=== PATIENT | male | born 1960 | race Caucasian/White ===

== ENCOUNTER 2019-04-02 17:05 | Emergency (ER) | payer OTHER ==
--- NOTE | 2019-04-02 17:50 | ED ---
Psych HPI - General Chief Complaint: Psychiatric Symptoms Stated Complaint: EPS eval Time Seen by Provider: 04/02/19 17:09 Source: patient, RN notes reviewed, old records reviewed Mode of arrival: ambulatory - Related Data Home Medications Medication Instructions Recorded Confirmed tiZANidine [Zanaflex] 4 mg PO TID PRN 03/07/15 04/02/19 HYDROcodone/APAP 5-325MG [Rule 1 tab PO BID PRN 04/02/19 04/02/19 5-325] Ibuprofen [Motrin] 800 mg PO TID PRN 04/02/19 04/02/19 Lipitor(Unknown Dose) 1 tab PO DAILY 04/02/19 04/02/19 Metoprolol Tartrate [Lopressor] 50 mg PO BID 04/02/19 04/02/19 Warfarin Sodium [Coumadin] 7.5 mg PO DAILY 04/02/19 04/02/19 Allergies Allergy/AdvReac Type Severity Reaction Status Date / Time Penicillins AdvReac Rash/Hives Verified 03/07/15 10:00 Review of Systems ROS Statement: Those systems with pertinent positive or pertinent negative responses have been documented in the HPI. ROS Other: All systems not noted in ROS Statement are negative. Past Medical History Past Medical History: Hypertension History of Any Multi-Drug Resistant Organisms: None Reported Past Surgical History: Orthopedic Surgery Past Psychological History: Depression Smoking Status: Never smoker Past Alcohol Use History: Occasional Past Drug Use History: None Reported General Exam Limitations: no limitations General appearance: alert, in no apparent distress, anxious Head exam: Present: atraumatic, normocephalic, normal inspection Eye exam: Present: normal appearance, PERRL, EOMI. Absent: scleral icterus, conjunctival injection, periorbital swelling ENT exam: Present: normal exam, mucous membranes moist Neck exam: Present: normal inspection. Absent: tenderness, meningismus, lymphadenopathy Respiratory exam: Present: normal lung sounds bilaterally. Absent: respiratory distress, wheezes, rales, rhonchi, stridor Cardiovascular Exam: Present: regular rate, normal rhythm, normal heart sounds. Absent: systolic murmur, diastolic murmur, rubs, gallop, clicks GI/Abdominal exam: Present: soft, normal bowel sounds. Absent: distended, tenderness, guarding, rebound, rigid Extremities exam: Present: normal inspection, full ROM, normal capillary refill. Absent: tenderness, pedal edema, joint swelling, calf tenderness Back exam: Present: normal inspection Neurological exam: Present: alert, oriented X3, CN II-XII intact Psychiatric exam: Present: normal affect, normal mood Skin exam: Present: warm, dry, intact, normal color. Absent: rash Course Vital Signs 04/02/19 17:06 Temperature 98.0 F Pulse Rate 84 Respiratory 18 Rate Blood Pressure 120/78 O2 Sat by Pulse 96 Oximetry - Reevaluation(s) Reevaluation #1: 04/02/19 21:17 Medical record and clear for psychiatric evaluation Reevaluation #2: 04/02/19 21:21 patient in pain and very sad and cryin Medical Decision Making - Medical Decision Making 59 male will be admitted for inpatient psychiatric evaluation and treatment Disposition Clinical Impression: Suicidal ideation, Depression, Acute anxiety Disposition: TRANSFER TO PSYCH HOSP/UNIT Condition: Fair Is patient prescribed a controlled substance at d/c from ED?: No Referrals: Mendel Rosenthal MD [Primary Care Provider] - 1-2 days
[2019-04-02] MEDS ORDERED: tiZANidine 4 MG TAB PO PRN (20:40)
[2019-04-02 21:29] LABS: HGB 13.2 gm/dL (13.0-17.5); MCH 29.6 pg (25.0-35.0); MCHC 33.9 g/dL (31.0-37.0); MCV 87.3 fL (80.0-100.0); Mean Platelet Volume 6.6; Platelet Count 205 k/uL (150-450); RBC 4.46 m/uL (4.30-5.90); RDW 13.6 % (11.5-15.5); WBC 7.3 k/uL (3.8-10.6)
[2019-04-02 21:38] LABS: African American GFR (CKD) >90 (>60 ml/min/1.73 sqM); Anion Gap 5 mmol/L; Blood Urea Nitrogen 14 mg/dL (9-20); Calcium 8.7 mg/dL (8.4-10.2); Carbon Dioxide 24 mmol/L (22-30); Chloride 112 mmol/L (98-107); Glucose 128 mg/dL (74-99); Potassium 4.1 mmol/L (3.5-5.1); Sodium 141 mmol/L (137-145)
[2019-04-03 06:48] LABS: Appearance,Urine Clear (Clear); Bilirubin,Urine Negative (Negative); Blood,Urine Negative (Negative); Color,Urine Yellow; Glucose,Urine (UA) Negative (Negative); Ketones,Urine Negative (Negative); Leukocyte Esterase,Urine Negative (Negative); Nitrite,Urine Negative (Negative); PH, Urine 5.5 (5.0-8.0); Protein,Urine Negative (Negative); Specific Gravity,Urine 1.018 (1.001-1.035)
[2019-04-03 06:55] LABS: INR 1.9 (<1.2); Prothrombin Time 18.4 sec (9.0-12.0)
[2019-04-03 06:59] LABS: Amphetamine Screen,Urine Not Detected (NotDetected); Barbiturate Screen,Urine Not Detected (NotDetected); Benzodiazepines Screen,Urine Not Detected (NotDetected); Cocaine Screen,Urine Detected (NotDetected); Methadone Screen, Urine Not Detected (NotDetected); Opiate Screen,Urine Not Detected (NotDetected); Oxycodone Screen, Urine Not Detected (NotDetected); Phencyclidine Screen,Urine Not Detected (NotDetected); Tricyclic Antidepressant,Urine Not Detected (NotDetected); Urn Cannabinoid Scrn Not Detected (NotDetected)
[2019-04-03 08:37] VITALS: BP 110/78; PULSE 81; RESP 19; TEMP 98
== END 2019-04-03 08:40 ==
LOC: EC 17:05
DX: F32.9 Major depressive disorder, single episode, unspecified (principal); F41.9 Anxiety disorder, unspecified; R45.851 Suicidal ideations; I10 Essential (primary) hypertension; Z88.0 Allergy status to penicillin; Z79.01 Long term (current) use of anticoagulants; Z79.899 Other long term (current) drug therapy
CPT/HCPCS: 36415; 80048; 80306; 81003; 82075; 85027; 85610; 99285

== ENCOUNTER → 2021-03-23 | Outpatient (CLI) | payer OTHER ==
[2021-03-23 11:31] LABS: Prothrombin Time 10.5 sec (9.0-12.0)
[2021-03-23 11:37] LABS: Basophils # (A) 0.1 k/uL (0-0.2); Basophils % (A) 1 %; Chloride 111 mmol/L (98-107); Eosinophils % (A) 1 %; HCT 42.8 % (39.0-53.0); HGB 14.8 gm/dL (13.0-17.5); Lymphocytes # (A) 1.3 k/uL (1.0-4.8); Lymphocytes % (A) 22 %; MCH 31.9 pg (25.0-35.0); MCHC 34.7 g/dL (31.0-37.0); MCV 92.1 fL (80.0-100.0); Mean Platelet Volume 7.6; Monocytes # (A) 0.3 k/uL (0-1.0); Monocytes % (A) 5 %; Neutrophils % (A) 70 %; Platelet Count 186 k/uL (150-450); RBC 4.65 m/uL (4.30-5.90); RDW 13.4 % (11.5-15.5); WBC 5.7 k/uL (3.8-10.6)
[2021-03-23 11:40] LABS: African American GFR (CKD) >90 (>60 ml/min/1.73 sqM); Anion Gap 6 mmol/L; Blood Urea Nitrogen 20 mg/dL (9-20); Calcium 9.1 mg/dL (8.4-10.2); Carbon Dioxide 25 mmol/L (22-30); Glucose 85 mg/dL (74-99); Non-African American GFR(CKD) >90 (>60 ml/min/1.73 sqM); Potassium 4.2 mmol/L (3.5-5.1); Sodium 142 mmol/L (137-145)
== END | disposition home or self-care (01) ==
LOC: PAT 10:02
PROVIDERS: ATTEND Orthopaedic Surgery
DX: Z22.321 Carrier or suspected carrier of Methicillin susceptible Staphylococcus aureus (principal); M16.11 Unilateral primary osteoarthritis, right hip
CPT/HCPCS: 36415; 80048; 85025; 85610; 87070

== ENCOUNTER 2021-03-31 05:44 | Day surgery (SDC) | payer OTHER ==
[2021-03-27 09:16] VITALS: BMI 32.5
--- NOTE | 2021-03-30 08:37 | HP ---
HISTORY AND PHYSICAL CHIEF COMPLAINT: Right hip pain. HISTORY OF PRESENT ILLNESS: Patient is a 61-year-old male who presents with progressive right hip pain for the past several years. It has worsened recently. He has had a difficult time with weightbearing activities. He ambulates with a cane. He notes he does limp. He has tried medications in addition to activity modifications without much relief. PAST MEDICAL HISTORY: Significant for atrial fibrillation, hypertension, and arthritis. PAST SURGICAL HISTORY: Significant for right shoulder fracture fixation, pacemaker implantation. CURRENT MEDICATIONS: Amiodarone, aspirin, Lipitor, Restoril, Wellbutrin, Plavix and Zanaflex. ALLERGIES: He has allergies to PENICILLIN and ADHESIVE TAPE. FAMILY HISTORY: Noncontributory. SOCIAL HISTORY: Negative for current tobacco or alcohol use. REVIEW OF SYSTEMS: Sixteen-point review of systems otherwise reviewed and noncontributory. PHYSICAL EXAMINATION: On examination, patient is approximately 5 foot 10, 210 pounds of endomorphic habitus. HEENT exam is nonfocal. Neck is supple. Passive motion of the right hip, flexion 80 degrees, external rotation, hip flexed 50 degrees, internal rotation -10 degrees with pain. Clinically, he has shortening of the right lower extremity compared to the left. He has an antalgic gait pattern. He has limited lumbar spine motion. His distal neurovascular exam appears intact in the right lower extremity. X-rays of the pelvis show severe bilateral hip osteoarthrosis with [id number] changes, subchondral sclerosis. IMPRESSION: 1. Right hip severe osteoarthrosis. 2. Atrial fibrillation on anticoagulation. RECOMMENDATIONS: I talked to the patient at length regarding his condition and treatment options. At this point, he is quite limited and symptomatic because of pain related to his osteoarthrosis despite previous conservative measures. After thorough discussion, he opts to proceed with surgery. We will plan proceed with right total hip arthroplasty utilizing an anterior approach. We will reinstitute his anticoagulation postoperatively. He underwent preoperative medical and cardiac clearance. MMODL / IJN: [id number] /
[~2021-03-31 05:44] MED LIST: ACETAMINOPHEN TAB 500 MG TAB PO PRN; MELOXICAM 7.5 MG TAB PO PRN; TRANEXAMIC ACID 1,000 MG in SODIUM CHLORIDE 0.9% 100 ML IVPB PRN
[2021-03-31] MEDS ORDERED: ONDANSETRON 4 MG/2 ML VIAL IVP ONE (05:57)
[2021-03-31] MEDS ORDERED: SCOPOLAMINE 1.5MG/72HR PATCH TRANSDERM ONE (05:57)
[2021-03-31] MEDS ORDERED: LACTATED RINGERS 1,000 ML IV SCH (05:57)
[2021-03-31] MEDS ORDERED: MIDAZOLAM 2 MG/2 ML VIAL IV PRN (05:57)
[2021-03-31] MEDS ORDERED: DEXAMETHASONE SOD PHOSPHATE 4 MG/ML 1 ML VIAL IV ONE (05:57)
[2021-03-31] MEDS ORDERED: MIDAZOLAM 2 MG/2 ML VIAL ONE (07:47)
[2021-03-31] MEDS ORDERED: fentaNYL (PF) 50 MCG/ML 2 ML AMP ONE (07:47)
[2021-03-31] MEDS ORDERED: TRANEXAMIC ACID 1,000 MG/10 ML VIAL ONE (07:47)
[2021-03-31] MEDS ORDERED: SUCCINYLCHOLINE CHLORIDE 100 MG/5 ML SYR IV ONE (07:47)
[2021-03-31] MEDS ORDERED: SODIUM CHLORIDE 0.9% 100 ML BAG ONE (07:47)
[2021-03-31] MEDS ORDERED: LIDOCAINE 1% INJ 10MG/ML (20 ML MDV) ONE (07:47)
[2021-03-31] MEDS ORDERED: PROPOFOL 10 MG/ML 20 ML VIAL IV ONE (07:47)
[2021-03-31] MEDS ORDERED: ceFAZolin 1,000 MG in SODIUM CHLORIDE 0.9% 1,000 ML IRRIGATION ONE (08:26)
[2021-03-31] MEDS ORDERED: LACTATED RINGERS 1,000 ML IV ONE (09:19)
[2021-03-31] MEDS ORDERED: NALOXONE 0.4 MG/ML 1 ML VIAL IV PRN (09:54)
[2021-03-31] MEDS ORDERED: HYDROmorphone 1 MG/ML 1 ML SYRINGE IVP PRN (09:54)
[2021-03-31] MEDS ORDERED: MAGNESIUM HYDROXIDE 2,400 MG/10 ML CUP PO PRN (09:54)
[2021-03-31] MEDS ORDERED: HYDROmorphone 0.5 MG/0.5 ML SYRINGE IVP PRN (09:54)
[2021-03-31] MEDS ORDERED: ACETAMINOPHEN TAB 325 MG TAB PO PRN (09:54)
[2021-03-31] MEDS ORDERED: HYDROcodone/APAP 5-325MG 1 EACH TAB PO PRN (09:54)
[2021-03-31] MEDS ORDERED: ONDANSETRON 4 MG/2 ML VIAL IVP PRN (09:54)
--- NOTE | 2021-03-31 10:16 | FL ---
EXAMINATION TYPE: FL guidance operating room, XR Hip Limited RT DATE OF EXAM: 03/31/2021 CLINICAL HISTORY: Right hip pain and osteoarthritis. TECHNIQUE: Fluoroscopy. Intraoperative limited views right hip. COMPARISON: Pelvic x-ray February 09, 2021. FINDINGS: Fluoroscopic guidance was provided during right hip replacement procedure performed by Dr. Max. A total of 34 seconds of fluoroscopic time was utilized during the procedure and 6 spot imag es was acquired. 6 intraoperative images obtained show metallic artifact from total right hip arthroplasty satisfactor y in position on frontal projection. IMPRESSION: As Above.
--- NOTE | 2021-03-31 10:17 | P.OP ---
Date of Procedure: 03/31/21 Preoperative Diagnosis: Right hip severe osteoarthrosis Postoperative Diagnosis: Same Procedure(s) Performed: Right total hip arthroplastyanterior approachpress-fit Implants: Depuy Corail size 11 high offset collared cementless femoral stem, 54 mm Sweeden acetabular shell, neutral polyethylene liner, 36+1.5 cobalt chrome femoral head Anesthesia: CLARA Surgeon: Adiel Max Relay Tester Helper #1: Fredo Tripathi Estimated Blood Loss (ml): 600 Pathology: other (Femoral head) Condition: stable Disposition: PACU Indications for Procedure: The patient's a 61-year-old male who presents with progressive right hip pain secondary to osteoarthrosis despite conservative measures. A discussion of the risks and benefits of operative intervention versus continued conservative measures made with patient. He opted proceed with surgery. Operative risks to include infection, neurovascular injury, development of blood clots, fracture, leg length discrepancy, instability, possible component loosening/failure and need for subsequent procedures was discussed. Informed consent was obtained. Operative Findings: As below Description of Procedure: The patient was brought to the operating room, and after induction of spinal anesthesia was placed supine on the Flcaa table. Positioning was checked with fluoroscopy. The right hip was then prepped and draped in a normal fashion. A 12 cm incision was then made starting 2 fingerbreadths distal and 3 finger breaths posterior to the ASIS in line with the proximal femur. The skin was incised sharply. Subcutaneous tissues were divided sharply. Electrocautery was used for hemostasis. The fascia was split in line with skin incision. The interval between the sartorius and tensor fascia rachel was then bluntly developed. The posterior fascia was opened with electrocautery. The lateral circumflex vessels were identified and cauterized prior to sectioning. A retractor was placed along the superior femoral neck as well as the anterior acetabular rim. A wide capsulotomy was performed. The neck cut was then made at a 45 angle to the shaft approximately 1 1/2 cm above the level of the lesser trochanter. The head was extracted. Attention was then paid towards preparing the acetabular. Anterior and posterior retractors were placed. The remaining capsular labral tissue sharply debrided clearly defining the aceta bular margins. I began reaming with a 49 mm reamer taking care to initially medialize then reaming at 45 of abduction and 20 of anteversion. Sequential reaming is performed up to 53 mm. A trial 54 mm acetabular shell was inserted in the same orientation and was fully seated. There was good rim fit and stability. Positioning was checked with fluoroscopy. The final 54 mm acetabular shell was inserted again at 45 of abduction and 20 of anteversion. This was fully seated. There was good rim fit and stability. A posterior superior 6.5 x 25 mm cancellus screw was inserted with good purchase. Again fluoroscopy was used to check the adequacy of placement. A neutral polyethylene liner was gently impacted. Care was taken to avoid any soft tissue interposition. Pulsatile lavage was utilized. Attention was then paid towards preparing the proximal femur. The central region was cleared of soft tissue. A canal finder was used to find the femoral canal. Sequential broaching was performed up to size 11 taking care to lateralize proximally. A calcar mill was used to fashion the medial calcar. There was good rotational stability. A high offset neck along with a 36 mm +1.5 head was placed. The hip was gently reduced. Fluoroscopy was used to check the adequacy of positioning along with leg lengths. I felt both were good. The hip was gently dislocated. The trial components were removed. The final size 11 collared standard press-fit femoral stem was inserted parallel to the posterior cortex. This was fully seated and there was good rotational stability. A 36 mm +1.5 cobalt chrome femoral head was placed. This was gently impacted. The hip was then gently reduced. Final fluoroscopic view showed adequate placement implant along with faith of leg length. Stability was checked with 80 of external rotation and 60 of extension of the right hip. The wound was irrigated with sterile lavage. The fascia was closed with running 0 Vicryl suture. There was minimal drainage therefore a deep drain was not placed. The second dose of IV TXA was given. The subcutaneous tissues were reapproximated interrupted 2-0 Vicryl sutures. The skin was reapproximated with 3-0 subcuticular strata fix suture. Skin tape and adhesive was applied. A sterile dressing was applied. The patient was then awoken from sedation and transferred to recovery room in good condition. Blood loss was estimated at 600 mL. No complications were incurred. Sponge and needle counts were correct at the end of the case. Daniel REYNOLDS assisted during the major components in the case to include exposure, bone resection, implantation, and closure.
[2021-03-31] MEDS: HYDROmorphone 0.5 MG/0.5 ML SYRINGE IVP PRN ×2 (10:22→10:41)
--- NOTE | 2021-03-31 10:43 | XR ---
EXAMINATION TYPE: XR Hip Limited RT DATE OF EXAM: 03/31/2021 CLINICAL HISTORY: Right hip pain and osteoarthritis. TECHNIQUE: Single AP portable view of right hip is obtained immediately postoperatively. COMPARISON: None. FINDINGS: Metallic hardware from right hip arthroplasty is seen and appears satisfactory in alignment and position. There is evidence of recent surgery with subcutaneous gas noted laterally. IMPRESSION: Metallic hardware from right hip arthroplasty is satisfactory in position.
[2021-03-31] MEDS: HYDROcodone/APAP 7.5-325MG 1 EACH TAB PO PRN ×2 (14:52→21:52)
--- NOTE | 2021-03-31 16:15 | P.CONS ---
History of Present Illness - Reason for Consult Consult date: 03/31/21 med management - Chief Complaint hip pain - History of Present Illness 61-year-old male with history of atrial fibrillation status post Watchman procedure currently not on anticoagulation, hypertension presented for elective Right total hip arthroplasty. He just had the procedure today, was tolerated well. Currently denies any chest pain or shortness of breath. No dizziness. No fevers or chills. Pain is managed with pain medication. Review of Systems Complete review of system performed, pertinent positives pressure, otherwise negative Past Medical History Past Medical History: Hypertension History of Any Multi-Drug Resistant Organisms: None Reported Past Surgical History: Orthopedic Surgery Additional Past Surgical History / Comment(s): watchman device placed 10/10. rt shoulder reconstructed with plate and screws,lt knee scope x2 Past Anesthesia/Blood Transfusion Reactions: No Reported Reaction Type of Cardiac Device: Permanent Pacemaker Device Placement Date:: 2017 Smoking Status: Never smoker - Past Family History Mother Family Medical History: Cancer Additional Family Medical History / Comment(s): lung cancer Father Family Medical History: Deep Vein Thrombosis (DVT), Myocardial Infarction (MS), Pulmonary Embolus Medications and Allergies Home Medications Medication Instructions Recorded Confirmed Type tiZANidine [Zanaflex] 4 mg PO TID PRN 03/07/15 03/31/21 History Ibuprofen [Motrin] 800 mg PO TID PRN 04/02/19 03/31/21 History Lipitor(Unknown Dose) 1 tab PO DAILY 04/02/19 03/31/21 History Clopidogrel [Plavix] 75 mg PO DAILY 03/27/21 03/31/21 History DULoxetine HCL [Cymbalta] 30 mg PO BID 03/27/21 03/31/21 History Amiodarone [Cordarone] mg PO DAILY 03/31/21 03/31/21 History Diltiazem Oral [Cardizem] mg PO DAILY 03/31/21 History Allergies Allergy/AdvReac Type Severity Reaction Status Date / Time adhesive Allergy Rash/Hives Verified 03/31/21 06:50 Penicillins AdvReac Rash/Hives Verified 03/31/21 06:50 Physical Exam Vitals: Vital Signs Temp Pulse Pulse Resp BP BP Pulse Ox 03/31/21 11:00 61 16 141/74 96 03/31/21 10:45 63 16 138/69 96 03/31/21 10:30 71 14 143/81 96 03/31/21 10:13 97.1 F L 78 20 147/73 97 03/31/21 07:06 98.2 F 73 18 144/72 97 Intake and Output 03/30/21 03/31/21 03/31/21 22:59 06:59 14:59 Intake Total 100 1601 Balance 100 1601 Intake: IV 100 1601 Other: Weight 101.5 kg Constitutional: No acute distress, conversant, pleasant Eyes:Anicteric sclerae, moist conjunctiva, no lid-lag, PERRLA, ENMT: Oropharynx clear, no erythema, exudates Neck: Supple, FROM, no masses, or JVD, No carotid bruits, No thyromegaly Lungs: Clear to auscultation, Clear to percussion, Normal respiratory effort, no accessory muscle use Cardiovascular: Heart regular in rate and rhythm, No murmurs, gallops, or rubs, No peripheral edema Abdominal: Soft, Nontender, no guarding, rebound or rigidity, Normoactive bowel sounds, No hepatomegaly, No splenomegaly, No palpable mass Skin: Normal temperature, tone, texture, turgor, no induration, No subcutaneous nodules, No rash, lesions, No ulcers Extremities: No digital cyanosis, No clubbing, Pedal pulses intact and symmetrical, Radial pulses intact and symmetrical, No calf tenderness Psychiatric: Alert and oriented to person, place and time, appropriate affect, intact judgement Neuro: Muscles Strength 5/5 in all 4 extremities, Sensation to light touch grossly present throughout, Cranial nerves II-XII grossly intact, no focal sensory deficits Assessment and Plan Plan: Left hip pain status post Right total hip arthroplasty Management per surgery, pain control according to surgical service. Atrial fibrillation status post watchman device Hypertension, essential Depression Resume home medications. Obesity Structured outpatient weight loss DVT prophylaxis Please start once ok with surgery.
[2021-03-31] MEDS: DILTIAZEM CD 240 MG CAP.ER.24H PO SCH (17:23)
[2021-03-31] MEDS: SENNOSIDES-DOCUSATE SODIUM 1 EACH TAB PO SCH (21:52)
[2021-03-31] MEDS: DULoxetine HCL 30 MG CAPSULE.DR PO SCH (21:52)
[2021-04-01 07:07] LABS: Basophils % (A) 0 %; Eosinophils % (A) 0 %; HCT 38.5 % (39.0-53.0); HGB 12.9 gm/dL (13.0-17.5); Lymphocytes # (A) 0.8 k/uL (1.0-4.8); Lymphocytes % (A) 8 %; MCH 31.2 pg (25.0-35.0); MCHC 33.6 g/dL (31.0-37.0); Monocytes # (A) 0.9 k/uL (0-1.0); Monocytes % (A) 8 %; Neutrophils # (A) 9.3 k/uL (1.3-7.7); Neutrophils % (A) 83 %; Platelet Count 174 k/uL (150-450); RBC 4.14 m/uL (4.30-5.90); RDW 12.9 % (11.5-15.5); WBC 11.2 k/uL (3.8-10.6)
[2021-04-01] MEDS ORDERED: CLOPIDOGREL 75 MG TAB PO SCH (09:00)
[2021-04-01] MEDS: DILTIAZEM CD 240 MG CAP.ER.24H PO SCH (09:19)
[2021-04-01] MEDS: DULoxetine HCL 30 MG CAPSULE.DR PO SCH ×2 (09:19→20:16)
[2021-04-01] MEDS: AMIODARONE 100 MG TAB PO SCH (09:19)
[2021-04-01] MEDS: APIXABAN 2.5 MG TABLET PO SCH ×2 (09:19→20:16)
[2021-04-01] MEDS: HYDROcodone/APAP 7.5-325MG 1 EACH TAB PO PRN ×2 (09:20→16:43)
--- NOTE | 2021-04-01 09:44 | P.PN ---
Subjective Progress Note Date: 04/01/21 Principal diagnosis: Status post direct anterior right total hip arthroplasty Patient was evaluated today at bedside, he is resting comfortably in his hospital bed. He has not been up with physical therapy at this time. He does note some weakness in the right lower extremity. He notes most of the discomfort in the anterior thigh. He currently is having no chest pain, short ness of breath, nausea or vomiting. Objective - Vital Signs Vital signs: Vital Signs Temp 98.5 F 04/01/21 08:00 Pulse 60 04/01/21 08:00 Resp 16 04/01/21 08:00 BP 151/80 04/01/21 08:00 Pulse Ox 93 L 04/01/21 08:00 Intake & Output 03/31/21 04/01/21 04/01/21 18:59 06:59 18:59 Intake Total 1601 Output Total 1100 450 Balance 501 -450 Weight 101.5 kg Intake: IV 1601 Output: Urine 500 450 Estimated Blood Loss 600 Other: Voiding Method Urinal - Exam Right lower extremity: Incision is clean, dry, and intact. The exofin fusion tape is in good condition. There is minimal soft tissue swelling and ecchymosis surrounding the medial and lateral aspects of the incision. Calf is soft, no tenderness with palpation. Plantar flexion, dorsiflexion, EHL, FHL are intact. Sensory exam to light touch throughout the extremity is intact, dorsal pedis pulses 2+. - Labs CBC & Chem 7: 04/01/21 06:27 Labs: Abnormal Lab Results - Last 24 Hours (Table) 04/01/21 Range/Units 06:27 WBC 11.2 H (3.8-10.6) k/uL RBC 4.14 L (4.30-5.90) m/uL Hgb 12.9 L (13.0-17.5) gm/dL Hct 38.5 L (39.0-53.0) % Neutrophils # 9.3 H (1.3-7.7) k/uL Lymphocytes # 0.8 L (1.0-4.8) k/uL Assessment and Plan Assessment: Postoperative day #1 status post direct anterior right total hip arthroplasty Plan: Pain control, continue with current medications GI and DVT prophylaxis, patient has been transitioned to it a few different blood thinners by his toxicology teacher. He was currently taking Plavix prior to surgery. We'll discuss with medicine best choice for outpatient DVT prophylaxis Wound care instructions were discussed with the patient, this including icing and elevating along with showering Continue work with PT, recommend use of walker when ambulating Encourage incentive spirometer Internal medicine recommendations Discharge planning: Patient does live about 5 hours away, patient states that he will have a family member available tomorrow for taking home. This will provide us time to work case management to set up home health care for him. Plan for discharge on 04/02/2021 Time with Patient: Less than 30
--- NOTE | 2021-04-01 14:43 | P.PN ---
Subjective Progress Note Date: 04/01/21 Principal diagnosis: Hip pain Doing well. Ambulating with a walker. Objective - Vital Signs Vital signs: Vital Signs Temp 98.1 F 04/01/21 14:00 Pulse 64 04/01/21 14:00 Resp 16 04/01/21 14:00 BP 136/73 04/01/21 14:00 Pulse Ox 95 04/01/21 14:00 Intake & Output 03/31/21 04/01/21 04/01/21 18:59 06:59 18:59 Intake Total 1601 236 Output Total 1100 450 Balance 501 -450 236 Weight 101.5 kg Intake: IV 1601 Oral 236 Output: Urine 500 450 Estimated Blood Loss 600 Other: Voiding Method Urinal Urinal - Exam Constitutional: No acute distress, conversant, pleasant Eyes:Anicteric sclerae, moist conjunctiva, no lid-lag, PERRLA, ENMT: Oropharynx clear, no erythema, exudates Neck: Supple, FROM, no masses, or JVD, No carotid bruits, No thyromegaly Lungs: Clear to auscultation, Clear to percussion, Normal respiratory effort, no accessory muscle use Cardiovascular: Heart regular in rate and rhythm, No murmurs, gallops, or rubs, No peripheral edema Abdominal: Soft, Nontender, no guarding, rebound or rigidity, Normoactive bowel sounds, No hepatomegaly, No splenomegaly, No palpable mass Skin: Normal temperature, tone, texture, turgor, no induration, No subcutaneous nodules, No rash, lesions, No ulcers Extremities: No digital cyanosis, No clubbing, Pedal pulses intact and symmetrical, Radial pulses intact and symmetrical, No calf tenderness Psychiatric: Alert and oriented to person, place and time, appropriate affect, intact judgement Neuro: Muscles Strength 5/5 in all 4 extremities, Sensation to light touch grossly present throughout, Cranial nerves II-XII grossly intact, no focal se nsory deficits - Labs CBC & Chem 7: 04/01/21 06:27 Labs: Abnormal Lab Results - Last 24 Hours (Table) 04/01/21 Range/Units 06:27 WBC 11.2 H (3.8-10.6) k/uL RBC 4.14 L (4.30-5.90) m/uL Hgb 12.9 L (13.0-17.5) gm/dL Hct 38.5 L (39.0-53.0) % Neutrophils # 9.3 H (1.3-7.7) k/uL Lymphocytes # 0.8 L (1.0-4.8) k/uL Assessment and Plan Plan: Left hip pain status post Right total hip arthroplasty Management per surgery, pain control according to surgical service. Atrial fibrillation status post watchman device Hypertension, essential Depression Resume home medications. Obesity Structured outpatient weight loss DVT prophylaxis Can be started on either lovenox s.q or eliquis 2.5 mg bid for 35 days, he prefers eliquis.
[2021-04-01] MEDS: SENNOSIDES-DOCUSATE SODIUM 1 EACH TAB PO SCH (20:16)
[2021-04-02] MEDS: HYDROcodone/APAP 7.5-325MG 1 EACH TAB PO PRN ×3 (00:18→13:00)
[2021-04-02 08:07] VITALS: BP 112/71; PULSE 70; RESP 16; TEMP 98.5
[2021-04-02] MEDS: DILTIAZEM CD 240 MG CAP.ER.24H PO SCH (08:51)
[2021-04-02] MEDS: APIXABAN 2.5 MG TABLET PO SCH (08:52)
[2021-04-02] MEDS: AMIODARONE 100 MG TAB PO SCH (08:52)
[2021-04-02] MEDS: DULoxetine HCL 30 MG CAPSULE.DR PO SCH (08:52)
--- NOTE | 2021-04-02 09:26 | P.PN ---
Subjective Progress Note Date: 04/02/21 Principal diagnosis: Status post direct anterior right total hip arthroplasty Patient was evaluated today at bedside, he is resting comfortably in his hospital bed. He is progressing well at this time. He's been up ambulating a few different occasions. He is urinating with no difficulties. His pain is currently controlled. He currently is having no chest pain, shortness of breath, nausea or vomiting. Objective - Vital Signs Vital signs: Vital Signs Temp 98.5 F 04/02/21 08:00 Pulse 70 04/02/21 08:00 Resp 16 04/02/21 08:00 BP 112/71 04/02/21 08:00 Pulse Ox 97 04/02/21 08:00 Intake & Output 04/01/21 04/02/21 04/02/21 18:59 06:59 18:59 Intake Total 236 236 Output Total 325 Balance 236 -325 236 Intake: Oral 236 236 Output: Urine 325 Other: Voiding Method Urinal # Voids 1 - Exam Right lower extremity: Incision is clean, dry, and intact. The exofin fusion tape is in good condition. There is minimal soft tissue swelling and ecchymosis surrounding the medial and lateral aspects of the incision. Calf is soft, no tenderness with palpation. Plantar flexion, dorsiflexion, EHL, FHL are intact. Sensory exam to light touch throughout the extremity is intact, dorsal pedis pulses 2+. - Labs CBC & Chem 7: 04/01/21 06:27 Assessment and Plan Assessment: Postoperative day #2 status post direct anterior right total hip arthroplasty Plan: Pain control, plan for discharge home on [place] 7.5 mg/325 mg GI and DVT prophylaxis, was able to discuss with internal medicine yesterday medications for discharge, we will utilize Eliquis 2.5 mg twice a day for 30 days. I advised patient follow-up with his natural remedy consultant to discuss further use of an anticoagulant Wound care instructions were discussed with the patient, this including icing and elevating along with showering Home physical therapy and nursing after discharge Encourage incentive spirometer Internal medicine recommendations Discharge planning: planning for discharge today Time with Patient: Less than 30
--- NOTE | 2021-04-02 09:43 | P.DS ---
Providers Date of admission: 03/31/2021 Expected date of discharge: 04/02/21 Attending physician: Adiel Max Consults: 03/31/21 09:54 Consult Physician Routine Consulting Provider: Heather Augustin Consult Reason/Comments: medical management Do you want consulting provider notified?: Yes Primary care physician: Stated None Hospital Course: Date of admission: 03/31/2021 Date of discharge: 04/02/2021 Admission diagnosis: Status post direct anterior right total hip arthroplasty Discharge diagnosis: Same Attending physician: Dr. Max Surgical procedures: Direct anterior right total hip arthroplasty Brief history: Patient is a 61-year-old male with a history of with progressive primary right hip osteoarthritis. At this point patient has failed conservative treatment measures and has opted to proceed with a elective direct anterior right total hip arthroplasty. Hospital course: Details of patient's surgery can be found in operative report. Patient tolerated the procedure well and was subsequently transported to orthopedic floor. Patient's orthopeidc and medical care was provided daily. Patient had daily laboratory tests performed for evaluation of overall blood counts. Patient had daily physical therapy to include strengthening range of motion as well as education with walker ambulation. Patient was treated with Eliquis for their postoperative DVT prophylaxis during their inpatient stay. Patient was noted to have a relatively uneventful postoperative course. Patient reported satisfactory pain control with oral pain medications by postoperative day 0. Patient showed satisfactory progress with physical therapy. Patient moved steadily through the program and had no difficulty meeting the goals by postoperative day 2. Given patient's otherwise satisfactory course and having met physical therapy goals, plan is to discharge patient home on postoperative day 2. Discharge condition/disposition: Patient will be discharged home in stable con dition. Discharge medications: Instructions are given on resumption of patient's normal daily medications per primary care recommendation, in addition patient will be prescribed Gilliam 7.5 mg/325 mg, Colace 100 mg, Eliquis 2.5 mg. Discharge instructions: 1. Wound care and infection precautions, keep incision dry and covered while showering, no lotions, creams, moisturizers. No soaking, tubs, pools, hottubs. Do not scrub over the incision. 2. Weight-bear as tolerated with walker / cane until follow-up. 3. Ice and elevate when necessary. Do not exceed 20 minutes per hour with ice pack. 4. Utilize compression sleeve until seen at first follow up appointment. 5. Visiting nursing care. 6. Home physical therapy. 7. Pain meds and anticoagulants per prescription. 8. Pain medication has potential to cause constipation. Increase oral fluid and fiber intake. Contact primary care provider if you have not had a bowel movement within 48 hours after discharge 9. No anti-inflammatory medication until discussed at first post operative visit, this including Motrin, Aleve, Mobic, Diclofenac. 10. Follow up in office at 2 weeks postop with Daniel Tripathi PA-C/Melo Moya 11. Follow up with your primary care doctor 7-10 days after discharge. 12. Contact [facility] with any questions, . Procedures: Direct anterior right total hip arthroplasty Patient Condition at Discharge: Good Plan - Discharge Summary Discharge Rx Participant: No New Discharge Prescriptions: New HYDROcodone/APAP 7.5-325MG [Gilliam 7.5] 1 each PO Q6HR PRN #28 tab PRN Reason: Pain Docusate [Colace] 100 mg PO DAILY #30 capsule Apixaban [Eliquis] 2.5 mg PO BID #60 tab Discontinued Clopidogrel [Plavix] 75 mg PO DAILY No Action tiZANidine [Zanaflex] 4 mg PO TID PRN PRN Reason: Muscle Spasm Ibuprofen [Motrin] 800 mg PO TID PRN PRN Reason: Pain Lipitor(Unknown Dose) 1 tab PO DAILY DULoxetine HCL [Cymbalta] 30 mg PO BID Diltiazem Oral [Cardizem] mg PO DAILY Amiodarone [Cordarone] mg PO DAILY Discharge Medication List tiZANidine [Zanaflex] 4 mg PO TID PRN 03/07/15 [History] Ibuprofen [Motrin] 800 mg PO TID PRN 04/02/19 [History] Lipitor(Unknown Dose) 1 tab PO DAILY 04/02/19 [History] DULoxetine HCL [Cymbalta] 30 mg PO BID 03/27/21 [History] Amiodarone [Cordarone] mg PO DAILY 03/31/21 [History] Diltiazem Oral [Cardizem] mg PO DAILY 03/31/21 [History] Apixaban [Eliquis] 2.5 mg PO BID #60 tab 04/02/21 [Rx] Docusate [Colace] 100 mg PO DAILY #30 capsule 04/02/21 [Rx] HYDROcodone/APAP 7.5-325MG [Gilliam 7.5] 1 each PO Q6HR PRN #28 tab 04/02/21 [Rx] Follow up Appointment(s)/Referral(s): Melo Morales PAC [PHYSICIAN CMM PROGRAMMER] - 2 Weeks [facility], [NON-STAFF] - ([facility] will call you to schedule your home care physical therapy and nursing visits. ) Activity/Diet/Wound Care/Special Instructions: Orthopedic Discharge Instructions: 1. Wound care and infection precautions, keep incision dry and covered while showering, no lotions, creams, moisturizers. No soaking, pools, hot tubs. Do not scrub over incision. 2. Weight-bear as tolerated with walker / cane until follow-up. 3. Ice and elevate when necessary. Do not exceed 20 minutes per hour with ice pack. 4. Utilize compression sleeve until seen at first follow up appointment. 5. Pain meds and anticoagulants per prescription. 6. Pain medication has potential to cause constipation. Increase oral fluid and fiber intake. Contact primary care provider if you have not had a bowel movement within 48 hours after discharge. 7. No anti-inflammatory medication until discussed at first post operative visit, this including Motrin, Aleve, Mobic, Diclofenac. 8. Follow up in office at 2 weeks postop with Daniel Tripathi PA-C/Melo Morales PA-C 9. Follow up with your primary care doctor 7-10 days after discharge. 10. Contact [facility] with any questions, . Discharge Disposition: HOME WITH HOME HEALTH SERVICES
== END 2021-04-02 14:33 | disposition home health service (06) ==
LOC: OR 05:44 → 4SSUR 10:09 → OR 04-02 14:33
PROVIDERS: ATTEND Orthopaedic Surgery
DX: M16.11 Unilateral primary osteoarthritis, right hip (principal); I48.91 Unspecified atrial fibrillation; I10 Essential (primary) hypertension; Z98.890 Other specified postprocedural states; Z95.0 Presence of cardiac pacemaker; Z87.81 Personal history of (healed) traumatic fracture; E04.1 Nontoxic single thyroid nodule; E66.9 Obesity, unspecified; Z68.32 Body mass index [BMI] 32.0-32.9, adult; R53.1 Weakness; R20.2 Paresthesia of skin; Z97.2 Presence of dental prosthetic device (complete) (partial); Z79.02 Long term (current) use of antithrombotics/antiplatelets; Z79.82 Long term (current) use of aspirin; Z79.899 Other long term (current) drug therapy; Z88.0 Allergy status to penicillin; Z91.09 Other allergy status, other than to drugs and biological substances
CPT/HCPCS: 97116; 97161; 86900; 86901; 85025; 86850; 88300; 87635; 73501; 27130; C1776; J1100; J0690 ×2; J2405; J1170

== ENCOUNTER 2021-07-07 06:30 | Observation (INO) | payer OTHER ==
[2021-07-02 15:01] VITALS: BMI 33.7
--- NOTE | 2021-07-06 10:40 | HP ---
HISTORY AND PHYSICAL CHIEF COMPLAINT: Left hip pain. HISTORY OF PRESENT ILLNESS: Patient is a 61-year-old male who presents with progressive left hip pain for the past several years, worsening recently. He is having pain with weightbearing activities and at night. He has tried medications in addition to use of a cane, without much relief. PAST MEDICAL HISTORY: Significant for atrial fibrillation, hypertension, arthritis. PAST SURGICAL HISTORY: Significant for right shoulder arthroscopy, right total hip arthroplasty, pacemaker insertion. CURRENT MEDICATIONS: Amiodarone, aspirin, Lipitor, Wellbutrin, Zanaflex, Plavix, hydrocodone. ALLERGIES: He notes ALLERGY TO PENICILLIN AND TAPE. FAMILY HISTORY: Significant for diabetes, cancer and blood clots. SOCIAL HISTORY: Negative for current tobacco or alcohol use. REVIEW OF SYSTEMS: Sixteen-point review of systems otherwise reviewed and is noncontributory. PHYSICAL EXAMINATION: On examination, the patient is approximately 5 feet 10 inches, 206 pounds of endomorphic habitus. HEENT exam is nonfocal. Neck is supple. Passive motion of left hip: Flexion 70 degrees, external rotation of the hip flexed 60 degrees, internal rotation minus 10 degrees with pain. His distal neurovascular exam appears intact in the left lower extremity. AP of the pelvis obtained in the office shows left hip severe osteoarthrosis with bone- on-bone changes. IMPRESSION: 1. Left hip severe osteoarthrosis. 2. History of atrial fibrillation, on anticoagulation. RECOMMENDATIONS: I talked to the patient at length regarding his condition along with treatment options. At this point he opts to proceed with surgery. We will plan to proceed with left total hip arthroplasty utilizing an anterior approach. Risks and benefits were discussed at length in layman's terms. We will reinstitute his Plavix postoperatively. MMODL / IJN: [id number] /
[2021-07-07] MEDS: LACTATED RINGERS 1,000 ML IV SCH ×2 (07:31→07:54)
[2021-07-07] MEDS: ONDANSETRON 4 MG/2 ML VIAL IVP ONE ×3 (07:48→14:32)
[2021-07-07] MEDS ORDERED: TRANEXAMIC ACID 1,000 MG/10 ML VIAL ONE (07:50)
[2021-07-07] MEDS ORDERED: HYDROmorphone (PF) 1 MG/ML ONE (07:50)
[2021-07-07] MEDS ORDERED: fentaNYL (PF) 50 MCG/ML 2 ML AMP ONE (07:50)
[2021-07-07] MEDS ORDERED: MIDAZOLAM 2 MG/2 ML VIAL ONE (07:50)
[2021-07-07] MEDS ORDERED: ePHEDrine 50 MG/ML 1 ML VIAL ONE (07:50)
[2021-07-07] MEDS ORDERED: WATER FOR INJECTION, STERILE 10 ML VIAL IV ONE (07:50)
[2021-07-07] MEDS ORDERED: LIDOCAINE 1% INJ 10MG/ML (20 ML MDV) ONE (07:50)
[2021-07-07] MEDS ORDERED: NEOSTIGMINE 1 MG/ML 10 ML VIAL ONE (07:50)
[2021-07-07] MEDS ORDERED: KETAMINE 10 MG/ML 20 ML VIAL ONE (07:50)
[2021-07-07] MEDS ORDERED: SODIUM CHLORIDE 0.9% 100 ML BAG ONE (07:50)
[2021-07-07] MEDS ORDERED: SUCCINYLCHOLINE CHLORIDE 100 MG/5 ML SYR IV ONE (07:50)
[2021-07-07] MEDS ORDERED: PROPOFOL 10 MG/ML 20 ML VIAL IV ONE (07:50)
[2021-07-07] MEDS ORDERED: ROCURONIUM 10 MG/ML (5 ML VIAL) IV ONE (07:50)
[2021-07-07] MEDS ORDERED: GLYCOPYRROLATE 0.2 MG/ML 2 ML VIAL ONE (07:50)
[2021-07-07] MEDS: DEXAMETHASONE SOD PHOSPHATE 4 MG/ML 1 ML VIAL IV ONE ×2 (07:53→14:31)
[2021-07-07] MEDS ORDERED: ceFAZolin 1,000 MG in SODIUM CHLORIDE 0.9% 1,000 ML IRRIGATION ONE (08:33)
[2021-07-07] MEDS ORDERED: LACTATED RINGERS 1,000 ML IV ONE (09:30)
--- NOTE | 2021-07-07 10:21 | FL ---
EXAMINATION TYPE: FL guidance operating room DATE OF EXAM: 07/07/2021 HISTORY: Fluoroscopy time 25 seconds of fluoroscopy provided. IMPRESSION: 1. Fluoroscopy time.
[2021-07-07] MEDS ORDERED: NALOXONE 0.4 MG/ML 1 ML VIAL IV PRN (10:32)
[2021-07-07] MEDS ORDERED: HYDROcodone/APAP 5-325MG 1 EACH TAB PO PRN (10:32)
[2021-07-07] MEDS ORDERED: HYDROmorphone 1 MG/ML 1 ML SYRINGE IVP PRN (10:32)
--- NOTE | 2021-07-07 10:44 | P.OP ---
Date of Procedure: 07/07/21 Preoperative Diagnosis: Left hip severe osteoarthrosis Postoperative Diagnosis: Same Procedure(s) Performed: Left total hip arthroplastyanterior approachpress-fit Implants: Depuy Corail size 12 KLA collared press-fit femoral stem, 36+1.5 cobalt chrome femoral head, 52 mm Enfield acetabular shell with neutral polyethylene liner. I also utilized a 6.5 x 25 mm cancellus screw. Anesthesia: GETA Surgeon: Adiel Max [employer] Teacher #1: Melo Morales Estimated Blood Loss (ml): 800 Pathology: other (Femoral head) Condition: stable Disposition: PACU Indications for Procedure: Patient is a 61-year-old male who presents with progressive left hip pain secondary to osteoarthrosis despite conservative measures. He discussion of the risks and benefits of operative intervention versus continued conservative measures was made with patient. He opted to proceed with surgery. Operative risks to include infection, neurovascular injury, development of blood clots, possible leg length discussed, possible instability, possible fracture, possible component loosening/failure need for subsequent procedures was discussed. Informed consent was obtained. Operative Findings: As below Description of Procedure: The patient was brought to the operating room, and after induction of spinal anesthesia was placed supine on the Flaca table. Positioning was checked with fluoroscopy. The left hip was then prepped and draped in a normal fashion. A 12 cm incision was then made starting 2 fingerbreadths distal and 3 finger breaths posterior to the ASIS in line with the proximal femur. The skin was incised sharply. Subcutaneous tissues were divided sharply. Electrocautery was used for hemostasis. The fascia was split in line with skin incision. The interval between the sartorius and tensor fascia rachel was then bluntly developed. The posterior fascia was opened with electrocautery. The lateral circumflex vessels were identified and cauterized prior to sectioning. A ret ractor was placed along the superior femoral neck as well as the anterior acetabular rim. A wide capsulotomy was performed. The neck cut was then made at a 45 angle to the shaft approximately 1 1/2 cm above the level of the lesser trochanter. The head was extracted. Attention was then paid towards preparing the acetabular. Anterior and posterior retractors were placed. The remaining capsular labral tissue sharply debrided clearly defining the acetabular margins. I began reaming with a 45 mm reamer taking care to initially medialize then reaming at 45 of abduction and 20 of anteversion. Sequential reaming is performed up to 51 mm. A trial 52 mm acetabular shell was inserted in the same orientation and was fully seated. There was good rim fit and stability. Positioning was checked with fluoroscopy. The final 52 mm acetabular shell was inserted again at 45 of abduction and 20 of anteversion. This was fully seated. There was good rim fit and stability. I did place a posterior superior cancellus screw measuring 6.5 x 25 mm with good purchase. Again fluoroscopy was used to check the adequacy of placement. A neutral polyethylene liner was gently impacted. Care was taken to avoid any soft tissue interposition. Pulsatile lavage was utilized. Attention was then paid towards preparing the proximal femur. The central region was cleared of soft tissue. A canal finder was used to find the femoral canal. Sequential broaching was performed up to size 12 taking care to lateralize proximally. A calcar mill was used to fashion the medial calcar. There was good rotational stability. A KLA neck along with a 36+1.5 mm head was placed. The hip was gently reduced. Fluoroscopy was used to check the adequacy of positioning along with leg lengths. I felt both were good. The hip was gently dislocated. The trial components were removed. The final size 12 collared KLA press-fit femoral stem was inserted parallel to the posterior cortex. This was fully seated and there was good rotational stability. A 36 mm 1.5 head was placed. This was gently impacted. The hip was then gently reduced. Final fluoroscopic view showed adequate placement implant along with samaritan of leg length. Stability was checked with 80 of external rotation and 60 of extension of the right hip. The wound was irrigated with sterile lavage. The fascia was closed with running 0 Vicryl suture. There was minimal drainage therefore a deep drain was not placed. The second dose of IV TXA was given. The subcutaneous tissues were reapproximated interrupted 2-0 Vicryl sutures. The skin was reapproximated with 3-0 subcuticular strata fix suture. Skin tape and adhesive was applied. A sterile dressing was applied. The patient was then awoken from sedation and transferred to recovery room in good condition. Blood loss was estimated at 800 mL. No complications were incurred. Sponge and needle counts were correct at the end of the case. Melo REYNOLDS assisted during the major components is case to include exposure, bone resection, implantation, and closure.
[2021-07-07] MEDS: HYDROmorphone 0.5 MG/0.5 ML SYRINGE IVP PRN ×3 (10:55→11:12)
--- NOTE | 2021-07-07 11:01 | XR ---
EXAMINATION TYPE: XR Hip Limited LT DATE OF EXAM: 07/07/2021 COMPARISON: NONE HISTORY: Postop TECHNIQUE: One view submitted. FINDINGS: There is postsurgical change in near anatomic alignment. There is soft tissue edema and emphysema. IMPRESSION: 1. Postoperative change. Appears in near-anatomic alignment.
[2021-07-07] MEDS ORDERED: diphenhydrAMINE 50 MG/ML 1 ML VIAL IVP ONE (12:11)
--- NOTE | 2021-07-07 12:33 | XR ---
EXAMINATION TYPE: XR Hip Limited LT DATE OF EXAM: 07/07/2021 CLINICAL HISTORY: Left hip pain and osteoarthritis. TECHNIQUE: 7 intraoperative views of the left hip. COMPARISON: Outside pelvic x-ray June 08, 2021. FINDINGS: There is placement of metallic hardware which appears satisfactory in position on intraoper ative frontal images obtained. IMPRESSION: As above.
[2021-07-07] MEDS: HYDROcodone/APAP 7.5-325MG 1 EACH TAB PO PRN ×2 (14:31→20:40)
--- NOTE | 2021-07-07 16:01 | P.CONS ---
<Cipriano Barros - Last Filed: 07/07/21 16:16> History of Present Illness - Reason for Consult Consult date: 07/07/21 Medical Management Requesting physician: Adiel Max - History of Present Illness History of Presenting Illness: Patient is a very pleasant 61-year-old male with a past medical history of atrial fibrillation and DVT status post placement of watchman device on Plavix, symptomatic bradycardia status post permanent pacemaker placement, hypertension, hyperlipidemia, and osteoarthritis. He is currently admitted under orthopedic surgery pain that is status post left total hip arthroplasty completed by Dr. Flores on 07/07/21. We have been consulted to follow along for continued medical management throughout hospitalization. Patient was seen and fully evaluated at bedside upon transfer to the unit from . Patient reports currently pain is controlled with previous pain medication administered. He is tolerating ice chips and clear fluids, but has yet to urinate in postoperative period. Patient denies having any postoperative nausea or vomiting. He also denies having any headache, lightheadedness, dizziness, chest pain, palpitations, shortness of breath, or experiencing any numbness/tingling in his extremities. Patient does have history of previous DVTs and does have watchman device in place as reported above, his plavix has been held pending this elective surgery. Upon arrival to room from patient's vital signs stable. Blood pressure 128/72, respiratory rate 16, heart rate 61, and SpO2 93% on room air. Review of systems: Pertinent positives and negatives as discussed in HPI, a complete review of systems was performed and all other systems are negative. Physical exam: Vital signs reviewed and stable. General: Nontoxic, no distress and appears stated age. Obese build Derm: Skin warm and dry, normal coloration for ethnicity. Head: Atraumatic, normocephalic and symmetric. Eyes: EOMs intact, no lid lag, and anicteric sclera Mouth: no lip lesions, mucus membranes moist Cardiovascular: regular rate and rhythm with normal S1S2, systolic murmur, positive posterior tibial pulses bilaterally, and cap refill < 2 seconds. Lungs: Respirations even, regular, and unlabored on room air. Lungs CTA bilaterally, no rhonchi, no rales, no wheezing, and no accessory muscle usage. Abdominal: soft, nontender to palpation, no guarding, no appreciable organomegaly Ext: ROM intact. No gross muscle atrophy, no edema, no contractures Neuro: Speech clear, face symmetrical and CN II-XII grossly intact with no noted focal neuro deficits Psych: Alert and oriented to person, place, time, and situation. Appropriate and pleasant affect. Assessment and Plan of Care: Severe left hip osteoarthrosis Status post left total hip arthroplasty completed 07/07/21 -Management per primary admitting orthopedic surgery team including DVT prophylaxis, pain management, weightbearing, and PT/OT, and postsurgical dressing changes/wound care. -DVT prophylaxis currently with Lovenox Hypertension -Monitor vital signs and continue daily medication regimen with amiodarone. Hyperlipidemia Continue daily medication regimen with atorvastatin. History of atrial fibrillation and DVT status post placement of watchman device History of symptomatic bradycardia status post permanent pacemaker placement Patient to continue daily medication regimen with Cardizem and amiodarone. Recommend resuming Plavix once cleared by orthopedic surgery team to resume. Thank you for allowing us to participate in the care of this pleasant patient. Do not hesitate to contact us with questions. Someone can be reached from the [facility] hospitalist group all hours of the day at [phone] or via [employer]. Past Medical History Past Medical History: Atrial Fibrillation, Deep Vein Thrombosis (DVT), Hyperlipidemia, Hypertension, Osteoarthritis (OA) Additional Past Medical History / Comment(s): DVT 2019 TOP RT ATRIUM. AFIB RESOLVED WITH PACEMAKER History of Any Multi-Drug Resistant Organisms: None Reported Past Surgical History: Joint Replacement, Orthopedic Surgery, Pacemaker Additional Past Surgical History / Comment(s): RT KALEY-03/31/2021. RT SHOULDER SX LT KNEE SX X 2. PACEMAKER-2017. WATCHMAN DEVICE IN HEART-09/2020. COLONOSCOPY Past Anesthesia/Blood Transfusion Reactions: No Reported Reaction Type of Cardiac Device: Permanent Pacemaker Device Placement Date:: 2017 Past Psychological History: Depression Smoking Status: Never smoker Past Alcohol Use History: Occasional Past Drug Use History: None Reported - Past Family History Mother Family Medical History: Cancer Father Family Medical History: Deep Vein Thrombosis (DVT), Myocardial Infarction (CA), Pulmonary Embolus Medications and Allergies Home Medications Medication Instructions Recorded Confirmed Type HYDROcodone/APAP 7.5-325MG [Gaylord 1 each PO Q6HR PRN #28 tab 04/02/21 07/07/21 Rx 7.5] Amiodarone [Cordarone] 200 mg PO DAILY 07/02/21 07/07/21 History Atorvastatin [Lipitor] 10 mg PO DAILY 07/02/21 07/07/21 History DULoxetine HCL [Cymbalta] 60 mg PO DAILY 07/02/21 07/07/21 History dilTIAZem HCL [dilTIAZem HCL 24Hr 240 mg PO DAILY 07/02/21 07/07/21 History ER (Xr)] Clopidogrel [Plavix] 75 mg PO DAILY 07/07/21 07/07/21 History Allergies Allergy/AdvReac Type Severity Reaction Status Date / Time adhesive Allergy Rash/Hives Verified 07/07/21 07:14 Penicillins AdvReac Rash/Hives Verified 07/07/21 07:14 Physical Exam Vitals: Vital Signs Temp Pulse Resp BP Pulse Ox 07/07/21 14:16 97.4 F L 61 128/72 92 L 07/07/21 13:30 62 16 150/69 95 07/07/21 13:00 59 L 16 141/68 95 07/07/21 12:30 61 16 148/72 95 07/07/21 11:46 62 16 138/82 95 07/07/21 11:31 62 16 136/72 94 L 07/07/21 11:15 62 16 121/63 94 L 07/07/21 11:01 69 16 149/70 96 07/07/21 10:46 73 16 140/82 96 07/07/21 10:38 98.2 F 72 16 145/76 93 L 07/07/21 07:45 98.2 F 75 18 160/95 96 Intake and Output 07/07/21 07/07/21 07/07/21 06:59 14:59 22:59 Intake Total 1851 Output Total 800 Balance 1051 Intake: IV 1851 Output: Estimated Blood Loss 800 Other: Weight 115.1 kg <Heather Augustin - Last Filed: 07/07/21 18:50> History of Present Illness - History of Present Illness Cipriano Barros NP rendered care for this patient independently, reviewed the findings and plan as documented in the note above. I did stop the room. All patient's questions answered. Agree with subjective, physical exam, assessment and plan as dictated above. Physical Exam Osteopathic Statement: *. No significant issues noted on an osteopathic structural exam other than those noted in the History and Physical/Consult. Vitals: Vital Signs Temp Pulse Resp BP Pulse Ox 07/07/21 14:16 97.4 F L 61 128/72 92 L 07/07/21 13:30 62 16 150/69 95 07/07/21 13:00 59 L 16 141/68 95 07/07/21 12:30 61 16 148/72 95 07/07/21 11:46 62 16 138/82 95 07/07/21 11:31 62 16 136/72 94 L 07/07/21 11:15 62 16 121/63 94 L 07/07/21 11:01 69 16 149/70 96 07/07/21 10:46 73 16 140/82 96 07/07/21 10:38 98.2 F 72 16 145/76 93 L 07/07/21 07:45 98.2 F 75 18 160/95 96 Intake and Output 07/07/21 07/07/21 07/07/21 06:59 14:59 22:59 Intake Total 1851 Output Total 800 Balance 1051 Intake: IV 1851 Output: Estimated Blood Loss 800 Other: Weight 115.1 kg
[2021-07-07] MEDS: SENNOSIDES-DOCUSATE SODIUM 1 EACH TAB PO SCH (21:15)
[2021-07-08] MEDS: HYDROcodone/APAP 7.5-325MG 1 EACH TAB PO PRN ×4 (04:46→23:12)
[2021-07-08] MEDS: LACTATED RINGERS 1,000 ML IV SCH (07:30)
[2021-07-08 09:33] LABS: Basophils # (A) 0.02 X 10*3/uL (0.00-0.10); Basophils % (A) 0.2 %; Eosinophils # (A) 0 X 10*3/uL (0.04-0.35); Eosinophils % (A) 0 %; HCT 33.2 % (39.6-50.0); Immature Grans, Automated 0.4 %; Lymphocytes # (A) 0.81 X 10*3/uL (0.90-5.00); Lymphocytes % (A) 7.2 %; MCH 29.3 pg (27.0-32.0); MCHC 33.1 g/dL (32.0-37.0); MCV 88.5 fL (80.0-97.0); Mean Platelet Volume 10.7 fL (9.5-12.2); Monocytes # (A) 1.29 X 10*3/uL (0.20-1.00); Monocytes % (A) 11.5 %; NRBC Per 100 WBC 0 /100 WBCS (0.0-0.0); Neutrophils # (A) 9.02 X 10*3/uL (1.80-7.70); Neutrophils % (A) 80.7 %; Platelet Count 194 X 10*3/uL (140-440); RBC 3.75 X 10*6/uL (4.40-5.60); WBC 11.19 X 10*3/uL (4.50-10.00)
[2021-07-08 09:44] LABS: African American GFR (CKD) 118.9 (60.0-200.0); Albumin 3.2 g/dL (3.8-4.9); Albumin/Globulin Ratio 1.45 (1.60-3.17); Blood Urea Nitrogen 15.4 mg/dL (9.0-27.0); Calcium 8.3 mg/dL (8.7-10.3); Globulin 2.2 g/dL (1.6-3.3); Magnesium 2.2 mg/dL (1.5-2.4); Non-African American GFR(CKD) 102.6 (60.0-200.0); Potassium 4.6 mmol/L (3.5-5.5); Total Bilirubin 0.4 mg/dL (0.30-1.20); Total Protein 5.4 g/dL (6.2-8.2)
[2021-07-08] MEDS: ATORVASTATIN 10 MG TAB PO SCH (09:53)
[2021-07-08] MEDS: DULoxetine HCL 60 MG CAPSULE.DR PO SCH (09:53)
[2021-07-08] MEDS: AMIODARONE 200 MG TAB PO SCH (09:53)
[2021-07-08] MEDS: ENOXAPARIN 40 MG/0.4 ML SYRINGE SQ SCH (09:53)
[2021-07-08] MEDS: DILTIAZEM CD 240 MG CAP.ER.24H PO SCH (10:34)
--- NOTE | 2021-07-08 11:23 | P.PN ---
Subjective Progress Note Date: 07/08/21 Principal diagnosis: Status post direct anterior left total elbow arthroplasty Patient is admitted at bedside, he is resting his hospital chair. He is very comfortable at this time, his pain is well-controlled. He has been ambulate with therapy. He is utilizing a walker with no difficulty. Currently denies any headaches, lightheadedness, chest pain or shortness of breath. Objective - Vital Signs Vital signs: Vital Signs Temp 97.9 F 07/08/21 08:00 Pulse 71 07/08/21 08:00 Resp 18 07/08/21 08:00 BP 143/82 07/08/21 08:00 Pulse Ox 91 L 07/08/21 08:00 Intake & Output 07/07/21 07/08/21 07/08/21 18:59 06:59 18:59 Intake Total 1851 Output Total 800 550 Balance 1051 -550 Weight 115.1 kg Intake: IV 1851 Output: Urine 550 Estimated Blood Loss 800 - Exam Left lower extremity: Incision is clean, dry, and intact. The exofin fusion tape is in good condition. There is minimal soft tissue swelling and ecchymosis surrounding the medial and lateral aspects of the incision. Calf is soft, no tenderness with palpation. Plantar flexion, dorsiflexion, EHL, FHL are intact. Sensory exam to light touch throughout the extremity is intact, dorsal pedis pulses 2+. - Labs CBC & Chem 7: 07/08/21 05:34 07/08/21 05:34 Labs: Abnormal Lab Results - Last 24 Hours (Table) 07/08/21 07/08/21 Range/Units 05:34 05:34 WBC 11.19 H (4.50-10.00) X 10*3/uL RBC 3.75 L (4.40-5.60) X 10*6/uL Hgb 11.0 L (13.0-17.0) g/dL Hct 33.2 L (39.6-50.0) % Immature Gran # 0.05 H (0.00-0.04) X 10*3/uL Neutrophils # 9.02 H (1.80-7.70) X 10*3/uL Lymphocytes # 0.81 L (0.90-5.00) X 10*3/uL Monocytes # 1.29 H (0.20-1.00) X 10*3/uL Eosinophils # 0 L (0.04-0.35) X 10*3/uL Anion Gap 9.00 L (10.00-18.00) mmol/L BUN/Creatinine Ratio 22.00 H (12.00-20.00) Ratio Glucose 112 H (70-110) mg/dL Calcium 8.3 L (8.7-10.3) mg/dL Total Protein 5.4 L (6.2-8.2) g/dL Albumin 3.2 L (3.8-4.9) g/dL Albumin/Globulin Ratio 1.45 L (1.60-3.17) g/dL Assessment and Plan Assessment: postoperative day 1 status post direct anterior left total hip arthroplasty Acute blood loss anemia, expected surgical outcome Plan: Pain control, continue with current medications DVT prophylaxis, continue Lovenox, will restart Plavix upon discharge Wound care instructions along with icing and elevating techniques were discussed Medical recommendations Encourage incentive spirometer Continue work with physical therapy Discharge planning: Patient will be discharged home tomorrow Time with Patient: Less than 30
--- NOTE | 2021-07-08 14:59 | P.PN ---
<Cipriano Barros - Last Filed: 07/08/21 14:41> Subjective Progress Note Date: 07/08/21 Hospital course: Patient is a very pleasant 61-year-old male with a past medical history of atr ial fibrillation and DVT status post placement of watchman device on Plavix, symptomatic bradycardia status post permanent pacemaker placement, hypertension, hyperlipidemia, and osteoarthritis. He is currently admitted under orthopedic surgery pain that is status post left total hip arthroplasty completed by Dr. Flores on 07/07/21. We have been consulted to follow along for continued medical management throughout hospitalization. Physical exam: Patient was seen and fully evaluated at the bedside this morning. He was sitting up in the chair at the bedside. Reports he is feeling well this morning. He did report concerns of possible urinary retention as he states he is not urinating as much as usual. Discussed with nurse and orders were already in place for bladder scan for post void residual. Patient otherwise reports tolerating oral intake and denies any episodes of nausea or vomiting. Patient reports that he was able to get up and ambulate in the hallway and states pain was significant and left hip upon initial ambulation but did improve after initial movement. He denies having any other complaints including headache, lightheadedness, dizziness, chest pain, palpitations, or shortness of breath. Morning labs reviewed and show mild leukocytosis with WBC count of 11.19. Mild anemia with hemoglobin of 11 otherwise no significant abnormalities. Vital signs reviewed and stable. General: Nontoxic, no distress and appears stated age. Obese build Derm: Skin warm and dry, normal coloration for ethnicity. Dressing left hip, in cision intact. Mild bruising surrounding no redness or drainage.. Head: Atraumatic, normocephalic and symmetric. Eyes: EOMs intact, no lid lag, and anicteric sclera Mouth: no lip lesions, mucus membranes moist Cardiovascular: regular rate and rhythm with normal S1S2, systolic murmur, positive posterior tibial pulses bilaterally, and cap refill < 2 seconds. Lungs: Respirations even, regular, and unlabored on room air. Lungs CTA bilaterally, no rhonchi, no rales, no wheezing, and no accessory muscle usage. Abdominal: soft, nontender to palpation, no guarding, no appreciable organomegaly Ext: ROM intact. No gross muscle atrophy, no edema, no contractures Neuro: Speech clear, face symmetrical and CN II-XII grossly intact with no noted focal neuro deficits Psych: Alert and oriented to person, place, time, and situation. Appropriate and pleasant affect. Assessment and Plan of Care: Severe left hip osteoarthrosis Status post left total hip arthroplasty completed 07/07/21, postop day 1 -Management per primary admitting orthopedic surgery team including DVT prophylaxis, pain management, weightbearing, and PT/OT, and postsurgical dressing changes/wound care. -DVT prophylaxis currently with Lovenox Acute postsurgical blood loss anemia -hemoglobin 11.0. -Expected postsurgical blood loss. -We will continue to monitor with repeat a.m. labs. Hypertension -Monitor vital signs and continue daily medication regimen with amiodarone. Hyperlipidemia Continue daily medication regimen with atorvastatin. History of atrial fibrillation and DVT status post placement of watchman device History of symptomatic bradycardia status post permanent pacemaker placement Patient to continue daily medication regimen with Cardizem and amiodarone. Recommend resuming Plavix once cleared by orthopedic surgery team to resume. Thank you for allowing us to participate in the care of this pleasant patient. Do not hesitate to contact us with questions. Someone can be reached from the [facility] hospitalist group all hours of the day at [phone] or via [employer]. Objective - Vital Signs Vital signs: Vital Signs Temp 97.9 F 07/08/21 08:00 Pulse 71 07/08/21 08:00 Resp 18 07/08/21 08:00 BP 143/82 07/08/21 08:00 Pulse Ox 91 L 07/08/21 08:00 Intake & Output 07/07/21 07/08/21 07/08/21 18:59 06:59 18:59 Intake Total 1851 Output Total 800 550 Balance 1051 -550 Weight 115.1 kg Intake: IV 1851 Output: Urine 550 Estimated Blood Loss 800 - Labs CBC & Chem 7: 07/08/21 05:34 07/08/21 05:34 <Heather Augustin - Last Filed: 07/08/21 16:54> Subjective Cipriano Barros NP rendered care for this patient independently, reviewed the findings and plan as documented in the note above. I did not physically speak with or examine the patient on this date. Objective - Vital Signs Vital signs: Vital Signs Temp 98.4 F 07/08/21 14:00 Pulse 80 07/08/21 14:00 Resp 18 07/08/21 14:00 BP 138/64 07/08/21 14:00 Pulse Ox 96 07/08/21 14:00 Intake & Output 07/07/21 07/08/21 07/08/21 18:59 06:59 18:59 Intake Total 1851 Output Total 800 550 1 Balance 1051 -550 -1 Weight 115.1 kg Intake: IV 1851 Output: Urine 550 Stool 1 Estimated Blood Loss 800 Other: # Voids 5 - Labs CBC & Chem 7: 07/08/21 05:34 07/08/21 05:34 Labs: Abnormal Lab Results - Last 24 Hours (Table) 07/08/21 07/08/21 Range/Units 05:34 05:34 WBC 11.19 H (4.50-10.00) X 10*3/uL RBC 3.75 L (4.40-5.60) X 10*6/uL Hgb 11.0 L (13.0-17.0) g/dL Hct 33.2 L (39.6-50.0) % Immature Gran # 0.05 H (0.00-0.04) X 10*3/uL Neutrophils # 9.02 H (1.80-7.70) X 10*3/uL Lymphocytes # 0.81 L (0.90-5.00) X 10*3/uL Monocytes # 1.29 H (0.20-1.00) X 10*3/uL Eosinophils # 0 L (0.04-0.35) X 10*3/uL Anion Gap 9.00 L (10.00-18.00) mmol/L BUN/Creatinine Ratio 22.00 H (12.00-20.00) Ratio Glucose 112 H (70-110) mg/dL Calcium 8.3 L (8.7-10.3) mg/dL Total Protein 5.4 L (6.2-8.2) g/dL Albumin 3.2 L (3.8-4.9) g/dL Albumin/Globulin Ratio 1.45 L (1.60-3.17) g/dL
[2021-07-08] MEDS: FERROUS SULFATE 325 MG TAB PO SCH (17:03)
[2021-07-08] MEDS: SENNOSIDES-DOCUSATE SODIUM 1 EACH TAB PO SCH (21:17)
[2021-07-09] MEDS: HYDROcodone/APAP 7.5-325MG 1 EACH TAB PO PRN ×2 (05:50→10:40)
[2021-07-09 07:26] VITALS: BP 125/72; PULSE 65; RESP 18; TEMP 98.5
[2021-07-09] MEDS: FERROUS SULFATE 325 MG TAB PO SCH (07:33)
--- NOTE | 2021-07-09 08:38 | P.PN ---
Subjective Progress Note Date: 07/09/21 Principal diagnosis: Status post direct anterior left total elbow arthroplasty Patient is admitted at bedside, he is resting his hospital chair. He is very comfortable at this time, his pain is well-controlled. He has been ambulate with therapy. He is utilizing a walker with no difficulty. Currently denies any headaches, lightheadedness, chest pain or shortness of breath. Objective - Vital Signs Vital signs: Vital Signs Temp 98.5 F 07/09/21 07:25 Pulse 65 07/09/21 07:25 Resp 18 07/09/21 07:25 BP 125/72 07/09/21 07:25 Pulse Ox 91 L 07/09/21 07:25 Intake & Output 07/08/21 07/09/21 07/09/21 18:59 06:59 18:59 Intake Total 200 Output Total 1 600 Balance 199 -600 Intake: Oral 200 Output: Urine 600 Stool 1 Other: # Voids 2 4 - Exam Left lower extremity: Incision is clean, dry, and intact. The exofin fusion tape is in good condition. There is minimal soft tissue swelling and ecchymosis surrounding the medial and lateral aspects of the incision. Calf is soft, no tenderness with palpation. Plantar flexion, dorsiflexion, EHL, FHL are intact. Sensory exam to light touch throughout the extremity is intact, dorsal pedis pulses 2+. - Labs CBC & Chem 7: 07/08/21 05:34 07/08/21 05:34 Labs: Abnormal Lab Results - Last 24 Hours (Table) 07/08/21 07/08/21 Range/Units 05:34 05:34 WBC 11.19 H (4.50-10.00) X 10*3/uL RBC 3.75 L (4.40-5.60) X 10*6/uL Hgb 11.0 L (13.0-17.0) g/dL Hct 33.2 L (39.6-50.0) % Immature Gran # 0.05 H (0.00-0.04) X 10*3/uL Neutrophils # 9.02 H (1.80-7.70) X 10*3/uL Lymphocytes # 0.81 L (0.90-5.00) X 10*3/uL Monocytes # 1.29 H (0.20-1.00) X 10*3/uL Eosinophils # 0 L (0.04-0.35) X 10*3/uL Anion Gap 9.00 L (10.00-18.00) mmol/L BUN/Creatinine Ratio 22.00 H (12.00-20.00) Ratio Glucose 112 H (70-110) mg/dL Calcium 8.3 L (8.7-10.3) mg/dL Total Protein 5.4 L (6.2-8.2) g/dL Albumin 3.2 L (3.8-4.9) g/dL Albumin/Globulin Ratio 1.45 L (1.60-3.17) g/dL Assessment and Plan Assessment: postoperative day #2 status post direct anterior left total hip arthroplasty Acute blood loss anemia, expected surgical outcome Plan: Pain control, plan for dc on [place] 7.5mg/325mg DVT prophylaxis, continue Lovenox, will restart Plavix upon discharge Wound care instructions along with icing and elevating techniques were discussed Medical recommendations Encourage incentive spirometer Continue work with physical therapy Discharge planning: stable to discharge home today Time with Patient: Less than 30
--- NOTE | 2021-07-09 08:41 | P.DS ---
Providers Date of admission: 07/08/21 15:40 Expected date of discharge: 07/09/21 Attending physician: Adiel Max Consults: 07/07/21 10:37 Consult Physician Routine Consulting Provider: Heather Augustin Consult Reason/Comments: Medical Management s/p LTHA Do you want consulting provider notified?: Yes Primary care physician: Physician Nonstaff Hospital Course: Date of admission: 07/07/2021 Date of discharge: 07/09/2021 Admission diagnosis: Status post direct anterior left total hip arthroplasty Discharge diagnosis: Same Attending physician: Dr. Max Surgical procedures: Direct anterior left total hip arthroplasty Brief history: Patient is a 61-year-old male with a history of progressive primary left hip osteoarthritis. At this point patient has failed conservative treatment measures and has opted to proceed with a elective direct anterior left total hip arthroplasty. Hospital course: Details of patient's surgery can be found in operative report. Patient tolerated the procedure well and was subsequently transported to orthopedic floor. Patient's orthopeidc and medical care was provided daily. Patient had daily laboratory tests performed for evaluation of overall blood counts. Patient had daily physical therapy to include strengthening range of motion as well as education with walker ambulation. Patient was treated with Lovenox for their postoperative DVT prophylaxis during their inpatient stay. Patient was noted to have a relatively uneventful postoperative course. Patient reported satisfactory pain control with oral pain medications by postoperative day 0. Patient showed satisfactory progress with physical therapy. Patient moved steadily through the program and had no difficulty meeting the goals by postoperative day 2. Given patient's otherwise satisfactory course and having met physical therapy goals, plan is to discharge patient home on postoperative day 2. Discharge condition/disposition: Patient will be discharged home in stable condition. Discharge medications: Instructions are given on resumption of patient's normal daily medications per primary care recommendation, in addition patient will be prescribed [place] 7.5mg/325mg, Colace 100mg, Ferrous Sulfate 325mg . Discharge instructions: 1. Wound care and infection precautions, keep incision dry and covered while showering, no lotions, creams, moisturizers. No soaking, tubs, pools, hottubs. Do not scrub over the incision. 2. Weight-bear as tolerated with walker / cane until follow-up. 3. Ice and elevate when necessary. Do not exceed 20 minutes per hour with ice pack. 4. Utilize compression sleeve until seen at first follow up appointment. 5. Visiting nursing care. 6. Home physical therapy. 7. Pain meds and anticoagulants per prescription. 8. Pain medication has potential to cause constipation. Increase oral fluid and fiber intake. Contact primary care provider if you have not had a bowel movement within 48 hours after discharge 9. No anti-inflammatory medication until discussed at first post operative visit, this including Motrin, Aleve, Mobic, Diclofenac. 10. Follow up in office at 2 weeks postop with Daniel Tripathi PA-C/Melo Moya 11. Follow up with your primary care doctor 7-10 days after discharge. 12. Contact [facility] with any questions, . Procedures: Direct anterior left total hip arthroplasty Patient Condition at Discharge: Good Plan - Discharge Summary Discharge Rx Participant: Yes New Discharge Prescriptions: New Docusate [Colace] 100 mg PO DAILY #30 capsule Ferrous Sulfate [Iron (65 MG Elemental)] 325 mg PO BID #60 tab HYDROcodone/APAP 7.5-325MG [[place] 7.5] 1 each PO Q6HR PRN #28 tab PRN Reason: Pain Discontinued HYDROcodone/APAP 7.5-325MG [[place] 7.5] 1 each PO Q6HR PRN #28 tab PRN Reason: Pain No Action Atorvastatin [Lipitor] 10 mg PO DAILY DULoxetine HCL [Cymbalta] 60 mg PO DAILY Amiodarone [Cordarone] 200 mg PO DAILY dilTIAZem HCL [dilTIAZem HCL 24Hr ER (Xr)] 240 mg PO DAILY Clopidogrel [Plavix] 75 mg PO DAILY Discharge Medication List Amiodarone [Cordarone] 200 mg PO DAILY 07/02/21 [History] Atorvastatin [Lipitor] 10 mg PO DAILY 07/02/21 [History] DULoxetine HCL [Cymbalta] 60 mg PO DAILY 07/02/21 [History] dilTIAZem HCL [dilTIAZem HCL 24Hr ER (Xr)] 240 mg PO DAILY 07/02/21 [History] Clopidogrel [Plavix] 75 mg PO DAILY 07/07/21 [History] Docusate [Colace] 100 mg PO DAILY #30 capsule 07/09/21 [Rx] Ferrous Sulfate [Iron (65 MG Elemental)] 325 mg PO BID #60 tab 07/09/21 [Rx] HYDROcodone/APAP 7.5-325MG [[place] 7.5] 1 each PO Q6HR PRN #28 tab 07/09/21 [Rx] Follow up Appointment(s)/Referral(s): Melo Morales, ELOY [PHYSICIAN PROCESS CONTROL PROGRAMMER] - 07/23/21 [facility], [NON-STAFF] - As Needed Activity/Diet/Wound Care/Special Instructions: Orthopedic Discharge Instructions: 1. Wound care and infection precautions, keep incision dry and covered while showering, no lotions, creams, moisturizers. No soaking, pools, hot tubs. Do not scrub over incision. 2. Weight-bear as tolerated with walker / cane until follow-up. 3. Ice and elevate when necessary. Do not exceed 20 minutes per hour with ice pack. 4. Utilize compression sleeve until seen at first follow up appointment. 5. Pain meds and anticoagulants per prescription. 6. Pain medication has potential to cause constipation. Increase oral fluid and fiber intake. Contact primary care provider if you have not had a bowel movement within 48 hours after discharge. 7. No anti-inflammatory medication until discussed at first post operative visit, this including Motrin, Aleve, Mobic, Diclofenac. 8. Follow up in office at 2 weeks postop with Daniel Tripathi PA-C/Melo Morales PA-C 9. Follow up with your primary care doctor 7-10 days after discharge. 10. Contact [facility] with any questions, . Discharge Disposition: HOME WITH HOME HEALTH SERVICES
[2021-07-09] MEDS: ENOXAPARIN 40 MG/0.4 ML SYRINGE SQ SCH (09:07)
[2021-07-09] MEDS: ATORVASTATIN 10 MG TAB PO SCH (09:07)
[2021-07-09] MEDS: DILTIAZEM CD 240 MG CAP.ER.24H PO SCH (09:07)
[2021-07-09] MEDS: DULoxetine HCL 60 MG CAPSULE.DR PO SCH (09:07)
[2021-07-09] MEDS: AMIODARONE 200 MG TAB PO SCH (09:07)
--- NOTE | 2021-07-09 09:36 | P.PN ---
<Cipriano Barros - Last Filed: 07/09/21 13:03> Subjective Progress Note Date: 07/09/21 Hospital course: Patient is a very pleasant 61-year-old male with a past medical history of atr ial fibrillation and DVT status post placement of watchman device on Plavix, symptomatic bradycardia status post permanent pacemaker placement, hypertension, hyperlipidemia, and osteoarthritis. He is currently admitted under orthopedic surgery pain that is status post left total hip arthroplasty completed by Dr. Flores on 07/07/21. We have been consulted to follow along for continued medical management throughout hospitalization. Physical exam: Patient was seen and fully evaluated at the bedside this morning. He was sitting up in the chair at the bedside. Pt was dressed and ready to go. Reports feeling great this morning. Patient reports that he has ambulated up and down the halls and is doing well. Patient reports mild pain/discomfort otherwise he states he is feeling well. Patient reports his sister is on her way to pick him up. Experiencing any numbness/tingling/weakness in his extremities. Postsurgical incision remains intact with no surrounding erythema, drainage, or bleeding. Vital signs reviewed and stable. General: Nontoxic, no distress and appears stated age. Obese build Derm: Skin warm and dry, normal coloration for ethnicity. Dressing left hip, incision intact. Mild bruising surrounding no redness or drainage.. Head: Atraumatic, normocephalic and symmetric. Eyes: EOMs intact, no lid lag, and anicteric sclera Mouth: no lip lesions, mucus membranes moist Cardiovascular: regular rate and rhythm with normal S1S2, systolic murmur, positive posterior tibial pulses bilaterally, and cap refill < 2 seconds. Lungs: Respirations even, regular, and unlabored on room air. Lungs CTA bilaterally, no rhonchi, no rales, no wheezing, and no accessory muscle usage. Abdominal: soft, nontender to palpation, no guarding, no appreciable organomegaly Ext: ROM intact. No gross muscle atrophy, no edema, no contractures Neuro: Speech clear, face symmetrical and CN II-XII grossly intact with no noted focal neuro deficits Psych: Alert and oriented to person, place, time, and situation. Appropriate and pleasant affect. Assessment and Plan of Care: Severe left hip osteoarthrosis Status post left total hip arthroplasty completed 07/07/21, postop day 2 -Management per primary admitting orthopedic surgery team including DVT prophylaxis, pain management, weightbearing, and PT/OT, and postsurgical dressing changes/wound care. -DVT prophylaxis currently with Lovenox Acute postsurgical blood loss anemia -hemoglobin 11.0. -Expected postsurgical blood loss. Hypertension -Monitor vital signs and continue daily medication regimen with amiodarone. Hyperlipidemia Continue daily medication regimen with atorvastatin. History of atrial fibrillation and DVT status post placement of watchman device History of symptomatic bradycardia status post permanent pacemaker placement Patient to continue daily medication regimen with Cardizem and amiodarone. Resume Plavix Thank you for allowing us to participate in the care of this pleasant patient. Do not hesitate to contact us with questions. Someone can be reached from the [facility] hospitalist group all hours of the day at [phone] or via el?. Objective - Vital Signs Vital signs: Vital Signs Temp 98.5 F 07/09/21 07:25 Pulse 65 07/09/21 07:25 Resp 18 07/09/21 07:25 BP 125/72 07/09/21 07:25 Pulse Ox 91 L 07/09/21 07:25 Intake & Output 07/08/21 07/09/21 07/09/21 18:59 06:59 18:59 Intake Total 200 Output Total 1 600 475 Balance 199 -600 -475 Intake: Oral 200 Output: Urine 600 475 Stool 1 Other: # Voids 2 4 - Labs CBC & Chem 7: 07/08/21 05:34 07/08/21 05:34 Labs: Abnormal Lab Results - Last 24 Hours (Table) 07/08/21 Range/Units 05:34 Anion Gap 9.00 L (10.00-18.00) mmol/L BUN/Creatinine Ratio 22.00 H (12.00-20.00) Ratio Glucose 112 H (70-110) mg/dL Calcium 8.3 L (8.7-10.3) mg/dL Total Protein 5.4 L (6.2-8.2) g/dL Albumin 3.2 L (3.8-4.9) g/dL Albumin/Globulin Ratio 1.45 L (1.60-3.17) g/dL <Heather Augustin - Last Filed: 07/09/21 17:47> Subjective Cipriano Barros NP rendered care for this patient independently, reviewed the findings and plan as documented in the note above. I did not physically speak with or examine the patient on this date. Objective - Vital Signs Vital signs: Vital Signs Temp 98.5 F 07/09/21 07:25 Pulse 65 07/09/21 07:25 Resp 18 07/09/21 07:25 BP 125/72 07/09/21 07:25 Pulse Ox 91 L 07/09/21 07:25 Intake & Output 07/08/21 07/09/21 07/09/21 18:59 06:59 18:59 Intake Total 200 Output Total 1 600 475 Balance 199 -600 -475 Intake: Oral 200 Output: Urine 600 475 Stool 1 Other: # Voids 2 4 - Labs CBC & Chem 7: 07/08/21 05:34 07/08/21 05:34
== END 2021-07-09 10:52 | disposition home health service (06) ==
LOC: OR 06:30 → 4SSUR 10:22 → OR 07-08 15:40 → 4SSUR 07-08 15:40
PROVIDERS: ADMIT Orthopaedic Surgery; ATTEND Orthopaedic Surgery
DX: M16.12 Unilateral primary osteoarthritis, left hip (principal); D62 Acute posthemorrhagic anemia; I10 Essential (primary) hypertension; I48.91 Unspecified atrial fibrillation; E78.5 Hyperlipidemia, unspecified; R00.1 Bradycardia, unspecified; M48.00 Spinal stenosis, site unspecified; F32.A Depression, unspecified; D72.829 Elevated white blood cell count, unspecified; Z20.822 Contact with and (suspected) exposure to COVID-19; Z79.02 Long term (current) use of antithrombotics/antiplatelets; Z79.899 Other long term (current) drug therapy; Z88.0 Allergy status to penicillin; Z91.048 Other nonmedicinal substance allergy status; Z86.718 Personal history of other venous thrombosis and embolism; Z96.641 Presence of right artificial hip joint; Z95.0 Presence of cardiac pacemaker; Z95.818 Presence of other cardiac implants and grafts; Z98.890 Other specified postprocedural states; Z83.3 Family history of diabetes mellitus; Z82.49 Family history of ischemic heart disease and other diseases of the circulatory system; Z80.9 Family history of malignant neoplasm, unspecified
CPT/HCPCS: 97116; 97161; 97535; 97165; 86900; 86901; 80053; 83735; 85025; 86850; 88300; 87635; 73501; 27130; G0378 ×2; C1776; J2250; J1200; J1100; J2710; J0690 ×3; J2405; J2001; J1650 ×2; J3010; J1170 ×2; J0330; J2704

== ENCOUNTER → 2021-10-30 | Day surgery (SDC) | payer OTHER ==
[~2021-10-30] MED LIST changes: -ACETAMINOPHEN TAB 500 MG TAB PO PRN; +HYDROcodone/APAP 7.5-325MG 1 EACH TAB ONE; -MELOXICAM 7.5 MG TAB PO PRN; -TRANEXAMIC ACID 1,000 MG in SODIUM CHLORIDE 0.9% 100 ML IVPB PRN; +diazePAM 5 MG TAB PO STA
[2021-10-30 09:09] VITALS: TEMP 97.9
[2021-10-30 11:09] VITALS: PULSE 60
--- NOTE | 2021-10-30 14:37 | FL ---
EXAMINATION TYPE: FL myelogram lumbosacral DATE OF EXAM: 10/30/2021 COMPARISON: Correlation lumbar radiograph 222 HISTORY: 61-year-old male M54.50 Total fluoroscopy time: 4 minutes 10 seconds. Total images: 6. TECHNIQUE: Informed consent was obtained and all the patient's questions were answered. The L3-L4 level was ini tially localized under fluoroscopy. Standard sterile technique was utilized as well as appropriate l ocal anesthesia 1% lidocaine. Multiple attempts at introducing a 22-gauge long, 7 inch spinal needle into the thecal sac were made under fluoroscopic guidance . We were unsuccessful despite multiple trajectories. Subsequently, the L 2-L3 level was localized. CSF was visualized briefly. A total of 14 mL Isovue-M 200 contrast material was injected successfully into the thecal sac. It flowed away from the tip of the needle. Injection was tight. Fluoroscopic images showed successful intrathecal injection. The patient tolerated the procedure well and left the department in stable condition. CT myelography is to follow. IMPRESSION: Eventually successful lumbar myelogram injection for CT. Initial attempts at the L3-L4 level. Subsequ ent attempts and successful injection at L2-L3. CSF was only visualized briefly. We suspect underlyin g tight multilevel spinal canal stenoses.
--- NOTE | 2021-10-30 14:47 | CT ---
EXAMINATION TYPE: CT lumbar spine w con DATE OF EXAM: 10/30/2021 COMPARISON: Lumbar myelogram injection same day HISTORY: 61-year-old male M54.50, back pain TECHNIQUE: Contiguous axial scanning of the lumbar spine performed after intrathecal administration o f 14 mL Isovue-M 200 contrast material. Coronal/sagittal reconstructions performed. CT DLP: 865 mGycm Automated exposure control for dose reduction was used. FINDINGS: Minimal anterior wedging T12 and L1 likely chronic deformities. No surrounding soft tissue swelling. There is underlying congenital spinal canal stenosis with AP canal dimension of 1.2 cm. Superimposed moderate multilevel degenerative disc disease with narrowed disks and disc osteophyte co mplexes at multiple levels. There is ligamentum flavum thickening throughout as well as hypertrophic facet arthropathy. 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 Conus medullaris at T12-L1. Degenerative grade 1 anterolisthesis L4-L5. Remaining alignment is maintained. The changes result in multiple levels of spinal canal stenoses: Mild at T11-T12 secondary to right paracentral disc bulge, Moderate focal stenosis at L1-L2 secondary to discussed by complex and thickened ligamentum flavum. Moderate to severe focal stenosis L2-L3 secondary to disc osteophyte complex and thickened ligamentum flavum. Moderate at L3-L4 secondary to disc osteophyte complex and thickened ligamentum flavum. Severe focal stenosis at L4-L5 secondary to marked ligamentum flavum thickening and disc bulge effaci ng the thecal sac. On the right, changes result in severe neuroforaminal stenosis at L5-S1, mild to moderate at L1-L2 an d L3-L4, and mild at additional levels. On the left, changes result in moderate to severe neuroforaminal stenoses at L3-L4 and L5-S1, moderat e at L1-L2, and mild at additional levels. 4 mm nonobstructive left renal calculus. Incidental small amount of contrast seen being excreted from the kidneys most likely corresponds to inadvertent intravascular injection during multiple attempts at myelogram injection. Degenerative change right SI joint with bony bridging anterior right SI joint. Extensive artifact rel ating to the patient's bilateral total hip arthroplasties. IMPRESSION: 1. MODERATE MULTILEVEL DEGENERATIVE DISC DISEASE. 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 DEGENERATIVE GRADE 1 ANTEROLISTHESIS L4-L5. 2. CHANGES ARE SUPERIMPOSED ON A MILD CONGENITAL SPINAL CANAL STENOSIS WITH AP CANAL DIMENSION OF 1.2 CM. 3. VARIABLE SPINAL CANAL STENOSES OUTLINED ABOVE, SEVERE AT L4-L5; MODERATE TO SEVERE AT L2-L3; AN D MODERATE AT BOTH L1-L2 AND L3-L4. 4. BILATERAL NEURAL FORAMINAL STENOSES, SEVERE ON THE RIGHT AT L5-S1 AND MODERATE TO SEVERE ON THE LE FT AT L3-L4 AND L5-S1. ADDITIONAL VARIABLE BILATERAL NARROWING OUTLINED ABOVE. 5. CHRONIC APPEARING MINIMAL ANTERIOR WEDGING OF T12 AND L1 VERTEBRA
[2021-10-30 15:11] VITALS: BP 138/71; RESP 16
== END ==
LOC: RADPROMAIN 05:59
PROVIDERS: ATTEND Orthopaedic Surgery
DX: M54.50 Low back pain, unspecified (principal)
CPT/HCPCS: 36415; 62304; 72132; J2001; Q9966

== ENCOUNTER 2021-11-16 19:01 | Inpatient (IN) | payer OTHER ==
[2021-11-17] MEDS ORDERED: ONDANSETRON 4 MG/2 ML VIAL IVP STA (00:11)
[2021-11-17] MEDS ORDERED: MORPHINE SULFATE 4 MG/ML SYRINGE IV STA (00:11)
[2021-11-17] MEDS ORDERED: SODIUM CHLORIDE 0.9% 1,000 ML IV STA (00:11)
--- NOTE | 2021-11-17 00:34 | ED ---
Recheck HPI - General Chief Complaint: Back Pain/Injury Stated Complaint: uncontrolled pain back/legs/feet Time Seen by Provider: 11/16/21 23:32 Source: patient Mode of arrival: ambulatory Limitations: no limitations - Related Data Home Medications Medication Instructions Recorded Confirmed Amiodarone [Cordarone] 200 mg PO DAILY 07/02/21 10/30/21 Atorvastatin [Lipitor] 10 mg PO DAILY 07/02/21 10/30/21 DULoxetine HCL [Cymbalta] 60 mg PO DAILY 07/02/21 10/30/21 dilTIAZem HCL [dilTIAZem HCL 24Hr 240 mg PO DAILY 07/02/21 10/30/21 ER (Xr)] Clopidogrel [Plavix] 75 mg PO DAILY 07/07/21 10/30/21 Cyclobenzaprine [Flexeril] 10 mg PO TID PRN 10/30/21 10/30/21 Previous Rx's Medication Instructions Recorded HYDROcodone/APAP 7.5-325MG [[place] 1 each PO Q6HR PRN #28 tab 07/09/21 7.5] Allergies Allergy/AdvReac Type Severity Reaction Status Date / Time adhesive Allergy Rash/Hives Verified 11/16/21 20:58 Penicillins AdvReac Rash/Hives Verified 11/16/21 20:58 Review of Systems ROS Statement: Those systems with pertinent positive or pertinent negative responses have been documented in the HPI. ROS Other: All systems not noted in ROS Statement are negative. Past Medical History Past Medical History: Atrial Fibrillation, Deep Vein Thrombosis (DVT), Hyperlipidemia, Hypertension, Osteoarthritis (OA) Additional Past Medical History / Comment(s): DVT 2019 TOP RT ATRIUM. AFIB RESOLVED WITH PACEMAKER History of Any Multi-Drug Resistant Organisms: None Reported Past Surgical History: Joint Replacement, Orthopedic Surgery, Pacemaker Additional Past Surgical History / Comment(s): RT KALEY-03/31/2021. RT SHOULDER SX LT KNEE SX X 2. PACEMAKER-2017. WATCHMAN DEVICE IN HEART-09/2020. COLONOSCOPY. Left hip replacement 07/07/21 Past Anesthesia/Blood Transfusion Reactions: No Reported Reaction Type of Cardiac Device: Permanent Pacemaker Device Placement Date:: 2017 Past Psychological History: Depression Smoking Status: Never smoker Past Alcohol Use History: Occasional Past Drug Use History: None Reported - Past Family History Mother Family Medical History: Cancer Father Family Medical History: Deep Vein Thrombosis (DVT), Myocardial Infarction ([place]), Pulmonary Embolus General Exam Limitations: no limitations Course Vital Signs 11/16/21 11/17/21 20:56 00:21 Temperature 98.1 F 98.3 F Pulse Rate 85 78 Respiratory 18 18 Rate Blood Pressure 160/82 148/78 O2 Sat by Pulse 97 100 Oximetry Medical Decision Making - EKG Data -: EKG Interpreted by Me (EKG is paced QRS 98 QTc 436) Disposition Clinical Impression: Sciatica, Mid back pain, Lumbar radiculopathy, Lumbar stenosis Disposition: ADMITTED IP TO THIS HOSP Condition: Fair Is patient prescribed a controlled substance at d/c from ED?: No Referrals: None,Stated [Primary Care Provider] - 1-2 days
[2021-11-17] MEDS ORDERED: NALOXONE 0.4 MG/ML 1 ML VIAL IV PRN (01:18)
[2021-11-17] MEDS ORDERED: ONDANSETRON 4 MG/2 ML VIAL IVP PRN (01:18)
[2021-11-17] MEDS: SODIUM CHLORIDE 0.9% 1,000 ML IV SCH ×2 (01:44→23:56)
[2021-11-17 01:50] LABS: Basophils # (A) 0.1 k/uL (0-0.2); Basophils % (A) 1 %; Eosinophils # (A) 0.2 k/uL (0-0.7); Eosinophils % (A) 3 %; HCT 40.9 % (39.0-53.0); HGB 13.5 gm/dL (13.0-17.5); Lymphocytes # (A) 1.8 k/uL (1.0-4.8); Lymphocytes % (A) 23 %; MCH 28.7 pg (25.0-35.0); Mean Platelet Volume 7.8; Monocytes # (A) 0.4 k/uL (0-1.0); Monocytes % (A) 5 %; Neutrophils # (A) 5.1 k/uL (1.3-7.7); Neutrophils % (A) 66 %; Platelet Count 206 k/uL (150-450); WBC 7.7 k/uL (3.8-10.6)
[2021-11-17 01:59] LABS: ALT 16 U/L (4-49); AST 19 U/L (17-59); African American GFR (CKD) >90 (>60 ml/min/1.73 sqM); Albumin 3.4 g/dL (3.5-5.0); Alkaline Phosphatase 112 U/L (38-126); Anion Gap 5 mmol/L; Blood Urea Nitrogen 13 mg/dL (9-20); Calcium 8.6 mg/dL (8.4-10.2); Carbon Dioxide 26 mmol/L (22-30); Chloride 107 mmol/L (98-107); Glucose 121 mg/dL (74-99); Magnesium 1.9 mg/dL (1.6-2.3); Non-African American GFR(CKD) >90 (>60 ml/min/1.73 sqM); Phosphorus 4.2 mg/dL (2.5-4.5); Potassium 3.7 mmol/L (3.5-5.1); Sodium 138 mmol/L (137-145); Total Bilirubin 0.2 mg/dL (0.2-1.3); Total Protein 6.1 g/dL (6.3-8.2)
[2021-11-17 02:16] LABS: INR 0.9 (<1.2); Partial Thromboplastin Time 22.9 sec (22.0-30.0)
[2021-11-17] MEDS: MORPHINE SULFATE 4 MG/ML SYRINGE IV PRN ×2 (09:42→20:53)
[2021-11-17] MEDS ORDERED: DEXAMETHASONE SOD PHOSPHATE 4 MG/ML 1 ML VIAL IVP PRN (12:34)
--- NOTE | 2021-11-17 13:19 | HP ---
HISTORY AND PHYSICAL DATE IS SERVICE: 11/17/2021 CHIEF COMPLAINT: Back pain and radiculopathy. HISTORY OF PRESENT ILLNESS: This 61-year-old gentleman with a past medical history of multiple medical issues, including atrial fibrillation, DVT, hypertension, is complaining of back pain. The pain is severe in the back, which radiates to the right side. The patient has difficulty walking and patient came to [facility]. Patient had history of lumbar spondylosis with lumbar radiculopathy and stenosis also. The patient has seen orthopedic surgery. There is no history of fever, rigors or chills. PAST MEDICAL HISTORY: History of DJD, atrial fibrillation, DVT. Otherwise reviewed. MEDICATIONS: Include diltiazem 240 mg. dose and rest of the medications reviewed. ALLERGIES: TO INCLUDE PENICILLIN. FAMILY HISTORY: History of cancer. SOCIAL HISTORY: No history of smoking. REVIEW OF SYSTEMS: 14-point review of systems is negative except as mentioned earlier. PHYSICAL EXAMINATION: Pulse is 63, blood pressure 140/80. Respiration 18. HEENT: Conjunctivae normal. NECK: No JVD. CARDIOVASCULAR: S1, S2. RESPIRATIONS: Breath sounds diminished in the bases. No rhonchi. No crackles. ABDOMEN: Soft, nontender, obese. LEGS: No edema. No swelling. Movement of the right leg is painful. Significant back pain also present. SKIN: No ulcer. JOINTS: No active deforming arthropathy. NERVOUS SYSTEM: No focal deficits. LABS: CBC within normal limits. Sodium 130, potassium 3.7. ASSESSMENT: 1. Severe back pain, failure of outpatient treatment with lumbar radicular, lumbar stenosis. 2. Atrial fibrillation. 3. Deep vein thrombosis. 4. Hypertension. 5. Hyperlipidemia. RECOMMENDATIONS AND DISCUSSION: In this 61-year-old gentleman who presented with multiple complex medical issues, we will monitor the patient closely. Resume the home medications. Otherwise I would recommend orthopedic evaluation. Symptomatic treatment. Prognosis guarded because of multiple complex medical conditions. Further recommendations to follow. MMODL / IJN: [id number] /
--- NOTE | 2021-11-17 13:54 | P.CNOR ---
History of Present Illness - [facility] Consult date: 11/17/21 Requesting physician: Rafael Alfonso Consult reason: low back pain, back pain History of present illness: Patient is a 61-year-old male with a history of atrial fibrillation, DVT, hyp erlipidemia, hypertension, osteoarthritis with a pacemaker who presents to the emergency department last night [facility] chief complaint of low back pain. Patient was seen at bedside this morning in the emergency department. Patient says he has been following in the outpatient setting for her spine over the past few months with Dr. Chow. Patient says over the past week his back pain has worsened. Patient says about 1 week ago he was carrying his laundry basket down the hallway he felt like he was going to fall because his back gave out and then caught himself against the wall. Patient has noted that the instances of loss of bladder control have increased over the past couple months. He says it began by him having may be one episode per week of bladder incontinence several months ago to this point today where patient notes that he has several episodes each day of bladder incontinence. Patient states that most of the back pain he is having is in the low back. Patient states there is radiation of pain down the right leg mostly. Patient states the pain in the right leg is over the front of the right thigh. Patient states he is also having numbness tingling in the digits of his right foot as well as as the plantar aspect of his right foot. Patient denies any other trauma. Patient does also mention he has some weakness in his left leg. Patient did have a left total hip arthroplasty in June of this year and does not complain of any left hip pain currently. Patient denies any previous orthopedic spine surgery. Patient did have a CT myelogram on 10/30/2021 with evidence of neural foraminal and central canal stenosis throughout the lumbar spine as well as anterolisthesis of L4-L5. Patient denies any chest pain, fever, shortness of breath, nausea, vomiting, change in vision. Past Medical History Past Medical History: Atrial Fibrillation, Deep Vein Thrombosis (DVT), Hyperlipidemia, Hypertension, Osteoarthritis (OA) Additional Past Medical History / Comment(s): DVT 2019 TOP RT ATRIUM. AFIB RESOLVED WITH PACEMAKER History of Any Multi-Drug Resistant Organisms: None Reported Past Surgical History: Joint Replacement, Orthopedic Surgery, Pacemaker Additional Past Surgical History / Comment(s): RT KALEY-03/31/2021. RT SHOULDER SX LT KNEE SX X 2. PACEMAKER-2018. WATCHMAN DEVICE IN HEART-09/2020. COLONOSCOPY. Left hip replacement 07/07/21 Past Anesthesia/Blood Transfusion Reactions: No Reported Reaction Type of Cardiac Device: Permanent Pacemaker Device Placement Date:: 2017 Past Psychological History: Depression Smoking Status: Never smoker Past Alcohol Use History: Occasional Past Drug Use History: None Reported - Past Family History Mother Family Medical History: Cancer Father Family Medical History: Deep Vein Thrombosis (DVT), Myocardial Infarction ([place]), Pulmonary Embolus Medications and Allergies Home Medications Medication Instructions Recorded Confirmed Type Atorvastatin [Lipitor] 10 mg PO HS 07/02/21 11/17/21 History DULoxetine HCL [Cymbalta] 60 mg PO DAILY 07/02/21 11/17/21 History Clopidogrel [Plavix] 75 mg PO DAILY 07/07/21 11/17/21 History Cyclobenzaprine [Flexeril] 10 mg PO TID PRN 10/30/21 11/17/21 History Amiodarone [Cordarone] 100 mg PO DAILY 11/17/21 11/17/21 History HYDROcodone/APAP 7.5-325MG [[place] 1 tab PO Q6HR PRN 11/17/21 11/17/21 History 7.5] dilTIAZem HCL [dilTIAZem HCL 12Hr 240 mg PO DAILY 11/17/21 11/17/21 History ER] Allergies Allergy/AdvReac Type Severity Reaction Status Date / Time adhesive Allergy Rash/Hives Verified 11/17/21 07:25 Penicillins AdvReac Swelling Verified 11/17/21 07:25 Physical Examination Inspection: Negative for any open fractures, ecchymosis, significant erythema, nodules, ulcers Sensation: Patient has sensation that is equal, symmetric, bilaterally intact throughout the upper extremities and lower extremities. Palpation: Patient does have moderate TTP along the lumbar spine both at midline and in the paravertebral regions. Moderate TTP along the right SI joint. NTTP throughout rest of exam Range of motion: Patient does have limited range of motion in left hip flexion due to weakness. Patient has full range of motion in bilateral lower extremities in other exams. Patient does have full range of motion in the left upper extremity. Patient does have limited range of motion in right shoulder forward elevation due to previous surgery/injury patient says he had back in 2017. Motor: Bilateral upper extremities 5/5 in all major motor groups. Left lower extremity 3+/5 in resisted hip flexion. 4+/5 in all other major motor groups in the left lower extremity. Right lower extremity is 4-/5 in resisted plant arflexion. 4+/5 in all other major motor groups and right lower extremity Neurovascular: Refill under 3 seconds in digits of upper extremities. Radial pulses intact, 2+. DP pulses present. Special tests: Negative Niko's bilaterally; negative Homans bilaterally. Negative clonus bilaterally. Results - Labs Labs: Abnormal Lab Results - Last 24 Hours (Table) 11/17/21 Range/Units 01:27 Glucose 121 H (74-99) mg/dL Total Protein 6.1 L (6.3-8.2) g/dL Albumin 3.4 L (3.5-5.0) g/dL H & H 11/17/21 Range/Units 01:27 Hgb 13.5 (13.0-17.5) gm/dL Hct 40.9 (39.0-53.0) % Coagulation 11/17/21 Range/Units 01:27 INR 0.9 (<1.2) Result Diagrams: 11/17/21 01:27 11/17/21 01:27 Assessment and Plan Assessment: 1. Degenerative disc disease; anterolisthesis L4-L5; lumbar neuroforaminal stenosis; central canal stenosis 2. History of total joint arthroplasty 3. Multiple medical comorbidities Plan: 1. Degenerative disc disease; anterolisthesis L4-L5; lumbar neuroforaminal stenosis; central canal stenosis - patient seen at bedside in the ER this morning. Patient did have CT of lumbar spine about 2 weeks ago. I did review the findings the CT of lumbar spine with my attending, Dr. Chow. At this time we're not recommending any further imaging. Patient says he has been having increased frequency of bladder incontinence. Patient does have a pacemaker. We are recommending management of patient's current symptoms with Decadron 6 mg every 6 hours. We will see how patient responds to steroids before proceeding with any further potential orthopedic intervention. We will consult urology for bladder incontinence. We will continue follow patient while in hospital 2. Appreciate medical management 3. Pain management - [place]; Flexeril 4. DVT prophylaxis - heparin 5. GI prophylaxis - Protonix 6. PT/OT - WBAT w/walker and assistance 7. Appreciate consult Time with Patient: Less than 30
[2021-11-17] MEDS: DEXAMETHASONE SOD PHOSPHATE 10 MG/ML 1 ML VIAL IVP SCH ×3 (14:13→23:49)
[2021-11-17] MEDS: DILTIAZEM CD 240 MG CAP.ER.24H PO SCH (14:13)
[2021-11-17] MEDS: HEPARIN SODIUM,PORCINE/PF 5,000 UNIT/0.5 ML SYRINGE SQ SCH ×2 (14:13→20:54)
[2021-11-17] MEDS: HYDROcodone/APAP 7.5-325MG 1 EACH TAB PO PRN ×2 (17:43→23:49)
[2021-11-17] MEDS: ATORVASTATIN 10 MG TAB PO SCH (20:53)
[2021-11-18] MEDS: DEXAMETHASONE SOD PHOSPHATE 10 MG/ML 1 ML VIAL IVP SCH ×3 (05:56→18:21)
[2021-11-18] MEDS: DULoxetine HCL 60 MG CAPSULE.DR PO SCH (08:17)
[2021-11-18] MEDS: AMIODARONE 100 MG TAB PO SCH (08:17)
[2021-11-18] MEDS: HEPARIN SODIUM,PORCINE/PF 5,000 UNIT/0.5 ML SYRINGE SQ SCH ×2 (08:17→20:14)
[2021-11-18] MEDS: PANTOPRAZOLE 40 MG TABLET PO SCH (08:17)
[2021-11-18] MEDS: DILTIAZEM CD 240 MG CAP.ER.24H PO SCH (08:17)
--- NOTE | 2021-11-18 08:37 | P.GSCN ---
History of Present Illness Consult date: 11/18/21 History of present illness: 61 yo male in the hospital with increasing back pain and problems related to lumbar disc disease[see ortho consultation] has been having problems with increasing incontinence. We were asked to see the patient. He is getting iv steroids. He has been incontinent in the hospital. There is no urine report on the chart. He had a ct lumbar spine on 10/30/21 that did not identify and obvious renal abnormality but did have a full bladder at the time of the ct scan. The patient states that he has had incontinence since June. It is primarily urgency incontinence where when he gets up he suddenly has to urinate and cannot control. He also scribes incomplete bladder emptying. There've been no infections. He has had a rectal examination the past which is benign. He has not seen a urologist in the past. There is no history of urinary infections. Prior to June there is no history of urologic issues. His stream appears adequate. Review of Systems All systems: negative - Constitutional Denies fever, Denies weight loss - EENT Eyes: denies blurred vision Ears, nose, mouth and throat: Denies dysphagia - Cardiovascular Denies chest pain, Denies shortness of breath - Respiratory Denies cough, Denies 7 - Gastrointestinal Reports as per HPI - Genitourinary Denies dysuria, Denies hematuria - Integumentary Denies rash, Denies unusual bruising - Neurological Denies headaches, Denies syncope - Hematologic/Lymphatic Denies easy bleeding, Denies easy bruising Past Medical History Past Medical History: Atrial Fibrillation, Deep Vein Thrombosis (DVT), Hyperlipidemia, Hypertension, Osteoarthritis (OA) Additional Past Medical History / Comment(s): DVT 2019 TOP RT ATRIUM. AFIB RESOLVED WITH PACEMAKER History of Any Multi-Drug Resistant Organisms: None Reported Past Surgical History: Joint Replacement, Orthopedic Surgery, Pacemaker Additional Past Surgical History / Comment(s): RT KALEY-03/31/2021. RT SHOULDER SX LT KNEE SX X 2. PACEMAKER-2017. WATCHMAN DEVICE IN HEART-09/2020. COLONOSCOPY. Left hip replacement 07/07/21 Past Anesthesia/Blood Transfusion Reactions: No Reported Reaction Type of Cardiac Device: Permanent Pacemaker Device Placement Date:: 2017 Past Psychological History: Depression Smoking Status: Never smoker Past Alcohol Use History: Occasional Past Drug Use History: None Reported - Past Family History Mother Family Medical History: Cancer Father Family Medical History: Deep Vein Thrombosis (DVT), Myocardial Infarction ([place]), Pulmonary Embolus Medications and Allergies Home Medications Medication Instructions Recorded Confirmed Type Atorvastatin [Lipitor] 10 mg PO HS 07/02/21 11/17/21 History DULoxetine HCL [Cymbalta] 60 mg PO DAILY 07/02/21 11/17/21 History Clopidogrel [Plavix] 75 mg PO DAILY 07/07/21 11/17/21 History Cyclobenzaprine [Flexeril] 10 mg PO TID PRN 10/30/21 11/17/21 History Amiodarone [Cordarone] 100 mg PO DAILY 11/17/21 11/17/21 History HYDROcodone/APAP 7.5-325MG [[place] 1 tab PO Q6HR PRN 11/17/21 11/17/21 History 7.5] dilTIAZem HCL [dilTIAZem HCL 12Hr 240 mg PO DAILY 11/17/21 11/17/21 History ER] Allergies Allergy/AdvReac Type Severity Reaction Status Date / Time adhesive Allergy Rash/Hives Verified 11/17/21 07:25 Penicillins AdvReac Swelling Verified 11/17/21 07:25 Surgical - Exam Vital Signs Temp Pulse Resp BP Pulse Ox 98.1 F 85 18 160/82 97 11/16/21 20:56 11/16/21 20:56 11/16/21 20:56 11/16/21 20:56 11/16/21 20:56 - General well developed, well nourished, no distress - Eyes PERRL - ENT no hearing loss - Neck trachea midline - Respiratory normal expansion, normal respiratory effort - Cardiovascular Rhythm: regular - Abdomen Abdomen: soft, non tender - Genitourinary Prostate 20-30 g benign normal penis with no external lesions, testicles present - Integumentary no rash, no growths - Psychiatric oriented to time, oriented to person, oriented to place, speech is normal, memory intact Results - Labs 11/17/21 01:27 11/17/21 01:27 - Imaging Additional studies: ct scan lumbar spine 10/30/21 reviewed Assessment and Plan Assessment: Impression: Urinary incontinence, urgency by description. Rule out incomplete bladder emptying. Major lumbosacral spinal issues requiring surgery in the near future. Recommendations: As likely the majority of this bladder issues related to his back. Obtain a urinary residual in order to try to decide how to treat the symptoms. However from description the does not sound like he has significant prostatism. I will follow with you.
--- NOTE | 2021-11-18 08:44 | P.PN ---
Progress Note - Text Progress Note Date: 11/18/21 Patient seen and examined, I reviewed the note, discussed the case with the PA first hand and agree with the assessment and plan of RODOLFO Barber. Please see my notes below for any additional recommendations. [facility] History and Physical CC: Lower extremity weakness increasing urinary incontinence HPI: 61-year-old male who is known to me from the clinic presents from [facility] with complaints of increasing frequency of urinary incontinence as well as lower extremity weakness. The patient was seen in the office about a month ago and underwent a CT myelogram of his lumbar spine due to low back pain as well as radicular pain. The patient also complained of some urinary incontinence at the time but it was sporadic and really was not causing any issues however over the past 2 weeks this has increased substantially and he states now it seems to be around 60% of the time. He states his lower extremities are becoming weaker although they are not overtly weak they just seem to be more difficult to control and its harder for him to walk around. He denies any bowel issues he states that he has no perineal numbness or tingling and no genital numbness or tingling he has no perirectal numbness or tingling and can feel everything in this area. He denies any fevers chills shortness breath or chest pain. He denies any injury to this area as well. The patient's past medical history; past surgical history; family history; medicines; allergies and social history have been reviewed and are as stated elsewhere in the chart. 14 points review of systems completed and as stated in HPI, all other systems reviewed are negative. PHYSICAL EXAMINATION: Vitals: Table General: Awake, alert, appropriate for age, in no acute distress. HEENT: No unusual neck masses around region of lateral neck triangle, thyroid, supraclavicular groove. Extremities: Skin warm and dry without no acute lesions, coloration, temperature, skin intact, no tenderness or erythema. Integument: Hairy patches: Absent Dorsal skin dimples: Absent Cafe au lait spots: Absent Surgical incisions: No low back incisions Palpation: Please see Pain drawing on Intake sheet for further detail. (Tenderness = T, Nontender = NT, Swelling = S, Ecchymosis = E) Findings on Midline and paraspinal palpation and percussion: Cervical: NT Thoracic: NT Lumbar: Minor TTP over paraspinals Sacral: NT Special findings: None POSTURAL and MUSCULO-SKELETAL EVALUATION: Neck ROM: [Unrestricted in six directions] Lumbar ROM: Strict is secondary to being in bed at this time Shoulder ROM: Symmetric in abduction, ER/IR Hip ROM: Symmetric in abduction, adduction, ER/IR Knee ROM: Symmetric and intact in Flexion / extension Hands: Normal appearing structure L and R Feet: Normal appearing structure L and R VASCULAR STATUS : Wrist Pulses: [2/4 bilateral radial and ulnar] Pedal Pulses: [2/4 bilateral DP and PT] Color: [Normal] Edema: b/l LE NEUROLOGIC EXAMINATION: Mental Status: Awake and alert, fully oriented, with normal attention, concentration and memory, and fluent, appropriate speech. Cranial Nerves: I: Olfactory not tested. II: Visual acuity normal, no visual field deficit noted with confrontation. III,IV: Normal pupillary reflexes & intact extraocular movements without nystagmus. V,: Intact symmetrical facial sensation. VII: Intact symmetrical facial motor movement VIII: Hearing intact. IX,X: Intact gag, swallow, & normal voice. XI: Sternocleidomastoid, trapezius function intact. XII: Tongue midline with normal movements. Special Tests: L'hermitte's Sign: Absent Spurling'Sign: Absent Bilateral Cubital percussion test: Absent Bilateral Ethan-Tinel sign - Carpal region: Absent Bilateral Straight Leg Raising: Absent Bilateral Motor Exam (0-5/5, N/T) STRENGTH UPPER EXTREMITY Shoulder Abd (Not part of RACHEL Motor score): RIGHT [5] LEFT [5] Elbow Flexors: RIGHT [5] LEFT [5] Elbow Extensor: RIGHT [5] LEFT [5] Wrrist Dorsiflexors: RIGHT [5] LEFT [5] Finger Abductor: RIGHT [5] LEFT [5] Junior Sales Representative: RIGHT [5] LEFT [5] LOWER EXTREMITY Hip Flexor (Not part of RACHEL Motor Score): RIGHT 4- LEFT 4- this is likely secondary to his hip replacements Knee Flexor: RIGHT 4 LEFT 4 Knee Extensor: RIGHT 4 LEFT 4 Ankle Dorsiflexion: RIGHT 4 + LEFT [4+ Ankle Plantarflexion RIGHT 4+ LEFT 4+ EHL: RIGHT 4+ LEFT 4+ FHL: RIGHT 4+ LEFT 4+ This is deconditioning present in bilateral lower extremities they are weak however somewhat due to his hip replacement but also potentially due to his low back given the levels that are stenotic REFLEXES Biecp: RIGHT [2] LEFT [2] Tricep: RIGHT [2] LEFT [2] Brachioradialis: RIGHT [2] LEFT [2] Patellar: RIGHT [2] LEFT [2] Achilles: RIGHT [2] LEFT [2] Pathological Reflexes Pickard's: RIGHT [Absent] LEFT [Absent] Babinski: RIGHT [Absent] LEFT [Absent] Clonus: RIGHT [None] LEFT [None] SENSORY Joint Position: [Intact bilaterally] Vibration [Intact bilaterally] Pain and LT sense [Intact C5-T1 and L2-S1] Dermatomal deficit L3-5 decreased b/l, still can feel but dulled Gait and Functional Evaluation: Walks with a walker or cane RADIOGRAPHS: CT myelogram was reviewed At L1-L2 there is a posterior disc osteophyte complex that causes thecal sac encroachment and central stenosis L2-L3 shows severe spondylosis with severe stenosis centrally as well as foraminally L3-L4 show severe spondylosis with disc desiccation as well as near-complete mye logram block with central stenosis L4-L5 shows severe spondylosis with grade 1 anterolisthesis and severe stenosis with complete myelogram block facet hypertrophy bogginess and vacuum disc phenomena L5-S1 shows semi-patent central canal with myelogram flow however severe spondylosis with stenotic features hypertrophic facets. ASSESSMENT: 1. L1 to S1 severe stenosis 2. L1 to S1 severe spondylosis 3. Lower extremity radiculopathy lower extremity weakness bilateral 4. Urinary incontinence increasing frequency 5. Complex medical patient PLAN: -Medical clearance -I discussed at length with the patient different treatment alternatives as well as operative and nonoperative at this point the patient states that he cannot perform his daily activities due to these issues and due to the severe stenosis that he has. We discussed surgical options and at this time due to his increasing urinary incontinence as well as lower extremity weakness and do feel that he needs more urgent surgical intervention. We will place him on the schedule for Tuesday11/20/2021 for L1 to S1 decompression with likely L2 to pelvis fusion. In our visit today * Mr Chicas and I have had a chance to go over my understanding of the patient's current condition, the natural course history without intervention and various interventional options. Questions were invited and answered, and the patient wishes to proceed as outlined above. Thank you again for your referral. Please do not hesitate to contact me if you have any further questions. Signed and authenticated by: [facility] [address] [facility], [address] [address] This message is confidential, intended only for the named recipient(s) and may contain information that is privileged or exempt from disclosure under applicable law. If you are not the intended recipient(s), you are notified that the dissemination, distribution or copying of this information is strictly prohibited. If you received this message in error, please notify the sender then delete this message.
--- NOTE | 2021-11-18 08:52 | P.PN ---
Subjective Progress Note Date: 11/18/21 Principal diagnosis: Degenerative disc disease; anterolisthesis L4-L5; lumbar neuroforaminal stenosis; central canal stenosis Patient was seen at bedside this morning lying in semirecumbent position. Patient says he is still having low back pain with radiation of pain down the r ight leg. Patient says not much has changed since yesterday. Patient says overnight she did have 3 or 4 episodes of incontinence. Patient says he does want to go through with spine surgery. Patient denies chest pain, fever, shortness breath, nausea, vomiting, change in vision. Objective - Vital Signs Vital signs: Vital Signs Temp 98.2 F 11/18/21 07:33 Pulse 68 11/18/21 07:33 Resp 16 11/18/21 07:33 BP 146/81 11/18/21 07:33 Pulse Ox 92 L 11/18/21 07:33 FiO2 Intake & Output 11/17/21 11/18/21 11/18/21 18:59 06:59 18:59 Intake Total 118 Output Total 2250 Balance -2132 Weight 122.47 kg Intake: Oral 118 Output: Urine 2250 Other: Voiding Method Incontinent Incontinent Incontinent # Voids 1 1 - Exam Inspection: Negative for any open fractures, ecchymosis, significant erythema, nodules, ulcers Sensation: Patient has sensation that is equal, symmetric, bilaterally intact throughout the upper extremities and lower extremities. Palpation: Patient does have moderate TTP along the lumbar spine both at midline and in the paravertebral regions. Moderate TTP along the right SI joint. NTTP throughout rest of exam Range of motion: Patient does have limited range of motion in left hip flexion due to weakness. Patient has full range of motion in bilateral lower extremities in other exams. Patient does have full range of motion in the left upper extremity. Patient does have limited range of motion in right shoulder forward elevation due to previous surgery/injury patient says he had back in 2017. Motor: Bilateral upper extremities 5/5 in all major motor groups. Left lower extremity 3+/5 in resisted hip flexion. 4+/5 in all other major motor groups in the left lower extremity. Right lower extremity is 4-/5 in resisted plantarflexion. 4+/5 in all other major motor groups and right lower extremity Neurovascular: Refill under 3 seconds in digits of upper extremities. Radial pulses intact, 2+. DP pulses present. Special tests: Negative Niko's bilaterally; negative Homans bilaterally. Negative clonus bilaterally. - Labs CBC & Chem 7: 11/17/21 01:27 11/17/21 01:27 Assessment and Plan Assessment: 1. Degenerative disc disease; anterolisthesis L4-L5; lumbar neuroforaminal stenosis; central canal stenosis 2. History of total joint arthroplasty 3. Multiple medical comorbidities Plan: 1. Degenerative disc disease; anterolisthesis L4-L5; lumbar neuroforaminal stenosis; central canal stenosis - patient seen at bedside on the floor this morning. Patient did have CT of lumbar spine about 2 weeks ago. I did review the findings the CT of lumbar spine with my attending, Dr. Chow. Patient says he has been having increased frequency of bladder incontinence. Patient does have a pacemaker. At this time we are recommending orthopedic surgical intevention the form of L2-S1 decompression and fusion L3-L5. Patient does want to go through with surgery at this time Surgery has been boarded for 11/20/2021. Cardiac has been consulted for surgical clearance. We will continue follow patient while in hospital 2. Appreciate medical, urology, cardiac management 3. Pain management - [place]; Flexeril 4. DVT prophylaxis - heparin 5. GI prophylaxis - Protonix 6. PT/OT - WBAT w/walker and assistance 7. Appreciate consult Time with Patient: Less than 30
[2021-11-18 09:08] LABS: Basophils # (A) 0.02 X 10*3/uL (0.00-0.10); Basophils % (A) 0.2 %; Eosinophils # (A) 0 X 10*3/uL (0.04-0.35); Eosinophils % (A) 0 %; HCT 45.9 % (39.6-50.0); HGB 14.8 g/dL (13.0-17.0); Immature Grans, Automated 0.5 %; Lymphocytes # (A) 0.74 X 10*3/uL (0.90-5.00); Lymphocytes % (A) 5.6 %; MCH 27.6 pg (27.0-32.0); MCHC 32.2 g/dL (32.0-37.0); MCV 85.6 fL (80.0-97.0); Mean Platelet Volume 10.8 fL (9.5-12.2); Monocytes # (A) 0.11 X 10*3/uL (0.20-1.00); Monocytes % (A) 0.8 %; NRBC Per 100 WBC 0 /100 WBCS (0.0-0.0); Neutrophils # (A) 12.35 X 10*3/uL (1.80-7.70); Neutrophils % (A) 92.9 %; Platelet Count 257 X 10*3/uL (140-440); RBC 5.36 X 10*6/uL (4.40-5.60); RDW 14.4 % (11.5-14.5); WBC 13.28 X 10*3/uL (4.50-10.00)
[2021-11-18 09:15] LABS: African American GFR (CKD) 118.9 (60.0-200.0); Albumin 4.1 g/dL (3.8-4.9); Albumin/Globulin Ratio 1.37 (1.60-3.17); Anion Gap 13.6 mmol/L (10.00-18.00); BUN/Creat Ratio 22.86 Ratio (12.00-20.00); Calcium 9.5 mg/dL (8.7-10.3); Carbon Dioxide 21.4 mmol/L (20.0-27.5); Magnesium 2.1 mg/dL (1.5-2.4); Non-African American GFR(CKD) 102.6 (60.0-200.0); Phosphorus 3.1 mg/dL (2.4-5.1); Potassium 4.2 mmol/L (3.5-5.5); Total Bilirubin 0.3 mg/dL (0.30-1.20); Total Protein 7.1 g/dL (6.2-8.2)
[2021-11-18] MEDS: HYDROcodone/APAP 7.5-325MG 1 EACH TAB PO PRN ×2 (11:24→18:21)
--- NOTE | 2021-11-18 13:41 | P.CRDCN ---
History of Present Illness History of present illness: HISTORY OF PRESENT ILLNESS: This is a 61 year old male with a past medical history significant for paroxysmal atrial fibrillation with history of watchman device and sick sinus syndrome with PPM insertion. Patient follows with a inspector tubes out of town. We have been asked to see the patient in consultation for cardiac clearance. Patient examined at the bedside. Patient reports increased lower back pain and increased incontinence over the past week. He is scheduled to undergo L2-S1 decompression and fusion L3-L5. Patient denies any chest pain or pressure. Cyrus es SOB. Denies dizziness or lightheadedness. Patient's vital signs are stable. Patient does report having a recent stress test at his primary cardiology office. * EKG reveals atrial paced rhythm * Laboratory data: WBC 13.28. Hemoglobin 14.8. Platelet count 257. Sodium 136. Potassium 4.2. BUN 16. Creatinine 0.7. * Current home cardiac medications include amiodarone 100 mg daily, Lipitor 10 m g daily, Plavix 75 mg daily, Cardizem 240 mg daily REVIEW OF SYSTEMS: At the time of my exam: CONSTITUTIONAL: Denies fever or chills. HEENT: Denies blurred vision, vision changes, or eye pain. Denies hemoptysis CARDIOVASCULAR: Denies chest pain. Denies orthopnea. Denies PND. Denies palpitations RESPIRATORY: Denies shortness of breath. GASTROINTESTINAL: Denies abdominal pain. Denies nausea or vomiting. HEMATOLOGIC: Denies bleeding disorders. GENITOURINARY: Denies any blood in urine. SKIN: Denies pruitis. Denies rash. PHYSICAL EXAM: VITAL SIGNS: Reviewed. GENERAL: Well-developed in no acute distress. HEENT: Head is normocephalic. Pupils are equal, round. Sclerae anicteric. Mucous membranes of the mouth are moist. Neck supple. No JVD or thyromegaly LUNGS: Respirations even and unlabored. Lungs essentially clear to auscultation bilaterally. HEART: Regular rate and rhythm. S1 and S2 heard. ABDOMEN: Soft. Nondistended. Nontender. EXTREMITIES: Normal range of motion. No clubbing or cyanosis. Peripheral pulses intact. No lower extremity edema NEUROLOGIC: Awake and alert. Oriented x 3. ASSESSMENT: Degenerative disc disease, scheduled to undergo L2-S1 decompression and fusion L3-L5 Paroxysmal atrial fibrillation with previous watchman device Sick sinus syndrome with permanent pacemaker insertion Hyperlipidemia PLAN: Obtain 2D echo to assess cardiac structure and function Resume home cardiac medications. Hold Plavix Patient currently denies any chest pain or pressure. He has no signs of acute congestive heart failure. There are no absolute contraindications from a cardiac standpoint to undergo surgery with orthopedics Further recommendations pending patient's course Nurse practitioner note has been reviewed by physician. Signing provider agrees with the documented findings, assessment, and plan of care. Past Medical History Past Medical History: Atrial Fibrillation, Deep Vein Thrombosis (DVT), H yperlipidemia, Hypertension, Osteoarthritis (OA) Additional Past Medical History / Comment(s): DVT 2019 TOP RT ATRIUM. AFIB RESOLVED WITH PACEMAKER History of Any Multi-Drug Resistant Organisms: None Reported Past Surgical History: Joint Replacement, Orthopedic Surgery, Pacemaker Additional Past Surgical History / Comment(s): RT KALEY-03/31/2021. RT SHOULDER SX LT KNEE SX X 2. PACEMAKER-2017. WATCHMAN DEVICE IN HEART-09/2020. COLONOSCOPY. Left hip replacement 07/07/21 Past Anesthesia/Blood Transfusion Reactions: No Reported Reaction Type of Cardiac Device: Permanent Pacemaker Device Placement Date:: 2017 Past Psychological History: Depression Smoking Status: Never smoker Past Alcohol Use History: Occasional Past Drug Use History: None Reported - Past Family History Mother Family Medical History: Cancer Father Family Medical History: Deep Vein Thrombosis (DVT), Myocardial Infarction ([place]), Pulmonary Embolus Medications and Allergies Home Medications Medication Instructions Recorded Confirmed Type Atorvastatin [Lipitor] 10 mg PO HS 07/02/21 11/17/21 History DULoxetine HCL [Cymbalta] 60 mg PO DAILY 07/02/21 11/17/21 History Clopidogrel [Plavix] 75 mg PO DAILY 07/07/21 11/17/21 History Cyclobenzaprine [Flexeril] 10 mg PO TID PRN 10/30/21 11/17/21 History Amiodarone [Cordarone] 100 mg PO DAILY 11/17/21 11/17/21 History HYDROcodone/APAP 7.5-325MG [[place] 1 tab PO Q6HR PRN 11/17/21 11/17/21 History 7.5] dilTIAZem HCL [dilTIAZem HCL 12Hr 240 mg PO DAILY 11/17/21 11/17/21 History ER] Allergies Allergy/AdvReac Type Severity Reaction Status Date / Time adhesive Allergy Rash/Hives Verified 11/17/21 07:25 Penicillins AdvReac Swelling Verified 11/17/21 07:25 Physical Exam Vitals: Vital Signs Temp Pulse Resp BP Pulse Ox 11/18/21 07:33 98.2 F 68 16 146/81 92 L 11/18/21 01:52 97.5 F L 73 18 124/58 91 L 11/17/21 20:08 98.2 F 63 16 152/79 93 L 11/17/21 15:08 98 F 76 16 158/81 95 Intake and Output 11/17/21 11/18/21 11/18/21 22:59 06:59 14:59 Intake Total 118 Output Total 650 Balance -532 Intake: Oral 118 Output: Urine 650 Other: Voiding Method Incontinent Incontinent Incontinent # Voids 1 1 1 Results 11/18/21 06:21 11/18/21 06:21 Cardiac Enzymes 11/18/21 Range/Units 06:21 AST 15 (14-35) U/L CBC 11/18/21 Range/Units 06:21 WBC 13.28 H (4.50-10.00) X 10*3/uL RBC 5.36 (4.40-5.60) X 10*6/uL Hgb 14.8 (13.0-17.0) g/dL Hct 45.9 (39.6-50.0) % Plt Count 257 (140-440) X 10*3/uL Comprehensive Metabolic Panel 11/18/21 Range/Units 06:21 Sodium 136 (135-145) mmol/L Potassium 4.2 (3.5-5.5) mmol/L Chloride 101 (96-109) mmol/L Carbon Dioxide 21.4 (20.0-27.5) mmol/L BUN 16.0 (9.0-27.0) mg/dL Creatinine 0.7 (0.6-1.5) mg/dL Glucose 161 H (70-110) mg/dL Calcium 9.5 (8.7-10.3) mg/dL AST 15 (14-35) U/L ALT 21 (10-49) U/L Alkaline Phosphatase 137 H (41-126) U/L Total Protein 7.1 (6.2-8.2) g/dL Albumin 4.1 (3.8-4.9) g/dL Current Medications Generic Name Dose Route Start Last Admin Trade Name Freq PRN Reason Stop Dose Admin Hydrocodone Bitart/Acetaminophen 1 each 11/17/21 12:55 11/18/21 11:24 Hydrocodone/Apap 7.5-325mg 1 Each Tab PO 1 each Q6HR PRN Administration Pain Amiodarone HCl 100 mg 11/18/21 09:00 11/18/21 08:17 Amiodarone 100 Mg Tab PO 100 mg DAILY BERNARDINO Administration Atorvastatin Calcium 10 mg 11/17/21 21:00 11/17/21 20:53 Atorvastatin 10 Mg Tab PO 10 mg HS BERNARDINO Administration Cyclobenzaprine HCl 10 mg 11/17/21 12:55 Cyclobenzaprine 10 Mg Tab PO TID PRN Pain Dexamethasone Sodium Phosphate 6 mg 11/17/21 13:00 11/18/21 05:56 Dexamethasone Sod Phosphate 10 Mg/Ml 1 Ml Vial IVP 6 mg Q6HR BERNARDINO Administration Diltiazem HCl 240 mg 11/17/21 13:00 11/18/21 08:17 Diltiazem Cd 240 Mg Cap.Er.24h PO 240 mg DAILY BERNARDINO Administration Duloxetine HCl 60 mg 11/18/21 09:00 11/18/21 08:17 Duloxetine Hcl 60 Mg Capsule.Dr PO 60 mg DAILY BERNARDINO Administration Heparin Sodium (Porcine) 5,000 unit 11/17/21 13:00 11/18/21 08:17 Heparin Sodium,Porcine/Pf 5,000 Unit/0.5 Ml Syringe SQ 5,000 unit Q12HR BERNARDINO Administration Sodium Chloride 1,000 mls @ 20 mls/hr 11/17/21 01:30 11/17/21 23:56 Saline 0.9% IV Not Given .Q24H BERNARDINO Morphine Sulfate 4 mg 11/17/21 01:18 11/17/21 20:53 Morphine Sulfate 4 Mg/Ml Syringe IV 4 mg Q4HR PRN Administration Severe Pain Naloxone HCl 0.2 mg 11/17/21 01:18 Naloxone 0.4 Mg/Ml 1 Ml Vial IV Q2M PRN Opioid Reversal Ondansetron HCl 4 mg 11/17/21 01:18 Ondansetron 4 Mg/2 Ml Vial IVP Q8HR PRN Nausea And Vomiting Pantoprazole Sodium 40 mg 11/18/21 07:30 11/18/21 08:17 Pantoprazole 40 Mg Tablet PO 40 mg AC-[id number] BERNARDINO Administration Intake and Output 11/17/21 11/18/21 11/18/21 22:59 06:59 14:59 Intake Total 118 Output Total 650 Balance -532 Intake: Oral 118 Output: Urine 650 Other: Voiding Method Incontinent Incontinent Incontinent # Voids 1 1 1 11/18/21 06:21 11/18/21 06:21
--- NOTE | 2021-11-18 16:30 | P.PN ---
Subjective Progress Note Date: 11/18/21 This is a 61-year-old male who was recently admitted with back pain that has been worsening and also radiating to the right side and continues to have difficulty in walking and increased tingling and numbness noted to the left lower extremity. Patient is being closely monitored with orthopedics following as patient has history of lumbar spondylosis and lumbar radiculopathy and stenosis. Surgical intervention with orthopedics is being planned and cardiology consulted for medical clearance. Patient is currently afebrile and undergoing 2-D echo at this time. Patient denies any chest pain or shortness of breath. Patient does have history of atrial fibrillation currently rate controlled and recommend to continue with telemetry monitoring. Urology was also consulted for urinary incontinence and recommends post void residuals and bladder scanning. Patient is maintained on high-dose IV steroids and will continue and planning on possible surgical intervention of L2 to S1 decompression and fusion of L3 to L5 this Tuesday. Recommend DVT prophylaxis and continue with pain management. Recommend neuro consult. Review of systems: Constitutional: No reports of fatigue, fever, or chills Cardiovascular: No reports of chest pain or palpitations Respiratory: No reports of shortness of breath or cough GI: No reports of nausea, no reports of of vomiting, no reports of diarrhea : No reports of dysuria or retention Neurovascular: reports of generalized weakness with continued tingling and o ccasional numbness of the left lower extremity weakness and pain along with some right side pain of the lower extremity All medications have been reviewed Active Medications Hydrocodone Bitart/Acetaminophen (Hydrocodone/Apap 7.5-325mg 1 Each Tab) 1 each PO Q6HR PRN PRN Reason: Pain Last Admin: 11/18/21 11:24 Dose: 1 each Amiodarone HCl (Amiodarone 100 Mg Tab) 100 mg PO DAILY [facility] Last Admin: 11/18/21 08:17 Dose: 100 mg Atorvastatin Calcium (Atorvastatin 10 Mg Tab) 10 mg PO HS [facility] Last Admin: 11/17/21 20:53 Dose: 10 mg Cyclobenzaprine HCl (Cyclobenzaprine 10 Mg Tab) 10 mg PO TID PRN PRN Reason: Pain Dexamethasone Sodium Phosphate (Dexamethasone Sod Phosphate 10 Mg/Ml 1 Ml Vial) 6 mg IVP Q6HR [facility] Last Admin: 11/18/21 13:30 Dose: 6 mg Diltiazem HCl (Diltiazem Cd 240 Mg Cap.Er.24h) 240 mg PO DAILY [facility] Last Admin: 11/18/21 08:17 Dose: 240 mg Duloxetine HCl (Duloxetine Hcl 60 Mg Capsule.Dr) 60 mg PO DAILY [facility] Last Admin: 11/18/21 08:17 Dose: 60 mg Heparin Sodium (Porcine) (Heparin Sodium,Porcine/Pf 5,000 Unit/0.5 Ml Syringe) 5,000 unit SQ Q12HR [facility] Last Admin: 11/18/21 08:17 Dose: 5,000 unit Sodium Chloride (Saline 0.9%) 1,000 mls @ 20 mls/hr IV .Q24H [facility] Last Admin: 11/17/21 23:56 Dose: Not Given Morphine Sulfate (Morphine Sulfate 4 Mg/Ml Syringe) 4 mg IV Q4HR PRN PRN Reason: Severe Pain Last Admin: 11/17/21 20:53 Dose: 4 mg Naloxone HCl (Naloxone 0.4 Mg/Ml 1 Ml Vial) 0.2 mg IV Q2M PRN PRN Reason: Opioid Reversal Ondansetron HCl (Ondansetron 4 Mg/2 Ml Vial) 4 mg IVP Q8HR PRN PRN Reason: Nausea And Vomiting Pantoprazole Sodium (Pantoprazole 40 Mg Tablet) 40 mg PO AC-BRKFST [facility] Last Admin: 11/18/21 08:17 Dose: 40 mg PHYSICAL EXAMINATION: GENERAL: The patient is alert and oriented x4, Well developed, well nourished. Obese. HEENT: Pupils are round and equally reacting to light. EOMI. no scleral icterus. No conjunctival pallor. Normocephalic, atraumatic. No pharyngeal erythema. No thyromegaly. CARDIOVASCULAR: S1 and S2 muffled PULMONARY: diminished breath sounds bilaterally with no wheezing or rhonchi noted. ABDOMEN: soft. non tender on exam. Obese. non-distended, normal bowel sounds. No palpable organomegaly. MUSCULOSKELETAL: No joint swelling or deformity. EXTREMITIES: No cyanosis, clubbing, or pedal edema. NEUROLOGICAL: Gross neurological examination did not reveal any focal deficits. SKIN: No rashes. Assessment: Severe back pain, failure of outpatient treatment with lumbar radiculopathy and lumbar stenosis Deep vein thrombosis history Osteoarthritis Degenerative disc disease Paroxysmal atrial fibrillation History of sick sinus syndrome with permanent pacemaker insertion Hypertension Hyperlipidemia GI prophylaxis DVT prophylaxis Full code Plan: Recommend to continue with current medications and management with orthopedic services following. Patient was evaluated by urology and recommend post void bladder scanning and monitoring. Patient is tentatively scheduled for decompression and fusion this Tuesday with orthopedics and will continue with pain management. Recommend to hold Plavix for now and will continue with subcutaneous heparin for DVT prophylaxis. We'll consult neurology given patient's urinary incontinence and appreciate input and recommendations in regards to his lumbar stenosis. Patient with gait dysfunction and will have physical therapy follow the patient. Recommend repeat labs in the morning and further recommendations to follow based on the clinical course of the patient. Due to multiple complex medical issues, prognosis is guarded. Risks versus benefits of surgical intervention discussed with the patient and patient continues to wish to proceed with surgical intervention with orthopedics following. The impression and plan of care has been dictated by Genevieve Braxton, nurse practitioner as directed. MD Miriam I have performed a history and examination and MDM of this patient, discussed t he same with the dictator, and agree with the dictator's assessment and plan as written ,documented as a scribe. Based on total visit time, I have performed more than 50% of the visit. Any additional findings or plans will be noted. Objective - Vital Signs Vital signs: Vital Signs Temp 98.2 F 11/18/21 07:33 Pulse 68 11/18/21 07:33 Resp 16 11/18/21 07:33 BP 146/81 11/18/21 07:33 Pulse Ox 92 L 11/18/21 07:33 FiO2 Intake & Output 11/17/21 11/18/21 11/18/21 18:59 06:59 18:59 Intake Total 118 Output Total 2250 Balance -2132 Weight 122.47 kg Intake: Oral 118 Output: Urine 2250 Other: Voiding Method Incontinent Incontinent Incontinent # Voids 1 1 1 - Labs CBC & Chem 7: 11/18/21 06:21 11/18/21 06:21 Labs: Abnormal Lab Results - Last 24 Hours (Table) 11/18/21 Range/Units 06:21 WBC 13.28 H (4.50-10.00) X 10*3/uL Immature Gran # 0.06 H (0.00-0.04) X 10*3/uL Neutrophils # 12.35 H (1.80-7.70) X 10*3/uL Lymphocytes # 0.74 L (0.90-5.00) X 10*3/uL Monocytes # 0.11 L (0.20-1.00) X 10*3/uL Eosinophils # 0 L (0.04-0.35) X 10*3/uL
--- NOTE | 2021-11-18 17:18 | CA ---
Transthoracic Echo Report Name: Bryn Chicas Age: 61 Gender: M : 1960 Exam Date: 11/18/2021 11:31 Exam Location: [facility] Ht (in): 70 Wt (lb): 270 Ordering Physician: Ira Kaur Attending/Referring Phys: [id number], Vincent Cloth Classer Jaci Resendiz RDCS Procedure CPT: Indications: LV function Cardiac Hx: Technical Quality: Technically difficult study Contrast 1: Lumason Total Dose (mL): 4 Contrast 2: Total Dose (mL): MEASUREMENTS (Male / Female) Normal Values 2D ECHO LV Diastolic Diameter PLAX 4.6 cm 4.2 - 5.9 / 3.9 - 5.3 cm LV Systolic Diameter PLAX 2.7 cm IVS Diastolic Thickness 1.6 cm 0.6 - 1.0 / 0.6 - 0.9 cm LVPW Diastolic Thickness 1.5 cm 0.6 - 1.0 / 0.6 - 0.9 cm LV Relative Wall Thickness 0.7 RV Internal Dim ED PLAX 4.0 cm LA Volume 83.2 cm??? 18 - 58 / 22 - 52 cm??? M-MODE Aortic Root Diameter MM 3.1 cm LA Systolic Diameter MM 4.8 cm LA Ao Ratio MM 1.6 AV Cusp Separation MM 2.1 cm DOPPLER AV Peak Velocity 149.7 cm/s AV Peak Gradient 9.0 mmHg LVOT Peak Velocity 136.3 cm/s LVOT Peak Gradient 7.4 mmHg MV Area PHT 4.0 cm??? Mitral E Point Velocity 68.0 cm/s Mitral A Point Velocity 95.9 cm/s Mitral E to A Ratio 0.7 MV Deceleration Time 190.9 ms TR Peak Velocity 195.9 cm/s TR Peak Gradient 15.4 mmHg Right Ventricular Systolic Press 19.9 mmHg FINDINGS Left Ventricle Moderately increased left ventricular wall thickness. Normal left ventricular systolic function with no obvious regional wall motion abnormalities. Left ventricular ejection fraction is estimated at 55-60 %. Right Ventricle Moderate right ventricular dilatation. Right ventricular systolic pressure within normal limits. Right Atrium Right atrium not well visualized. Left Atrium Severely increased left atrial volume. Mitral Valve No mitral stenosis. Trace to mild mitral regurgitation. Aortic Valve No aortic valve stenosis or regurgitation. Tricuspid Valve Mild tricuspid regurgitation. Pulmonic Valve Trace pulmonic regurgitation. Pericardium No pericardial effusion. Aorta Normal size aortic root and proximal ascending aorta. CONCLUSIONS Normal LV systolic function Dilated right ventricle Mild tricuspid regurgitation Previewed by: Dr. Jay Kramer MD (Electronically Signed) Final Date: 18 November 2021 17:17
[2021-11-18] MEDS: ATORVASTATIN 10 MG TAB PO SCH (20:14)
[2021-11-19] MEDS: DEXAMETHASONE SOD PHOSPHATE 10 MG/ML 1 ML VIAL IVP SCH ×4 (00:30→18:11)
[2021-11-19] MEDS: CYCLOBENZAPRINE 10 MG TAB PO PRN ×2 (00:33→09:21)
[2021-11-19] MEDS: SODIUM CHLORIDE 0.9% 1,000 ML IV SCH (00:38)
--- NOTE | 2021-11-19 06:38 | P.PN ---
Subjective Progress Note Date: 11/19/21 The patient is n the hospital with back issues He has incontinence which is urge incontinence. His pvr is negligible. The incontinence is probably related to irritation of the nerves in his lower back.. I will place him on oxybutinin to see if this will help him with this problem for now. Objective - Vital Signs Vital signs: Vital Signs Temp 98.0 F 11/19/21 03:18 Pulse 67 11/19/21 03:18 Resp 18 11/19/21 03:18 BP 128/66 11/19/21 03:18 Pulse Ox 92 L 11/19/21 03:18 FiO2 Intake & Output 11/18/21 11/18/21 11/19/21 06:59 18:59 06:59 Intake Total 118 Balance 118 Intake: Oral 118 Other: Voiding Method Incontinent Incontinent Incontinent # Voids 1 1 1 - Labs CBC & Chem 7: 11/18/21 06:21 11/18/21 06:21 Labs: Abnormal Lab Results - Last 24 Hours (Table) 11/18/21 11/18/21 Range/Units 06:21 06:21 WBC 13.28 H (4.50-10.00) X 10*3/uL Immature Gran # 0.06 H (0.00-0.04) X 10*3/uL Neutrophils # 12.35 H (1.80-7.70) X 10*3/uL Lymphocytes # 0.74 L (0.90-5.00) X 10*3/uL Monocytes # 0.11 L (0.20-1.00) X 10*3/uL Eosinophils # 0 L (0.04-0.35) X 10*3/uL BUN/Creatinine Ratio 22.86 H (12.00-20.00) Ratio Glucose 161 H (70-110) mg/dL Alkaline Phosphatase 137 H (41-126) U/L Albumin/Globulin Ratio 1.37 L (1.60-3.17) g/dL
[2021-11-19] MEDS: PANTOPRAZOLE 40 MG TABLET PO SCH (09:16)
[2021-11-19] MEDS: AMIODARONE 100 MG TAB PO SCH (09:16)
[2021-11-19] MEDS: DILTIAZEM CD 240 MG CAP.ER.24H PO SCH (09:16)
[2021-11-19] MEDS: DULoxetine HCL 60 MG CAPSULE.DR PO SCH (09:16)
[2021-11-19] MEDS: HEPARIN SODIUM,PORCINE/PF 5,000 UNIT/0.5 ML SYRINGE SQ SCH ×2 (09:17→22:11)
--- NOTE | 2021-11-19 09:26 | P.PN ---
Subjective Progress Note Date: 11/19/21 HISTORY OF PRESENT ILLNESS: This is a 61 year old male with a past medical history significant for paroxysmal atrial fibrillation with history of watchman device and sick sinus syndrome with PPM insertion. 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 We have been asked to see the patient in consultation for cardiac clearance. Patient examined at the bedside. Patient reports increased lower back pain and increased incontinence over the past week. He is scheduled to undergo L2-S1 decompression and fusion L3-L5. Patient denies any chest pain or pressure. Denies SOB. Denies dizziness or lightheadedness. Patient's vital signs are stable. Patient does report having a recent stress test at his primary cardiology office. * EKG reveals atrial paced rhythm * Laboratory data: WBC 13.28. Hemoglobin 14.8. Platelet count 257. Sodium 136. Potassium 4.2. BUN 16. Creatinine 0.7. * Current home cardiac medications include amiodarone 100 mg daily, Lipitor 10 mg daily, Plavix 75 mg daily, Cardizem 240 mg daily 11/19/2021 Patient examined this morning at the bedside. Patient denies chest pain or pressure. He denies shortness breath. Vital signs are stable. Echocardiogram completed revealing ejection fraction 55-60%, trace to mild MR, mild TR. PHYSICAL EXAM: VITAL SIGNS: Reviewed. GENERAL: Well-developed in no acute distress. HEENT: Head is normocephalic. Pupils are equal, round. Sclerae anicteric. Mucous membranes of the mouth are moist. Neck supple. No JVD or thyromegaly LUNGS: Respirations even and unlabored. Lungs essentially clear to auscultation bilaterally. HEART: Regular rate and rhythm. S1 and S2 heard. ABDOMEN: Soft. Nondistended. Nontender. EXTREMITIES: Normal range of motion. No clubbing or cyanosis. Peripheral pulses intact. No lower extremity edema NEUROLOGIC: Awake and alert. Oriented x 3. ASSESSMENT: Degenerative disc disease, scheduled to undergo L2-S1 decompression and fusion L3-L5 Paroxysmal atrial fibrillation with previous watchman device Sick sinus syndrome with permanent pacemaker insertion Hyperlipidemia PLAN: Continue current cardiac medications. Hold Plavix Patient currently denies any chest pain or pressure. He has no signs of acute congestive heart failure. There are no absolute contraindications from a cardiac standpoint to undergo surgery with orthopedics We will sign off. Please reconsult if needed. Nurse practitioner note has been reviewed by physician. Signing provider agrees with the documented findings, assessment, and plan of care. Objective - Vital Signs Vital signs: Vital Signs Temp 97.9 F 11/19/21 07:55 Pulse 78 11/19/21 07:55 Resp 16 11/19/21 07:55 BP 141/71 11/19/21 07:55 Pulse Ox 92 L 11/19/21 07:55 FiO2 Intake & Output 11/18/21 11/19/21 11/19/21 18:59 06:59 18:59 Intake Total 118 240 Balance 118 240 Intake: Oral 118 240 Other: Voiding Method Incontinent Incontinent # Voids 1 1 - Labs CBC & Chem 7: 11/18/21 06:21 11/18/21 06:21
[2021-11-19] MEDS ORDERED: bisacodyL 10 MG SUPP RECTAL PRN (10:08)
[2021-11-19] MEDS ORDERED: MAGNESIUM HYDROXIDE 2,400 MG/10 ML CUP PO PRN (10:08)
[2021-11-19] MEDS: OXYBUTYNIN 10 MG TAB.ER.24 PO SCH (10:09)
[2021-11-19] MEDS: SENNOSIDES-DOCUSATE SODIUM 1 EACH TAB PO SCH (11:25)
--- NOTE | 2021-11-19 15:45 | P.PN ---
Subjective Progress Note Date: 11/19/21 Principal diagnosis: Low back pain, bilateral lower extremity weakness, bilateral lower extremity radiculopathy, urinary incontinence Patient was examined on a few different occasions today. He is been visualized resting in his hospital bed, he appears stable and is in no acute distress. Patient states that the symptoms have remained stable, he continues to have urinary incontinence he multiple times a day. He states that the discomfort in the right lower extremity has improved along with his low back pain. He has been able to ambulate a little bit in the hallways with use of his cane. He denies any headaches, lightheadedness, chest pain or shortness of breath. Patient has been evaluated and cleared for surgery by both urology, cardiology and internal medicine. Objective - Vital Signs Vital signs: Vital Signs Temp 97.9 F 11/19/21 07:55 Pulse 78 11/19/21 07:55 Resp 16 11/19/21 08:00 BP 141/71 11/19/21 07:55 Pulse Ox 92 L 11/19/21 07:55 FiO2 Intake & Output 11/18/21 11/19/21 11/19/21 18:59 06:59 18:59 Intake Total 118 480 Balance 118 480 Intake: Oral 118 480 Other: Voiding Method Incontinent Incontinent Incontinent # Voids 1 1 - Exam Gen: AOx3, NAD VSS stable at this time Integument: No obvious open lesions, sores, areas of swelling or erythema Palpation: Mild tenderness with palpation to the paraspinal area of the lumbar spine ROM: Full range of motion in all major muscle groups in the bilateral upper and lower extremities, no focal deficits appreciated Sensory Exam: Senory exam to light touch is intact C5-T1 Senosry exam to light touch is intact L2-S1 Motor: 55 strength bilateral upper extremities with shoulder abduction, forward elevation, elbow extension, elbow flexion, wrist extension, wrist flexion, 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 4-/5 strength in bilateral lower extremities with hip flexion 4-5 strength in bilateral lower extremities with knee extension, knee flexion 4+/5 strength in the bilateral lower extremities with plantar flexion, dorsiflexion, EHL, FHL Reflexes: 2/4 in all UE and LE Negative Niko's bilaterally Negative Babinski bilaterally Negative clonus bilaterally - Labs CBC & Chem 7: 11/18/21 06:21 06/29/22 06:21 Assessment and Plan Assessment: Low-back pain Bilateral lower extremity weakness Bilateral lower extremity radiculopathy L1-S1 severe spondylosis L1-S1 severe central canal stenosis Urinary incontinence Other medical comorbidities Plan: Patient was tentatively scheduled for surgery on 11/20/2021, this to include a L1-S1 decompression with fusion from [id number]. Dr. Chow has become unavailable for continuation of treatment at this time. I was able to reach out to Dr. Rodriguez from [facility] regarding this case, he is unavailable for urgent surgical intervention A long discussion was had with the patient today regarding his current state and treatment options. I anticipate that his symptoms have remained somewhat stable currently due to the fact that he is on IV steroids. Prior to his admission, his symptoms have been progressively worsening, this with his lower extremity pain, low back pain, lower extremity weakness along with urinary incontinence. We feel that this patient should be urgently transferred to a tertiary care facility for orthopedic spine/neurosurgery evaluation and surgical treatment given his current state Regarding the transfer, I did speak with both case management and internal medicine regarding this. A phone number was provided for the [facility] Main transfer service. At this time, continue with current medications, this to include pain medication as needed, use of Flexeril and the IV steroids. Other medical specialty recommendations appreciated Please contact our service with any questions Time with Patient: Less than 30
--- NOTE | 2021-11-19 15:49 | P.CNNES ---
History of Present Illness Consult date: 11/19/21 Requesting physician: Genevieve Braxton Reason for Consult: Lumbar stenosis, urinary incontinence, gait dysfunction History of Present Illness: Patient is a 61-year-old male came to the hospital on 11/16/2021 for worsening radicular low back pain. Patient states that he has history of low back pain for long long time. He says that he has broke his back twice. The pain is across the lower back, goes down to the right leg posteriorly to the knee, sometimes to the foot. He rates his pain 6-7/10. He has noticed that his left leg gives out occasionally, like as if "not there". It happened once last week and one time he was sitting, has difficulty moving his left leg. His symptoms have slowly got worse. Patient notices right foot feels like on fire, with needle sensation. His right lateral side of the thigh sometimes twitches. Patient states that since May 2021 he was having trouble with controlling ur ine, which was occasionally, but since July it has gotten worse. Now about 60- 70% that time he has developed incontinence of urine. Patient has a pacemaker therefore cannot undergo MRI of the lumbar spine. Patient states that at present he can walk a block with his cane and then his low back starts hurting in the right leg starts hurting and he gets very tired. He denies any weakness or symptoms of neurogenic claudication in the legs with prolonged walking. He uses cane outside, but inside house he does not use any device. CT myelogram performed on 10/30/2021 revealed moderate multilevel degenerative disc disease. Hypertrophic facet arthropathy especially mid to lower lumbar spine along with ligamentum flavum thickness and Baastrup's disease. Degenerative grade 1 anterolisthesis L4 5. Mild congenital spinal canal stenosis with AP canal dimension of 1.2 cm. Variable spinal canal stenosis, severe at L4 5; moderate to severe at L2-3; and moderate at both L1 2 and L3 4 levels. EKG shows electronic atrial pacemaker. 2-D echo revealed normal left ventricle systolic function, dilated right ventricle, mild TR. Patient states his right shoulder is shattered, does not get high, and has undergone surgery with plates and 14 screws. He is a nonsmoker. Drinks alcohol very occasionally about twice a year. He denies diabetes. Review of Systems All 14 points of review systems reviewed, unremarkable except as mentioned above. Past Medical History Past Medical History: Atrial Fibrillation, Deep Vein Thrombosis (DVT), Hyperlipidemia, Hypertension, Osteoarthritis (OA) Additional Past Medical History / Comment(s): DVT 2019 TOP RT ATRIUM. AFIB RESOLVED WITH PACEMAKER History of Any Multi-Drug Resistant Organisms: None Reported Past Surgical History: Joint Replacement, Orthopedic Surgery, Pacemaker Additional Past Surgical History / Comment(s): RT KALEY-03/31/2021. RT SHOULDER SX LT KNEE SX X 2. PACEMAKER-2017. WATCHMAN DEVICE IN HEART-09/2020. COLONOSCOPY. Left hip replacement 07/07/21 Past Anesthesia/Blood Transfusion Reactions: No Reported Reaction Type of Cardiac Device: Permanent Pacemaker Device Placement Date:: 2017 Past Psychological History: Depression Smoking Status: Never smoker Past Alcohol Use History: Occasional Past Drug Use History: None Reported - Past Family History Mother Family Medical History: Cancer Father Family Medical History: Deep Vein Thrombosis (DVT), Myocardial Infarction ([place]), Pulmonary Embolus Medications and Allergies Home Medications Medication Instructions Recorded Confirmed Type Atorvastatin [Lipitor] 10 mg PO HS 07/02/21 11/17/21 History DULoxetine HCL [Cymbalta] 60 mg PO DAILY 07/02/21 11/17/21 History Clopidogrel [Plavix] 75 mg PO DAILY 07/07/21 11/17/21 History Cyclobenzaprine [Flexeril] 10 mg PO TID PRN 10/30/21 11/17/21 History Amiodarone [Cordarone] 100 mg PO DAILY 11/17/21 11/17/21 History HYDROcodone/APAP 7.5-325MG [Robbins 1 tab PO Q6HR PRN 11/17/21 11/17/21 History 7.5] dilTIAZem HCL [dilTIAZem HCL 12Hr 240 mg PO DAILY 11/17/21 11/17/21 History ER] Allergies Allergy/AdvReac Type Severity Reaction Status Date / Time adhesive Allergy Rash/Hives Verified 11/17/21 07:25 Penicillins AdvReac Swelling Verified 11/17/21 07:25 Physical Examination - Vital Signs Vital Signs: Vital Signs Temp Pulse Resp BP BP Pulse Ox 11/19/21 08:00 16 11/19/21 07:55 97.9 F 78 16 141/71 92 L 11/19/21 03:18 98.0 F 67 18 128/66 92 L 11/18/21 21:04 98.3 F 63 19 145/70 92 L Intake and Output 11/18/21 11/19/21 11/19/21 22:59 06:59 14:59 Intake Total 118 240 Balance 118 240 Intake: Oral 118 240 Other: Voiding Method Incontinent Incontinent Incontinent # Voids 2 1 Patient is a middle aged male, in no acute distress. Patient is alert awake oriented to time place and person. Speech and language functions are normal. Attention, concentration and fund of knowledge is adequate. On cranial examination, pupils are round and reacting to light, visual perea are full on confrontation, extraocular muscles are intact with no nystagmus. Face is symmetric, tongue protrudes to the midline. Palatal elevation and sensation normal, hearing and shoulder shrug normal, facial sensation normal. Shoulder shrug normal. On muscle strength testing, the strength in the upper limbs is only weak in the right shoulder 5-, whereas rest of the strength is normal in the upper limbs. In the lower limbs, his left hip flexion is 4, normal 5 on the right. Patient's bilateral hip adduction, hip abduction, knee extension, ankles and toes are all normal bilaterally. Deep tendon reflexes are (right/left) biceps 2+/1+, brachioradialis 2+/1+, knee 2/1, ankle 1/1, plantars downgoing bilaterally. Sensory to touch is equal with no neglect. She has very slightly decrease sensation for light touch in the left S1 dermatome as compared to the right. Cerebellar function showed no ataxia for [id number] testing. No dysdiadochokinesia. Tone and bulk of muscles normal. Gait appears normal. On general examination, there is no carotid bruit or murmur, S1-S2 audible. Abdomen is soft nontender. No organomegaly, bowel sounds present. Chest is clear. Peripheral pulses are present. No edema. Results - Laboratory Findings CBC and BMP: 11/18/21 06:21 11/18/21 06:21 Abnormal Lab Findings: Abnormal Labs 11/17/21 11/18/21 11/18/21 01:27 06:21 06:21 WBC 13.28 H Immature Gran # 0.06 H Neutrophils # 12.35 H Lymphocytes # 0.74 L Monocytes # 0.11 L Eosinophils # 0 L BUN/Creatinine Ratio 22.86 H Glucose 121 H 161 H Alkaline Phosphatase 137 H Total Protein 6.1 L Albumin 3.4 L Albumin/Globulin Ratio 1.37 L Assessment and Plan Assessment: * Lumbar spinal stenosis, severe at L4 5; moderate to severe at L2-3; and moderate at both L1 2 and L3 [address] myelogram report. Patient has radicular low back pain, mainly pain going to the right leg, but the left leg appears weaker than the right (hip flexion). Patient also has developed problems with urinary incontinence in the last few months. * Obesity Plan: * CT myelogram performed on 10/30/2021 revealed moderate multilevel degenerative disc disease. Hypertrophic facet arthropathy especially mid to lower lumbar spine along with ligamentum flavum thickness and Baastrup's disease. Degenerative grade 1 anterolisthesis L4 5. Mild congenital spinal canal stenosis with AP canal dimension of 1.2 cm. Variable spinal canal stenosis, severe at L4 5; moderate to severe at L2-3; and moderate at both L1 2 and L3 4 levels. * For neuropathic pain, we will start Neurontin 200 mg twice a day. May increase the dose as tolerated to 300 mg 3 times a day. * Orthopedic spine considering for surgery. * PT OT. Consider EMG and nerve conductions of bilateral lower extremities as an outpatient. * Neurology will sign off. Please reconsult neurology if any other further concerns. Thank you for the consult.
[2021-11-19] MEDS: MORPHINE SULFATE 4 MG/ML SYRINGE IV PRN (18:19)
[2021-11-19] MEDS: ATORVASTATIN 10 MG TAB PO SCH (22:11)
[2021-11-19] MEDS: GABAPENTIN 100 MG CAP PO SCH (22:11)
--- NOTE | 2021-11-19 22:31 | US ---
EXAMINATION TYPE: US venous doppler duplex LE DATE OF EXAM: 11/19/2021 10:18 PM COMPARISON: NONE CLINICAL HISTORY: bilateral leg swelling. Bilateral leg swelling SIDE PERFORMED: Bilateral TECHNIQUE: The lower extremity deep venous system is examined utilizing real time linear array sonog rashad with graded compression, doppler sonography and color-flow sonography. VESSELS IMAGED: Common Femoral Vein Deep Femoral Vein Greater Saphenous Vein * Femoral Vein Popliteal Vein Small Saphenous Vein * Proximal Calf Veins (* superficial vessels) Right Leg: Negative for DVT Left Leg: Negative for DVT IMPRESSION: No evidence of deep vein thrombosis in both legs.
[2021-11-20] MEDS: DEXAMETHASONE SOD PHOSPHATE 10 MG/ML 1 ML VIAL IVP SCH ×4 (01:08→17:59)
--- NOTE | 2021-11-20 02:45 | P.PN ---
Subjective Progress Note Date: 11/19/21 This is a 61-year-old male who was recently admitted with back pain that has been worsening and also radiating to the right side and continues to have difficulty in walking and increased tingling and numbness noted to the left lower extremity. Patient is being closely monitored with orthopedics following as patient has history of lumbar spondylosis and lumbar radiculopathy and stenosis. Surgical intervention with orthopedics is being planned and cardiology consulted for medical clearance. Patient is currently afebrile and undergoing 2-D echo at this time. Patient denies any chest pain or shortness of breath. Patient does have history of atrial fibrillation currently rate controlled and recommend to continue with telemetry monitoring. Urology was also consulted for urinary incontinence and recommends post void residuals and bladder scanning. Patient is maintained on high-dose IV steroids and will continue and planning on possible surgical intervention of L2 to S1 decompression and fusion of L3 to L5 this Tuesday. Recommend DVT prophylaxis and continue with pain management. Recommend neuro consult. 11/19/2021 Patient is seen today in follow up and currently sitting up in the chair. Patient being followed by orthopedics and was scheduled for surgery tomorrow with Dr. Chow and is currently unavailable to perform the surgery and Dr. Rodriguez is unavailable for urgent surgery thus patient needing tertiary treatment center [facility] no [facility] available due to capacity. Patient was also evaluated by neurology. Patient with continued incontinence and lower back pain. Patient also with some bilateral lower extremity swelling and will obtain doppler. Patient is afebrile and denies chest pain or shortness of breath. Review of systems: Constitutional: No reports of fatigue, fever, or chills Cardiovascular: No reports of chest pain or palpitations Respiratory: No reports of shortness of breath or cough GI: No reports of nausea, no reports of of vomiting, no reports of diarrhea : No reports of dysuria or retention, reports incontinence Neurovascular: reports of generalized weakness with continued tingling and occasional numbness of the left lower extremity weakness and pain along with some right side pain of the lower extremity All medications have been reviewed Active Medications Hydrocodone Bitart/Acetaminophen (Hydrocodone/Apap 7.5-325mg 1 Each Tab) 1 each PO Q6HR PRN PRN Reason: Pain Last Admin: 11/18/21 18:21 Dose: 1 each Amiodarone HCl (Amiodarone 100 Mg Tab) 100 mg PO DAILY [facility] Last Admin: 11/19/21 09:16 Dose: 100 mg Atorvastatin Calcium (Atorvastatin 10 Mg Tab) 10 mg PO HS [facility] Last Admin: 11/19/21 22:11 Dose: 10 mg Bisacodyl (Bisacodyl 10 Mg Supp) 10 mg RECTAL HS PRN PRN Reason: Constipation Cyclobenzaprine HCl (Cyclobenzaprine 10 Mg Tab) 10 mg PO TID PRN PRN Reason: Pain Last Admin: 11/19/21 09:21 Dose: 10 mg Dexamethasone Sodium Phosphate (Dexamethasone Sod Phosphate 10 Mg/Ml 1 Ml Vial) 6 mg IVP Q6HR [facility] Last Admin: 11/20/21 01:08 Dose: 6 mg Diltiazem HCl (Diltiazem Cd 240 Mg Cap.Er.24h) 240 mg PO DAILY [facility] Last Admin: 11/19/21 09:16 Dose: 240 mg Duloxetine HCl (Duloxetine Hcl 60 Mg Capsule.Dr) 60 mg PO DAILY [facility] Last Admin: 11/19/21 09:16 Dose: 60 mg Gabapentin (Gabapentin 100 Mg Cap) 200 mg PO BID [facility] Last Admin: 11/19/21 22:11 Dose: 200 mg Heparin Sodium (Porcine) (Heparin Sodium,Porcine/Pf 5,000 Unit/0.5 Ml Syringe) 5,000 unit SQ Q12HR [facility] Last Admin: 11/19/21 22:11 Dose: 5,000 unit Sodium Chloride (Saline 0.9%) 1,000 mls @ 20 mls/hr IV .Q24H [facility] Last Admin: 11/19/21 00:38 Dose: Not Given Magnesium Hydroxide (Magnesium Hydroxide 2,400 Mg/10 Ml Cup) 2,400 mg PO DAILY PRN PRN Reason: Constipation Morphine Sulfate (Morphine Sulfate 4 Mg/Ml Syringe) 4 mg IV Q4HR PRN PRN Reason: Severe Pain Last Admin: 11/19/21 18:19 Dose: 4 mg Naloxone HCl (Naloxone 0.4 Mg/Ml 1 Ml Vial) 0.2 mg IV Q2M PRN PRN Reason: Opioid Reversal Ondansetron HCl (Ondansetron 4 Mg/2 Ml Vial) 4 mg IVP Q8HR PRN PRN Reason: Nausea And Vomiting Oxybutynin Chloride (Oxybutynin 10 Mg Tab.Er.24) 10 mg PO DAILY [facility] Last Admin: 11/19/21 10:09 Dose: 10 mg Pantoprazole Sodium (Pantoprazole 40 Mg Tablet) 40 mg PO AC-BRKFST [facility] Last Admin: 11/19/21 09:16 Dose: 40 mg Senna/Docusate Sodium (Sennosides-Docusate Sodium 1 Each Tab) 1 each PO DAILY [facility] Last Admin: 11/19/21 11:25 Dose: 1 each PHYSICAL EXAMINATION: GENERAL: The patient is alert and oriented x4, Well developed, well nourished. Obese. HEENT: Pupils are round and equally reacting to light. EOMI. no scleral icterus. No conjunctival pallor. Normocephalic, atraumatic. No pharyngeal erythema. No thyromegaly. CARDIOVASCULAR: S1 and S2 muffled PULMONARY: diminished breath sounds bilaterally with no wheezing or rhonchi noted. ABDOMEN: soft. non tender on exam. Obese. non-distended, normal bowel sounds. No palpable organomegaly. MUSCULOSKELETAL: No joint swelling or deformity. EXTREMITIES: No cyanosis, clubbing, or pedal edema. NEUROLOGICAL: Gross neurological examination did not reveal any focal deficits. SKIN: No rashes. Assessment: Severe back pain, failure of outpatient treatment with lumbar radiculopathy and lumbar stenosis Deep vein thrombosis history Osteoarthritis Degenerative disc disease Paroxysmal atrial fibrillation History of sick sinus syndrome with permanent pacemaker insertion Hypertension Hyperlipidemia GI prophylaxis DVT prophylaxis Full code Plan: Recommend to continue with current medications and management with orthopedic services following. Patient was evaluated by urology and recommend post void bladder scanning and monitoring. Patient was tentatively scheduled for decompression and fusion tomorrow with orthopedics although surgeon is unavailable and will need transfer to tertiary treatment center of [facility] given continued symptoms that are currently being managed by high dose IV s teroids. Orthopedics recommends transfer for ortho and neurosurgical evaluation urgently. Dr. Marrufo of [facility] accepted the patient and there is a wait for transfer due to no bed availability. [facility] to contact when bed available. Case management following. Will need disc of imaging and reports for transfer. Covid testing was negative. continue with pain management. Recommend to hold Plavix for now and will continue with subcutaneous heparin for DVT prophylaxis. Bilateral leg swelling and underwent bilateral lower extremity venous dopplers that were negative for dvt. neurology evaluated the patient recommending outpatient EMG studies. Due to multiple complex medical issues, prognosis is guarded. Risks versus benefits of surgical intervention discussed with the patient and patient continues to wish to proceed with surgical intervention with orthopedics following. The impression and plan of care has been dictated by Genevieve Braxton, nurse practitioner as directed. MD Miriam I have performed a history and examination and MDM of this patient, discussed the same with the dictator, and agree with the dictator's assessment and plan as written ,documented as a scribe. Based on total visit time, I have performed more than 50% of the visit. Any additional findings or plans will be noted. Objective - Vital Signs Vital signs: Vital Signs Temp 97.9 F 11/19/21 07:55 Pulse 78 11/19/21 07:55 Resp 16 11/19/21 08:00 BP 141/71 11/19/21 07:55 Pulse Ox 92 L 11/19/21 07:55 FiO2 Intake & Output 11/18/21 11/19/21 11/19/21 18:59 06:59 18:59 Intake Total 118 240 Balance 118 240 Intake: Oral 118 240 Other: Voiding Method Incontinent Incontinent Incontinent # Voids 1 1 - Labs CBC & Chem 7: 11/18/21 06:21 11/18/21 06:21
[2021-11-20] MEDS: SODIUM CHLORIDE 0.9% 1,000 ML IV SCH (06:15)
[2021-11-20 07:35] LABS: Basophils % (A) 0 %; Eosinophils % (A) 0 %; HCT 42.8 % (39.0-53.0); HGB 14.2 gm/dL (13.0-17.5); Lymphocytes # (A) 0.7 k/uL (1.0-4.8); Lymphocytes % (A) 4 %; MCH 28.9 pg (25.0-35.0); MCHC 33.2 g/dL (31.0-37.0); MCV 86.9 fL (80.0-100.0); Mean Platelet Volume 7.8; Monocytes # (A) 0.6 k/uL (0-1.0); Monocytes % (A) 4 %; Neutrophils # (A) 14.8 k/uL (1.3-7.7); Neutrophils % (A) 91 %; Platelet Count 233 k/uL (150-450); RBC 4.92 m/uL (4.30-5.90); RDW 15.2 % (11.5-15.5); WBC 16.2 k/uL (3.8-10.6)
[2021-11-20] MEDS: HYDROcodone/APAP 7.5-325MG 1 EACH TAB PO PRN ×2 (07:40→20:51)
[2021-11-20 07:45] LABS: African American GFR (CKD) >90 (>60 ml/min/1.73 sqM); Anion Gap 6 mmol/L; Blood Urea Nitrogen 21 mg/dL (9-20); Calcium 8.5 mg/dL (8.4-10.2); Carbon Dioxide 25 mmol/L (22-30); Chloride 106 mmol/L (98-107); Glucose 123 mg/dL (74-99); Non-African American GFR(CKD) >90 (>60 ml/min/1.73 sqM); Potassium 4.2 mmol/L (3.5-5.1); Sodium 137 mmol/L (137-145)
--- NOTE | 2021-11-20 08:30 | XR ---
EXAMINATION TYPE: XR chest 1V portable DATE OF EXAM: 11/20/2021 COMPARISON: None INDICATION: Short of breath TECHNIQUE: Single frontal view of the chest is obtained. FINDINGS: The heart size is normal. The pulmonary vasculature is normal. The lungs are clear. Pacemaker overlies the left chest. Old right humeral fracture repair is evident IMPRESSION: 1. No acute pulmonary process.
[2021-11-20] MEDS: HEPARIN SODIUM,PORCINE/PF 5,000 UNIT/0.5 ML SYRINGE SQ SCH ×2 (09:35→20:52)
[2021-11-20] MEDS: AMIODARONE 100 MG TAB PO SCH (09:35)
[2021-11-20] MEDS: OXYBUTYNIN 10 MG TAB.ER.24 PO SCH (09:35)
[2021-11-20] MEDS: DULoxetine HCL 60 MG CAPSULE.DR PO SCH (09:35)
[2021-11-20] MEDS: DILTIAZEM CD 240 MG CAP.ER.24H PO SCH (09:35)
[2021-11-20] MEDS: SENNOSIDES-DOCUSATE SODIUM 1 EACH TAB PO SCH (09:35)
[2021-11-20] MEDS: PANTOPRAZOLE 40 MG TABLET PO SCH (09:36)
[2021-11-20] MEDS: GABAPENTIN 100 MG CAP PO SCH (09:36)
--- NOTE | 2021-11-20 12:59 | P.PN ---
Subjective Progress Note Date: 11/20/21 Principal diagnosis: Degenerative disc disease; anterolisthesis L4-L5; lumbar neuroforaminal stenosis; central canal stenosis Patient was seen at bedside this morning lying in semirecumbent position. Patient says he is still having low back pain with radiation of pain down the r ight leg. Patient says overnight he did have episodes of incontinence. Patient says he does want to go through with spine surgery. Patient denies chest pain, fever, shortness breath, nausea, vomiting, change in vision. Objective - Vital Signs Vital signs: Vital Signs Temp 98.1 F 11/20/21 07:52 Pulse 67 11/20/21 07:52 Resp 20 11/20/21 07:52 BP 162/95 11/20/21 07:52 Pulse Ox 94 L 11/20/21 07:52 FiO2 Intake & Output 11/19/21 11/20/21 11/20/21 18:59 06:59 18:59 Intake Total 940 240 Balance 940 240 Intake: Oral 940 240 Other: Voiding Method Incontinent Toilet Incontinent # Voids 2 1 - Exam Inspection: Negative for any open fractures, ecchymosis, significant erythema, nodules, ulcers Sensation: Patient has sensation that is equal, symmetric, bilaterally intact throughout the upper extremities and lower extremities. Palpation: Patient does have moderate TTP along the lumbar spine both at midline and in the paravertebral regions. Moderate TTP along the right SI joint. NTTP throughout rest of exam Range of motion: Patient does have limited range of motion in left hip flexion due to weakness. Patient has full range of motion in bilateral lower extremities in other exams. Patient does have full range of motion in the left upper extremity. Patient does have limited range of motion in right shoulder forward elevation due to previous surgery/injury patient says he had back in 2017. Motor: Bilateral upper extremities 5/5 in all major motor groups. Left lower extremity 3+/5 in resisted hip flexion. 4+/5 in all other major motor groups in the left lower extremity. Right lower extremity is 4-/5 in resisted plantarflexion. 4+/5 in all other major motor groups and right lower extremity Neurovascular: Refill under 3 seconds in digits of upper extremities. Radial pulses intact, 2+. DP pulses present. Special tests: Negative Niko's bilaterally; negative Homans bilaterally. Negative clonus bilaterally. - Labs CBC & Chem 7: 11/20/21 07:14 11/20/21 07:14 Labs: Abnormal Lab Results - Last 24 Hours (Table) 11/20/21 11/20/21 Range/Units 07:14 07:14 WBC 16.2 H (3.8-10.6) k/uL Neutrophils # 14.8 H (1.3-7.7) k/uL Lymphocytes # 0.7 L (1.0-4.8) k/uL BUN 21 H (9-20) mg/dL Glucose 123 H (74-99) mg/dL Assessment and Plan Assessment: 1. Degenerative disc disease; anterolisthesis L4-L5; lumbar neuroforaminal stenosis; central canal stenosis 2. History of total joint arthroplasty 3. Multiple medical comorbidities Plan: 1. Degenerative disc disease; anterolisthesis L4-L5; lumbar neuroforaminal stenosis; central canal stenosis - patient seen at bedside early this afternoon.. Patient did have CT of lumbar spine about 2 weeks ago. I did review the findings the CT of lumbar spine with my attending, Dr. Chow. Patient says he has been having increased frequency of urinary incontinence. Patient does have a pacemaker. At this time we are recommending orthopedic surgical intevention the form of L2-S1 decompression and fusion L3-L5. Patient does want to go through with surgery at this time. Dr. Chow is unavailable to perform surgery on patient this weekend. We are waiting on trnasfer to [facility] if bed becomes available. We will continue to follow patient during stay. 2. Appreciate medical, urology, cardiac management 3. Pain management - [place]; Flexeril 4. DVT prophylaxis - heparin 5. GI prophylaxis - Protonix 6. PT/OT - WBAT w/walker and assistance 7. Appreciate consult Time with Patient: Less than 30
[2021-11-20] MEDS: CYCLOBENZAPRINE 10 MG TAB PO PRN (20:51)
[2021-11-20] MEDS: GABAPENTIN 300 MG CAP PO SCH (20:52)
[2021-11-20] MEDS: ATORVASTATIN 10 MG TAB PO SCH (20:52)
[2021-11-21] MEDS: DEXAMETHASONE SOD PHOSPHATE 10 MG/ML 1 ML VIAL IVP SCH ×4 (00:12→19:18)
[2021-11-21] MEDS: SODIUM CHLORIDE 0.9% 1,000 ML IV SCH (03:04)
--- NOTE | 2021-11-21 04:41 | P.PN ---
Subjective Progress Note Date: 11/20/21 This is a 61-year-old male who was recently admitted with back pain that has been worsening and also radiating to the right side and continues to have difficulty in walking and increased tingling and numbness noted to the left lower extremity. Patient is being closely monitored with orthopedics following as patient has history of lumbar spondylosis and lumbar radiculopathy and stenosis. Surgical intervention with orthopedics is being planned and cardiology consulted for medical clearance. Patient is currently afebrile and undergoing 2-D echo at this time. Patient denies any chest pain or shortness of breath. Patient does have history of atrial fibrillation currently rate controlled and recommend to continue with telemetry monitoring. Urology was also consulted for urinary incontinence and recommends post void residuals and bladder scanning. Patient is maintained on high-dose IV steroids and will continue and planning on possible surgical intervention of L2 to S1 decompression and fusion of L3 to L5 this Tuesday. Recommend DVT prophylaxis and continue with pain management. Recommend neuro consult. 11/19/2021 Patient is seen today in follow up and currently sitting up in the chair. Patient being followed by orthopedics and was scheduled for surgery tomorrow with Dr. Chow and is currently unavailable to perform the surgery and Dr. Rodriguez is unavailable for urgent surgery thus patient needing tertiary treatment center transfer and [facility] has accepted although no beds available due to capacity. Patient was also evaluated by neurology. Patient with continued incontinence and lower back pain. Patient also with some bilateral lower extremity swelling and will obtain doppler. Patient is afebrile and denies chest pain or shortness of breath. 11/20/2021 Patient evaluated today and continues to have lower back pain with urinary incontinence and awaiting a bed availability at [facility] for further evaluation of lumbar surgery. Patient is afebrile and denies chest pain or palpitations. Patient continues on high dose IV dexamethasone with orthopedics managing. Orthopdedic surgeon not available here at this time and will await transfer. Recommend to continue pain management and supportive care. Labs reviewed and within normal limits. Review of systems: Constitutional: No reports of fatigue, fever, or chills Cardiovascular: No reports of chest pain or palpitations Respiratory: No reports of shortness of breath or cough GI: No reports of nausea, no reports of of vomiting, no reports of diarrhea : No reports of dysuria or retention, reports incontinence Neurovascular: reports of generalized weakness with continued tingling and occasional numbness of the left lower extremity weakness and pain along with some right side pain of the back and lower extremity All medications have been reviewed Active Medications Hydrocodone Bitart/Acetaminophen (Hydrocodone/Apap 7.5-325mg 1 Each Tab) 1 each PO Q6HR PRN PRN Reason: Pain Last Admin: 11/20/21 20:51 Dose: 1 each Amiodarone HCl (Amiodarone 100 Mg Tab) 100 mg PO DAILY [facility] Last Admin: 11/20/21 09:35 Dose: 100 mg Atorvastatin Calcium (Atorvastatin 10 Mg Tab) 10 mg PO HS [facility] Last Admin: 11/20/21 20:52 Dose: 10 mg Bisacodyl (Bisacodyl 10 Mg Supp) 10 mg RECTAL HS PRN PRN Reason: Constipation Cyclobenzaprine HCl (Cyclobenzaprine 10 Mg Tab) 10 mg PO TID PRN PRN Reason: Pain Last Admin: 11/20/21 20:51 Dose: 10 mg Dexamethasone Sodium Phosphate (Dexamethasone Sod Phosphate 10 Mg/Ml 1 Ml Vial) 6 mg IVP Q6HR [facility] Last Admin: 11/21/21 00:12 Dose: 6 mg Diltiazem HCl (Diltiazem Cd 240 Mg Cap.Er.24h) 240 mg PO DAILY [facility] Last Admin: 11/20/21 09:35 Dose: 240 mg Duloxetine HCl (Duloxetine Hcl 60 Mg Capsule.Dr) 60 mg PO DAILY [facility] Last Admin: 11/20/21 09:35 Dose: 60 mg Gabapentin (Gabapentin 300 Mg Cap) 300 mg PO BID [facility] Last Admin: 11/20/21 20:52 Dose: 300 mg Heparin Sodium (Porcine) (Heparin Sodium,Porcine/Pf 5,000 Unit/0.5 Ml Syringe) 5,000 unit SQ Q12HR [facility] Last Admin: 11/20/21 20:52 Dose: 5,000 unit Sodium Chloride (Saline 0.9%) 1,000 mls @ 20 mls/hr IV .Q24H [facility] Last Admin: 11/21/21 03:04 Dose: Not Given Magnesium Hydroxide (Magnesium Hydroxide 2,400 Mg/10 Ml Cup) 2,400 mg PO DAILY PRN PRN Reason: Constipation Morphine Sulfate (Morphine Sulfate 4 Mg/Ml Syringe) 4 mg IV Q4HR PRN PRN Reason: Severe Pain Last Admin: 11/19/21 18:19 Dose: 4 mg Naloxone HCl (Naloxone 0.4 Mg/Ml 1 Ml Vial) 0.2 mg IV Q2M PRN PRN Reason: Opioid Reversal Ondansetron HCl (Ondansetron 4 Mg/2 Ml Vial) 4 mg IVP Q8HR PRN PRN Reason: Nausea And Vomiting Oxybutynin Chloride (Oxybutynin 10 Mg Tab.Er.24) 10 mg PO DAILY [facility] Last Admin: 11/20/21 09:35 Dose: 10 mg Pantoprazole Sodium (Pantoprazole 40 Mg Tablet) 40 mg PO AC-BRKFST [facility] Last Admin: 11/20/21 09:36 Dose: 40 mg Senna/Docusate Sodium (Sennosides-Docusate Sodium 1 Each Tab) 1 each PO DAILY [facility] Last Admin: 11/20/21 09:35 Dose: 1 each PHYSICAL EXAMINATION: GENERAL: The patient is alert and oriented x4, Well developed, well nourished. Obese. HEENT: Pupils are round and equally reacting to light. EOMI. no scleral icterus. No conjunctival pallor. Normocephalic, atraumatic. No pharyngeal erythema. No thyromegaly. CARDIOVASCULAR: S1 and S2 muffled PULMONARY: diminished breath sounds bilaterally with no wheezing or rhonchi noted. ABDOMEN: soft. non tender on exam. Obese. non-distended, normal bowel sounds. No palpable organomegaly. MUSCULOSKELETAL: No joint swelling or deformity. EXTREMITIES: No cyanosis, clubbing, or pedal edema. NEUROLOGICAL: Gross neurological examination did not reveal any focal deficits. SKIN: No rashes. Assessment: Severe back pain, failure of outpatient treatment with lumbar radiculopathy and lumbar stenosis urinary incontinence secondary to above Deep vein thrombosis history Osteoarthritis Degenerative disc disease Paroxysmal atrial fibrillation History of sick sinus syndrome with permanent pacemaker insertion Hypertension Hyperlipidemia GI prophylaxis DVT prophylaxis Full code Plan: Recommend to continue with current medications and management with orthopedic services following. Patient was evaluated by urology and recommend post void bladder scanning and monitoring. Patient was tentatively scheduled for decompression and fusion with orthopedics although surgeon is unavailable and will need transfer to tertiary treatment center of [facility] given continued symptoms that are currently being managed by high dose IV steroids. Orthopedics recommends transfer for ortho and neurosurgical evaluation urgently. Dr. Marrufo of [facility] accepted the patient and there is a wait for transfer due to no bed availability. [facility] to contact when bed available. Case management following. Will need disc of imaging and reports for transfer. Covid testing was negative. continue with pain management. Recommend to hold Plavix for now and will continue with subcutaneous heparin for DVT prophylaxis. neurology evaluated the patient recommending outpatient EMG studies. Due to multiple complex medical issues, prognosis is guarded. Risks versus benefits of surgical intervention discussed with the patient and patient continues to wish to proceed with surgical intervention with orthopedics following. Awaiting bed availability at [facility]. The impression and plan of care has been dictated by Genevieve Braxton, nurse practitioner as directed. MD Miriam I have performed a history and examination and MDM of this patient, discussed the same with the dictator, and agree with the dictator's assessment and plan as written ,documented as a scribe. Based on total visit time, I have performed more than 50% of the visit. Any additional findings or plans will be noted. Objective - Vital Signs Vital signs: Vital Signs Temp 98.1 F 11/20/21 07:52 Pulse 67 11/20/21 07:52 Resp 20 11/20/21 07:52 BP 162/95 11/20/21 07:52 Pulse Ox 94 L 11/20/21 07:52 FiO2 Intake & Output 11/19/21 11/20/21 11/20/21 18:59 06:59 18:59 Intake Total 940 240 Balance 940 240 Intake: Oral 940 240 Other: Voiding Method Incontinent Toilet Incontinent # Voids 2 1 - Labs CBC & Chem 7: 11/20/21 07:14 11/20/21 07:14 Labs: Abnormal Lab Results - Last 24 Hours (Table) 11/20/21 11/20/21 Range/Units 07:14 07:14 WBC 16.2 H (3.8-10.6) k/uL Neutrophils # 14.8 H (1.3-7.7) k/uL Lymphocytes # 0.7 L (1.0-4.8) k/uL BUN 21 H (9-20) mg/dL Glucose 123 H (74-99) mg/dL
[2021-11-21] MEDS: SENNOSIDES-DOCUSATE SODIUM 1 EACH TAB PO SCH (07:09)
[2021-11-21] MEDS: AMIODARONE 100 MG TAB PO SCH (07:09)
[2021-11-21] MEDS: GABAPENTIN 300 MG CAP PO SCH ×2 (07:09→20:58)
[2021-11-21] MEDS: DULoxetine HCL 60 MG CAPSULE.DR PO SCH (07:10)
[2021-11-21] MEDS: PANTOPRAZOLE 40 MG TABLET PO SCH (07:10)
[2021-11-21] MEDS: DILTIAZEM CD 240 MG CAP.ER.24H PO SCH (07:10)
[2021-11-21] MEDS: OXYBUTYNIN 10 MG TAB.ER.24 PO SCH (07:11)
[2021-11-21] MEDS: HYDROcodone/APAP 7.5-325MG 1 EACH TAB PO PRN ×3 (07:11→20:58)
[2021-11-21] MEDS: HEPARIN SODIUM,PORCINE/PF 5,000 UNIT/0.5 ML SYRINGE SQ SCH ×2 (07:14→20:58)
--- NOTE | 2021-11-21 08:22 | P.PN ---
Subjective Progress Note Date: 11/21/21 Principal diagnosis: Degenerative disc disease; anterolisthesis L4-L5; lumbar neuroforaminal stenosis; central canal stenosis Patient was seen at bedside this morning sitting up in chair. Patient says he is still having low back pain with radiation of pain down the right leg. P atient rates the pain currently is 5/10. Patient says overnight he did have episodes of incontinence. Patient says he does want to go through with spine surgery. Patient denies chest pain, fever, shortness breath, nausea, vomiting, change in vision. Objective - Vital Signs Vital signs: Vital Signs Temp 97.8 F 11/21/21 07:18 Pulse 78 11/21/21 07:24 Resp 18 11/21/21 07:24 BP 142/73 11/21/21 07:18 Pulse Ox 94 L 11/21/21 07:18 FiO2 Intake & Output 11/20/21 11/21/21 11/21/21 18:59 06:59 18:59 Intake Total 670 Balance 670 Intake: Oral 670 Other: Voiding Method Toilet Toilet Toilet Incontinent Diaper Diaper # Voids 4 2 - Exam Inspection: Negative for any open fractures, ecchymosis, significant erythema, nodules, ulcers Sensation: Patient has sensation that is equal, symmetric, bilaterally intact throughout the upper extremities and lower extremities. Palpation: Patient does have moderate TTP along the lumbar spine both at midline and in the paravertebral regions. Moderate TTP along the right SI joint. NTTP throughout rest of exam Range of motion: Patient does have limited range of motion in left hip flexion due to weakness. Patient has full range of motion in bilateral lower extremities in other exams. Patient does have full range of motion in the left upper extremity. Patient does have limited range of motion in right shoulder forward elevation due to previous surgery/injury patient says he had back in 2017. Motor: Bilateral upper extremities 5/5 in all major motor groups. Left lower extremity 3+/5 in resisted hip flexion. 4+/5 in all other major motor groups in the left lower extremity. Right lower extremity is 4-/5 in resisted plantarflexion. 4+/5 in all other major motor groups and right lower extremity Neurovascular: Refill under 3 seconds in digits of upper extremities. Radial pulses intact, 2+. DP pulses present. Special tests: Negative Niko's bilaterally; negative Homans bilaterally. Negative clonus bilaterally. - Labs CBC & Chem 7: 11/20/21 07:14 11/20/21 07:14 Assessment and Plan Assessment: 1. Degenerative disc disease; anterolisthesis L4-L5; lumbar neuroforaminal stenosis; central canal stenosis 2. History of total joint arthroplasty 3. Multiple medical comorbidities Plan: 1. Degenerative disc disease; anterolisthesis L4-L5; lumbar neuroforaminal stenosis; central canal stenosis - patient seen at bedside early this afternoon.. Patient did have CT of lumbar spine about 2 weeks ago. I did review the findings the CT of lumbar spine with my attending, Dr. Chow. Patient says he has been having increased frequency of urinary incontinence. Continue IV steroids. Patient does have a pacemaker. At this time we are recommending orthopedic surgical intevention the form of L2-S1 decompression and fusion L3-L5. Patient does want to go through with surgery at this time. Dr. Chow is unavailable to perform surgery on patient this weekend. We are waiting on trnasfer to [facility] if bed becomes available. We will continue to follow patient during stay. 2. Appreciate medical, urology, cardiac management 3. Pain management - [place]; Flexeril 4. DVT prophylaxis - heparin 5. GI prophylaxis - Protonix 6. PT/OT - WBAT w/walker and assistance 7. Appreciate consult Time with Patient: Less than 30
--- NOTE | 2021-11-21 14:58 | P.PN ---
Subjective Progress Note Date: 11/20/21 Patient was seen for follow-up. Patient is walking around, states his low back pain is better. Had one episode of pain from low back radiating to the right leg posteriorly to the knee. No new weakness. Objective - Vital Signs Vital signs: Vital Signs Temp 98.1 F 11/20/21 07:52 Pulse 67 11/20/21 07:52 Resp 20 11/20/21 07:52 BP 162/95 11/20/21 07:52 Pulse Ox 94 L 11/20/21 07:52 FiO2 Intake & Output 11/19/21 11/20/21 11/20/21 18:59 06:59 18:59 Intake Total 940 420 Balance 940 420 Intake: Oral 940 420 Other: Voiding Method Incontinent Toilet Incontinent # Voids 2 1 - Exam Mental status, speech and language functions are normal. Unchanged. - Labs CBC & Chem 7: 11/20/21 07:14 11/20/21 07:14 Labs: Abnormal Lab Results - Last 24 Hours (Table) 11/20/21 11/20/21 Range/Units 07:14 07:14 WBC 16.2 H (3.8-10.6) k/uL Neutrophils # 14.8 H (1.3-7.7) k/uL Lymphocytes # 0.7 L (1.0-4.8) k/uL BUN 21 H (9-20) mg/dL Glucose 123 H (74-99) mg/dL Assessment and Plan Assessment: * Lumbar spinal stenosis, severe at L4 5; moderate to severe at L2-3; and moderate at both L1 2 and L3 [address] myelogram report. Patient has radicular low back pain, mainly pain going to the right leg, but the left leg appears weaker than the right (hip flexion). Patient also has developed problems with urinary incontinence in the last few months. * Obesity Plan: * CT myelogram performed on 10/30/2021 revealed moderate multilevel degenerative disc disease. Hypertrophic facet arthropathy especially mid to lower lumbar spine along with ligamentum flavum thickness and Baastrup's disease. Degenerative grade 1 anterolisthesis L4 5. 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 Variable spinal canal stenosis, severe at L4 5; moderate to severe at L2-3; and moderate at both L1 2 and L3 4 levels. * For neuropathic pain, patient was started on Neurontin 200 mg twice a day. He is tolerating it well. We will increase the dose to 300 mg twice a day. May further increase the dose as tolerated, and as needed to 300 mg 3 times a day. * Orthopedic spine considering for surgery. * PT OT. Consider EMG and nerve conductions of bilateral lower extremities as an outpatient. * Neurology will sign off. Please reconsult neurology if any other further concerns. Dr. Elliot Mosley will be resuming neurology service from the morning if any concerns.
[2021-11-21] MEDS: CYCLOBENZAPRINE 10 MG TAB PO PRN (20:58)
[2021-11-21] MEDS: ATORVASTATIN 10 MG TAB PO SCH (20:58)
[2021-11-22] MEDS: DEXAMETHASONE SOD PHOSPHATE 10 MG/ML 1 ML VIAL IVP SCH ×3 (00:07→12:01)
--- NOTE | 2021-11-22 02:49 | P.PN ---
Subjective Progress Note Date: 11/21/21 This is a 61-year-old male who was recently admitted with back pain that has been worsening and also radiating to the right side and continues to have difficulty in walking and increased tingling and numbness noted to the left lower extremity. Patient is being closely monitored with orthopedics following as patient has history of lumbar spondylosis and lumbar radiculopathy and stenosis. Surgical intervention with orthopedics is being planned and cardiology consulted for medical clearance. Patient is currently afebrile and undergoing 2-D echo at this time. Patient denies any chest pain or shortness of breath. Patient does have history of atrial fibrillation currently rate controlled and recommend to continue with telemetry monitoring. Urology was also consulted for urinary incontinence and recommends post void residuals and bladder scanning. Patient is maintained on high-dose IV steroids and will continue and planning on possible surgical intervention of L2 to S1 decompression and fusion of L3 to L5 this Tuesday. Recommend DVT prophylaxis and continue with pain management. Recommend neuro consult. 11/19/2021 Patient is seen today in follow up and currently sitting up in the chair. Patient being followed by orthopedics and was scheduled for surgery tomorrow with Dr. Chow and is currently unavailable to perform the surgery and Dr. Rodriguez is unavailable for urgent surgery thus patient needing tertiary treatment center transfer and [facility] has accepted although no beds available due to capacity. Patient was also evaluated by neurology. Patient with continued incontinence and lower back pain. Patient also with some bilateral lower extremity swelling and will obtain doppler. Patient is afebrile and denies chest pain or shortness of breath. 11/20/2021 Patient evaluated today and continues to have lower back pain with urinary incontinence and awaiting a bed availability at [facility] for further evaluation of lumbar surgery. Patient is afebrile and denies chest pain or palpitations. Patient continues on high dose IV dexamethasone with orthopedics managing. Orthopdedic surgeon not available here at this time and will await transfer. Recommend to continue pain management and supportive care. Labs reviewed and within normal limits. 11/21/2021 Patient continues to wait for a bed to be available at [facility] for tertiary transfer for lumbar surgery. Patient maintained on IV dexamethasone and pain management. Patient reports incontinence and some increased pain and swelling of the lower extremities. Patient encouraged to increase activity as tolerated. Patient denies chest pain or shortness of breath. Patient tolerating diet with no reports of nausea or vomiting noted. Review of systems: Constitutional: No reports of fatigue, fever, or chills Cardiovascular: No reports of chest pain or palpitations Respiratory: No reports of shortness of breath or cough GI: No reports of nausea, no reports of of vomiting, no reports of diarrhea : No reports of dysuria or retention, reports incontinence Neurovascular: reports of generalized weakness with leg pain and some swelling of the legs early in the am with some improvement since then. All medications have been reviewed Active Medications Hydrocodone Bitart/Acetaminophen (Hydrocodone/Apap 7.5-325mg 1 Each Tab) 1 each PO Q6HR PRN PRN Reason: Pain Last Admin: 11/21/21 20:58 Dose: 1 each Amiodarone HCl (Amiodarone 100 Mg Tab) 100 mg PO DAILY [facility] Last Admin: 11/21/21 07:09 Dose: 100 mg Atorvastatin Calcium (Atorvastatin 10 Mg Tab) 10 mg PO HS [facility] Last Admin: 11/21/21 20:58 Dose: 10 mg Bisacodyl (Bisacodyl 10 Mg Supp) 10 mg RECTAL HS PRN PRN Reason: Constipation Cyclobenzaprine HCl (Cyclobenzaprine 10 Mg Tab) 10 mg PO TID PRN PRN Reason: Pain Last Admin: 11/21/21 20:58 Dose: 10 mg Dexamethasone Sodium Phosphate (Dexamethasone Sod Phosphate 10 Mg/Ml 1 Ml Vial) 6 mg IVP Q6HR [facility] Last Admin: 11/22/21 00:07 Dose: 6 mg Diltiazem HCl (Diltiazem Cd 240 Mg Cap.Er.24h) 240 mg PO DAILY [facility] Last Admin: 11/21/21 07:10 Dose: 240 mg Duloxetine HCl (Duloxetine Hcl 60 Mg Capsule.Dr) 60 mg PO DAILY [facility] Last Admin: 11/21/21 07:10 Dose: 60 mg Gabapentin (Gabapentin 300 Mg Cap) 300 mg PO BID [facility] Last Admin: 11/21/21 20:58 Dose: 300 mg Heparin Sodium (Porcine) (Heparin Sodium,Porcine/Pf 5,000 Unit/0.5 Ml Syringe) 5,000 unit SQ Q12HR [facility] Last Admin: 11/21/21 20:58 Dose: 5,000 unit Sodium Chloride (Saline 0.9%) 1,000 mls @ 20 mls/hr IV .Q24H [facility] Last Admin: 11/21/21 03:04 Dose: Not Given Magnesium Hydroxide (Magnesium Hydroxide 2,400 Mg/10 Ml Cup) 2,400 mg PO DAILY PRN PRN Reason: Constipation Morphine Sulfate (Morphine Sulfate 4 Mg/Ml Syringe) 4 mg IV Q4HR PRN PRN Reason: Severe Pain Last Admin: 11/19/21 18:19 Dose: 4 mg Naloxone HCl (Naloxone 0.4 Mg/Ml 1 Ml Vial) 0.2 mg IV Q2M PRN PRN Reason: Opioid Reversal Ondansetron HCl (Ondansetron 4 Mg/2 Ml Vial) 4 mg IVP Q8HR PRN PRN Reason: Nausea And Vomiting Oxybutynin Chloride (Oxybutynin 10 Mg Tab.Er.24) 10 mg PO DAILY [facility] Last Admin: 11/21/21 07:11 Dose: 10 mg Pantoprazole Sodium (Pantoprazole 40 Mg Tablet) 40 mg PO AC-BRKFST [facility] Last Admin: 11/21/21 07:10 Dose: 40 mg Senna/Docusate Sodium (Sennosides-Docusate Sodium 1 Each Tab) 1 each PO DAILY [facility] Last Admin: 11/21/21 07:09 Dose: 1 each PHYSICAL EXAMINATION: GENERAL: The patient is alert and oriented x4, Well developed, well nourished. Obese. HEENT: Pupils are round and equally reacting to light. EOMI. no scleral icterus. No conjunctival pallor. Normocephalic, atraumatic. No pharyngeal erythema. No thyromegaly. CARDIOVASCULAR: S1 and S2 muffled PULMONARY: diminished breath sounds bilaterally with no wheezing or rhonchi noted. ABDOMEN: soft. non tender on exam. Obese. non-distended, normal bowel sounds. No palpable organomegaly. MUSCULOSKELETAL: No joint swelling or deformity. EXTREMITIES: No cyanosis, clubbing, or pedal edema. NEUROLOGICAL: Gross neurological examination did not reveal any focal deficits. diffuse weakness SKIN: No rashes. Assessment: Severe back pain, failure of outpatient treatment with lumbar radiculopathy and lumbar stenosis urinary incontinence secondary to above Deep vein thrombosis history Osteoarthritis Degenerative disc disease Paroxysmal atrial fibrillation History of sick sinus syndrome with permanent pacemaker insertion Hypertension Hyperlipidemia GI prophylaxis DVT prophylaxis Full code Plan: Recommend to continue with current medications and management with orthopedic services following. Patient was tentatively scheduled for decompression and fusion with orthopedics although surgeon is unavailable and will need transfer to tertiary treatment center of [facility] given continued symptoms that are currently being managed by high dose IV steroids. Orthopedics recommends transfer for ortho and neurosurgical evaluation urgently. Dr. Marrufo of [facility] accepted the patient and there is a wait for transfer due to no bed availability. [facility] to contact when bed available. Recommend to hold Plavix for now and will continue with subcutaneous heparin for DVT prophylaxis. neurology evaluated the patient recommending outpatient EMG studies. Due to multiple complex medical issues, prognosis is guarded. Risks versus benefits of surgical intervention discussed with the patient and patient continues to wish to proceed with surgical intervention with orthopedics following. Awaiting bed availability at [facility]. The impression and plan of care has been dictated by Genevieve Braxton, nurse practitioner as directed. MD Miriam I have performed a history and examination and MDM of this patient, discussed the same with the dictator, and agree with the dictator's assessment and plan as written ,documented as a scribe. Based on total visit time, I have performed more than 50% of the visit. Any additional findings or plans will be noted. Objective - Vital Signs Vital signs: Vital Signs Temp 98.6 F 11/21/21 20:00 Pulse 65 11/21/21 20:00 Resp 18 11/21/21 20:00 BP 159/82 11/21/21 20:00 Pulse Ox 94 L 11/21/21 20:00 FiO2 Intake & Output 11/21/21 11/21/21 11/22/21 06:59 18:59 06:59 Other: Voiding Method Toilet Toilet Diaper Diaper # Voids 2 1 - Labs CBC & Chem 7: 11/20/21 07:14 11/20/21 07:14
[2021-11-22] MEDS: SODIUM CHLORIDE 0.9% 1,000 ML IV SCH (04:02)
[2021-11-22 07:04] VITALS: TEMP 98.1
[2021-11-22] MEDS: AMIODARONE 100 MG TAB PO SCH (07:34)
[2021-11-22] MEDS: HYDROcodone/APAP 7.5-325MG 1 EACH TAB PO PRN ×2 (07:34→16:33)
[2021-11-22] MEDS: SENNOSIDES-DOCUSATE SODIUM 1 EACH TAB PO SCH (07:34)
[2021-11-22] MEDS: OXYBUTYNIN 10 MG TAB.ER.24 PO SCH (07:34)
[2021-11-22] MEDS: DULoxetine HCL 60 MG CAPSULE.DR PO SCH (07:34)
[2021-11-22] MEDS: PANTOPRAZOLE 40 MG TABLET PO SCH (07:34)
[2021-11-22] MEDS: GABAPENTIN 300 MG CAP PO SCH (07:35)
[2021-11-22] MEDS: HEPARIN SODIUM,PORCINE/PF 5,000 UNIT/0.5 ML SYRINGE SQ SCH (07:35)
[2021-11-22] MEDS: DILTIAZEM CD 240 MG CAP.ER.24H PO SCH (07:35)
--- NOTE | 2021-11-22 09:39 | P.PN ---
Subjective Progress Note Date: 11/22/21 Principal diagnosis: Degenerative disc disease; anterolisthesis L4-L5; lumbar neuroforaminal stenosis; central canal stenosis Patient was seen at bedside this morning sitting up in chair. Patient says he is still having low back pain with radiation of pain down the right leg. P atient rates the pain currently is 4/10. Patient says overnight he did have episodes of incontinence. Patient says he does want to go through with spine surgery. Patient denies chest pain, fever, shortness breath, nausea, vomiting, change in vision. Objective - Vital Signs Vital signs: Vital Signs Temp 98.1 F 11/22/21 07:04 Pulse 65 11/22/21 08:00 Resp 16 11/22/21 08:00 BP 153/83 11/22/21 07:04 Pulse Ox 95 11/22/21 07:04 FiO2 Intake & Output 11/21/21 11/22/21 11/22/21 18:59 06:59 18:59 Intake Total 200 Balance 200 Intake: Oral 200 Other: Voiding Method Toilet Toilet Diaper Diaper # Voids 1 2 - Exam Inspection: Negative for any open fractures, ecchymosis, significant erythema, nodules, ulcers Sensation: Patient has sensation that is equal, symmetric, bilaterally intact throughout the upper extremities and lower extremities. Palpation: Patient does have moderate TTP along the lumbar spine both at midline and in the paravertebral regions. Moderate TTP along the right SI joint. NTTP throughout rest of exam Range of motion: Patient does have limited range of motion in left hip flexion due to weakness. Patient has full range of motion in bilateral lower extremities in other exams. Patient does have full range of motion in the left upper extremity. Patient does have limited range of motion in right shoulder forward elevation due to previous surgery/injury patient says he had back in 2017. Motor: Bilateral upper extremities 5/5 in all major motor groups. Left lower extremity 3+/5 in resisted hip flexion. 4+/5 in all other major motor groups in the left lower extremity. Right lower extremity is 4-/5 in resisted plantarflexion. 4+/5 in all other major motor groups and right lower extremity Neurovascular: Refill under 3 seconds in digits of upper extremities. Radial pulses intact, 2+. DP pulses present. Special tests: Negative Niko's bilaterally; negative Homans bilaterally. Negative clonus bilaterally. - Labs CBC & Chem 7: 11/20/21 07:14 11/20/21 07:14 Assessment and Plan Assessment: 1. Degenerative disc disease; anterolisthesis L4-L5; lumbar neuroforaminal stenosis; central canal stenosis 2. History of total joint arthroplasty 3. Multiple medical comorbidities Plan: 1. Degenerative disc disease; anterolisthesis L4-L5; lumbar neuroforaminal stenosis; central canal stenosis - patient seen at bedside early this afternoon.. Patient did have CT of lumbar spine about 2 weeks ago. I did review the findings the CT of lumbar spine with my attending, Dr. Chow. Patient says he has been having increased frequency of urinary incontinence. Continue IV steroids. Patient does have a pacemaker. At this time we are recommending orthopedic surgical intevention the form of L2-S1 decompression and fusion L3-L5. Patient does want to go through with surgery at this time. Dr. Chow is unavailable to perform surgery on patient in near future. We are waiting on transfer to [facility] if bed becomes available. We will continue to follow patient during stay. 2. Appreciate medical, urology, cardiac management 3. Pain management - [place]; Flexeril 4. DVT prophylaxis - heparin 5. GI prophylaxis - Protonix 6. PT/OT - WBAT w/walker and assistance 7. Appreciate consult Time with Patient: Less than 30
[2021-11-22 13:43] VITALS: BP 144/75; PULSE 87; RESP 20
--- NOTE | 2021-11-22 13:56 | P.DS ---
Providers Date of admission: 11/18/21 13:42 Expected date of discharge: 11/22/21 Attending physician: Demond Luna Consults: 11/17/21 07:15 Consult Physician Urgent Consulting Provider: El Chow Consult Reason/Comments: Lumbar stenosis-fall 1 week ago with c/o back pain Do you want consulting provider notified?: Already Contacted 11/17/21 13:54 Consult Physician Urgent Consulting Provider: Nahid Macdonald Consult Reason/Comments: Bladder Incontinence Do you want consulting provider notified?: Yes 11/18/21 16:30 Consult Physician Routine Consulting Provider: Aggie Hanna Consult Reason/Comments: Lumbar stenosis, urinary incontinence, gait dysfunction Do you want consulting provider notified?: Yes Primary care physician: Stated None Hospital Course: Final diagnosis Severe back pain, failure of outpatient treatment with lumbar radiculopathy and lumbar stenosis urinary incontinence secondary to above Deep vein thrombosis history Osteoarthritis Degenerative disc disease Paroxysmal atrial fibrillation History of sick sinus syndrome with permanent pacemaker insertion Hypertension Hyperlipidemia GI prophylaxis DVT prophylaxis Full code Discharge disposition Patient is being transferred in a stable condition with guarded prognosis to [facility]. Patient going for tertiary treatment Center care for possible surgical intervention with lumbar stenosis and Dr. Hernandez has accepted the patient. Patient will continue on IV dexamethasone 6 mg every 6 and also recommend holding Plavix for now and continue with subcutaneous heparin every 12 hours. Total time taken is greater than 35 minutes. Hospital course This is a 61-year-old male who was recently admitted back pain and worsening that was radiating down the right side with difficulty in ambulation and increased tingling and numbness and gait dysfunction and also found to have increasing urinary incontinence that had been progressively getting worse over the last week. Patient was initially scheduled here for orthopedic intervention for lumbar stenosis and orthopedics became unavailable emergently recommending tertiary treatment Center transfer for orthopedic and possible neurosurgical evaluation. Patient is maintained on high-dose IV steroids of dexamethasone 6 mg every 6 and orthopedics recommending to continue for now. Patient was taking Plavix chronically and this is currently on hold and will continue with heparin subcu every 12 for DVT prophylaxis. Patient continues with urinary incontinence and has been evaluated by urology and will follow-up in the outpatient setting as needed. [facility] transfer team notified there is a bed available and pending repeat Covid testing. Initial Covid testing was -3 days ago. Once the bed becomes available transfer team will notify nursing staff and set up for transfer. Nursing staff notified and arranging for a disc of any images to go with transfer. Currently no reports of chest pain, shortness of breath, or palpitations. Patient is afebrile. No reports of nausea or vomiting and patient is tolerating diet. Patient will be transferred to [facility] today. On exam vital signs are stable. Temp is 98 1F, pulse is 87, respirations are 20, blood pressure 144/75, oxygen saturation is 94% on room air. Cardio S1, S2 are muffled. Respiratory system shows diminished breath sounds at the bases with no wheezing or rhonchi noted. Abdomen is soft and obese, and nontender. Nervous system shows diffuse weakness. Please refer to medication reconciliation sheet for a list of medications. The impression and plan of care has been dictated by Genevieve Braxton, Nurse Practitioner as directed. Dr. Jeremy MD I have performed a history and examination and MDM of this patient, discussed the same with the dictator, and agree with the dictator's assessment and plan as written ,documented as a scribe. Based on total visit time, I have performed more than 50% of the visit. Patient Condition at Discharge: Stable Plan - Discharge Summary Discharge Rx Participant: Yes New Discharge Prescriptions: New Oxybutynin ER [Ditropan Xl] 10 mg PO DAILY tab Magnesium Hydroxide [Milk of Magnesia Concentrate] 2,400 mg PO DAILY PRN ml PRN Reason: Constipation Gabapentin [Neurontin] 300 mg PO BID cap bisacodyL [Dulcolax] 10 mg RECTAL HS PRN suppositor PRN Reason: Constipation Pantoprazole [Protonix] 40 mg PO AC-BRKFST tab Sennosides-Docusate Sodium [Senokot-S] 1 each PO DAILY tab Continue Atorvastatin [Lipitor] 10 mg PO HS DULoxetine HCL [Cymbalta] 60 mg PO DAILY Cyclobenzaprine [Flexeril] 10 mg PO TID PRN PRN Reason: Pain Amiodarone [Cordarone] 100 mg PO DAILY dilTIAZem HCL [dilTIAZem HCL 12Hr ER] 240 mg PO DAILY HYDROcodone/APAP 7.5-325MG [[place] 7.5-325] 1 tab PO Q6HR PRN PRN Reason: Pain Clopidogrel [Plavix] 75 mg PO DAILY #0 Discharge Medication List Atorvastatin [Lipitor] 10 mg PO HS 07/02/21 [History] DULoxetine HCL [Cymbalta] 60 mg PO DAILY 07/02/21 [History] Cyclobenzaprine [Flexeril] 10 mg PO TID PRN 10/30/21 [History] Amiodarone [Cordarone] 100 mg PO DAILY 11/17/21 [History] HYDROcodone/APAP 7.5-325MG [Freedom 7.5-325] 1 tab PO Q6HR PRN 11/17/21 [History] dilTIAZem HCL [dilTIAZem HCL 12Hr ER] 240 mg PO DAILY 11/17/21 [History] Clopidogrel [Plavix] 75 mg PO DAILY #0 11/22/21 [Rx] Gabapentin [Neurontin] 300 mg PO BID cap 11/22/21 [Rx] Magnesium Hydroxide [Milk of Magnesia Concentrate] 2,400 mg PO DAILY PRN ml 11/22/21 [Rx] Oxybutynin ER [Ditropan Xl] 10 mg PO DAILY tab 11/22/21 [Rx] Pantoprazole [Protonix] 40 mg PO AC-BRKFST tab 11/22/21 [Rx] Sennosides-Docusate Sodium [Senokot-S] 1 each PO DAILY tab 11/22/21 [Rx] bisacodyL [Dulcolax] 10 mg RECTAL HS PRN suppositor 11/22/21 [Rx] Follow up Appointment(s)/Referral(s): [facility], [NON-STAFF] - 1-2 Days None,Stated [Primary Care Provider] - 1-2 days Activity/Diet/Wound Care/Special Instructions: Patient is being transferred to [facility] for further orthopedic evaluation for possible lumbar stenosis intervention Patient has a PCP of [facility] - [address] [address] [place] [facility] has been assigned for home care services and can be reached at [phone]. Discharge Disposition: OTHER INSTITUTION NOT DEFINED
[2021-11-22] MEDS: CYCLOBENZAPRINE 10 MG TAB PO PRN (16:33)
== END 2021-11-22 17:25 | disposition other institution (70) | DRG 552 ==
LOC: EC 19:01 → 6NMEDSUR 11-17 01:18 → OBSVTOIN 11-18 13:42 → 6NMEDSUR 11-18 23:26
PROVIDERS: ADMIT Hospitalist; ATTEND Hospitalist
DX: M47.26 Other spondylosis with radiculopathy, lumbar region (principal); M48.061 Spinal stenosis, lumbar region without neurogenic claudication; E78.5 Hyperlipidemia, unspecified; F32.A Depression, unspecified; E66.9 Obesity, unspecified; M48.26 Kissing spine, lumbar region; M43.16 Spondylolisthesis, lumbar region; I11.9 Hypertensive heart disease without heart failure; I07.1 Rheumatic tricuspid insufficiency; I49.5 Sick sinus syndrome; N39.41 Urge incontinence; I48.0 Paroxysmal atrial fibrillation; M79.89 Other specified soft tissue disorders; R33.9 Retention of urine, unspecified; M54.30 Sciatica, unspecified side; R53.1 Weakness; Z20.822 Contact with and (suspected) exposure to COVID-19; Z96.643 Presence of artificial hip joint, bilateral; Z79.899 Other long term (current) drug therapy; Z79.02 Long term (current) use of antithrombotics/antiplatelets; Z91.048 Other nonmedicinal substance allergy status; Z88.0 Allergy status to penicillin; Z86.718 Personal history of other venous thrombosis and embolism; Z95.0 Presence of cardiac pacemaker; Z95.818 Presence of other cardiac implants and grafts; Z82.49 Family history of ischemic heart disease and other diseases of the circulatory system; Z80.9 Family history of malignant neoplasm, unspecified
CPT/HCPCS: 71045; 80048; 80053; 83735; 84100; 85025; 85610; 85652; 85730; 86140; 87635; 93005; 93306; 93970; 96361; 96372; 96374; 96375; 99284

== ENCOUNTER 2023-04-28 08:05 | Day surgery (SDC) | payer OTHER ==
[2023-04-28] MEDS ORDERED: diazePAM 5 MG TAB PO STA (08:49)
[2023-04-28 09:00] VITALS: RESP 16; TEMP 98.1
--- NOTE | 2023-04-28 11:16 | CT ---
EXAMINATION TYPE: CT thor lumbar spine w con DATE OF EXAM: 04/28/2023 COMPARISON: CT lumbar spine October 30, 2021 HISTORY: Myelogram for wedge compression CT DLP: 3077.9 mGycm Automated exposure control for dose reduction was used. CONTRAST: Performed with IV Contrast, patient injected with 10cc mL of Isovue M300. FINDINGS: There are 5 lumbar type vertebra redemonstrated. Alignment is satisfactory on sagittal images. Persis tent mild chronic wedge-type compression fractures involving T12 and L1 vertebra. There is satisfacto ry contrast opacification of the spinal canal or adequate myelogram noted. There are anterior bridgin g osteophytes in the midthoracic spine. Right paracentral disc protrusion effaces anterolateral theca l sac at T11-T12 level sagittal image 47 and axial image 114. No additional large disc herniation in the thoracic spine. Conus medullaris is normal in position ending at upper to mid L1 level. Lumbar sp ine demonstrates multilevel spur disc complexes efface the anterior thecal sac L2-L3 through L5-S1 le vels. There is multilevel facet arthropathy redemonstrated in the lumbar spine. Most prominent spinal canal effacement or stenosis remains present at L2-L3 and L4-L5 levels similar to prior. There is partial visualization of multi lead pacemaker/defibrillator in the heart. There is 3 mm nono bstructing calculus lower pole right kidney axial image 150. Deep anterior Air from recent myelogram suspected posterior right L3-L4 level axial image 154. IMPRESSION: Mild chronic compression type fractures at T12 and L1 level.
[2023-04-28 15:50] VITALS: BP 156/73; PULSE 80
== END 2023-04-28 13:39 | disposition home or self-care (01) ==
LOC: RADPROMAIN 08:05
PROVIDERS: ATTEND Orthopaedic Surgery
DX: S22.010S Wedge compression fracture of first thoracic vertebra, sequela (principal); M54.6 Pain in thoracic spine; Z79.82 Long term (current) use of aspirin; Z79.01 Long term (current) use of anticoagulants; Z79.899 Other long term (current) drug therapy; X58.XXXA Exposure to other specified factors, initial encounter
CPT/HCPCS: 62303; 72129; 72132; Q9967

== ENCOUNTER → 2023-10-05 | Outpatient (CLI) | payer OTHER | END | disposition home or self-care (01) | LOC: LABPAT 09:15 | PROVIDERS: ATTEND Orthopaedic Surgery | DX: Z01.812 Encounter for preprocedural laboratory examination (principal); Z22.322 Carrier or suspected carrier of Methicillin resistant Staphylococcus aureus; M48.062 Spinal stenosis, lumbar region with neurogenic claudication; M47.26 Other spondylosis with radiculopathy, lumbar region | CPT/HCPCS: 36415; 86850; 86900; 86901; 87070 ==

== ENCOUNTER 2023-10-11 05:35 | Inpatient (IN) | payer OTHER ==
--- NOTE | 2023-10-10 16:27 | P.HPOR ---
History of Present Illness H&P Date: 10/05/23 Chief Complaint: Lumbar spondylosis with radiculopathy, Low back pain, Leg w eakness .D:Date: 10/05/23 : 08:49am .T:Title: [facility] HISTORY AND PHYSICAL Age: 63 year Height: 5'10" Weight: 272 lbs BP:134/76 BMI: 38.31 kg/m2 Occupation: Disabled VAS: 5 Hand: Right IMPRESSION: It was my pleasure to have seen and examinedDavid. I reviewed the patient's clinical syndrome, physical findings, and imaging studies during the appointment today. It is my impression that the patient has a diagnosis of. 1. L1-S1 spondylosis with stenosis 2. Bilateral lower extremity radiculopathy 3. Neurogenic claudication Spine Surgery Risk Review Mr. Chicas is presenting for evaluation of low back and bilateral lower extremity pain, bilateral lower extremity numbness, tingling, and weakness. It was my pleasure to have seen and examined Mr. Chicas. In our visit today we have had a chance to go over subjective complaints, physical examination findings and treatments including the natural course history without intervention and various interventional options. The patients imaging demonstrates: CT myelogram taken at [facility] on 04/28/[address] myelogram taken at [facility] on 04/28/2023 of Lumbar Spine: - Images reviewed with the patient multilevel spondylotic changes from T7 through L1 noted. L4-L5 grade 1 spondylolisthesis. Severe stenosis noted from L1 through S1. Vacuum disc phenomena L2 3 L3 4 L4 5 and L5-S1 also noted. no acute fracture. No lesions. XRay Lumbar AP/lateral 2 views taken at [facility] [place] on 02/04/23: - Images reviewed with the patient Moderate multilevel spondylitic and degenerative changes with preserved alignment. Multilevel diminished disc height. Chronic L1 compression fracture is present. Grade 1 anterolisthesis L4 and L5. Grade 1 retrolisthesis L2 and L3, L3 and L4, L5 and S1. No acute osseous abnormalities. On physical exam, Mr. Chicas demonstrates: A continued tight and "twisting" constant pain throughout the low back that radiates down into the bilateral lower extremities. He states his leg pain is associated with numbness and tingling. He notes progressively worsening lower extremity weakness. He states he must lean over the grocery cart at the store in order to shop without severe, significant lumbar pain. The patient states his symptoms have continued to worsen over the last 1 to2 months, but have been ongoing for several years. He notes previous history of surgical intervention in the form of a lumbar fusion in November 2021 at [facility]. The patient states his current symptoms worsen after all activity. He reports experiencing severe sleep disturbances related to his current symptoms. I have explained to the patient that as their condition progresses it will cause further neurological deficits and eventual paralysis. Based on the patients imaging, physical exam, and the rapid progression and disabling nature of their symptoms, at this time I recommend surgery in the form of a: [id number] decompression and fusion. I discussed the risk and benefits of this procedure at length with Mr. Chicas. The patient agreed to considered pursuing the procedure above mentioned. Prior to surgery, she should follow up with her PCP (Cardio, ID, IM etc) for clearance. Questions were invited and answered, and the patient wishes to proceed as outlined below. Currently, I am recommendin.[id number] decompression and fusion 2.Review of surgical risks and benefits as well as an educational packet on the proposed surgical procedure. Risks: All surgical procedures come with inherent risks, including those related to positioning, anesthesia, intraoperative findings, and postoperative complications. It is important to understand that surgery does not come with any guarantee of a successful outcome as complications and adverse events are always possible. The patient was given a handout in office today discussing the surgical procedure and risks associated with the intervention, both of which were discussed with the patient. These risks include but are not limited to the following: * Experiencing same, different or even worse symptoms in back, neck, arms, or legs compared to before surgery. Requiring further surgery or other forms of treatment presently or at some time in the future at same or other levels of the intended spine surgery. On an extreme but fortunately relatively rare basis severe complication such as blindness, stroke, heart attack, temporary and/or permanent nerve injury, paralysis, coma, or may occur, sometimes without known explanation. Surgical complications may include but are not limited to risk of infection, fluid accumulation in the surgical dissection site, including a seroma or hematoma, that requires additional surgery, wound drainage, bleeding, new numbness or weakness, vision changes/loss, spinal fluid leakage, non-healing and/or infected incision, headaches, difficulty or inability to swallow, hoarseness, hemopneumothorax, pneumothorax, impotence, retrograde ejaculation, vaginal dryness; injury to nerves, spinal cord, blood vessels, lymphatics or other vital organs (i.e., bowel injury, injury to the great vessels); heterotopic bone formation; complications related to the hardware such as screws, rods, cages including misplaced hardware, device failure, instrumentation at the wrong spine level, hardware fracture/breakage, or hardware loosening; vertebral failure of the spinal column above or below the newly placed hardware; retained surgical instrumentations or devices and the need for further surgery. * Medical risks of the planned spine surgery include but are not limited to generalized Infections to the whole body or local areas outside of the surgical site (sepsis), heart attack, bleeding, anaphylaxis, meningitis, seizure, epilepsy, hearing loss, burn mosqueda, laceration of the head or other areas of the body, bruising, hypersensitivity of the skin, bladder over distension; allergic reaction; shoulder injury related to positioning; fat, blood and air clots to other areas of the body like heart, lungs, brain; failure of internal organs such as lungs, kidneys, liver and excessive bleeding. If blood transfusions are necessary, note that transfusions may cause intolerance reactions such as anaphylaxis or other complex reactions. Despite best efforts, the results of spine surgery might not heal in terms of bone, soft tissues such as skin, fascia, ligaments, and joints. Additionally, in order to achieve best possible results, spine surgery may be carried out beyond the initially planned levels and involve decompression, fusion including insertion of hardware at levels other than the original intended area of surgical interest change some portions of the procedure in order to ensure the best possible outcomes. With spine surgery and spinal fusion, there are different off label uses of instrumentation (devices, implants and hardware) as well as biological substances (bone morphogenic proteins, demineralized bone matrix) as well as using extra bone from allograft sources (i.e. cadaver bone) or autograft (iliac crest bone, ribs, or the spine itself). The patient has been given information about these practices and their inherent risks and benefits. [facility] is an educational center that serves as a training facility for neurosurgical and orthopedic APPLICATIONS INTERN and Nursing students. Physician assistants are medically trained surgical providers who function in the outpatient, inpatient, and operating room setting under the direct supervision of the attending surgeon. [facility] has multiple operating rooms with single and overlapping rooms running daily. They currently function under the required guidelines as produced by the [facility] with regards to the overlapping rooms and will continue to comply with changes to this policy as they occur. The requirements include and are complied with as follows: (1) the critical portions of the overlapping rooms will not occur at the same time, (2) the attending physician will be physically present during the critical portions of the procedure and immediately available during the entire case, and (3) a back-up attending is designated should the primary attending not be immediately available. The patient has had a chance to review all the listed information, has been given print outs detailing this information, and has had all his/her questions answered to their satisfaction. It was my pleasure to have seen and examined Mr. Chicas. In our visit today we have had a chance to go over my understanding of our patient's current condition, the natural course history without intervention and various interventional options. Questions were invited and answered, and the patient wis hes to proceed as outlined above. I have seen and examined the patient for 25 minutes and we have spent more than 50% of the time in repeat and detailed counseling about the patient's condition, its natural course history with out and as much as can be predicted with surgery and re-review of various surgical treatment options. In conclusion, Mr. Chicas requested we proceed with the above suggested surgery and are willing to accept risks and limitations of the suggested surgery as nature of the disease process and our best attempts at treatment for the condition. Thank you again for allowing us to be part of your patient's care. Please don't hesitate to contact me if you have any further questions. FOLLOW UP: Post Procedure PLAN AT NEXT VISIT: Lumbar x-rays (AP/LAT) PATIENT EDUCATION: Medications Reviewed: YES In our visit today Mr. Chicas and I have had a chance to go over my understanding of the patient's current condition, the natural course history without intervention and various interventional options. Questions were invited and answered, and the patient wishes to proceed as outlined above. I will be sure to keep you updated after Mr. Chicas returns here for further follow-up. Thank you again for your referral. Please do not hesitate to contact me if you have any further questions. Signed and authenticated by: [facility] [address] [place] [address] This message is confidential, intended only for the named recipient(s) and may contain information that is privileged or exempt from disclosure under applicable law. If you are not the intended recipient(s), you are notified that the dissemination, distribution or copying of this information is strictly prohibited. If you received this message in error, please notify the sender then delete this message. Past Medical History Past Medical History: Atrial Fibrillation, Deep Vein Thrombosis (DVT), Hearing Disorder / Deafness, Hyperlipidemia, Hypertension, Osteoarthritis (OA), Sleep Apnea/CPAP/BIPAP, Thyroid Disorder Additional Past Medical History / Comment(s): HX DVT 2019 TOP RIGHT ATRIUM. HX AFIB RESOLVED WITH PACEMAKER. Bilateral hearing aid use. Occasional feet swelling. CPAP use. Hx overactive thyroid 6-7 yrs ago, no treatment needed. History of Any Multi-Drug Resistant Organisms: None Reported Past Surgical History: Back Surgery, Joint Replacement, Orthopedic Surgery, Pacemaker Additional Past Surgical History / Comment(s): Bilateral hip replacements, right shoulder surgery, left knee surgery X2, Watchman Device 09/2020, colonoscopy, spinal decompression. Past Anesthesia/Blood Transfusion Reactions: No Reported Reaction Type of Cardiac Device: Permanent Pacemaker Device Placement Date:: 2017 Past Psychological History: Depression Smoking Status: Never smoker Past Alcohol Use History: Occasional Past Drug Use History: None Reported - Past Family History Mother Family Medical History: Cancer Father Family Medical History: Deep Vein Thrombosis (DVT), Myocardial Infarction ([place]), Pulmonary Embolus Medications and Allergies Home Medications Medication Instructions Recorded Confirmed Type Amiodarone [Cordarone] 100 mg PO DAILY 11/17/21 10/05/23 History dilTIAZem HCL [dilTIAZem HCL 12Hr 240 mg PO DAILY 11/17/21 10/05/23 History ER] Aspirin [Adult Low Dose Aspirin EC] 81 mg PO DAILY 04/20/23 10/05/23 History Ferrous Sulfate [Feosol] 325 mg PO Q48H 04/20/23 10/05/23 History Tamsulosin [Flomax] 0.4 mg PO DAILY 04/20/23 10/05/23 History methocarbamoL 1,000 mg PO DAILY PRN 04/20/23 10/05/23 History Atorvastatin [Lipitor] 20 mg PO HS 10/05/23 10/05/23 History Cholecalciferol (Vitamin D3) 100 mcg PO DAILY 10/05/23 10/05/23 History [Vitamin D3 (50 Mcg = 2000 Iu)] Gabapentin 300 mg PO TID 10/05/23 10/05/23 History Allergies Allergy/AdvReac Type Severity Reaction Status Date / Time adhesive Allergy Rash/Hives Verified 10/05/23 10:55 Penicillins AdvReac Swelling Verified 10/05/23 10:54 Physical Examination Osteopathic Statement: *. No significant issues noted on an osteopathic structural exam other than those noted in the History and Physical/Consult.
[~2023-10-11 05:35] MED LIST changes: +GABAPENTIN 300 MG CAP PO PRN; -HYDROcodone/APAP 7.5-325MG 1 EACH TAB ONE; +TRANEXAMIC 1,000 MG/100ML-NACL 1,000 MG in SALINE 1 100ML.BAG IVPB PRN; -diazePAM 5 MG TAB PO STA
[2023-10-11] MEDS: LACTATED RINGERS 1,000 ML IV SCH ×2 (06:22→19:17)
[2023-10-11] MEDS: LIDOCAINE 1% (10MG/ML) FOR IV START INTRADERMA PRN (06:22)
[2023-10-11] MEDS: ACETAMINOPHEN TAB 500 MG TAB PO PRN (06:22)
[2023-10-11] MEDS: ONDANSETRON 4 MG/2 ML VIAL IVP PRN (06:30)
[2023-10-11] MEDS: DEXAMETHASONE SOD PHOSPHATE 4 MG/ML 1 ML VIAL IV ONE (06:30)
[2023-10-11] MEDS: MIDAZOLAM 2 MG/2 ML VIAL IV PRN (06:50)
[2023-10-11] MEDS ORDERED: HYDROmorphone 0.5 MG/0.5 ML SYRINGE IVP PRN (07:00)
[2023-10-11] MEDS: ceFAZolin 3 GM in SODIUM CHLORIDE 0.9% 100 ML IVPB PRN (07:38)
[2023-10-11] MEDS: VANCOMYCIN 1,000 MG VIAL MISCELLANE ONE ×2 (09:08)
[2023-10-11] MEDS: GELATIN SPONGE,ABSORBABLE 1 GM POWDER TOPICAL ONE (09:08)
[2023-10-11] MEDS: THROMBIN (BOVINE) 5,000 UNIT VIAL TOPICAL ONE ×2 (09:09)
[2023-10-11] MEDS: GENTAMICIN 80 MG in SODIUM CHLORIDE 0.9% IRRIGATIO 3,000 ML IRRIGATION ONE (09:58)
[2023-10-11] MEDS: ceFAZolin 3,000 MG in SODIUM CHLORIDE 0.9% IRRIGATIO 3,000 ML IRRIGATION ONE (10:00)
[2023-10-11 11:12] LABS: Basophils % (A) 0 %; Eosinophils # (A) 0.1 k/uL (0-0.7); Eosinophils % (A) 1 %; HGB 14.4 gm/dL (13.0-17.5); Lymphocytes # (A) 0.9 k/uL (1.0-4.8); Lymphocytes % (A) 12 %; MCH 29.9 pg (25.0-35.0); MCHC 33.5 g/dL (31.0-37.0); MCV 89.2 fL (80.0-100.0); Mean Platelet Volume 9.1; Monocytes # (A) 0.2 k/uL (0-1.0); Monocytes % (A) 2 %; Neutrophils # (A) 6.7 k/uL (1.3-7.7); Neutrophils % (A) 84 %; Platelet Count 194 k/uL (150-450); RBC 4.82 m/uL (4.30-5.90); RDW 13.2 % (11.5-15.5)
[2023-10-11 11:15] LABS: Glucose,Whole Blood 143 mg/dL (70-110)
[2023-10-11 11:48] LABS: ABG Base Excess -1.1 mmol/L; ABG HCO3 23 mmol/L (21-25); ABG Oxygen Saturation 99.9 % (94-97); ABG PCO2 37 mmHg (35-45); ABG PH 7.41 (7.35-7.45); ABG PO2 202 mmHg (83-108); Allen Test Performed? Yes
[2023-10-11 11:56] LABS: Potassium 4.3 mmol/L (3.5-5.1)
[2023-10-11 13:11] LABS: ABG Base Excess -3.4 mmol/L; ABG Glucose Whole Blood 180 mg/dL (75-99); ABG HCO3 22 mmol/L (21-25); ABG Hematocrit 40 % (34.0-46.0); ABG Ionized Calcium 4.6 mg/dL (4.5-5.3); ABG Oxygen Saturation 99.1 % (94-97); ABG PCO2 40 mmHg (35-45); ABG PH 7.35 (7.35-7.45); ABG PO2 247 mmHg (83-108); ABG Potassium Whole Blood 3.9 mmol/L (3.4-4.5); ABG Sodium Whole Blood 140 mmol/L (135-146)
[2023-10-11] MEDS: LACTATED RINGERS 1,000 ML IV ONE ×2 (13:15→18:30)
[2023-10-11 13:41] LABS: ABG Lactic Acid Whole Blood 2.2 mmol/L (0.5-1.6)
[2023-10-11] MEDS ORDERED: ONDANSETRON 4 MG/2 ML VIAL IVP PRN (16:59)
[2023-10-11] MEDS ORDERED: CYCLOBENZAPRINE 10 MG TAB PO PRN (16:59)
[2023-10-11] MEDS ORDERED: HYDROcodone/APAP 10-325MG 1 EACH TAB PO PRN (16:59)
[2023-10-11] MEDS ORDERED: NA PHOS,M-B/NA PHOS,DI-BA 133 ML ENEMA RECTAL PRN (16:59)
[2023-10-11] MEDS ORDERED: bisacodyL 10 MG SUPP RECTAL PRN (16:59)
[2023-10-11] MEDS ORDERED: HYDROcodone/APAP 7.5-325MG 1 EACH TAB PO PRN (17:07)
--- NOTE | 2023-10-11 17:07 | P.OP ---
Date of Procedure: 10/11/23 Preoperative Diagnosis: 1. L1-S1 SPONDYLOSIS SEVERE WITH STENOSIS, SEVERE 2. NEUROGENIC CLAUDICATION 3. LE WEAKNESS 4. LE RADICULOPATHY 5. LOW BACK PAIN Postoperative Diagnosis: 1. L1-S1 SPONDYLOSIS SEVERE WITH STENOSIS, SEVERE 2. NEUROGENIC CLAUDICATION 3. LE WEAKNESS 4. LE RADICULOPATHY 5. LOW BACK PAIN Procedure(s) Performed: 63778 OSTEOTOMY OF SPINE, POSTERIOR OR POSTEROLATERAL APPROACH, 3 COLUMNS, 1 VERTEBRAL SEGMENT (EG, PEDICLE/VERTEBRAL BODY SUBTRACTION); LUMBAR; L5-S1 FOR DEFORMITY CORRECTION 38672 ARTHRODESIS, COMBINED POSTERIOR OR POSTEROLATERAL TECHNIQUE WITH POSTERIOR INTERBODY TECHNIQUE INCLUDING LAMINECTOMY AND/OR DISCECTOMY SUFFICIENT TO PREPARE INTERSPACE (OTHER THAN FOR DECOMPRESSION), SINGLE INTERSPACE, LUMBAR; L5-S1 37379/50 ARTHRODESIS, SACROILIAC JOINT, OPEN, INCLUDES OBTAINING BONE GRAFT, INCLUDING INSTRUMENTATION, WHEN PERFORMED; BILATERAL SI JOINTS FOR LONG CONSTRUCT STABILITY AND FUSION 40066 ARTHRODESIS, POSTERIOR OR POSTEROLATERAL TECHNIQUE, SINGLE INTERSPACE; THORACIC; T10-T11 43469 POSTERIOR SEGMENTAL INSTRUMENTATION (EG, PEDICLE FIXATION, DUAL RODS WITH MULTIPLE HOOKS AND SUBLAMINAR WIRES); 7 TO 12 VERTEBRAL SEGMENTS (LIST SEPARATELY IN ADDITION TO CODE FOR PRIMARY PROCEDURE) [id number] 31844 LAMINECTOMY, FACETECTOMY, OR FORAMINOTOMY (UNILATERAL OR BILATERAL WITH DECOMPRESSION OF SPINAL CORD, CAUDA EQUINA AND/OR NERVE ROOT[S] [EG, SPINAL OR LATERAL RECESS STENOSIS]), DURING POSTERIOR INTERBODY ARTHRODESIS, LUMBAR; SINGLE VERTEBRAL SEGMENT LUMBAR L5-S1, FOR DECOMPRESSION OF NEURAL ELEMENTS AND DEFORMITY CORRECTION WELL CAGE PLACEMENT 14376 PELVIC FIXATION (ATTACHMENT OF CAUDAL END OF INSTRUMENTATION TO PELVIC BONY STRUCTURES) OTHER THAN SACRUM 35532, 73264: DURAL REPAIR WITH PATCH GRAFT AND GRAFT HARVEST L2-3 RIGHT DURAL EROSION REPAIR WITH FAT PATCH GRAFT 40177 OSTEOTOMY OF SPINE, POSTERIOR OR POSTEROLATERAL APPROACH, 3 COLUMNS, 1 VERTEBRAL SEGMENT (EG, PEDICLE/VERTEBRAL BODY SUBTRACTION); EACH ADDITIONAL VERTEBRAL SEGMENT (LIST SEPARATELY IN ADDITION TO CODE FOR PRIMARY PROCEDURE) L4-5; L3-4 FOR DEFORMITY CORRECTION 96705 ARTHRODESIS, COMBINED POSTERIOR OR POSTEROLATERAL TECHNIQUE WITH POSTERIOR INTERBODY TECHNIQUE INCLUDING LAMINECTOMY AND/OR DISCECTOMY SUFFICIENT TO PREPARE INTERSPACE (OTHER THAN FOR DECOMPRESSION), SINGLE INTERSPACE, LUMBAR; EACH ADDITIONAL INTERSPACE (LIST SEPARATELY IN ADDITION TO CODE FOR PRIMARY PROCEDURE) L4-5, L3-4, L2-3 03720 X2 LAMINECTOMY, FACETECTOMY, OR FORAMINOTOMY (UNILATERAL OR BILATERAL WITH DECOMPRESSION OF SPINAL CORD, CAUDA EQUINA AND/OR NERVE ROOT[S] [EG, SPINAL OR LATERAL RECESS STENOSIS]), DURING POSTERIOR INTERBODY ARTHRODESIS, LUMBAR; EACH ADDITIONAL SEGMENT L4-5, L3-4, L2-3 FOR DECOMPRESSION OF NEURAL ELEMENTS AND DEFORMITY CORRECTION WELL CAGE PLACEMENT 06165 INSERTION OF INTERBODY BIOMECHANICAL DEVICE(S) (EG, SYNTHETIC CAGE, MESH) WITH INTEGRAL ANTERIOR INSTRUMENTATION FOR DEVICE ANCHORING (EG, SCREWS, FLANGES), WHEN PERFORMED, TO INTERVERTEBRAL DISC SPACE IN CONJUNCTION WITH INTERBODY ARTHRODESIS, EACH INTERSPACE; L5-S1; L4-5; L3-4; L2-3 30652 ARTHRODESIS, POSTERIOR OR POSTEROLATERAL TECHNIQUE, SINGLE INTERSPACE; EACH ADDITIONAL INTERSPACE T11-12; T12-L1 47167 STEREOTACTIC COMPUTER-ASSISTED (NAVIGATIONAL) PROCEDURE; SPINAL (LIST SEPARATELY IN ADDITION TO CODE FOR PRIMARY PROCEDURE); USE OF [employer] NAVIGAITON FOR SCREW PLACEMENT CPTMOD 22 THIS CASE TOOK 80% LONGER THAN EXPECTED DUE TO CORMORBID CONDITIONS, HIGH BMI >40, EXTENT OF LUMBAR DISEASE AND HIGH TECHNICALITY OF THE CASE. Implants: -SAÚL EVEREST RODS AND SCREWS -CARO SIROS BILATERAL SIJ FUSION SCREWS -GLOBUS SABLE CAGES 12MM LONG 9-16 8 DEG 12 MM MED 9-16 8 DEG 10 MM MED 9-16 8 DEG 10 MM MED 9-16 0 DEG -MAGNATOS, AUTOGRAFT, ALLOGRAFT, ARTHROCELL, DBM Anesthesia: GETA Surgeon: [employer] Officer #1: Aniya Leal (WAS PRESENT AND ASSISTED WITH ALL ASPESCTS OF THE CASE FROM POSITION TO DRESSING PLACEMENT. ) Estimated Blood Loss (ml): 1,700 IV fluids (ml): 5,000 Urine output (ml): 350 Pathology: none sent Condition: stable Disposition: PACU Indications for Procedure: Mr. Chicas is presenting for evaluation of low back and bilateral lower extremity pain, bilateral lower extremity numbness, tingling, and weakness. It was my pleasure to have seen and examined Mr. Chicas. In our visit today we have had a chance to go over subjective complaints, physical examination findings and treatments including the natural course history without intervention and various interventional options. The patients imaging demonstrates: CT myelogram taken at [facility] on 04/28/[address]23 of Thoracic Spine AND CT myelogram taken at [facility] on 04/28/2023 of Lumbar Spine: - Images reviewed with the patient multilevel spondylotic changes from T7 through L1 noted. L4-L5 grade 1 spondylolisthesis. Severe stenosis noted from L1 through S1. Vacuum disc phenomena L2 3 L3 4 L4 5 and L5-S1 also noted. no acute fracture. No lesions. XRay Lumbar AP/lateral 2 views taken at [facility] on 02/04/23: - Images reviewed with the patient Moderate multilevel spondylitic and degenerative changes with preserved alignment. Multilevel diminished disc height. Chronic L1 compression fracture is present. Grade 1 anterolisthesis L4 and L5. Grade 1 retrolisthesis L2 and L3, L3 and L4, L5 and S1. No acute osseous abnormalities. On physical exam, Mr. Chicas demonstrates: A continued tight and "twisting" constant pain throughout the low back that radiates down into the bilateral lower extremities. He states his leg pain is associated with numbness and tingling. He notes progressively worsening lower extremity weakness. He states he must lean over the grocery cart at the store in order to shop without severe, significant lumbar pain. The patient states his symptoms have continued to worsen over the last 1 to2 months, but have been ongoing for several years. He notes previous history of surgical intervention in the form of a lumbar fusion in November 2021 at [facility]. The patient states his current symptoms worsen after all activity. He reports experiencing severe sleep disturbances related to his current symptoms. I have explained to the patient that as their condition progresses it will cause further neurological deficits and eventual paralysis. Based on the patients imaging, physical exam, and the rapid progression and disabling nature of their symptoms, at this time I recommend surgery in the form of a: [id number]-[id number] decompression and fusion. I discussed the risk and benefits of this procedure at length with Mr. Chicas. The patient agreed to considered pursuing the procedure above mentioned. Prior to surgery, she should follow up with her PCP (Cardio, ID, IM etc) for clearance. Questions were invited and answered, and the patient wishes to proceed as outlined below. Currently, I am recommendin.V84-ohhskn decompression and fusion Description of Procedure: V21-Gbtloe Decompression and fusion LAURITA The patient was seen and examined in the preoperative area. All preoperative protocols were followed. Informed consent was obtained, risks and benefits of the procedure were discussed at length. Risks including bleeding infection damage to the surrounding tissue and risk of reoperation were discussed with the patient. Risk of anesthesia up to and including was discussed with the patient. These are outlined in the risk review. They were willing to accept these risks and all the risks of surgery. The patient was given a weight-based dose of antibiotics in the form of 3 g Ancef. The patient was seen and evaluated by the anesthesia team who deemed them fit for surgery. The site was marked, the patient was willing to proceed with the procedure. The patient was transferred to the operative suite by the Department of anesthesia. They were then drifted off to sleep by the department anesthesia and GETA was performed. The patient tolerated this well. Pimentel catheter was placed by nursing staff, a-traumatically. Once confirmation of lines and ventilation the patient was transferred to a prone Trios spine table very carefully. The head was secured and stable. X Ray confirmed alignment. All bony prominences including wrists, elbows, axilla, chest, hips, and thighs, and feet were padded very well. Special attention was paid to the genitalia, and these were padded accordingly. SCDs were placed on bilateral lower extremities and were connected. Arms were well padded and placed at 90/90 up and out and well padded. Safety strap and tape placed on the patient. Once in position, again we confirmed good ventilation capabilities and that lines were running appropriately. The patients lumbosacral pelvic was then exposed. Hair was removed for incision. 1010s were placed outlining the incision site. Standard alcohol was used to clean the incision site and allowed to dry. C-arm was used to bio-debra the patient and confirm level for incision which was marked with a skin marker. Operative briefing was performed with all teams and everyone in agreement to proceed. The patient was then prepped and draped in a normal sterile fashion. Timeout was then performed, and all parties agreed with the procedure to be performed. Midline skin incision was then made over the previously bookmarked area and dissection taken down to the lumbosacral fascia which was identified and cleaned with a aragon. Once midline was identified, fasciotomy was made over the SP of [id number]. Subperiosteal dissection was then taken down over the lamina and facet joints and TPs were exposed and trough made posterolateral. TPs were then decorticated L1-S1 and sacral ala with a high speed yarelis for lateral fusion. Dissection was taken out over the sacrum to the pelvis. SI joint identified and modified Cam starting point for pelvic screws identified as well. Retractors placed. Wound was irrigated and lateral image with penfield 4 placed at the pars of L4 confirmed levels for operation. SP clamp was then placed for the [employer] navigation tracker and secured at L2 for the first set of screws. The wound was then filled with NSS and Z-drape. A 3D Ziehm spin was then obtained and registered. Once confirmation of accuracy screws were then placed from T10-L2 using navigation. Navigated high speed yarelis was used to make a pilot plant supervisor hole followed by a navigated awl-tap passed through the pedicle into the body. A ball tip probe then confirmed within the pedicle. Globus Screws then measured and placed using a navigated screwdriver. After screws were placed from T10-L2 the tracker was replaced at S1 and a second 3D Ziehm spin was then obtained and registered. Once confirmation of accuracy screws were then placed from L3-Pelvis using navigation. AP image confirmed safe placement of screws. Screws were placed similarly as described above. For pelvic screws, starting point was selected with a navigated yarelis and starting point made. Then a navigated awl was passed through the corridor above the sciatic notch within bone. Virtual screw was dropped and a feeler was then used to confirm within bone. Then a navigated gas truck driver was used to place screws in the pelvis b/l. Screws were confirmed to be safe, stabilizing and fusing the SIJ on AP/LAT/INLET/OUTLET films. We then irrigated the wound and tested screws. All screws tested > 20 mA except for L5 on the left which was 18 mA. We then proceeded to decompression and interbody placement. Starting at L5-S1, bilateral laminectomy, complete facetectomy and foraminotomies were performed using high speed bur, Kerrison rongeur. There was exuberant bone formation, osteophytes and scar tissue surrounding these joints as well as the dura. Once exposed the neural elements were protected and an intradiscal osteotomy, 3 column, was performed for deformity correction at L5- S1. Osteotome was used to make osteotomy in L5 and S1 and for complete disc removal. This was passed into the anterior 1/3 of L5. This allowed for loosening of this level and correction. Down biting curette was used to release the disc annulus and PLL across completely. This allowed for disc removal and cartilage removal followed by pituitary. Cage was then selected based on shaving and trials. Bleeding endplates were encountered and cartilage removed. Autograft, allograft were then placed anterior to the cage. The cage was then impacted into place under lateral imaging while protecting neural elements. The cage was then expanded into position and showed good lift and correction. Evangelical of lordosis and height achieved. Meticulous hemostasis then performed. Cage was backfilled with ifactor, autograft and Arthrocell and the area irrigated. We then proceeded to L4-5. At L4-5, bilateral laminectomy, complete facetectomy and foraminotomies were performed using high speed bur, Kerrison rongeur. There was exuberant bone formation, osteophytes and scar tissue surrounding these joints as well as the dura. Once exposed the neural elements were protected and an intradiscal osteotomy, 3 column, was performed for deformity correction at L5-S1. Osteotome was used to make osteotomy in L4 AND L5 and for complete disc removal. This was passed into the anterior 1/3 of L4. This allowed for loosening of this level and correction. Down biting curette was used to release the disc annulus and PLL across completely. This allowed for disc removal and cartilage removal followed by pituitary. Cage was then selected based on shaving and trials. Bleeding endplates were encountered and cartilage removed. Autograft, allograft were then placed anterior to the cage. Trial was placed and confirmed on AP. Autograft and allograft was then placed anterior in the disc space and the cage was then inserted and impacted into place under lateral. AP image, as before, was taken to ensure midline placement. The cage was then expanded into position. The wound was irrigated. Meticulous hemostasis then performed, and attention turned to L3-4. At L3-4 again bilateral laminectomy, complete facetectomy and foraminotomy were performed along with intradiscal 3 column osteotomy for deformity correction as described above. The neural elements were less scared at this level; however, it was very unstable. The elements were then protected, and disc space accessed. Sequential shaving performed until desired height and lordosis. Cage selected, and graft placed anterior to the cage within the disc space. Cage was then placed under lateral image, expanded and had good height, lordosis and deformity correction. The wound was irrigated, and meticulous hemostasis performed once again. We then proceeded to the L2-3 level. At L2-3, this was his worst level of stenosis an deformity, again bilateral laminectomy, complete facetectomy and foraminotomy were performed. Neural elements were mobilized and then protected, and disc space accessed. Sequential shaving performed until desired height and lordosis. We noticed after distraction with the trial that there was casf coming from anterior. We investi gated and found the dura was eroded anteriorly and was stuck to the L2 vertebral body. We attempted closure of this, howevere the tear was very anterior on the left side at L2. We were able to harvest a fat graft and sew it into a position that stopped the Leak. Valsalva to 40 mmHg confirmed. We then carefully retracted the dura with a paddy and a Cage selected, and graft placed anterior to the cage within the disc space. Cage was then placed under lateral image, expanded and had good height, lordosis and deformity correction. The wound was irrigated, and meticulous hemostasis performed once again. AP imaging confirmed good placement of all cages and good reduction and coronal balance restored. Screws all in a good position. Attention was then drawn to satish placement and further reduction. Rods were selected, measured, cut and bent to appropriate lordosis. They were then secured into pelvic screws b/l. Sequential reduction then done into each screw and set screw placed. Set screws were then final tightened and lateral image showed good lordosis reduction with increase around 15-20 deg from starting. Once rods were secured, cross links were selected and placed and final t ightened. The wound was then irrigated with 3L Ancef irrigation, 3L gentamicin irrigation, 2 L betadine solution and 3L NSS. Tisseal was thenplaced on the dura over the area of the fat graft followed by gel foam and surgicel. The remaineder of the dura was covered with surgicel. Then, in the posterolateral gutter was placed, MagnatOs, Autograft and allograft. This was impacted into position and surgical placed over it. 3g Vanco powder was then placed deep in the wound. One deep, subfascial drains were placed and secured with a stitch and set to gravity suction. Surgicel powder was placed deep in wound as well. We then proceeded with layered closure. #1 PDS placed in the deep fascia followed by a running unidirectional 0 stratafix. 0 Vicryl placed in the deep subq, 2-0 placed in the superficial subq and nimco placed in the skin. The wound edges approximated very well. The wound was then cleaned with ETOH and dressed with optifoam dressing, drain sponges and tegaderms. Drains sewed into position. IONM confirmed no changes. The patient was then transferred off the [facility] spine table to their hospital bed a-traumatically. Drains continued to hold suction. The patient was then extubated and transferred to the ICU in stable condition having tolerated the procedure with no complications.
[2023-10-11] MEDS: droPERidol 5 MG/2 ML VIAL IVP ONE (17:29)
--- NOTE | 2023-10-11 17:55 | FL ---
EXAMINATION TYPE: FL guidance operating room, XR lumbar spine 2 or 3V Intraoperative/procedural fluor oscopic services were provided. Total fluoroscopy time is 0.44 seconds with a total of 12 submitted i mages to PACS. Please see the operative/procedural note for further details. DAP: 14.734 Gycm2
[2023-10-11] MEDS ORDERED: KETOROLAC 15 MG/ML 1 ML VIAL IVP SCH (18:00)
[2023-10-11] MEDS ORDERED: ACETAMINOPHEN TAB 325 MG TAB PO SCH (18:00)
[2023-10-11] MEDS: HYDROmorphone 1 MG/ML 1 ML SYRINGE IVP PRN (19:13)
[2023-10-11] MEDS: ONDANSETRON 4 MG/2 ML VIAL IVP ONE (20:21)
[2023-10-11] MEDS ORDERED: KETOROLAC 15 MG/ML 1 ML VIAL IVP PRN (20:34)
[2023-10-11] MEDS: ACETAMINOPHEN TAB 325 MG TAB PO SCH (20:45)
[2023-10-11 21:00] LABS: Glucose,Whole Blood 203 mg/dL (70-110)
--- NOTE | 2023-10-11 21:37 | P.CNPUL ---
History of Present Illness Consult date: 10/11/23 Chief complaint: Lumbar laminectomy and fusion History of present illness: This is a 61-year-old male patient who underwent a lengthy and extensive spine surgery which involved osteotomy of spine, posterior lateral approach with laminectomy and decompression at multiple levels. Please refer to the detailed surgical report as given by the spine surgeon. The patient had neurogenic claudication and lower extremity weakness along with radiculopathy and chronic back pain in addition to the L1 S1 spondylosis with severe stenosis. The patient had an estimated blood loss of 1.7 L and the patient sustained a dural tear that was repaired. The patient was extubated in the operating room and the patient was transferred to the intensive care for further monitoring. At the time of my evaluation, the patient was awake and alert. Communicating activities of action by nasal cannula pulse ox of 95%. BP was stable at 125/76. Hemodynamically stable. Cardiac rhythm was sinus. Blood work showed a WBC count of 8 with a hemoglobin 14.4 and a platelet count of 194 preoperatively. Electrolytes were also within normal limits. At this point in time, the patient is Dilaudid for pain control at the dose of 0.5 to 1 mg every 4 hours on an Estrace basis and the patient also has Tylenol and Toradol. Patient has been chronically maintained on Neurontin 300 mg p.o. 3 times daily. Currently on IV cefazolin. He is known to have obstructive sleep apnea and he has been maintained on CPAP therapy on outpatient basis. Exact settings are not known. He is also known to have BPH maintained on Flomax on outpatient basis, and hyperlipidemia. Patient is also known to have history of atrial fibrillation maintained on amiodarone and Cardizem on outpatient basis and the patient's current rhythm is sinus. Review of Systems Constitutional: Reports as per HPI Eyes: denies as per HPI, denies blurred vision, denies bulging eye, denies decreased vision, denies diplopia, denies discharge, denies dry eye, denies irritation, denies itching, denies pain, denies photophobia, denies loss of peripheral vision, denies loss of vision, denies tunnel vision/blind spots Ears: deny: decreased hearing, ear discharge, earache, tinnitus Ears, nose, mouth and throat: Reports as per HPI Breasts: absent: as per HPI, gynecomastia Cardiovascular: Reports as per HPI, Reports claudication (Neurogenic claudication) Respiratory: Reports sleep apnea Gastrointestinal: Reports as per HPI Genitourinary: Reports as per HPI Musculoskeletal: Reports arm numbness/tingling, Reports gait dysfunction, Repor ts low back pain, Reports muscle weakness Musculoskeletal: absent: ankle pain, ankle stiffness, ankle swelling, as per HPI, elbow pain, elbow stiffness, elbow swelling, foot pain, foot stiffness, foot swelling, hand pain, hand stiffness, hand swelling, hip pain, hip stiffnes s, hip swelling, knee pain, knee stiffness, knee swelling, shoulder pain, shoulder stiffness, shoulder swelling, wrist pain, wrist stiffness, wrist swelling Integumentary: Reports as per HPI Neurological: Reports as per HPI Psychiatric: Reports as per HPI Endocrine: Reports as per HPI Hematologic/Lymphatic: Reports as per HPI Allergic/Immunologic: Reports as per HPI Past Medical History Past Medical History: Atrial Fibrillation, Deep Vein Thrombosis (DVT), Hearing Disorder / Deafness, Hyperlipidemia, Hypertension, Osteoarthritis (OA), Sleep Apnea/CPAP/BIPAP, Thyroid Disorder Additional Past Medical History / Comment(s): HX DVT 2019 TOP RIGHT ATRIUM. HX AFIB RESOLVED WITH PACEMAKER. Bilateral hearing aid use. Occasional feet swelling. CPAP use. Hx overactive thyroid 6-7 yrs ago, no treatment needed. History of Any Multi-Drug Resistant Organisms: None Reported Past Surgical History: Back Surgery, Joint Replacement, Orthopedic Surgery, Pacemaker Additional Past Surgical History / Comment(s): Bilateral hip replacements, right shoulder surgery, left knee surgery X2, Watchman Device 09/2020, colonoscopy, spinal decompression. Past Anesthesia/Blood Transfusion Reactions: No Reported Reaction Type of Cardiac Device: Permanent Pacemaker Device Placement Date:: 2017 Past Psychological History: Depression Smoking Status: Never smoker Past Alcohol Use History: Occasional Past Drug Use History: None Reported - Past Family History Mother Family Medical History: Cancer Father Family Medical History: Deep Vein Thrombosis (DVT), Myocardial Infarction (MS), Pulmonary Embolus Medications and Allergies Home Medications Medication Instructions Recorded Confirmed Type Amiodarone [Cordarone] 100 mg PO DAILY 11/17/21 10/05/23 History dilTIAZem HCL [dilTIAZem HCL 12Hr 240 mg PO DAILY 11/17/21 10/05/23 History ER] Aspirin [Adult Low Dose Aspirin EC] 81 mg PO DAILY 04/20/23 10/05/23 History Ferrous Sulfate [Feosol] 325 mg PO Q48H 04/20/23 10/05/23 History Tamsulosin [Flomax] 0.4 mg PO DAILY 04/20/23 10/05/23 History methocarbamoL 1,000 mg PO DAILY PRN 04/20/23 10/05/23 History Atorvastatin [Lipitor] 20 mg PO HS 10/05/23 10/05/23 History Cholecalciferol (Vitamin D3) 100 mcg PO DAILY 10/05/23 10/05/23 History [Vitamin D3 (50 Mcg = 2000 Iu)] Gabapentin 300 mg PO TID 10/05/23 10/05/23 History Allergies Allergy/AdvReac Type Severity Reaction Status Date / Time adhesive Allergy Rash/Hives Verified 10/05/23 10:55 Penicillins AdvReac Swelling Verified 10/05/23 10:54 Physical Exam Vitals: Vital Signs Temp Pulse Pulse Resp BP BP BP 10/11/23 20:50 92 22 125/76 10/11/23 20:40 85 20 141/72 10/11/23 20:30 84 21 128/86 10/11/23 20:20 80 21 128/86 10/11/23 20:10 87 24 141/74 10/11/23 20:00 97.7 F 85 23 140/74 10/11/23 19:50 86 23 140/74 10/11/23 19:40 86 23 132/73 10/11/23 19:30 84 21 123/63 10/11/23 19:20 80 18 111/66 10/11/23 19:10 84 18 134/75 10/11/23 19:00 91 11 L 10/11/23 18:32 84 18 101/56 10/11/23 18:17 78 20 96/51 10/11/23 18:02 84 18 94/48 10/11/23 17:48 84 20 104/62 10/11/23 17:33 91 18 103/51 10/11/23 17:18 87 20 118/64 10/11/23 17:03 97 F L 90 18 112/68 10/11/23 07:05 62 16 155/84 10/11/23 06:22 98.9 F 74 16 155/84 BP Pulse Ox 10/11/23 20:50 95 10/11/23 20:40 95 10/11/23 20:30 93 L 10/11/23 20:20 95 10/11/23 20:10 94 L 10/11/23 20:00 95 10/11/23 19:50 93 L 10/11/23 19:40 94 L 10/11/23 19:30 95 10/11/23 19:20 93 L 10/11/23 19:10 93 L 10/11/23 19:00 10/11/23 18:32 124/83 95 10/11/23 18:17 121/79 96 10/11/23 18:02 128/61 95 10/11/23 17:48 130/62 94 L 10/11/23 17:33 128/61 95 10/11/23 17:18 131/60 94 L 10/11/23 17:03 153/68 99 10/11/23 07:05 96 10/11/23 06:22 95 Intake and Output 10/11/23 10/11/23 10/11/23 06:59 14:59 22:59 Intake Total 400 2202 817 Output Total 2280 Balance 400 2202 -1463 Intake: IV 400 2202 450 Intake, IV Titration 100 Amount Lactated Ringers 1,000 ml 100 @ 100 mls/hr IV .Q10H [facility] Rx#:[id number] Blood Product 267 Rc Pheresis As-3 Unit 267 [id number] Output: Drainage 120 on back, not able to turn 120 patient at this time to evaluate Urine 460 Estimated Blood Loss 1700 Other: Weight 130.8 kg ABP, PAP, CO, CI - Last 8 Hours Arterial Blood Pressure 96/57 Arterial Blood Pressure 104/57 Arterial Blood Pressure 109/60 The patient is calm and comfortable, slightly drowsy postop currently until his infection by nasal cannula. Hemodynamically stable. Head exam was generally normal. There was no scleral icterus or corneal arcus. Mucous membranes were moist. Neck was supple and without jugular venous distension, thyromegaly, or carotid bruits. Carotids were easily palpable bilaterally. There was no adenopathy. The patient has a Mallampati class IV still with significant crowding of posterior pharynx. Lungs were clear to auscultation and percussion, and with normal diaphragmatic excursion. No wheezes or rales were noted. Cardiac exam revealed the PMI to be normally situated and sized. The rhythm was regular and no extrasystoles were noted during several minutes of auscultation. The first and second heart sounds were normal and physiologic splitting of the second heart sound was noted. There were no murmurs, rubs, clicks, or gallops. Abdominal exam revealed normal bowel sounds. The abdomen was soft, non-tender, and without masses, organomegaly, or appreciable enlargement of the abdominal aorta. Examination of the extremities revealed easily palpable radial, femoral and pedal pulses. There was no cyanosis, clubbing or edema. Examination of the skin revealed no evidence of significant rashes, suspicious appearing nevi or other concerning lesions. Neurologically the patient is awake and alert and there is no focal neurological deficit and the patient is able to move his extremities. Motor function cannot be assessed in the immediate postoperative phase. Adequate mobility at this point. Adequate sensation. Adequate pulse in lower extremities. Results - Laboratory Findings CBC and BMP: 10/11/23 09:00 10/11/23 09:02 ABG ABG pH 7.35 (7.35-7.45) 10/11/23 13:12 ABG pCO2 40 mmHg (35-45) 10/11/23 13:12 ABG pO2 247 mmHg (83-108) H 10/11/23 13:12 ABG O2 Saturation 99.1 % (94-97) H 10/11/23 13:12 Abnormal lab findings: Abnormal Labs 10/05/23 10/11/23 10/11/23 09:29 09:00 09:02 Lymphocytes # 0.9 L ABG pO2 ABG O2 Saturation ABG Glucose ABG Lactic Acid Chloride 112 H POC Glucose (mg/dL) Arterial Blood Glucose Crossmatch See Detail 10/11/23 10/11/23 10/11/23 09:02 11:13 13:12 Lymphocytes # ABG pO2 202 H 247 H ABG O2 Saturation 99.9 H 99.1 H ABG Glucose 180 H ABG Lactic Acid 2.2 H* Chloride POC Glucose (mg/dL) 143 H Arterial Blood Glucose 180 H Crossmatch 10/11/23 18:59 Lymphocytes # ABG pO2 ABG O2 Saturation ABG Glucose ABG Lactic Acid Chloride POC Glucose (mg/dL) 203 H Arterial Blood Glucose Crossmatch Assessment and Plan Plan: Neurogenic claudication and chronic back pain and radiculopathy along with history of spinal stenosis. The patient underwent multilevel laminectomy and decompression and fusion. The patient had a dural tear that was repaired surgically. Patient is currently postop day #0. Estimated blood loss 1.7 L. The patient is currently hemodynamically stable on 2 L of oxygen by nasal cannula, extubated without any major difficulties Acute hypoxic respiratory failure, currently, comfortable on 2 L of O2 nasal cannula Paroxysmal atrial fibrillation, current rhythm is sinus Hypertension Hyperlipidemia BPH Obstructive sleep apnea Plan The patient was moved to the intensive care unit. Oxygen at 2 L/min nasal cannula was started suction flow to maintain saturation above 90% Provided patient incentive spirometer Obtain a baseline chest x-ray Obtain a baseline CBC. And evaluate hemoglobin Keep the patient flat in bed for the next 24 hours Pain control with Dilaudid and Toradol and IV Tylenol. The patient is also on Neurontin and muscle relaxants. Resume home medication including amiodarone 100 mg p.o. daily and Cardizem to 40 mg p.o. daily Continue Flomax 0.4 mg p.o. daily Continue Lipitor 20 mg p.o. daily Continue Neurontin 300 mg p.o. 3 times daily Heparin subcu for DVT prophylaxis every 12 hours Lactated Ringer at rate of 100 cc an hour CAT scan of the lumbosacral spine within the next 12 to 24 hours Will offer the patient CPAP therapy at 10 cm of water in the ICU Will continue to follow
[2023-10-11] MEDS ORDERED: methocarbamoL 500 MG TAB PO PRN (21:38)
[2023-10-11] MEDS: GABAPENTIN 300 MG CAP PO SCH (22:51)
[2023-10-11] MEDS: AMIODARONE 100 MG TAB PO SCH (22:51)
[2023-10-11 23:25] LABS: Basophils % (A) 0 %; Eosinophils % (A) 0 %; HCT 38.3 % (39.0-53.0); HGB 12.8 gm/dL (13.0-17.5); Lymphocytes # (A) 0.8 k/uL (1.0-4.8); Lymphocytes % (A) 4 %; MCH 29.8 pg (25.0-35.0); MCHC 33.4 g/dL (31.0-37.0); MCV 89.3 fL (80.0-100.0); Mean Platelet Volume 8.7; Monocytes # (A) 1.5 k/uL (0-1.0); Monocytes % (A) 8 %; Neutrophils # (A) 17.1 k/uL (1.3-7.7); Neutrophils % (A) 87 %; Platelet Count 168 k/uL (150-450); RBC 4.29 m/uL (4.30-5.90); RDW 13.7 % (11.5-15.5); WBC 19.7 k/uL (3.8-10.6)
[2023-10-12 04:58] LABS: Basophils % (A) 0 %; Eosinophils % (A) 0 %; HCT 34.9 % (39.0-53.0); HGB 11.7 gm/dL (13.0-17.5); Lymphocytes # (A) 1.1 k/uL (1.0-4.8); Lymphocytes % (A) 7 %; MCH 30.1 pg (25.0-35.0); MCHC 33.6 g/dL (31.0-37.0); MCV 89.6 fL (80.0-100.0); Mean Platelet Volume 8.5; Monocytes # (A) 1.2 k/uL (0-1.0); Monocytes % (A) 7 %; Neutrophils # (A) 15.1 k/uL (1.3-7.7); Neutrophils % (A) 86 %; Platelet Count 154 k/uL (150-450); RBC 3.89 m/uL (4.30-5.90); RDW 13.8 % (11.5-15.5); WBC 17.6 k/uL (3.8-10.6)
[2023-10-12 05:14] LABS: African American GFR (CKD) >90 (>60 ml/min/1.73 sqM); Anion Gap 3 mmol/L; Blood Urea Nitrogen 35 mg/dL (9-20); Calcium 7.8 mg/dL (8.4-10.2); Carbon Dioxide 20 mmol/L (22-30); Chloride 112 mmol/L (98-107); Glucose 160 mg/dL (74-99); Non-African American GFR(CKD) 85 (>60 ml/min/1.73 sqM); Potassium 4.5 mmol/L (3.5-5.1); Sodium 135 mmol/L (137-145)
[2023-10-12] MEDS ORDERED: KETOROLAC 15 MG/ML 1 ML VIAL IVP PRN (07:39)
--- NOTE | 2023-10-12 08:47 | P.PN ---
Subjective Progress Note Date: 10/12/23 Principal diagnosis: 1. L1-S1 spondylosis with stenosis 2. Bilateral lower extremity radiculopathy 3. Neurogenic claudication Patient seen and examined this morning in the ICU. Patient's vitals and labs are stable, Patient is at 99% on 2 L O2. Patient has been laying flat overnight due to small dural tear. Elevated HOB to 10 degrees this morning. Patient denies any headaches, blurred vision, dizziness, or nausea/vomiting. please continue to raise HOB 10 degrees every hour as long as patient continues to deny any symptoms. If symptoms develop return patient to laying flat. Patient does have complaint of moderate low back pain and hip pain due to laying flat. Medications have been adjusted. Surgical incision to the thoracolumbar spine, unable to assess dressing at this time. Hemovac drain is present with documented 300 mL output overnight. Continue to have drain at half suction. Patient is able to move bilateral lower extremities without any difficulty. Patient states he does have a LSO brace at home and will be delivered later today. Patient does have a rollator as well. Encourage use of incentive spirometer. Objective - Vital Signs Vital signs: Vital Signs Temp 98.5 F 10/12/23 00:00 Pulse 97 10/12/23 07:00 Resp 60 H 10/12/23 07:00 BP 156/88 10/12/23 06:10 Pulse Ox 99 10/12/23 07:49 FiO2 Intake & Output 10/11/23 10/12/23 10/12/23 18:59 06:59 18:59 Intake Total 3019 1250 100 Output Total 2280 860 145 Balance 739 390 -45 Weight 133.8 kg Intake: IV 2652 150 ceFAZolin 2 gm In Sodium 150 Chloride 0.9% 50 ml @ 100 mls/hr IVPB Q8H [facility] Rx#: [id number] Intake, IV Titration 100 1100 100 Amount Lactated Ringers 1,000 ml 100 1100 100 @ 100 mls/hr IV .Q10H [facility] Rx#:[id number] Blood Product 267 Rc Pheresis As-3 Unit 267 [id number] Output: Drainage 120 400 100 Back 400 100 on back, not able to turn 120 patient at this time to evaluate Urine 460 460 45 Estimated Blood Loss 1700 ABP, PAP, CO, CI - Last Documented Arterial Blood Pressure 133/67 - Exam Physical Examination General: The patient is awake and alert, in no acute distress Skin: Skin is warm and dry with no obvious rashes or lesions. Surgical incision to the thoracolumbar spine, Dressing intact-unable to assess at this time. Hemovac drain present with documented 300ml output overnight. Eye: Pupils are equal, round and reactive to light, extra-ocular movements are intact; there is normal conjunctiva bilaterally. Neck: The neck is supple, there is no tenderness and ROM intact. Cardiovascular: There is a regular rate and rhythm. No murmur, rub or gallop is appreciated. Respiratory: Respirations are non-labored, breath sounds are equal. Gastrointestinal: Soft, non-distended, non-tender abdomen. Back: There is no tenderness to palpation in the midline, paralumbar, parathoracic or buttocks region. There is no obvious deformity . Musculoskeletal: ROM limited secondary to pain and stiffness from surgical procedure. Muscle strength in all major muscle groups of bilateral upper extremities 5/5, bilateral lower extremities 4/5. Neurological: CN 2-12 intact. There are no obvious motor or sensory deficits. Movement and coordination equal and intact. Sensory exam to light touch intact C5-T1 and intact from L2-S1. Reflexes 2/4 in bilateral upper and lower extremities. Negative Hoffmans, babinski, and clonus signs. Psychiatric: Cooperative, appropriate mood & affect, normal judgment. - Labs CBC & Chem 7: 10/12/23 04:21 10/12/23 04:21 Labs: Abnormal Lab Results - Last 24 Hours (Table) 10/05/23 10/11/23 10/11/23 Range/Units 09:29 09:00 09:02 WBC (3.8-10.6) k/uL RBC (4.30-5.90) m/uL Hgb (13.0-17.5) gm/dL Hct (39.0-53.0) % Neutrophils # (1.3-7.7) k/uL Lymphocytes # 0.9 L (1.0-4.8) k/uL Monocytes # (0-1.0) k/uL ABG pO2 (83-108) mmHg ABG O2 Saturation (94-97) % ABG Glucose (75-99) mg/dL ABG Lactic Acid (0.5-1.6) mmol/L Sodium (137-145) mmol/L Chloride 112 H (98-107) mmol/L Carbon Dioxide (22-30) mmol/L BUN (9-20) mg/dL Glucose (74-99) mg/dL POC Glucose (mg/dL) (70-110) mg/dL Calcium (8.4-10.2) mg/dL Arterial Blood Glucose (75-99) mg/dL Crossmatch See Detail 10/11/23 10/11/23 10/11/23 Range/Units 09:02 11:13 13:12 WBC (3.8-10.6) k/uL RBC (4.30-5.90) m/uL Hgb (13.0-17.5) gm/dL Hct (39.0-53.0) % Neutrophils # (1.3-7.7) k/uL Lymphocytes # (1.0-4.8) k/uL Monocytes # (0-1.0) k/uL ABG pO2 202 H 247 H (83-108) mmHg ABG O2 Saturation 99.9 H 99.1 H (94-97) % ABG Glucose 180 H (75-99) mg/dL ABG Lactic Acid 2.2 H* (0.5-1.6) mmol/L Sodium (137-145) mmol/L Chloride (98-107) mmol/L Carbon Dioxide (22-30) mmol/L BUN (9-20) mg/dL Glucose (74-99) mg/dL POC Glucose (mg/dL) 143 H (70-110) mg/dL Calcium (8.4-10.2) mg/dL Arterial Blood Glucose 180 H (75-99) mg/dL Crossmatch 10/11/23 10/11/23 10/12/23 Range/Units 18:59 22:57 04:21 WBC 19.7 H 17.6 H (3.8-10.6) k/uL RBC 4.29 L 3.89 L (4.30-5.90) m/uL Hgb 12.8 L 11.7 L (13.0-17.5) gm/dL Hct 38.3 L 34.9 L (39.0-53.0) % Neutrophils # 17.1 H 15.1 H (1.3-7.7) k/uL Lymphocytes # 0.8 L (1.0-4.8) k/uL Monocytes # 1.5 H 1.2 H (0-1.0) k/uL ABG pO2 (83-108) mmHg ABG O2 Saturation (94-97) % ABG Glucose (75-99) mg/dL ABG Lactic Acid (0.5-1.6) mmol/L Sodium (137-145) mmol/L Chloride (98-107) mmol/L Carbon Dioxide (22-30) mmol/L BUN (9-20) mg/dL Glucose (74-99) mg/dL POC Glucose (mg/dL) 203 H (70-110) mg/dL Calcium (8.4-10.2) mg/dL Arterial Blood Glucose (75-99) mg/dL Crossmatch 10/12/23 Range/Units 04:21 WBC (3.8-10.6) k/uL RBC (4.30-5.90) m/uL Hgb (13.0-17.5) gm/dL Hct (39.0-53.0) % Neutrophils # (1.3-7.7) k/uL Lymphocytes # (1.0-4.8) k/uL Monocytes # (0-1.0) k/uL ABG pO2 (83-108) mmHg ABG O2 Saturation (94-97) % ABG Glucose (75-99) mg/dL ABG Lactic Acid (0.5-1.6) mmol/L Sodium 135 L (137-145) mmol/L Chloride 112 H (98-107) mmol/L Carbon Dioxide 20 L (22-30) mmol/L BUN 35 H (9-20) mg/dL Glucose 160 H (74-99) mg/dL POC Glucose (mg/dL) (70-110) mg/dL Calcium 7.8 L (8.4-10.2) mg/dL Arterial Blood Glucose (75-99) mg/dL Crossmatch Assessment and Plan Assessment: Post-Op Day 1: [id number] decompression and fusion with L2-L3 right dural erosion repair with fat patch graft 1. L1-S1 spondylosis with stenosis 2. L2-L3 right dural erosion tear 3. Bilateral lower extremity radiculopathy 4. Neurogenic claudication Plan: -Appreciate aws consultant and team management. -Activity: HOB is currently at 10 degrees, continue to elevate head of bed 10 degrees every hour. If patient develops headache, blurred vision, dizziness, nausea/vomiting return patient to laying flat. -Pain control: Medications have been adjusted. -Meds: reviewed -GI ppx: senna, Miralax -DC kilpatrick when up and about, bedside commode if needed -DVT PPX: Heparin -Hygiene: Maintain dressing clean and dry. Meticulous cleaning after BMs away from the incision site -Drains: Maintain for now. Continue to monitor and record output q shift. -Encourage IS 10x/hr -Dispo: Clinically pending *I reviewed and discussed this case with my attending Dr. Chow, whom has reviewed this chart and films and is in agreement with assessment and plan of care as outlined above. I have personally seen and examined the patient, performed the documentation and the assessment and plan as written. Number of minutes spent on the visit: 20m.
[2023-10-12] MEDS: MELOXICAM 7.5 MG TAB PO SCH (08:50)
[2023-10-12] MEDS: DILTIAZEM CD 240 MG CAP.ER.24H PO SCH (08:51)
[2023-10-12] MEDS: SENNOSIDES-DOCUSATE SODIUM 1 EACH TAB PO SCH (08:51)
[2023-10-12] MEDS: CYCLOBENZAPRINE 10 MG TAB PO SCH (08:53)
--- NOTE | 2023-10-12 09:07 | XR ---
EXAMINATION TYPE: XR chest 1V DATE OF EXAM: 10/12/2023 8:41 AM CLINICAL INDICATION:Male, 63 years old with history of post op; COMPARISON: Chest radiographs from 11/20/2021. TECHNIQUE: XR chest 1V Frontal view of the chest. FINDINGS: Lungs/Pleura: There is no evidence of pleural effusion, focal consolidation, or pneumothorax. Pulmonary vascularity: Unremarkable. Heart/mediastinum: Cardiomediastinal silhouette is unremarkable. Musculoskeletal: No acute osseous pathology. There is lower spine fixation hardware is present. Ri ght shoulder fixation hardware appears intact. Right central venous catheter with tip terminating in the IVC/superior cavoatrial junction. IMPRESSION: 1. Right central venous catheter with tip in superior cavoatrial junction. 2. No acute cardiopulmonary disease/process.
[2023-10-12] MEDS: HYDROmorphone 0.5 MG/0.5 ML SYRINGE IVP PRN (10:27)
--- NOTE | 2023-10-12 11:15 | CT ---
EXAMINATION TYPE: CT lumbar spine wo con CT DLP: 3278 mGycm, Automated exposure control for dose reduction was used. DATE OF EXAM: 10/12/2023 10:49 AM COMPARISON: 04/28/2023. CLINICAL INDICATION:Male, 63 years old with history of s/p [id number] decompression and fusion; [facility], TECHNIQUE: Multiple axial images were obtained from the midportion of T11 through the sacroiliac gwen nts. Soft tissue and bone windows in coronal and sagittal planes were obtained and reviewed. Contrast used: mL of , (None, if empty). Oral contrast used: (None, if empty). FINDINGS: Postsurgical changes to the lumbar spine with fixation hardware at extending from T10 to pelvis one w ith bilateral sacroiliac joint screws. Additionally there is discectomy at L2-L3, L3-L4, L4-L5 and L5 -S1. Hardware appears intact. Hardware limits evaluation at these levels. Hardware appears intact. No evidence of fracture. Postsurgical changes in the soft tissues with foci of gas present. Drainage catheter with tubing in t he surgical bed. Posterior back skin nimco are present. IMPRESSION: Postsurgical changes without evidence of immediate post operative complication.
--- NOTE | 2023-10-12 11:36 | P.CONS ---
History of Present Illness - Reason for Consult Consult date: 10/12/23 - Chief Complaint medical management - History of Present Illness 63-year-old male with medical history of atrial fibrillation status post Watchman, hypertension, hyperlipidemia, DELIO, hypothyroidism, BPH presented for elective surgery: T10 to pelvis decompression and fusion. Medicine was consult ed by orthopedic surgery service for medical management. Patient has no complaints at this time, he did have an extensive operative course which complication dural tear which was repaired intraoperatively. Patient did have an estimated 1.7 L blood loss which required 1 unit of blood transfusion. He was stable intraoperatively and was able to be extubated the same day. Today he does complain of some stiffness in his back with some difficulty lifting his left lower extremity out of bed, but is able to bend at the hip and the knee. Denies fevers, chills, nausea, vomiting. Upon initial evaluation, patient was afebrile, 133/67, heart rate 60, 99% on 2 L nasal cannula. White blood cell count was 17.6, hemoglobin is 11.7. Sodium was 135, chloride 112, CO2 20, BUN 35. Postoperative lumbar spine CT showed postsurgical changes without immediate postoperative complication. All Systems reviewed and pertinent positives and negatives noted in HPI, all other symptoms are negative Gen: in no apparent distress, resting comfortably in bed Eyes: PERRL, no scleral injection or icterus HENT: normocephalic, atraumatic, good hearing acuity, moist mucous membranes Neck: no tracheal deviation, full range of motion Resp: good air exchange, breathing comfortably with no accessory muscle use, no tactile fremitus CVS: good distal perfusion x 4, no pitting edema GI: soft, NTTP, ND, no hepatosplenomegaly : no suprapubic tenderness, no CVAT, kilpatrick catheter is present MSK: no clubbing, no cyanosis, no noted contractures of extremities Skin: no noted rashes, petechiae; temperature of skin is appropriate Neuro: Left lower extremity weakness at the hip flexor, CN II-XII intact Psych: cooperative, euthymic mood, insight and judgment intact Assessment/plan: Atrial fibrillation status post Watchman -Continue amiodarone 100 mg daily -Continue Cardizem 240 mg p.o. daily s/p [id number] decompression/fusion -pain control: REGINALDO 300mg TID, dilaudid PRN, flexeril TID, methocarbamol TID, norco PRN -bowel regimen: miralax, senokot-S, milk of mg, -PT/OT HTN HLD DELIO Hypothyroidism BPH -continue home meds Past Medical History Past Medical History: Atrial Fibrillation, Deep Vein Thrombosis (DVT), Hearing Disorder / Deafness, Hyperlipidemia, Hypertension, Osteoarthritis (OA), Sleep Apnea/CPAP/BIPAP, Thyroid Disorder Additional Past Medical History / Comment(s): HX DVT 2019 TOP RIGHT ATRIUM. HX AFIB RESOLVED WITH PACEMAKER. Bilateral hearing aid use. Occasional feet swelling. CPAP use. Hx overactive thyroid 6-7 yrs ago, no treatment needed. History of Any Multi-Drug Resistant Organisms: None Reported Past Surgical History: Back Surgery, Joint Replacement, Orthopedic Surgery, Pacemaker Additional Past Surgical History / Comment(s): Bilateral hip replacements, right shoulder surgery, left knee surgery X2, Watchman Device 09/2020, colonoscopy, spi nal decompression. Past Anesthesia/Blood Transfusion Reactions: No Reported Reaction Type of Cardiac Device: Permanent Pacemaker Device Placement Date:: 2017 Past Psychological History: Depression Smoking Status: Never smoker Past Alcohol Use History: Occasional Past Drug Use History: None Reported - Past Family History Mother Family Medical History: Cancer Father Family Medical History: Deep Vein Thrombosis (DVT), Myocardial Infarction (VT), Pulmonary Embolus Medications and Allergies Home Medications Medication Instructions Recorded Confirmed Type Amiodarone [Cordarone] 100 mg PO DAILY 11/17/21 10/05/23 History dilTIAZem HCL [dilTIAZem HCL 12Hr 240 mg PO DAILY 11/17/21 10/05/23 History ER] Aspirin [Adult Low Dose Aspirin EC] 81 mg PO DAILY 04/20/23 10/05/23 History Ferrous Sulfate [Feosol] 325 mg PO Q48H 04/20/23 10/05/23 History Tamsulosin [Flomax] 0.4 mg PO DAILY 04/20/23 10/05/23 History methocarbamoL 1,000 mg PO DAILY PRN 04/20/23 10/05/23 History Atorvastatin [Lipitor] 20 mg PO HS 10/05/23 10/05/23 History Cholecalciferol (Vitamin D3) 100 mcg PO DAILY 10/05/23 10/05/23 History [Vitamin D3 (50 Mcg = 2000 Iu)] Gabapentin 300 mg PO TID 10/05/23 10/05/23 History Allergies Allergy/AdvReac Type Severity Reaction Status Date / Time adhesive Allergy Rash/Hives Verified 10/05/23 10:55 Penicillins AdvReac Swelling Verified 10/05/23 10:54 Physical Exam Osteopathic Statement: *. No significant issues noted on an osteopathic structural exam other than those noted in the History and Physical/Consult. Vitals: Vital Signs Temp Pulse Pulse Resp BP BP BP 10/12/23 08:00 84 28 H 10/12/23 07:49 10/12/23 07:00 97 60 H 10/12/23 06:10 96 29 H 156/88 10/12/23 06:00 93 27 H 167/79 10/12/23 05:00 93 24 155/78 10/12/23 04:20 92 24 155/78 10/12/23 04:10 89 54 H 155/78 10/12/23 04:00 86 84 28 H 144/81 10/12/23 03:50 91 23 144/81 10/12/23 03:40 91 31 H 144/81 10/12/23 03:30 101 H 32 H 144/81 10/12/23 03:20 88 25 H 144/81 10/12/23 03:00 92 24 141/69 10/12/23 02:10 98 41 H 141/69 10/12/23 02:00 89 28 H 134/76 10/12/23 01:00 88 7 L 136/77 10/12/23 00:00 98.5 F 89 84 21 139/69 10/11/23 23:00 94 16 143/73 10/11/23 22:50 90 24 143/73 10/11/23 22:00 87 24 139/75 10/11/23 20:50 92 22 125/76 10/11/23 20:40 85 20 141/72 10/11/23 20:30 84 21 128/86 10/11/23 20:20 80 21 128/86 10/11/23 20:10 87 24 141/74 10/11/23 20:00 97.7 F 85 23 140/74 10/11/23 19:50 86 23 140/74 10/11/23 19:40 86 23 132/73 10/11/23 19:30 84 21 123/63 10/11/23 19:20 80 18 111/66 10/11/23 19:10 84 18 134/75 10/11/23 19:00 91 11 L 10/11/23 18:32 84 18 101/56 124/83 10/11/23 18:17 78 20 96/51 121/79 10/11/23 18:02 84 18 94/48 128/61 10/11/23 17:48 84 20 104/62 130/62 10/11/23 17:33 91 18 103/51 128/61 10/11/23 17:18 87 20 118/64 131/60 10/11/23 17:03 97 F L 90 18 112/68 153/68 Pulse Ox 10/12/23 08:00 10/12/23 07:49 99 10/12/23 07:00 97 10/12/23 06:10 93 L 10/12/23 06:00 91 L 10/12/23 05:00 95 10/12/23 04:20 96 10/12/23 04:10 95 10/12/23 04:00 96 10/12/23 03:50 95 10/12/23 03:40 96 10/12/23 03:30 97 10/12/23 03:20 96 10/12/23 03:00 96 10/12/23 02:10 96 10/12/23 02:00 96 10/12/23 01:00 94 L 10/12/23 00:00 91 L 10/11/23 23:00 95 10/11/23 22:50 95 10/11/23 22:00 95 10/11/23 20:50 95 10/11/23 20:40 95 10/11/23 20:30 93 L 10/11/23 20:20 95 10/11/23 20:10 94 L 10/11/23 20:00 95 10/11/23 19:50 93 L 10/11/23 19:40 94 L 10/11/23 19:30 95 10/11/23 19:20 93 L 10/11/23 19:10 93 L 10/11/23 19:00 10/11/23 18:32 95 10/11/23 18:17 96 10/11/23 18:02 95 10/11/23 17:48 94 L 10/11/23 17:33 95 10/11/23 17:18 94 L 10/11/23 17:03 99 Intake and Output 10/11/23 10/12/23 10/12/23 22:59 06:59 14:59 Intake Total 1167 900 100 Output Total 2480 660 145 Balance -1313 240 -45 Intake: IV 500 100 ceFAZolin 2 gm In Sodium 50 100 Chloride 0.9% 50 ml @ 100 mls/hr IVPB Q8H B[facility]ARDINO Rx#: [id number] Intake, IV Titration 400 800 100 Amount Lactated Ringers 1,000 ml 400 800 100 @ 100 mls/hr IV .Q10H BERNARDINO Rx#:[id number] Blood Product 267 Rc Pheresis As-3 Unit 267 [id number] Output: Drainage 220 300 100 Back 100 300 100 on back, not able to turn 120 patient at this time to evaluate Urine 560 360 45 Estimated Blood Loss 1700 Other: Weight 133.8 kg ABP, PAP, CO, CI - Last 8 Hours Arterial Blood Pressure 133/67 Arterial Blood Pressure 140/68 Arterial Blood Pressure 151/68 Arterial Blood Pressure 155/69 Arterial Blood Pressure 98/55 Arterial Blood Pressure 139/66 Arterial Blood Pressure 136/63 Arterial Blood Pressure 128/66 Arterial Blood Pressure 146/73 Arterial Blood Pressure 136/70 Arterial Blood Pressure 130/68 Arterial Blood Pressure 135/71 Arterial Blood Pressure 136/68 Arterial Blood Pressure 144/68 Arterial Blood Pressure 136/66 Arterial Blood Pressure 135/67 Arterial Blood Pressure 139/66 Arterial Blood Pressure 144/68 Arterial Blood Pressure 134/68 Arterial Blood Pressure 127/68 Arterial Blood Pressure 115/54 Arterial Blood Pressure 125/66 Arterial Blood Pressure 135/69 Arterial Blood Pressure 127/65 Arterial Blood Pressure 138/68 Arterial Blood Pressure 130/67 Arterial Blood Pressure 131/67 Arterial Blood Pressure 119/64 Results CBC & Chem 7: 10/12/23 04:21 10/12/23 04:21 Labs: Abnormal Lab Results - Last 24 Hours (Table) 10/05/23 10/11/23 10/11/23 Range/Units 09:29 09:00 09:02 WBC (3.8-10.6) k/uL RBC (4.30-5.90) m/uL Hgb (13.0-17.5) gm/dL Hct (39.0-53.0) % Neutrophils # (1.3-7.7) k/uL Lymphocytes # 0.9 L (1.0-4.8) k/uL Monocytes # (0-1.0) k/uL ABG pO2 (83-108) mmHg ABG O2 Saturation (94-97) % ABG Glucose (75-99) mg/dL ABG Lactic Acid (0.5-1.6) mmol/L Sodium (137-145) mmol/L Chloride 112 H (98-107) mmol/L Carbon Dioxide (22-30) mmol/L BUN (9-20) mg/dL Glucose (74-99) mg/dL POC Glucose (mg/dL) (70-110) mg/dL Calcium (8.4-10.2) mg/dL Arterial Blood Glucose (75-99) mg/dL Crossmatch See Detail 10/11/23 10/11/23 10/11/23 Range/Units 09:02 11:13 13:12 WBC (3.8-10.6) k/uL RBC (4.30-5.90) m/uL Hgb (13.0-17.5) gm/dL Hct (39.0-53.0) % Neutrophils # (1.3-7.7) k/uL Lymphocytes # (1.0-4.8) k/uL Monocytes # (0-1.0) k/uL ABG pO2 202 H 247 H (83-108) mmHg ABG O2 Saturation 99.9 H 99.1 H (94-97) % ABG Glucose 180 H (75-99) mg/dL ABG Lactic Acid 2.2 H* (0.5-1.6) mmol/L Sodium (137-145) mmol/L Chloride (98-107) mmol/L Carbon Dioxide (22-30) mmol/L BUN (9-20) mg/dL Glucose (74-99) mg/dL POC Glucose (mg/dL) 143 H (70-110) mg/dL Calcium (8.4-10.2) mg/dL Arterial Blood Glucose 180 H (75-99) mg/dL Crossmatch 10/11/23 10/11/23 10/12/23 Range/Units 18:59 22:57 04:21 WBC 19.7 H 17.6 H (3.8-10.6) k/uL RBC 4.29 L 3.89 L (4.30-5.90) m/uL Hgb 12.8 L 11.7 L (13.0-17.5) gm/dL Hct 38.3 L 34.9 L (39.0-53.0) % Neutrophils # 17.1 H 15.1 H (1.3-7.7) k/uL Lymphocytes # 0.8 L (1.0-4.8) k/uL Monocytes # 1.5 H 1.2 H (0-1.0) k/uL ABG pO2 (83-108) mmHg ABG O2 Saturation (94-97) % ABG Glucose (75-99) mg/dL ABG Lactic Acid (0.5-1.6) mmol/L Sodium (137-145) mmol/L Chloride (98-107) mmol/L Carbon Dioxide (22-30) mmol/L BUN (9-20) mg/dL Glucose (74-99) mg/dL POC Glucose (mg/dL) 203 H (70-110) mg/dL Calcium (8.4-10.2) mg/dL Arterial Blood Glucose (75-99) mg/dL Crossmatch 10/12/23 Range/Units 04:21 WBC (3.8-10.6) k/uL RBC (4.30-5.90) m/uL Hgb (13.0-17.5) gm/dL Hct (39.0-53.0) % Neutrophils # (1.3-7.7) k/uL Lymphocytes # (1.0-4.8) k/uL Monocytes # (0-1.0) k/uL ABG pO2 (83-108) mmHg ABG O2 Saturation (94-97) % ABG Glucose (75-99) mg/dL ABG Lactic Acid (0.5-1.6) mmol/L Sodium 135 L (137-145) mmol/L Chloride 112 H (98-107) mmol/L Carbon Dioxide 20 L (22-30) mmol/L BUN 35 H (9-20) mg/dL Glucose 160 H (74-99) mg/dL POC Glucose (mg/dL) (70-110) mg/dL Calcium 7.8 L (8.4-10.2) mg/dL Arterial Blood Glucose (75-99) mg/dL Crossmatch
[2023-10-12] MEDS: ceFAZolin 3 GM in SODIUM CHLORIDE 0.9% 100 ML IVPB SCH (12:22)
[2023-10-12] MEDS: polyethylene glycoL 3350 17 GM POWD.PACK PO SCH (13:10)
--- NOTE | 2023-10-12 13:32 | P.PN ---
Subjective Progress Note Date: 10/12/23 This is a 61-year-old male patient who underwent a lengthy and extensive spine surgery which involved osteotomy of spine, posterior lateral approach with laminectomy and decompression at multiple levels. Please refer to the detailed surgical report as given by the spine surgeon. The patient had neurogenic claudication and lower extremity weakness along with radiculopathy and chronic back pain in addition to the L1 S1 spondylosis with severe stenosis. The patient had an estimated blood loss of 1.7 L and the patient sustained a dural tear that was repaired. The patient was extubated in the operating room and the patient was transferred to the intensive care for further monitoring. At the time of my evaluation, the patient was awake and alert. Communicating activities of action by nasal cannula pulse ox of 95%. BP was stable at 125/76. Hemodynamically stable. Cardiac rhythm was sinus. Blood work showed a WBC count of 8 with a hemoglobin 14.4 and a platelet count of 194 preoperatively. Electrolytes were also within normal limits. At this point in time, the patient is Dilaudid for pain control at the dose of 0.5 to 1 mg every 4 hours on an Estrace basis and the patient also has Tylenol and Toradol. Patient has been chronically maintained on Neurontin 300 mg p.o. 3 times daily. Currently on IV cefazolin. He is known to have obstructive sleep apnea and he has been maintained on CPAP therapy on outpatient basis. Exact settings are not known. He is also known to have BPH maintained on Flomax on outpatient basis, and hyperlipidemia. Patient is also known to have history of atrial fibrillation maintained on amiodarone and Cardizem on outpatient basis and the patient's c urrent rhythm is sinus. 10/12/2023, I am seeing the patient for a follow-up. The patient is currently postop day #1. Awake and alert. Utilized one of our on CPAP overnight. He is currently on 2 L of oxygen by nasal cannula. He is on lactated Ringer at rate of 100 cc an hour. His Hemovac has drained approximately 500 cc. He is using the incentive spirometer pulling approximately 1000. Hemodynamically stable. Hemoglobin has been stable and the patientOn today's blood work, WBC count is at 17.6 with a hemoglobin 11.7 and a platelet count of 154. BUN 35 with a creatinine of 0.96 and a sodium levels at 135. The patient is still laying flat in bed. The plan is to proceed with a lumbar spine CAT scan to evaluate for postsurgical changes and rule out any complications. The patient otherwise has no specific complaints. No altered mentation. Moving all 4 extremities without any limitation. Objective - Vital Signs Vital signs: Vital Signs Temp 98.5 F 10/12/23 00:00 Pulse 97 10/12/23 07:00 Resp 60 H 10/12/23 07:00 BP 156/88 10/12/23 06:10 Pulse Ox 99 10/12/23 07:49 FiO2 Intake & Output 10/11/23 10/12/23 10/12/23 18:59 06:59 18:59 Intake Total 3019 1250 100 Output Total 2280 860 145 Balance 739 390 -45 Weight 133.8 kg Intake: IV 2652 150 ceFAZolin 2 gm In Sodium 150 Chloride 0.9% 50 ml @ 100 mls/hr IVPB Q8H [facility]INO Rx#: [id number] Intake, IV Titration 100 1100 100 Amount Lactated Ringers 1,000 ml 100 1100 100 @ 100 mls/hr IV .Q10H [facility]INO Rx#:[id number] Blood Product 267 Rc Pheresis As-3 Unit 267 [id number] Output: Drainage 120 400 100 Back 400 100 on back, not able to turn 120 patient at this time to evaluate Urine 460 460 45 Estimated Blood Loss 1700 ABP, PAP, CO, CI - Last Documented Arterial Blood Pressure 133/67 - Exam The patient is calm and comfortable, awake and alert and the patient is currently on 2 L of O2 nasal cannula. Hemodynamically stable. Head exam was generally normal. There was no scleral icterus or corneal arcus. Mucous membranes were moist. Neck was supple and without jugular venous distension, thyromegaly, or carotid bruits. Carotids were easily palpable bilaterally. There was no adenopathy. The patient has a Mallampati class IV still with significant crowding of posterior pharynx. Lungs were clear to auscultation and percussion, and with normal diaphragmatic excursion. No wheezes or rales were noted. Cardiac exam revealed the PMI to be normally situated and sized. The rhythm was regular and no extrasystoles were noted during several minutes of auscultation. The first and second heart sounds were normal and physiologic splitting of the second heart sound was noted. There were no murmurs, rubs, clicks, or gallops. Abdominal exam revealed normal bowel sounds. The abdomen was soft, non-tender, and without masses, organomegaly, or appreciable enlargement of the abdominal aorta. Examination of the extremities revealed easily palpable radial, femoral and pedal pulses. There was no cyanosis, clubbing or edema. Examination of the skin revealed no evidence of significant rashes, suspicious appearing nevi or other concerning lesions. Neurologically the patient is awake and alert and there is no focal neurological deficit and the patient is able to move his extremities. Motor function cannot be assessed in the immediate postoperative phase. Adequate mobility at this point. Adequate sensation. Adequate pulse in lower extremities. - Labs CBC & Chem 7: 10/12/23 04:21 10/12/23 04:21 Labs: Abnormal Lab Results - Last 24 Hours (Table) 10/05/23 10/11/23 10/11/23 Range/Units 09:29 09:00 09:02 WBC (3.8-10.6) k/uL RBC (4.30-5.90) m/uL Hgb (13.0-17.5) gm/dL Hct (39.0-53.0) % Neutrophils # (1.3-7.7) k/uL Lymphocytes # 0.9 L (1.0-4.8) k/uL Monocytes # (0-1.0) k/uL ABG pO2 (83-108) mmHg ABG O2 Saturation (94-97) % ABG Glucose (75-99) mg/dL ABG Lactic Acid (0.5-1.6) mmol/L Sodium (137-145) mmol/L Chloride 112 H (98-107) mmol/L Carbon Dioxide (22-30) mmol/L BUN (9-20) mg/dL Glucose (74-99) mg/dL POC Glucose (mg/dL) (70-110) mg/dL Calcium (8.4-10.2) mg/dL Arterial Blood Glucose (75-99) mg/dL Crossmatch See Detail 10/11/23 10/11/23 10/11/23 Range/Units 09:02 11:13 13:12 WBC (3.8-10.6) k/uL RBC (4.30-5.90) m/uL Hgb (13.0-17.5) gm/dL Hct (39.0-53.0) % Neutrophils # (1.3-7.7) k/uL Lymphocytes # (1.0-4.8) k/uL Monocytes # (0-1.0) k/uL ABG pO2 202 H 247 H (83-108) mmHg ABG O2 Saturation 99.9 H 99.1 H (94-97) % ABG Glucose 180 H (75-99) mg/dL ABG Lactic Acid 2.2 H* (0.5-1.6) mmol/L Sodium (137-145) mmol/L Chloride (98-107) mmol/L Carbon Dioxide (22-30) mmol/L BUN (9-20) mg/dL Glucose (74-99) mg/dL POC Glucose (mg/dL) 143 H (70-110) mg/dL Calcium (8.4-10.2) mg/dL Arterial Blood Glucose 180 H (75-99) mg/dL Crossmatch 10/11/23 10/11/23 10/12/23 Range/Units 18:59 22:57 04:21 WBC 19.7 H 17.6 H (3.8-10.6) k/uL RBC 4.29 L 3.89 L (4.30-5.90) m/uL Hgb 12.8 L 11.7 L (13.0-17.5) gm/dL Hct 38.3 L 34.9 L (39.0-53.0) % Neutrophils # 17.1 H 15.1 H (1.3-7.7) k/uL Lymphocytes # 0.8 L (1.0-4.8) k/uL Monocytes # 1.5 H 1.2 H (0-1.0) k/uL ABG pO2 (83-108) mmHg ABG O2 Saturation (94-97) % ABG Glucose (75-99) mg/dL ABG Lactic Acid (0.5-1.6) mmol/L Sodium (137-145) mmol/L Chloride (98-107) mmol/L Carbon Dioxide (22-30) mmol/L BUN (9-20) mg/dL Glucose (74-99) mg/dL POC Glucose (mg/dL) 203 H (70-110) mg/dL Calcium (8.4-10.2) mg/dL Arterial Blood Glucose (75-99) mg/dL Crossmatch 10/12/23 Range/Units 04:21 WBC (3.8-10.6) k/uL RBC (4.30-5.90) m/uL Hgb (13.0-17.5) gm/dL Hct (39.0-53.0) % Neutrophils # (1.3-7.7) k/uL Lymphocytes # (1.0-4.8) k/uL Monocytes # (0-1.0) k/uL ABG pO2 (83-108) mmHg ABG O2 Saturation (94-97) % ABG Glucose (75-99) mg/dL ABG Lactic Acid (0.5-1.6) mmol/L Sodium 135 L (137-145) mmol/L Chloride 112 H (98-107) mmol/L Carbon Dioxide 20 L (22-30) mmol/L BUN 35 H (9-20) mg/dL Glucose 160 H (74-99) mg/dL POC Glucose (mg/dL) (70-110) mg/dL Calcium 7.8 L (8.4-10.2) mg/dL Arterial Blood Glucose (75-99) mg/dL Crossmatch Assessment and Plan Plan: Neurogenic claudication and chronic back pain and radiculopathy along with history of spinal stenosis. The patient underwent multilevel laminectomy and decompression and fusion. The patient had a dural tear that was repaired surgically. Patient is currently postop day #1 Estimated blood loss 1.7 L. The patient is currently hemodynamically stable on 2 L of oxygen by nasal cannula, extubated without any major difficulties. The patient is hemodynamically stable. Awaiting CAT scan of the lumbar spine to rule out any postsurgical complications. This will be done this morning. The patient is still laying down flat in bed and this will be carried out for 24 hours in the postoperative phase. Acute hypoxic respiratory failure, currently, comfortable on 2 L of O2 nasal cannula Paroxysmal atrial fibrillation, current rhythm is sinus Hypertension Hyperlipidemia BPH Obstructive sleep apnea Plan The patient is clinically stable. Awake and alert without any major respiratory difficulties. Oxygen at 2 L/min nasal cannula was started suction flow to maintain saturation above 90% Provided patient incentive spirometer Monitor the output from the Hemovac. Hemoglobin is stable for now. Keep the patient flat in bed for the next 24 hours, postop. Pain control with Dilaudid and Toradol and IV Tylenol. The patient is also on Neurontin and muscle relaxants. Continue amiodarone 100 mg p.o. daily and Cardizem to 40 mg p.o. daily Continue Flomax 0.4 mg p.o. daily Continue Lipitor 20 mg p.o. daily Continue Neurontin 300 mg p.o. 3 times daily Heparin subcu for DVT prophylaxis every 12 hours Lactated Ringer at rate of 100 cc an hour CAT scan of the lumbosacral spine today Will offer the patient CPAP therapy at 10 cm of water in the ICU Will continue to follow Can be downgraded to the medical surgical floor.
[2023-10-12] MEDS: HEPARIN SODIUM,PORCINE 5,000 UNIT/ML 1 ML VIAL SQ SCH (17:16)
[2023-10-12] MEDS: ATORVASTATIN 20 MG TAB PO SCH (20:19)
[2023-10-13 02:45] LABS: Basophils % (A) 0 %; Eosinophils # (A) 0.2 k/uL (0-0.7); Eosinophils % (A) 1 %; HCT 28.6 % (39.0-53.0); Lymphocytes % (A) 12 %; MCH 30.9 pg (25.0-35.0); MCHC 34.5 g/dL (31.0-37.0); MCV 89.5 fL (80.0-100.0); Mean Platelet Volume 8.5; Monocytes # (A) 0.9 k/uL (0-1.0); Monocytes % (A) 6 %; Neutrophils # (A) 12.6 k/uL (1.3-7.7); Neutrophils % (A) 79 %; Platelet Count 114 k/uL (150-450); RDW 13.6 % (11.5-15.5); WBC 15.9 k/uL (3.8-10.6)
[2023-10-13 02:48] LABS: HGB 9.9 gm/dL (13.0-17.5)
[2023-10-13 02:54] LABS: ALT 31 U/L (4-49); AST 81 U/L (17-59); African American GFR (CKD) >90 (>60 ml/min/1.73 sqM); Albumin 2.1 g/dL (3.5-5.0); Alkaline Phosphatase 106 U/L (38-126); Anion Gap 1 mmol/L; Blood Urea Nitrogen 37 mg/dL (9-20); Calcium 7.6 mg/dL (8.4-10.2); Carbon Dioxide 22 mmol/L (22-30); Chloride 109 mmol/L (98-107); Globulin 2.1 g/dL; Glucose 142 mg/dL (74-99); Non-African American GFR(CKD) >90 (>60 ml/min/1.73 sqM); Potassium 4.2 mmol/L (3.5-5.1); Sodium 132 mmol/L (137-145); Total Bilirubin 1.1 mg/dL (0.2-1.3); Total Protein 4.2 g/dL (6.3-8.2)
[2023-10-13] MEDS: HYDROcodone/APAP 10-325MG 1 EACH TAB PO PRN (07:55)
--- NOTE | 2023-10-13 08:14 | P.PN ---
Subjective Progress Note Date: 10/13/23 Principal diagnosis: 1. L1-S1 spondylosis with stenosis 2. Bilateral lower extremity radiculopathy 3. Neurogenic claudication Patient seen and examined this morning on medical surgical floor. Patient was transferred from ICU last night. He is resting comfortably in bed with head of bed at 10 degrees. Attempted to sit patient up to 30 degrees, patient developed temporal headache. Return head of bed to 20 degrees. Surgical dressing to the lumbar spine is clean dry and intact, Hemovac drain is present with 350 mL output overnight. During assessment an additional 70 mL output had been drained. There appears to be spinal fluid present within drainage. Dr. Chow was notified and presented to the floor to assess patient. New orders have been placed and medications adjusted. Patient may begin to raise HOB at 1100am today 10 degrees every hour until sitting up, if he develops any headaches, dizziness, blurred vision, or nausea/vomiting decrease head of bed 10 degrees. Timed Hgb to be drawn at 1100 due to precipitous drop in Hgb from 11.7 to 9.9. Encourage patient to continue with ankle pumps and leg exercises. Encourage use of incentive spirometer 10x/hr while awake. Kilpatrick catheter is patent. Abdominal binder has been order, please apply once delivered to floor. Objective - Vital Signs Vital signs: Vital Signs Temp 99.5 F 10/13/23 01:27 Pulse 95 10/13/23 01:27 Resp 18 10/13/23 01:27 BP 157/68 10/13/23 01:27 Pulse Ox 92 L 10/13/23 01:27 FiO2 Intake & Output 10/12/23 10/12/23 10/13/23 06:59 18:59 06:59 Intake Total 1250 1648 Output Total 860 1135 975 Balance 390 513 -975 Weight 133.8 kg Intake: IV 150 50 ceFAZolin 2 gm In Sodium 150 50 Chloride 0.9% 50 ml @ 100 mls/hr IVPB Q8H BERNARDINO Rx#: [id number] Intake, IV Titration 1100 900 Amount Lactated Ringers 1,000 ml 1100 900 @ 100 mls/hr IV .Q10H BERNARDINO Rx#:[id number] Oral 698 Output: Drainage 400 350 450 Back 400 350 450 Urine 460 785 525 ABP, PAP, CO, CI - Last Documented Arterial Blood Pressure 166/77 - Exam Physical Examination General: The patient is awake and alert, in no acute distress Skin: Skin is warm and dry with no obvious rashes or lesions. Surgical incision to the thoracolumbar spine, Dressing intact, Hemovac drain present with documented 420ml output overnight. Eye: Pupils are equal, round and reactive to light, extra-ocular movements are intact; there is normal conjunctiva bilaterally. Neck: The neck is supple, there is no tenderness and ROM intact. Cardiovascular: There is a regular rate and rhythm. No murmur, rub or gallop is appreciated. Respiratory: Respirations are non-labored, breath sounds are equal. Gastrointestinal: Soft, non-distended, non-tender abdomen. Back: There is no tenderness to palpation in the midline, paralumbar, paratho racic or buttocks region. There is no obvious deformity . Musculoskeletal: ROM limited secondary to pain and stiffness from surgical procedure. Muscle strength in all major muscle groups of bilateral upper extremities 5/5, bilateral lower extremities 4/5. Neurological: CN 2-12 intact. There are no obvious motor or sensory deficits. Movement and coordination equal and intact. Sensory exam to light touch intact C5-T1 and intact from L2-S1. Reflexes 2/4 in bilateral upper and lower extremities. Negative Hoffmans, babinski, and clonus signs. Psychiatric: Cooperative, appropriate mood & affect, normal judgment. - Labs CBC & Chem 7: 10/13/23 02:32 10/13/23 02:35 Labs: Abnormal Lab Results - Last 24 Hours (Table) 10/05/23 10/13/23 10/13/23 Range/Units 09:29 02:32 02:35 WBC 15.9 H (3.8-10.6) k/uL RBC 3.20 L (4.30-5.90) m/uL Hgb 9.9 L D (13.0-17.5) gm/dL Hct 28.6 L (39.0-53.0) % Plt Count 114 L (150-450) k/uL Neutrophils # 12.6 H (1.3-7.7) k/uL Sodium 132 L (137-145) mmol/L Chloride 109 H (98-107) mmol/L BUN 37 H (9-20) mg/dL Glucose 142 H (74-99) mg/dL Calcium 7.6 L (8.4-10.2) mg/dL AST 81 H (17-59) U/L Total Protein 4.2 L (6.3-8.2) g/dL Albumin 2.1 L (3.5-5.0) g/dL Crossmatch See Detail Assessment and Plan Assessment: Post-Op Day 2: [id number] decompression and fusion with L2-L3 right dural erosion repair with fat patch graft 1. L1-S1 spondylosis with stenosis 2. L2-L3 right dural erosion tear 3. Bilateral lower extremity radiculopathy 4. Neurogenic claudication Plan: -Appreciate architecture consultant and team management. -Hgb to be drawn at 1100 -Abdominal binder ordered and to be applied. -Activity: HOB is currently at 20 degrees, at 1100am today continue to elevate head of bed 10 degrees every hour. If patient develops headache, blurred vision, dizziness, nausea/vomiting decrease HOB 10 degrees. -Pain control: Medications have been adjusted and scheduled. -Meds: reviewed -GI ppx: senna, Miralax -DC kilpatrick when up and about, bedside commode if needed -DVT PPX: Heparin -Hygiene: Maintain dressing clean and dry. Meticulous cleaning after BMs away from the incision site -Drains: Maintain for now. Continue to monitor and record output q shift. -Encourage IS 10x/hr -Dispo: Clinically pending *I reviewed and discussed this case with my attending Dr. Chow, whom has reviewed this chart and films and is in agreement with assessment and plan of care as outlined above. I have personally seen and examined the patient, performed the documentation and the assessment and plan as written. Number of minutes spent on the visit: 20m.
[2023-10-13] MEDS: HYDROcodone/APAP 10-325MG 1 EACH TAB PO SCH (08:22)
[2023-10-13] MEDS: KETOROLAC 15 MG/ML 1 ML VIAL IVP SCH ×2 (08:29→09:20)
[2023-10-13] MEDS: GABAPENTIN 300 MG CAP PO SCH (08:29)
[2023-10-13] MEDS: CAFFEINE-SODIUM BENZOATE 500 MG in SODIUM CHLORIDE 0.9% 1,000 ML IVPB ONE (10:06)
--- NOTE | 2023-10-13 11:33 | P.PN ---
Subjective Progress Note Date: 10/13/23 No new complaints today. Pending rehab placement. Gen: in no apparent distress, resting comfortably in bed Eyes: PERRL, no scleral injection or icterus HENT: normocephalic, atraumatic, good hearing acuity, moist mucous membranes Neck: no tracheal deviation, full range of motion Resp: good air exchange, breathing comfortably with no accessory muscle use, no tactile fremitus CVS: good distal perfusion x 4, no pitting edema GI: soft, NTTP, ND, no hepatosplenomegaly : no suprapubic tenderness, no CVAT, kilpatrick catheter is present MSK: no clubbing, no cyanosis, no noted contractures of extremities Skin: no noted rashes, petechiae; temperature of skin is appropriate Neuro: Left lower extremity weakness at the hip flexor, CN II-XII intact Psych: cooperative, euthymic mood, insight and judgment intact Hospital Course: 63-year-old male with medical history of atrial fibrillation status post Watchm an, hypertension, hyperlipidemia, DELIO, hypothyroidism, BPH presented for elective surgery: T10 to pelvis decompression and fusion. Medicine was consulted by orthopedic surgery service for medical management. Upon initial evaluation, patient was afebrile, 133/67, heart rate 60, 99% on 2 L nasal can nula. White blood cell count was 17.6, hemoglobin is 11.7. Sodium was 135, chloride 112, CO2 20, BUN 35. Postoperative lumbar spine CT showed postsurgical changes without immediate postoperative complication. Assessment/plan: Atrial fibrillation status post Watchman -Continue amiodarone 100 mg daily -Continue Cardizem 240 mg p.o. daily s/p [id number] decompression/fusion -pain control: REGINALDO 300mg TID, dilaudid PRN, flexeril TID, methocarbamol TID, norco PRN -bowel regimen: miralax, senokot-S, milk of mg, -PT/OT HTN HLD DELIO Hypothyroidism BPH -continue home meds Objective - Vital Signs Vital signs: Vital Signs Temp 99.0 F 10/13/23 07:18 Pulse 92 10/13/23 07:18 Resp 20 10/13/23 07:18 BP 155/78 10/13/23 07:18 Pulse Ox 91 L 10/13/23 07:18 FiO2 Intake & Output 10/12/23 10/13/23 10/13/23 18:59 06:59 18:59 Intake Total 1648 Output Total 1135 975 Balance 513 -975 Intake: IV 50 ceFAZolin 2 gm In Sodium 50 Chloride 0.9% 50 ml @ 100 mls/hr IVPB Q8H B[facility]ARDINO Rx#: [id number] Intake, IV Titration 900 Amount Lactated Ringers 1,000 ml 900 @ 100 mls/hr IV .Q10H BERNARDINO Rx#:[id number] Oral 698 Output: Drainage 350 450 Back 350 450 Urine 785 525 ABP, PAP, CO, CI - Last Documented Arterial Blood Pressure 166/77 - Labs CBC & Chem 7: 10/13/23 02:32 10/13/23 02:35 Labs: Abnormal Lab Results - Last 24 Hours (Table) 10/05/23 10/13/23 10/13/23 Range/Units 09:29 02:32 02:35 WBC 15.9 H (3.8-10.6) k/uL RBC 3.20 L (4.30-5.90) m/uL Hgb 9.9 L D (13.0-17.5) gm/dL Hct 28.6 L (39.0-53.0) % Plt Count 114 L (150-450) k/uL Neutrophils # 12.6 H (1.3-7.7) k/uL Sodium 132 L (137-145) mmol/L Chloride 109 H (98-107) mmol/L BUN 37 H (9-20) mg/dL Glucose 142 H (74-99) mg/dL Calcium 7.6 L (8.4-10.2) mg/dL AST 81 H (17-59) U/L Total Protein 4.2 L (6.3-8.2) g/dL Albumin 2.1 L (3.5-5.0) g/dL Crossmatch See Detail
[2023-10-13 12:14] LABS: HCT 25.6 % (39.0-53.0); HGB 8.6 gm/dL (13.0-17.5); MCH 30.2 pg (25.0-35.0); MCHC 33.8 g/dL (31.0-37.0); MCV 89.3 fL (80.0-100.0); Mean Platelet Volume 9.5; RBC 2.87 m/uL (4.30-5.90); RDW 13.8 % (11.5-15.5); WBC 12.2 k/uL (3.8-10.6)
--- NOTE | 2023-10-13 12:31 | P.PN ---
Progress Note - Text Progress Note Date: 10/13/23 Patient seen this afternoon. He is resting in bed with HOB elevated to 30 degrees. Patient denies any headache, blurred vision, dizziness, or nausea/vomiting. Continue to raise HOB 10 degrees every hour as patient tolerates. Patient states she is feeling stronger in his left lower extremity since this morning. Hemovac remains patent, no further output at this time. Drain is to remain without compression. Repeat Hgb has shown drop in value 9.9 to 8.6. Order placed to transfuse 1unit RBC. We will continue to evaluate.
[2023-10-13 12:38] LABS: Platelet Count 99 k/uL (150-450)
--- NOTE | 2023-10-13 14:45 | P.PN ---
Subjective Progress Note Date: 10/13/23 This is a 61-year-old male patient who underwent a lengthy and extensive spine surgery which involved osteotomy of spine, posterior lateral approach with laminectomy and decompression at multiple levels. Please refer to the detailed surgical report as given by the spine surgeon. The patient had neurogenic claudication and lower extremity weakness along with radiculopathy and chronic back pain in addition to the L1 S1 spondylosis with severe stenosis. The patient had an estimated blood loss of 1.7 L and the patient sustained a dural tear that was repaired. The patient was extubated in the operating room and the patient was transferred to the intensive care for further monitoring. At the time of my evaluation, the patient was awake and alert. Communicating activities of action by nasal cannula pulse ox of 95%. BP was stable at 125/76. Hemodynamically stable. Cardiac rhythm was sinus. Blood work showed a WBC count of 8 with a hemoglobin 14.4 and a platelet count of 194 preoperatively. Electrolytes were also within normal limits. At this point in time, the patient is Dilaudid for pain control at the dose of 0.5 to 1 mg every 4 hours on an Estrace basis and the patient also has Tylenol and Toradol. Patient has been chronically maintained on Neurontin 300 mg p.o. 3 times daily. Currently on IV cefazolin. He is known to have obstructive sleep apnea and he has been maintained on CPAP therapy on outpatient basis. Exact settings are not known. He is also known to have BPH maintained on Flomax on outpatient basis, and hyperlipidemia. Patient is also known to have history of atrial fibrillation maintained on amiodarone and Cardizem on outpatient basis and the patient's c urrent rhythm is sinus. 10/12/2023, I am seeing the patient for a follow-up. The patient is currently postop day #1. Awake and alert. Utilized one of our on CPAP overnight. He is currently on 2 L of oxygen by nasal cannula. He is on lactated Ringer at rate of 100 cc an hour. His Hemovac has drained approximately 500 cc. He is using the incentive spirometer pulling approximately 1000. Hemodynamically stable. Hemoglobin has been stable and the patientOn today's blood work, WBC count is at 17.6 with a hemoglobin 11.7 and a platelet count of 154. BUN 35 with a creatinine of 0.96 and a sodium levels at 135. The patient is still laying flat in bed. The plan is to proceed with a lumbar spine CAT scan to evaluate for postsurgical changes and rule out any complications. The patient otherwise has no specific complaints. No altered mentation. Moving all 4 extremities without any limitation. On 10/13/2023, patient is being seen for a follow-up. Doing well. No specific complaints. Respiratory status is stable and the patient is currently on room air oxygen with a pulse ox of 91 to 92%. Utilizing CPAP overnight. Hemoglobin is at 8.6 and a white cell count of 4.2. The BUN is 37 with a creatinine of 0.7 and sodium levels of 132. Remains on IV cefazolin. Remains on lactated Ringer at a rate of 100 cc an hour. No other new complaints otherwise for now. Spine surgery is following the patient. The patient is transferred out of the intensive care unit and is currently on the medical floor. Note that the patient underwent a T10 to pelvis decompression fusion and L2-L3 dural erosion repair with a fat patch graft. Patient is postop day #2 in that regard. He is trying to get out of bed today and he felt dizzy and currently he is on bedrest. CAT scan of the lumbosacral spine shows no acute abnormalities. It is essentially showing postsurgical changes. As far as the hemoglobin, there is no signs of any external bleeding. A unit of packed RBC was ordered by the spine surgery team. Objective - Vital Signs Vital signs: Vital Signs Temp 99.0 F 10/13/23 07:18 Pulse 92 10/13/23 07:18 Resp 20 10/13/23 07:18 BP 155/78 10/13/23 07:18 Pulse Ox 91 L 10/13/23 07:18 FiO2 Intake & Output 10/12/23 10/13/23 10/13/23 18:59 06:59 18:59 Intake Total 1648 Output Total 1135 975 Balance 513 -975 Intake: IV 50 ceFAZolin 2 gm In Sodium 50 Chloride 0.9% 50 ml @ 100 mls/hr IVPB Q8H [facility] Rx#: [id number] Intake, IV Titration 900 Amount Lactated Ringers 1,000 ml 900 @ 100 mls/hr IV .Q10H [facility]INO Rx#:[id number] Oral 698 Output: Drainage 350 450 Back 350 450 Urine 785 525 ABP, PAP, CO, CI - Last Documented Arterial Blood Pressure 166/77 - Exam The patient is calm and comfortable, awake and alert and the patient is currently on room air oxygen. Hemodynamically stable. Head exam was generally normal. There was no scleral icterus or corneal arcus. Mucous membranes were moist. Neck was supple and without jugular venous distension, thyromegaly, or carotid bruits. Carotids were easily palpable bilaterally. There was no adenopathy. The patient has a Mallampati class IV still with significant crowding of posterior pharynx. Lungs were clear to auscultation and percussion, and with normal diaphragmatic excursion. No wheezes or rales were noted. Cardiac exam revealed the PMI to be normally situated and sized. The rhythm was regular and no extrasystoles were noted during several minutes of auscultation. The first and second heart sounds were normal and physiologic splitting of the second heart sound was noted. There were no murmurs, rubs, clicks, or gallops. Abdominal exam revealed normal bowel sounds. The abdomen was soft, non-tender, and without masses, organomegaly, or appreciable enlargement of the abdominal aorta. Examination of the extremities revealed easily palpable radial, femoral and pedal pulses. There was no cyanosis, clubbing or edema. Examination of the skin revealed no evidence of significant rashes, suspicious appearing nevi or other concerning lesions. Neurologically the patient is awake and alert and there is no focal neurological deficit and the patient is able to move his extremities. Motor function cannot be assessed in the immediate postoperative phase. Adequate mobility at this point. Adequate sensation. Adequate pulse in lower extremities. - Labs CBC & Chem 7: 10/13/23 11:52 10/13/23 02:35 Labs: Abnormal Lab Results - Last 24 Hours (Table) 10/05/23 10/13/23 10/13/23 Range/Units 09:29 02:32 02:35 WBC 15.9 H (3.8-10.6) k/uL RBC 3.20 L (4.30-5.90) m/uL Hgb 9.9 L D (13.0-17.5) gm/dL Hct 28.6 L (39.0-53.0) % Plt Count 114 L (150-450) k/uL Neutrophils # 12.6 H (1.3-7.7) k/uL Sodium 132 L (137-145) mmol/L Chloride 109 H (98-107) mmol/L BUN 37 H (9-20) mg/dL Glucose 142 H (74-99) mg/dL Calcium 7.6 L (8.4-10.2) mg/dL AST 81 H (17-59) U/L Total Protein 4.2 L (6.3-8.2) g/dL Albumin 2.1 L (3.5-5.0) g/dL Crossmatch See Detail Assessment and Plan Plan: Neurogenic claudication and chronic back pain and radiculopathy along with history of spinal stenosis. The patient underwent T10 to pelvis decompression fusion and L2-L3 dural erosion repair with a fat patch graft, patient is postop day #2 Estimated blood loss 1.7 L. The patient is currently hemodynamically stable on room air oxygen o Acute blood loss anemia with a hemoglobin of 8.6, expected outcome of surgery and the patient is receiving unit of packed RBC Acute hypoxic respiratory failure, currently, comfortable on room air oxygen Paroxysmal atrial fibrillation, current rhythm is sinus Hypertension Hyperlipidemia BPH Obstructive sleep apnea Plan The patient is clinically stable. Awake and alert without any major respiratory difficulties. Oxygen at room air Provided patient incentive spirometer 1 unit PRBC Transfusion as recommended by the spine surgery team Pain control with Dilaudid and Toradol and IV Tylenol. The patient is also on Neurontin and muscle relaxants. Continue amiodarone 100 mg p.o. daily and Cardizem 240 mg p.o. daily Continue Flomax 0.4 mg p.o. daily Continue Lipitor 20 mg p.o. daily Continue Neurontin 300 mg p.o. 3 times daily Heparin subcu for DVT prophylaxis every 12 hours Lactated Ringer at rate of 100 cc an hour CAT scan of the lumbosacral spine noted showing essentially postsurgical changes Will offer the patient CPAP therapy at 10 cm of water in the ICU Will continue to follow Increase mobility based on his overall condition, symptoms and recovery from spine surgery.
[2023-10-14 06:50] LABS: Basophils % (A) 0 %; Eosinophils # (A) 0.1 k/uL (0-0.7); Eosinophils % (A) 1 %; HCT 27.9 % (39.0-53.0); HGB 9.2 gm/dL (13.0-17.5); Lymphocytes # (A) 2.1 k/uL (1.0-4.8); Lymphocytes % (A) 24 %; MCH 29.6 pg (25.0-35.0); MCHC 32.9 g/dL (31.0-37.0); MCV 89.8 fL (80.0-100.0); Mean Platelet Volume 8.9; Monocytes # (A) 0.7 k/uL (0-1.0); Monocytes % (A) 8 %; Neutrophils # (A) 5.8 k/uL (1.3-7.7); Neutrophils % (A) 65 %; Platelet Count 105 k/uL (150-450); RDW 14.1 % (11.5-15.5)
[2023-10-14 06:58] LABS: ALT 25 U/L (4-49); AST 66 U/L (17-59); African American GFR (CKD) >90 (>60 ml/min/1.73 sqM); Albumin/Globulin Ratio 0.9; Alkaline Phosphatase 113 U/L (38-126); Anion Gap 0 mmol/L; Blood Urea Nitrogen 29 mg/dL (9-20); Calcium 7.9 mg/dL (8.4-10.2); Carbon Dioxide 26 mmol/L (22-30); Chloride 110 mmol/L (98-107); Globulin 2.2 g/dL; Glucose 86 mg/dL (74-99); Non-African American GFR(CKD) >90 (>60 ml/min/1.73 sqM); Potassium 4.1 mmol/L (3.5-5.1); Sodium 136 mmol/L (137-145); Total Bilirubin 0.7 mg/dL (0.2-1.3); Total Protein 4.2 g/dL (6.3-8.2)
--- NOTE | 2023-10-14 10:01 | P.PN ---
Subjective Progress Note Date: 10/14/23 Principal diagnosis: 1. L1-S1 spondylosis with stenosis 2. Bilateral lower extremity radiculopathy 3. Neurogenic claudication Patient seen and examined this morning. 4S community service specialist, Desire is present during exam. Patient resting comfortably in bed, HOB has been elevated to 40 degrees and patient is tolerating well. Patient may begin to raise HOB 10 degrees every hour until sitting up, if he develops any headaches, dizziness, blurred vision, or nausea/vomiting decrease head of bed 10 degrees. Goal is to sit patient at bedside this evening. Surgical incision to the thoracolumbar spine, incision is well approximated and nimco intact. There is a small mid-low area of the incision that has mild serous drainage. New surgical dressing has been changed. Hemovac is present and patent to gravity, during assessment an additional 100 mL output of serosanguinous had been emptied for a total of 380ml overnight. Encourage patient to continue with ankle pumps and leg exercises. Patient notices improvement in the mobility and strength in his left lower extremity. Continue to encourage use of incentive spirometer 10x/hr while awake. Kilpatrick c atheter is patent. Patient is passing gas, no BM. Objective - Vital Signs Vital signs: Vital Signs Temp 98.2 F 10/14/23 07:04 Pulse 77 10/14/23 07:04 Resp 18 10/14/23 07:04 BP 125/77 10/14/23 07:04 Pulse Ox 94 L 10/14/23 07:04 FiO2 Intake & Output 10/13/23 10/14/23 10/14/23 18:59 06:59 18:59 Intake Total 100 294 Output Total 960 1930 100 Balance -860 -1636 -100 Intake: Intake, IV Titration 100 Amount ceFAZolin 3 gm In Sodium 100 Chloride 0.9% 100 ml @ 200 mls/hr IVPB Q8H [facility]INO Rx#:[id number] Blood Product 0 294 Rc Pheresis 2 As3 Unit 0 294 [id number] Output: Drainage 160 280 100 Back 160 280 100 Urine 800 1650 Other: Voiding Method Indwelling Catheter Indwelling Catheter ABP, PAP, CO, CI - Last Documented Arterial Blood Pressure 166/77 - Exam Physical Examination General: The patient is awake and alert, in no acute distress Skin: Skin is warm and dry with no obvious rashes or lesions. Surgical incision to the thoracolumbar spine, incision is well approximated and nimco intact. There is a small mid-low area of the incision that has mild serous drainage. New surgical dressing has been changed. Hemovac is present and patent to gravity, during assessment an additional 100 mL output of serosanguinous had been emptied for a total of 380ml overnight. Eye: Pupils are equal, round and reactive to light, extra-ocular movements are intact; there is normal conjunctiva bilaterally. Neck: The neck is supple, there is no tenderness and ROM intact. Cardiovascular: There is a regular rate and rhythm. No murmur, rub or gallop is appreciated. Respiratory: Respirations are non-labored, breath sounds are equal. Gastrointestinal: Soft, non-distended, non-tender abdomen. Back: There is no tenderness to palpation in the midline, paralumbar, parathoracic or buttocks region. There is no obvious deformity . Musculoskeletal: ROM limited secondary to pain and stiffness from surgical procedure. Muscle strength in all major muscle groups of bilateral upper extremities 5/5, bilateral lower extremities 4/5. Neurological: CN 2-12 intact. There are no obvious motor or sensory deficits. Movement and coordination equal and intact. Sensory exam to light touch intact C5-T1 and intact from L2-S1. Reflexes 2/4 in bilateral upper and lower extremities. Negative Hoffmans, babinski, and clonus signs. Psychiatric: Cooperative, appropriate mood & affect, normal judgment. - Labs CBC & Chem 7: 10/14/23 06:14 10/14/23 06:14 Labs: Abnormal Lab Results - Last 24 Hours (Table) 10/13/23 10/13/23 10/14/23 Range/Units 11:52 15:44 06:14 WBC 12.2 H (3.8-10.6) k/uL RBC 2.87 L 3.10 L (4.30-5.90) m/uL Hgb 8.6 L 9.2 L (13.0-17.5) gm/dL Hct 25.6 L 27.9 L (39.0-53.0) % Plt Count 99 L 105 L (150-450) k/uL Sodium (137-145) mmol/L Chloride (98-107) mmol/L BUN (9-20) mg/dL Creatinine (0.66-1.25) mg/dL Calcium (8.4-10.2) mg/dL AST (17-59) U/L Total Protein (6.3-8.2) g/dL Albumin (3.5-5.0) g/dL Crossmatch See Detail 10/14/23 Range/Units 06:14 WBC (3.8-10.6) k/uL RBC (4.30-5.90) m/uL Hgb (13.0-17.5) gm/dL Hct (39.0-53.0) % Plt Count (150-450) k/uL Sodium 136 L (137-145) mmol/L Chloride 110 H (98-107) mmol/L BUN 29 H (9-20) mg/dL Creatinine 0.62 L (0.66-1.25) mg/dL Calcium 7.9 L (8.4-10.2) mg/dL AST 66 H (17-59) U/L Total Protein 4.2 L (6.3-8.2) g/dL Albumin 2.0 L (3.5-5.0) g/dL Crossmatch Assessment and Plan Assessment: Post-Op Day 3: [id number] decompression and fusion with L2-L3 right dural erosion repair with fat patch graft 1. L1-S1 spondylosis with stenosis 2. L2-L3 right dural erosion tear 3. Bilateral lower extremity radiculopathy 4. Neurogenic claudication Plan: -Appreciate computer consultant and team management. -Activity: HOB is currently at 40 degrees, continue to elevate head of bed 10 degrees every hour as patient tolerates. Goal is to sit patient at edge of bed this evening. If patient develops headache, blurred vision, dizziness, nausea/vomiting decrease HOB 10 degrees. -Pain control: Medications have been adjusted and scheduled. -Meds: reviewed -GI ppx: senna, Miralax -Maintain kilpatrick at this time. -DVT PPX: Heparin -Hygiene: Maintain dressing clean and dry. Meticulous cleaning after BMs away from the incision site -Drains: Maintain for now. Continue to monitor and record output q 4hrs. -Encourage IS 10x/hr -Dispo: Clinically pending *I reviewed and discussed this case with my attending Dr. Chow, whom has reviewed this chart and films and is in agreement with assessment and plan of care as outlined above. I have personally seen and examined the patient, performed the documentation and the assessment and plan as written. Number of minutes spent on the visit: 20m.
[2023-10-14] MEDS: CAFFEINE-SODIUM BENZOATE 500 MG in SODIUM CHLORIDE 0.9% 1,000 ML IVPB SCH (10:53)
--- NOTE | 2023-10-14 11:11 | P.ANPRN ---
Procedure Note - Anesthesia - Invasive Line Left Arterial Line Time Out Performed: Yes Date of Procedure: 10/11/23 Time of Procedure: 07:12 Location of Patient: PreOp Preparation: Sterile Prep, Sterile Dressing Arterial Line Location: Radial Ultrasound Used: No Purpose - Visualization and Identification of Vasculature: No Image Stored and Saved: No Narrative: Invasive line placement per sterile protocol utilized.
--- NOTE | 2023-10-14 11:12 | P.ANPRN ---
Procedure Note - Anesthesia - Invasive Line Right Central Line Time Out Performed: Yes Date of Procedure: 10/11/23 Location of Patient: PreOp Preparation: Sterile Prep, Sterile Dressing Central Line Location: Internal Jugular Ultrasound Used: No Purpose - Visualization and Identification of Vasculature: No Image Stored and Saved: No Narrative: Invasive line placement per sterile protocol utilized.
--- NOTE | 2023-10-14 15:13 | P.PN ---
Subjective Progress Note Date: 10/14/23 No new complaints today. Pending rehab placement. Gen: in no apparent distress, resting comfortably in bed Eyes: PERRL, no scleral injection or icterus HENT: normocephalic, atraumatic, good hearing acuity, moist mucous membranes Neck: no tracheal deviation, full range of motion Resp: good air exchange, breathing comfortably with no accessory muscle use, no tactile fremitus CVS: good distal perfusion x 4, no pitting edema GI: soft, NTTP, ND, no hepatosplenomegaly : no suprapubic tenderness, no CVAT, kilpatrick catheter is present MSK: no clubbing, no cyanosis, no noted contractures of extremities Skin: no noted rashes, petechiae; temperature of skin is appropriate Neuro: Left lower extremity weakness at the hip flexor, CN II-XII intact Psych: cooperative, euthymic mood, insight and judgment intact Hospital Course: 63-year-old male with medical history of atrial fibrillation status post Watchm an, hypertension, hyperlipidemia, DELIO, hypothyroidism, BPH presented for elective surgery: T10 to pelvis decompression and fusion. Medicine was consulted by orthopedic surgery service for medical management. Upon initial evaluation, patient was afebrile, 133/67, heart rate 60, 99% on 2 L nasal can nula. White blood cell count was 17.6, hemoglobin is 11.7. Sodium was 135, chloride 112, CO2 20, BUN 35. Postoperative lumbar spine CT showed postsurgical changes without immediate postoperative complication. Assessment/plan: Atrial fibrillation status post Watchman -Continue amiodarone 100 mg daily -Continue Cardizem 240 mg p.o. daily s/p [id number] decompression/fusion -pain control: REGINALDO 300mg TID, dilaudid PRN, flexeril TID, methocarbamol TID, norco PRN -bowel regimen: miralax, senokot-S, milk of mg, -PT/OT HTN HLD DELIO Hypothyroidism BPH -continue home meds Objective - Vital Signs Vital signs: Vital Signs Temp 99.2 F 10/14/23 13:31 Pulse 78 10/14/23 13:31 Resp 18 10/14/23 13:31 BP 138/73 10/14/23 13:31 Pulse Ox 94 L 10/14/23 13:31 FiO2 Intake & Output 10/13/23 10/14/23 10/14/23 18:59 06:59 18:59 Intake Total 100 294 Output Total 960 1930 160 Balance -860 -1636 -160 Intake: Intake, IV Titration 100 Amount ceFAZolin 3 gm In Sodium 100 Chloride 0.9% 100 ml @ 200 mls/hr IVPB Q8H [facility] Rx#:[id number] Blood Product 0 294 Rc Pheresis 2 As3 Unit 0 294 [id number] Output: Drainage 160 280 160 Back 160 280 160 Urine 800 1650 Other: Voiding Method Indwelling Catheter Indwelling Catheter Indwelling Catheter ABP, PAP, CO, CI - Last Documented Arterial Blood Pressure 166/77 - Labs CBC & Chem 7: 10/14/23 06:14 10/14/23 06:14 Labs: Abnormal Lab Results - Last 24 Hours (Table) 10/13/23 10/14/23 10/14/23 Range/Units 15:44 06:14 06:14 RBC 3.10 L (4.30-5.90) m/uL Hgb 9.2 L (13.0-17.5) gm/dL Hct 27.9 L (39.0-53.0) % Plt Count 105 L (150-450) k/uL Sodium 136 L (137-145) mmol/L Chloride 110 H (98-107) mmol/L BUN 29 H (9-20) mg/dL Creatinine 0.62 L (0.66-1.25) mg/dL Calcium 7.9 L (8.4-10.2) mg/dL AST 66 H (17-59) U/L Total Protein 4.2 L (6.3-8.2) g/dL Albumin 2.0 L (3.5-5.0) g/dL Crossmatch See Detail
--- NOTE | 2023-10-14 16:17 | P.PN ---
Subjective Progress Note Date: 10/14/23 This is a 61-year-old male patient who underwent a lengthy and extensive spine surgery which involved osteotomy of spine, posterior lateral approach with laminectomy and decompression at multiple levels. Please refer to the detailed surgical report as given by the spine surgeon. The patient had neurogenic claudication and lower extremity weakness along with radiculopathy and chronic back pain in addition to the L1 S1 spondylosis with severe stenosis. The patient had an estimated blood loss of 1.7 L and the patient sustained a dural tear that was repaired. The patient was extubated in the operating room and the patient was transferred to the intensive care for further monitoring. At the time of my evaluation, the patient was awake and alert. Communicating activities of action by nasal cannula pulse ox of 95%. BP was stable at 125/76. Hemodynamically stable. Cardiac rhythm was sinus. Blood work showed a WBC count of 8 with a hemoglobin 14.4 and a platelet count of 194 preoperatively. Electrolytes were also within normal limits. At this point in time, the patient is Dilaudid for pain control at the dose of 0.5 to 1 mg every 4 hours on an Estrace basis and the patient also has Tylenol and Toradol. Patient has been chronically maintained on Neurontin 300 mg p.o. 3 times daily. Currently on IV cefazolin. He is known to have obstructive sleep apnea and he has been maintained on CPAP therapy on outpatient basis. Exact settings are not known. He is also known to have BPH maintained on Flomax on outpatient basis, and hyperlipidemia. Patient is also known to have history of atrial fibrillation maintained on amiodarone and Cardizem on outpatient basis and the patient's c urrent rhythm is sinus. 10/12/2023, I am seeing the patient for a follow-up. The patient is currently postop day #1. Awake and alert. Utilized one of our on CPAP overnight. He is currently on 2 L of oxygen by nasal cannula. He is on lactated Ringer at rate of 100 cc an hour. His Hemovac has drained approximately 500 cc. He is using the incentive spirometer pulling approximately 1000. Hemodynamically stable. Hemoglobin has been stable and the patientOn today's blood work, WBC count is at 17.6 with a hemoglobin 11.7 and a platelet count of 154. BUN 35 with a creatinine of 0.96 and a sodium levels at 135. The patient is still laying flat in bed. The plan is to proceed with a lumbar spine CAT scan to evaluate for postsurgical changes and rule out any complications. The patient otherwise has no specific complaints. No altered mentation. Moving all 4 extremities without any limitation. On 10/13/2023, patient is being seen for a follow-up. Doing well. No specific complaints. Respiratory status is stable and the patient is currently on room air oxygen with a pulse ox of 91 to 92%. Utilizing CPAP overnight. Hemoglobin is at 8.6 and a white cell count of 4.2. The BUN is 37 with a creatinine of 0.7 and sodium levels of 132. Remains on IV cefazolin. Remains on lactated Ringer at a rate of 100 cc an hour. No other new complaints otherwise for now. Spine surgery is following the patient. The patient is transferred out of the intensive care unit and is currently on the medical floor. Note that the patient underwent a T10 to pelvis decompression fusion and L2-L3 dural erosion repair with a fat patch graft. Patient is postop day #2 in that regard. He is trying to get out of bed today and he felt dizzy and currently he is on bedrest. CAT scan of the lumbosacral spine shows no acute abnormalities. It is essentially showing postsurgical changes. As far as the hemoglobin, there is no signs of any external bleeding. A unit of packed RBC was ordered by the spine surgery team. On 10/14/2023, the patient was evaluated by the time surgeon. The surgical in cision was reevaluated and the nimco were noted to be intact. There was small amount of incisional drainage that was serous. The Hemovac was placed to gravity. Additional 100 cc of serosanguineous fluid was also emptied by the surgical team and a total amount of output was around 380 cc. He is using incentive spirometer. He has not passed any bowel movement activity yet. Respiratory status is stable and the patient is currently on 4 L of oxygen by nasal cannula with pulse ox of 94%. White cell count of 9 with a hemoglobin 9.2. BUN is 29 with a creatinine of 0.6 and a sodium levels at 136. Serum bicarb level is at 26. Home medications have been resumed. The patient remains on IV cefazolin. Objective - Vital Signs Vital signs: Vital Signs Temp 99.2 F 10/14/23 13:31 Pulse 78 05/24/24 13:31 Resp 18 10/14/23 13:31 BP 138/73 10/14/23 13:31 Pulse Ox 94 L 10/14/23 13:31 FiO2 Intake & Output 10/13/23 10/14/23 10/14/23 18:59 06:59 18:59 Intake Total 100 294 Output Total 960 1930 160 Balance -860 -1636 -160 Intake: Intake, IV Titration 100 Amount ceFAZolin 3 gm In Sodium 100 Chloride 0.9% 100 ml @ 200 mls/hr IVPB Q8H [facility] Rx#:[id number] Blood Product 0 294 Rc Pheresis 2 As3 Unit 0 294 [id number] Output: Drainage 160 280 160 Back 160 280 160 Urine 800 1650 Other: Voiding Method Indwelling Catheter Indwelling Catheter Indwelling Catheter ABP, PAP, CO, CI - Last Documented Arterial Blood Pressure 166/77 - Exam The patient is calm and comfortable, awake and alert and the patient is currently on room air oxygen. Hemodynamically stable. Head exam was generally normal. There was no scleral icterus or corneal arcus. Mucous membranes were moist. Neck was supple and without jugular venous distension, thyromegaly, or carotid bruits. Carotids were easily palpable bilaterally. There was no adenopathy. The patient has a Mallampati class IV still with significant crowding of posterior pharynx. Lungs were clear to auscultation and percussion, and with normal diaphragmatic excursion. No wheezes or rales were noted. Cardiac exam revealed the PMI to be normally situated and sized. The rhythm was regular and no extrasystoles were noted during several minutes of auscultation. The first and second heart sounds were normal and physiologic splitting of the second heart sound was noted. There were no murmurs, rubs, clicks, or gallops. Abdominal exam revealed normal bowel sounds. The abdomen was soft, non-tender, and without masses, organomegaly, or appreciable enlargement of the abdominal aorta. Examination of the extremities revealed easily palpable radial, femoral and pedal pulses. There was no cyanosis, clubbing or edema. Examination of the skin revealed no evidence of significant rashes, suspicious appearing nevi or other concerning lesions. Neurologically the patient is awake and alert and there is no focal neurological deficit and the patient is able to move his extremities. Motor function cannot be assessed in the immediate postoperative phase. Adequate mobility at this point. Adequate sensation. Adequate pulse in lower extremities. - Labs CBC & Chem 7: 10/14/23 06:14 10/14/23 06:14 Labs: Abnormal Lab Results - Last 24 Hours (Table) 10/13/23 10/14/23 10/14/23 Range/Units 15:44 06:14 06:14 RBC 3.10 L (4.30-5.90) m/uL Hgb 9.2 L (13.0-17.5) gm/dL Hct 27.9 L (39.0-53.0) % Plt Count 105 L (150-450) k/uL Sodium 136 L (137-145) mmol/L Chloride 110 H (98-107) mmol/L BUN 29 H (9-20) mg/dL Creatinine 0.62 L (0.66-1.25) mg/dL Calcium 7.9 L (8.4-10.2) mg/dL AST 66 H (17-59) U/L Total Protein 4.2 L (6.3-8.2) g/dL Albumin 2.0 L (3.5-5.0) g/dL Crossmatch See Detail Assessment and Plan Plan: Neurogenic claudication and chronic back pain and radiculopathy along with history of spinal stenosis. The patient underwent T10 to pelvis decompression fusion and L2-L3 dural erosion repair with a fat patch graft, patient is postop day #3 Estimated blood loss 1.7 L. The patient is currently hemodynamically stable on room air oxygen Acute blood loss anemia with a hemoglobin of 8.6, expected outcome of surgery and the patient is receiving unit of packed RBC. The patient was given a unit of packed RBC for hemoglobin of 8.6 and the subsequent hemoglobin was up to 9.2. Acute hypoxic respiratory failure, currently, comfortable on room air oxygen Paroxysmal atrial fibrillation, current rhythm is sinus Hypertension Hyperlipidemia BPH Obstructive sleep apnea Plan The patient is clinically stable. Awake and alert without any major respiratory difficulties. Oxygen at room air Provided patient incentive spirometer PRBC Transfusion was given by the surgical team in the hemoglobin stable for now Pain control with Dilaudid and Toradol and IV Tylenol. The patient is also on Neurontin and muscle relaxants. Continue amiodarone 100 mg p.o. daily and Cardizem 240 mg p.o. daily Continue Flomax 0.4 mg p.o. daily Continue Lipitor 20 mg p.o. daily Continue Neurontin 300 mg p.o. 3 times daily Heparin subcu for DVT prophylaxis every 12 hours CAT scan of the lumbosacral spine noted showing essentially postsurgical changes Will offer the patient CPAP therapy at 10 cm of water in the ICU Will continue to follow.
[2023-10-15 06:44] LABS: HCT 27.4 % (39.0-53.0); HGB 8.9 gm/dL (13.0-17.5); MCH 29.9 pg (25.0-35.0); MCHC 32.6 g/dL (31.0-37.0); MCV 91.7 fL (80.0-100.0); Mean Platelet Volume 8.4; Platelet Count 121 k/uL (150-450); RBC 2.99 m/uL (4.30-5.90); RDW 13.9 % (11.5-15.5)
--- NOTE | 2023-10-15 08:15 | P.PN ---
Subjective Progress Note Date: 10/15/23 Principal diagnosis: 1. L1-S1 spondylosis with stenosis 2. Bilateral lower extremity radiculopathy 3. Neurogenic claudication Patient seen and examined this morning. RN present during assessment and assisted with dressing change. Patient resting comfortably in bed. Patient has stood at bedside x2 yesterday afternoon without symptoms. He states when he returned to bed he had numbness to the LLE, now resolved. Surgical incision to the thoracolumbar spine, incision is well approximated and nimco intact. There is a small mid-low area of the incision that has mild serous drainage. New surgical dressing has been changed. Hemovac is present and patent to gravity, a total of 120ml overnight. Encourage patient to continue with ankle pumps and leg exercises. Would like patient to attempt to sit in chair today. Continue to encourage use of incentive spirometer 10x/hr while awake. Kilpatrick catheter is patent. Patient is passing gas, no BM. Objective - Vital Signs Vital signs: Vital Signs Temp 99.3 F 10/15/23 02:12 Pulse 74 10/15/23 02:12 Resp 20 10/15/23 02:12 BP 132/68 10/15/23 02:12 Pulse Ox 95 10/15/23 02:12 FiO2 Intake & Output 10/14/23 10/15/23 10/15/23 18:59 06:59 18:59 Output Total 790 2220 Balance -790 -2220 Output: Drainage 290 120 Back 290 120 Urine 500 2100 Uretheral (Kilpatrick) 1800 Other: Voiding Method Indwelling Catheter Indwelling Catheter ABP, PAP, CO, CI - Last Documented Arterial Blood Pressure 166/77 - Exam Physical Examination General: The patient is awake and alert, in no acute distress Skin: Skin is warm and dry with no obvious rashes or lesions. Surgical incision to the thoracolumbar spine, incision is well approximated and nimco intact. There is a small mid-low area of the incision that has mild serous drainage. New surgical dressing has been changed. Hemovac is present and patent to gravity, a total of 120ml overnight. Eye: Pupils are equal, round and reactive to light, extra-ocular movements are intact; there is normal conjunctiva bilaterally. Neck: The neck is supple, there is no tenderness and ROM intact. Cardiovascular: There is a regular rate and rhythm. No murmur, rub or gallop is appreciated. Respiratory: Respirations are non-labored, breath sounds are equal. Gastrointestinal: Soft, non-distended, non-tender abdomen. Back: There is no tenderness to palpation in the midline, paralumbar, parathoracic or buttocks region. There is no obvious deformity . Musculoskeletal: ROM limited secondary to pain and stiffness from surgical procedure. Muscle strength in all major muscle groups of bilateral upper extremities 5/5, bilateral lower extremities 4/5. Neurological: CN 2-12 intact. There are no obvious motor or sensory deficits. Movement and coordination equal and intact. Sensory exam to light touch intact C5-T1 and intact from L2-S1. Reflexes 2/4 in bilateral upper and lower extremities. Negative Hoffmans, babinski, and clonus signs. Psychiatric: Cooperative, appropriate mood & affect, normal judgment. - Labs CBC & Chem 7: 10/15/23 05:57 10/14/23 06:14 Labs: Abnormal Lab Results - Last 24 Hours (Table) 10/15/23 Range/Units 05:57 RBC 2.99 L (4.30-5.90) m/uL Hgb 8.9 L (13.0-17.5) gm/dL Hct 27.4 L (39.0-53.0) % Plt Count 121 L (150-450) k/uL Assessment and Plan Assessment: Post-Op Day 4: [id number] decompression and fusion with L2-L3 right dural erosion repair with fat patch graft 1. L1-S1 spondylosis with stenosis 2. L2-L3 right dural erosion tear 3. Bilateral lower extremity radiculopathy 4. Neurogenic claudication Plan: -Appreciate business systems consultant and team management. -Activity: Attempt to have patient sitting upright and attempt to sit in chair today. -Pain control: Medications have been adjusted and scheduled. -Meds: reviewed -GI ppx: senna, Miralax -Maintain kilpatrick at this time. -DVT PPX: Heparin -Hygiene: Maintain dressing clean and dry. Meticulous cleaning after BMs away from the incision site -Drains: Maintain for now. Continue to monitor and record output q 4hrs. -Encourage IS 10x/hr -Dispo: Clinically pending *I reviewed and discussed this case with my attending Dr. Chow, whom has reviewed this chart and films and is in agreement with assessment and plan of care as outlined above. I have personally seen and examined the patient, performed the documentation and the assessment and plan as written. Number of minutes spent on the visit: 20m.
[2023-10-15] MEDS: 0.9% NACL WITH KCL 20 MEQ/L 1,000 ML IV ONE (11:56)
--- NOTE | 2023-10-15 12:05 | P.PN ---
Subjective Progress Note Date: 10/15/23 No new complaints today. Pending rehab placement. Gen: in no apparent distress, resting comfortably in bed Eyes: PERRL, no scleral injection or icterus HENT: normocephalic, atraumatic, good hearing acuity, moist mucous membranes Neck: no tracheal deviation, full range of motion Resp: good air exchange, breathing comfortably with no accessory muscle use, no tactile fremitus CVS: good distal perfusion x 4, no pitting edema GI: soft, NTTP, ND, no hepatosplenomegaly : no suprapubic tenderness, no CVAT, kilpatrick catheter is present MSK: no clubbing, no cyanosis, no noted contractures of extremities Skin: no noted rashes, petechiae; temperature of skin is appropriate Neuro: Left lower extremity weakness at the hip flexor, CN II-XII intact Psych: cooperative, euthymic mood, insight and judgment intact Hospital Course: 63-year-old male with medical history of atrial fibrillation status post Watchm an, hypertension, hyperlipidemia, DELIO, hypothyroidism, BPH presented for elective surgery: T10 to pelvis decompression and fusion. Medicine was consulted by orthopedic surgery service for medical management. Upon initial evaluation, patient was afebrile, 133/67, heart rate 60, 99% on 2 L nasal can nula. White blood cell count was 17.6, hemoglobin is 11.7. Sodium was 135, chloride 112, CO2 20, BUN 35. Postoperative lumbar spine CT showed postsurgical changes without immediate postoperative complication. Assessment/plan: Atrial fibrillation status post Watchman -Continue amiodarone 100 mg daily -Continue Cardizem 240 mg p.o. daily s/p [id number] decompression/fusion -pain control: REGINALDO 300mg TID, dilaudid PRN, flexeril TID, methocarbamol TID, norco PRN -bowel regimen: miralax, senokot-S, milk of mg, -PT/OT HTN HLD DELIO Hypothyroidism BPH -continue home meds Objective - Vital Signs Vital signs: Vital Signs Temp 98.8 F 10/15/23 08:00 Pulse 66 10/15/23 08:00 Resp 18 10/15/23 08:00 BP 136/61 10/15/23 08:00 Pulse Ox 95 10/15/23 08:00 FiO2 Intake & Output 10/14/23 10/15/23 10/15/23 18:59 06:59 18:59 Output Total 790 2220 Balance -790 -2220 Output: Drainage 290 120 Back 290 120 Urine 500 2100 Uretheral (Kilpatrick) 1800 Other: Voiding Method Indwelling Catheter Indwelling Catheter ABP, PAP, CO, CI - Last Documented Arterial Blood Pressure 166/77 - Labs CBC & Chem 7: 10/15/23 05:57 10/14/23 06:14 Labs: Abnormal Lab Results - Last 24 Hours (Table) 10/15/23 Range/Units 05:57 RBC 2.99 L (4.30-5.90) m/uL Hgb 8.9 L (13.0-17.5) gm/dL Hct 27.4 L (39.0-53.0) % Plt Count 121 L (150-450) k/uL
--- NOTE | 2023-10-15 14:15 | P.PN ---
Subjective Progress Note Date: 10/15/23 This is a 61-year-old male patient who underwent a lengthy and extensive spine surgery which involved osteotomy of spine, posterior lateral approach with laminectomy and decompression at multiple levels. Please refer to the detailed surgical report as given by the spine surgeon. The patient had neurogenic claudication and lower extremity weakness along with radiculopathy and chronic back pain in addition to the L1 S1 spondylosis with severe stenosis. The patient had an estimated blood loss of 1.7 L and the patient sustained a dural tear that was repaired. The patient was extubated in the operating room and the patient was transferred to the intensive care for further monitoring. At the time of my evaluation, the patient was awake and alert. Communicating activities of action by nasal cannula pulse ox of 95%. BP was stable at 125/76. Hemodynamically stable. Cardiac rhythm was sinus. Blood work showed a WBC count of 8 with a hemoglobin 14.4 and a platelet count of 194 preoperatively. Electrolytes were also within normal limits. At this point in time, the patient is Dilaudid for pain control at the dose of 0.5 to 1 mg every 4 hours on an Estrace basis and the patient also has Tylenol and Toradol. Patient has been chronically maintained on Neurontin 300 mg p.o. 3 times daily. Currently on IV cefazolin. He is known to have obstructive sleep apnea and he has been maintained on CPAP therapy on outpatient basis. Exact settings are not known. He is also known to have BPH maintained on Flomax on outpatient basis, and hyperlipidemia. Patient is also known to have history of atrial fibrillation maintained on amiodarone and Cardizem on outpatient basis and the patient's c urrent rhythm is sinus. 10/12/2023, I am seeing the patient for a follow-up. The patient is currently postop day #1. Awake and alert. Utilized one of our on CPAP overnight. He is currently on 2 L of oxygen by nasal cannula. He is on lactated Ringer at rate of 100 cc an hour. His Hemovac has drained approximately 500 cc. He is using the incentive spirometer pulling approximately 1000. Hemodynamically stable. Hemoglobin has been stable and the patientOn today's blood work, WBC count is at 17.6 with a hemoglobin 11.7 and a platelet count of 154. BUN 35 with a creatinine of 0.96 and a sodium levels at 135. The patient is still laying flat in bed. The plan is to proceed with a lumbar spine CAT scan to evaluate for postsurgical changes and rule out any complications. The patient otherwise has no specific complaints. No altered mentation. Moving all 4 extremities without any limitation. On 10/13/2023, patient is being seen for a follow-up. Doing well. No specific complaints. Respiratory status is stable and the patient is currently on room air oxygen with a pulse ox of 91 to 92%. Utilizing CPAP overnight. Hemoglobin is at 8.6 and a white cell count of 4.2. The BUN is 37 with a creatinine of 0.7 and sodium levels of 132. Remains on IV cefazolin. Remains on lactated Ringer at a rate of 100 cc an hour. No other new complaints otherwise for now. Spine surgery is following the patient. The patient is transferred out of the intensive care unit and is currently on the medical floor. Note that the patient underwent a T10 to pelvis decompression fusion and L2-L3 dural erosion repair with a fat patch graft. Patient is postop day #2 in that regard. He is trying to get out of bed today and he felt dizzy and currently he is on bedrest. CAT scan of the lumbosacral spine shows no acute abnormalities. It is essentially showing postsurgical changes. As far as the hemoglobin, there is no signs of any external bleeding. A unit of packed RBC was ordered by the spine surgery team. On 10/14/2023, the patient was evaluated by the time surgeon. The surgical in cision was reevaluated and the nimco were noted to be intact. There was small amount of incisional drainage that was serous. The Hemovac was placed to gravity. Additional 100 cc of serosanguineous fluid was also emptied by the surgical team and a total amount of output was around 380 cc. He is using incentive spirometer. He has not passed any bowel movement activity yet. Respiratory status is stable and the patient is currently on 4 L of oxygen by nasal cannula with pulse ox of 94%. White cell count of 9 with a hemoglobin 9.2. BUN is 29 with a creatinine of 0.6 and a sodium levels at 136. Serum bicarb level is at 26. Home medications have been resumed. The patient remains on IV cefazolin. 10/15/2023, the patient is sitting in a recliner. Doing well. No specific complaints. Remains on room air oxygen. The patient is going to utilize his own CPAP machine from home. He was able to bring his machine and he has a AirFit F20 fullface mask. Passing flatus. The incision was checked by the surgical team and the nimco are in place. There is some mild serous drainage and the Hemovac is present and patent to gravity with a total amount of 120 cc of output. No dizziness. No headaches. No altered mentation. Rest of the medication remains unchanged. White cell count at 7 with a hemoglobin 8.9 and a platelet count of 121. Objective - Vital Signs Vital signs: Vital Signs Temp 98.8 F 10/15/23 08:00 Pulse 66 10/15/23 08:00 Resp 18 10/15/23 08:00 BP 136/61 10/15/23 08:00 Pulse Ox 95 10/15/23 08:00 FiO2 Intake & Output 10/14/23 10/15/23 10/15/23 18:59 06:59 18:59 Output Total 790 2220 Balance -790 -2220 Output: Drainage 290 120 Back 290 120 Urine 500 2100 Uretheral (Pimentel) 1800 Other: Voiding Method Indwelling Catheter Indwelling Catheter ABP, PAP, CO, CI - Last Documented Arterial Blood Pressure 166/77 - Exam The patient is calm and comfortable, awake and alert and the patient is curr ently on room air oxygen. Hemodynamically stable. Head exam was generally normal. There was no scleral icterus or corneal arcus. Mucous membranes were moist. Neck was supple and without jugular venous distension, thyromegaly, or carotid bruits. Carotids were easily palpable bilaterally. There was no adenopathy. The patient has a Mallampati class IV still with significant crowding of posterior pharynx. Lungs were clear to auscultation and percussion, and with normal diaphragmatic excursion. No wheezes or rales were noted. Cardiac exam revealed the PMI to be normally situated and sized. The rhythm was regular and no extrasystoles were noted during several minutes of auscultation. The first and second heart sounds were normal and physiologic splitting of the second heart sound was noted. There were no murmurs, rubs, clicks, or gallops. Abdominal exam revealed normal bowel sounds. The abdomen was soft, non-tender, and without masses, organomegaly, or appreciable enlargement of the abdominal aorta. Examination of the extremities revealed easily palpable radial, femoral and pedal pulses. There was no cyanosis, clubbing or edema. Examination of the skin revealed no evidence of significant rashes, suspicious appearing nevi or other concerning lesions. Neurologically the patient is awake and alert and there is no focal neurological deficit and the patient is able to move his extremities. Motor function cannot be assessed in the immediate postoperative phase. Adequate mobility at this point. Adequate sensation. Adequate pulse in lower extremities. - Labs CBC & Chem 7: 10/15/23 05:57 10/14/23 06:14 Labs: Abnormal Lab Results - Last 24 Hours (Table) 10/15/23 Range/Units 05:57 RBC 2.99 L (4.30-5.90) m/uL Hgb 8.9 L (13.0-17.5) gm/dL Hct 27.4 L (39.0-53.0) % Plt Count 121 L (150-450) k/uL Assessment and Plan Plan: Neurogenic claudication and chronic back pain and radiculopathy along with history of spinal stenosis. The patient underwent T10 to pelvis decompression fusion and L2-L3 dural erosion repair with a fat patch graft, patient is postop day # 4 estimated blood loss 1.7 L. The patient is currently hemodynamically stable on room air oxygen. Acute blood loss anemia with a hemoglobin of 8.6, expected outcome of surgery a nd the patient is receiving unit of packed RBC. The patient was transfused a total of 2 units of packed RBCs postop., Maintained on CPAP therapy Acute hypoxic respiratory failure, currently, comfortable on room air oxygen Paroxysmal atrial fibrillation, current rhythm is sinus Hypertension Hyperlipidemia BPH Obstructive sleep apnea Plan The patient is clinically stable. Awake and alert without any major respiratory difficulties. Oxygen at room air Provided patient incentive spirometer Restart using the CPAP machine from home PRBC Transfusion was given by the surgical team in the hemoglobin stable for now Pain control with Dilaudid and Toradol and IV Tylenol. The patient is also on Neurontin and muscle relaxants. Continue amiodarone 100 mg p.o. daily and Cardizem 240 mg p.o. daily Continue Flomax 0.4 mg p.o. daily Continue Lipitor 20 mg p.o. daily Continue Neurontin 300 mg p.o. 3 times daily Heparin subcu for DVT prophylaxis every 12 hours CAT scan of the lumbosacral spine noted showing essentially postsurgical changes Continue using incentive spirometer Increase mobility Surgical team is on the case and management of the Hemovac is to spine surgery Will continue to follow.
[2023-10-15 15:44] LABS: Basophils % (A) 0 %; Eosinophils # (A) 0.2 k/uL (0-0.7); Eosinophils % (A) 3 %; HCT 28.4 % (39.0-53.0); HGB 9.2 gm/dL (13.0-17.5); Lymphocytes # (A) 1.5 k/uL (1.0-4.8); Lymphocytes % (A) 19 %; MCH 29.8 pg (25.0-35.0); MCHC 32.3 g/dL (31.0-37.0); MCV 92.4 fL (80.0-100.0); Mean Platelet Volume 8.6; Monocytes # (A) 0.5 k/uL (0-1.0); Monocytes % (A) 7 %; Neutrophils # (A) 5.3 k/uL (1.3-7.7); Neutrophils % (A) 69 %; Platelet Count 130 k/uL (150-450); RBC 3.07 m/uL (4.30-5.90); RDW 13.9 % (11.5-15.5); WBC 7.7 k/uL (3.8-10.6)
[2023-10-15] MEDS ORDERED: HYDROcodone/APAP 10-325MG 1 EACH TAB PO PRN (18:46)
[2023-10-16 07:18] LABS: HCT 29.1 % (39.0-53.0); HGB 9.3 gm/dL (13.0-17.5); MCH 29.8 pg (25.0-35.0); MCHC 31.9 g/dL (31.0-37.0); MCV 93.5 fL (80.0-100.0); Platelet Count 147 k/uL (150-450); RBC 3.11 m/uL (4.30-5.90); WBC 6.8 k/uL (3.8-10.6)
[2023-10-16 07:30] LABS: African American GFR (CKD) >90 (>60 ml/min/1.73 sqM); Anion Gap 3 mmol/L; Blood Urea Nitrogen 12 mg/dL (9-20); Calcium 8.2 mg/dL (8.4-10.2); Carbon Dioxide 17 mmol/L (22-30); Chloride 117 mmol/L (98-107); Glucose 93 mg/dL (74-99); Non-African American GFR(CKD) >90 (>60 ml/min/1.73 sqM); Potassium 4.1 mmol/L (3.5-5.1); Sodium 137 mmol/L (137-145)
--- NOTE | 2023-10-16 10:19 | P.PN ---
Subjective Progress Note Date: 10/16/23 No new complaints today. Pending rehab placement. Gen: in no apparent distress, resting comfortably in bed Eyes: PERRL, no scleral injection or icterus HENT: normocephalic, atraumatic, good hearing acuity, moist mucous membranes Neck: no tracheal deviation, full range of motion Resp: good air exchange, breathing comfortably with no accessory muscle use, no tactile fremitus CVS: good distal perfusion x 4, no pitting edema GI: soft, NTTP, ND, no hepatosplenomegaly : no suprapubic tenderness, no CVAT, kilaptrick catheter is present MSK: no clubbing, no cyanosis, no noted contractures of extremities Skin: no noted rashes, petechiae; temperature of skin is appropriate Neuro: Left lower extremity weakness at the hip flexor, CN II-XII intact Psych: cooperative, euthymic mood, insight and judgment intact Hospital Course: 63-year-old male with medical history of atrial fibrillation status post Watchm an, hypertension, hyperlipidemia, DELIO, hypothyroidism, BPH presented for elective surgery: T10 to pelvis decompression and fusion. Medicine was consulted by orthopedic surgery service for medical management. Upon initial evaluation, patient was afebrile, 133/67, heart rate 60, 99% on 2 L nasal can nula. White blood cell count was 17.6, hemoglobin is 11.7. Sodium was 135, chloride 112, CO2 20, BUN 35. Postoperative lumbar spine CT showed postsurgical changes without immediate postoperative complication. Assessment/plan: Atrial fibrillation status post Watchman -Continue amiodarone 100 mg daily -Continue Cardizem 240 mg p.o. daily s/p [id number] decompression/fusion -pain control: REGINALDO 300mg TID, dilaudid PRN, flexeril TID, methocarbamol TID, norco PRN -bowel regimen: miralax, senokot-S, milk of mg, -PT/OT HTN HLD DELIO Hypothyroidism BPH -continue home meds Objective - Vital Signs Vital signs: Vital Signs Temp 98.1 F 10/16/23 07:48 Pulse 65 10/16/23 07:48 Resp 18 10/16/23 07:48 BP 188/78 10/16/23 07:48 Pulse Ox 97 10/16/23 07:48 FiO2 Intake & Output 10/15/23 10/16/23 10/16/23 18:59 06:59 18:59 Output Total 6000 3330 Balance -6000 -3330 Output: Drainage 50 230 Back 50 230 Urine 5950 3100 Other: Voiding Method Indwelling Catheter ABP, PAP, CO, CI - Last Documented Arterial Blood Pressure 166/77 - Labs CBC & Chem 7: 10/16/23 06:10 10/16/23 06:10 Labs: Abnormal Lab Results - Last 24 Hours (Table) 10/15/23 10/16/23 10/16/23 Range/Units 15:20 06:10 06:10 RBC 3.07 L 3.11 L (4.30-5.90) m/uL Hgb 9.2 L 9.3 L (13.0-17.5) gm/dL Hct 28.4 L 29.1 L (39.0-53.0) % Plt Count 130 L 147 L (150-450) k/uL Chloride 117 H (98-107) mmol/L Carbon Dioxide 17 L (22-30) mmol/L Creatinine 0.54 L (0.66-1.25) mg/dL Calcium 8.2 L (8.4-10.2) mg/dL
--- NOTE | 2023-10-16 11:11 | P.PN ---
Subjective Progress Note Date: 10/16/23 Principal diagnosis: 1. L1-S1 spondylosis with stenosis 2. Bilateral lower extremity radiculopathy 3. Neurogenic claudication Patient seen and examined this morning. RN present during assessment and assisted with dressing change. Patient resting comfortably in bed. Patient had sat in chair x2 yesterday for approx 2 hours, tolerated well. Surgical incision to the thoracolumbar spine, incision is well approximated and nimco intact. There is a small mid-low area of the incision that had moderate serosanguineous drainage. New surgical dressing and pressure dressing has been placed. Continue to keep dressing clean and dry. Hemovac is present and patent to gravity, a total of 100 ml overnight. Encourage patient to continue with ankle pumps and leg exercises. Continue to encourage patient to sit in chair today. Continue to encourage use of incentive spirometer 10x/hr while awake. Kilpatrick catheter is patent. Patient is passing gas, no BM. Objective - Vital Signs Vital signs: Vital Signs Temp 98.1 F 10/16/23 07:48 Pulse 65 10/16/23 07:48 Resp 18 10/16/23 07:48 BP 188/78 10/16/23 07:48 Pulse Ox 97 10/16/23 07:48 FiO2 Intake & Output 10/15/23 10/16/23 10/16/23 18:59 06:59 18:59 Output Total 6000 3330 Balance -6000 -3330 Output: Drainage 50 230 Back 50 230 Urine 5950 3100 Other: Voiding Method Indwelling Catheter ABP, PAP, CO, CI - Last Documented Arterial Blood Pressure 166/77 - Exam Physical Examination General: The patient is awake and alert, in no acute distress Skin: Skin is warm and dry with no obvious rashes or lesions. Surgical incision to the thoracolumbar spine, incision is well approximated and nimco intact. There is a small mid-low area of the incision that has moderate serosanguineous drainage. New surgical dressing has been changed. Hemovac is present and patent to gravity, a total of 100ml overnight. Eye: Pupils are equal, round and reactive to light, extra-ocular movements are intact; there is normal conjunctiva bilaterally. Neck: The neck is supple, there is no tenderness and ROM intact. Cardiovascular: There is a regular rate and rhythm. No murmur, rub or gallop is appreciated. Respiratory: Respirations are non-labored, breath sounds are equal. Gastrointestinal: Soft, non-distended, non-tender abdomen. Back: There is no tenderness to palpation in the midline, paralumbar, parathoracic or buttocks region. There is no obvious deformity . Musculoskeletal: ROM limited secondary to pain and stiffness from surgical procedure. Muscle strength in all major muscle groups of bilateral upper extremities 5/5, bilateral lower extremities 4/5. Neurological: CN 2-12 intact. There are no obvious motor or sensory deficits. Movement and coordination equal and intact. Sensory exam to light touch intact C5-T1 and intact from L2-S1. Reflexes 2/4 in bilateral upper and lower extremities. Negative Hoffmans, babinski, and clonus signs. Psychiatric: Cooperative, appropriate mood & affect, normal judgment. - Labs CBC & Chem 7: 10/16/23 06:10 10/16/23 06:10 Labs: Abnormal Lab Results - Last 24 Hours (Table) 10/15/23 10/16/23 10/16/23 Range/Units 15:20 06:10 06:10 RBC 3.07 L 3.11 L (4.30-5.90) m/uL Hgb 9.2 L 9.3 L (13.0-17.5) gm/dL Hct 28.4 L 29.1 L (39.0-53.0) % Plt Count 130 L 147 L (150-450) k/uL Chloride 117 H (98-107) mmol/L Carbon Dioxide 17 L (22-30) mmol/L Creatinine 0.54 L (0.66-1.25) mg/dL Calcium 8.2 L (8.4-10.2) mg/dL Assessment and Plan Assessment: Post-Op Day 5: [id number] decompression and fusion with L2-L3 right dural erosion repair with fat patch graft 1. L1-S1 spondylosis with stenosis 2. L2-L3 right dural erosion tear 3. Bilateral lower extremity radiculopathy 4. Neurogenic claudication Plan: -Appreciate service delivery consultant and team management. -Activity: Attempt to have patient sitting upright and to sit in chair today. Keep Abdominal binder in place. -Pain control: Medications have been adjusted and scheduled. -Meds: reviewed -GI ppx: senna, Miralax -Maintain kilpatrick at this time. -DVT PPX: Heparin -Hygiene: Maintain dressing clean and dry. Meticulous cleaning after BMs away from the incision site -Drains: Maintain for now. Continue to monitor and record output q 4hrs. -Encourage IS 10x/hr -Dispo: Clinically pending *I reviewed and discussed this case with my attending Dr. Chow, whom has reviewed this chart and films and is in agreement with assessment and plan of care as outlined above. I have personally seen and examined the patient, performed the documentation and the assessment and plan as written. Number of minutes spent on the visit: 20m.
--- NOTE | 2023-10-16 14:55 | P.PN ---
Subjective Progress Note Date: 10/16/23 This is a 61-year-old male patient who underwent a lengthy and extensive spine surgery which involved osteotomy of spine, posterior lateral approach with laminectomy and decompression at multiple levels. Please refer to the detailed surgical report as given by the spine surgeon. The patient had neurogenic claudication and lower extremity weakness along with radiculopathy and chronic back pain in addition to the L1 S1 spondylosis with severe stenosis. The patient had an estimated blood loss of 1.7 L and the patient sustained a dural tear that was repaired. The patient was extubated in the operating room and the patient was transferred to the intensive care for further monitoring. At the time of my evaluation, the patient was awake and alert. Communicating activities of action by nasal cannula pulse ox of 95%. BP was stable at 125/76. Hemodynamically stable. Cardiac rhythm was sinus. Blood work showed a WBC count of 8 with a hemoglobin 14.4 and a platelet count of 194 preoperatively. Electrolytes were also within normal limits. At this point in time, the patient is Dilaudid for pain control at the dose of 0.5 to 1 mg every 4 hours on an Estrace basis and the patient also has Tylenol and Toradol. Patient has been chronically maintained on Neurontin 300 mg p.o. 3 times daily. Currently on IV cefazolin. He is known to have obstructive sleep apnea and he has been maintained on CPAP therapy on outpatient basis. Exact settings are not known. He is also known to have BPH maintained on Flomax on outpatient basis, and hyperlipidemia. Patient is also known to have history of atrial fibrillation maintained on amiodarone and Cardizem on outpatient basis and the patient's c urrent rhythm is sinus. 10/12/2023, I am seeing the patient for a follow-up. The patient is currently postop day #1. Awake and alert. Utilized one of our on CPAP overnight. He is currently on 2 L of oxygen by nasal cannula. He is on lactated Ringer at rate of 100 cc an hour. His Hemovac has drained approximately 500 cc. He is using the incentive spirometer pulling approximately 1000. Hemodynamically stable. Hemoglobin has been stable and the patientOn today's blood work, WBC count is at 17.6 with a hemoglobin 11.7 and a platelet count of 154. BUN 35 with a creatinine of 0.96 and a sodium levels at 135. The patient is still laying flat in bed. The plan is to proceed with a lumbar spine CAT scan to evaluate for postsurgical changes and rule out any complications. The patient otherwise has no specific complaints. No altered mentation. Moving all 4 extremities without any limitation. On 10/13/2023, patient is being seen for a follow-up. Doing well. No specific complaints. Respiratory status is stable and the patient is currently on room air oxygen with a pulse ox of 91 to 92%. Utilizing CPAP overnight. Hemoglobin is at 8.6 and a white cell count of 4.2. The BUN is 37 with a creatinine of 0.7 and sodium levels of 132. Remains on IV cefazolin. Remains on lactated Ringer at a rate of 100 cc an hour. No other new complaints otherwise for now. Spine surgery is following the patient. The patient is transferred out of the intensive care unit and is currently on the medical floor. Note that the patient underwent a T10 to pelvis decompression fusion and L2-L3 dural erosion repair with a fat patch graft. Patient is postop day #2 in that regard. He is trying to get out of bed today and he felt dizzy and currently he is on bedrest. CAT scan of the lumbosacral spine shows no acute abnormalities. It is essentially showing postsurgical changes. As far as the hemoglobin, there is no signs of any external bleeding. A unit of packed RBC was ordered by the spine surgery team. On 10/14/2023, the patient was evaluated by the time surgeon. The surgical in cision was reevaluated and the nimco were noted to be intact. There was small amount of incisional drainage that was serous. The Hemovac was placed to gravity. Additional 100 cc of serosanguineous fluid was also emptied by the surgical team and a total amount of output was around 380 cc. He is using incentive spirometer. He has not passed any bowel movement activity yet. Respiratory status is stable and the patient is currently on 4 L of oxygen by nasal cannula with pulse ox of 94%. White cell count of 9 with a hemoglobin 9.2. BUN is 29 with a creatinine of 0.6 and a sodium levels at 136. Serum bicarb level is at 26. Home medications have been resumed. The patient remains on IV cefazolin. 10/15/2023, the patient is sitting in a recliner. Doing well. No specific complaints. Remains on room air oxygen. The patient is going to utilize his own CPAP machine from home. He was able to bring his machine and he has a AirFit F20 fullface mask. Passing flatus. The incision was checked by the surgical team and the nimco are in place. There is some mild serous drainage and the Hemovac is present and patent to gravity with a total amount of 120 cc of output. No dizziness. No headaches. No altered mentation. Rest of the medication remains unchanged. White cell count at 7 with a hemoglobin 8.9 and a platelet count of 121. 10/16/2023, the patient is being seen for a follow-up. Doing well. Comfortable in bed. Surgical incision shows some minimal amount of serosanguineous material in the dressing. Pressure dressing was applied and the nimco are in place. Hemovac is present and patent to gravity. Total amount of output was 100 cc. He is using incentive spirometer. Pain is under adequate control. No headaches. No altered mentation. White cell count is 6.8 and hemoglobin 9.3. BUN is 12 with a creatinine of 0.5 and a sodium levels at 137. Medications remain unchanged. Objective - Vital Signs Vital signs: Vital Signs Temp 98.1 F 10/16/23 07:48 Pulse 65 10/16/23 07:48 Resp 18 10/16/23 07:48 BP 188/78 10/16/23 07:48 Pulse Ox 97 10/16/23 07:48 FiO2 Intake & Output 10/15/23 10/16/23 10/16/23 18:59 06:59 18:59 Output Total 6000 3330 70 Balance -6000 -3330 -70 Output: Drainage 50 230 70 Back 50 230 70 Urine 5950 3100 Other: Voiding Method Indwelling Catheter ABP, PAP, CO, CI - Last Documented Arterial Blood Pressure 166/77 - Exam The patient is calm and comfortable, awake and alert and the patient is currently on room air oxygen. Hemodynamically stable. Head exam was generally normal. There was no scleral icterus or corneal arcus. Mucous membranes were moist. Neck was supple and without jugular venous distension, thyromegaly, or carotid bruits. Carotids were easily palpable bilaterally. There was no adenopathy. The patient has a Mallampati class IV still with significant crowding of posterior pharynx. Lungs were clear to auscultation and percussion, and with normal diaphragmatic excursion. No wheezes or rales were noted. Cardiac exam revealed the PMI to be normally situated and sized. The rhythm was regular and no extrasystoles were noted during several minutes of auscultation. The first and second heart sounds were normal and physiologic splitting of the second heart sound was noted. There were no murmurs, rubs, clicks, or gallops. Abdominal exam revealed normal bowel sounds. The abdomen was soft, non-tender, and without masses, organomegaly, or appreciable enlargement of the abdominal aorta. Examination of the extremities revealed easily palpable radial, femoral and pedal pulses. There was no cyanosis, clubbing or edema. Examination of the skin revealed no evidence of significant rashes, suspicious appearing nevi or other concerning lesions. Neurologically the patient is awake and alert and there is no focal neurological deficit and the patient is able to move his extremities. Motor function cannot be assessed in the immediate postoperative phase. Adequate mobility at this point. Adequate sensation. Adequate pulse in lower extremities. - Labs CBC & Chem 7: 10/16/23 06:10 10/16/23 06:10 Labs: Abnormal Lab Results - Last 24 Hours (Table) 10/15/23 10/16/23 10/16/23 Range/Units 15:20 06:10 06:10 RBC 3.07 L 3.11 L (4.30-5.90) m/uL Hgb 9.2 L 9.3 L (13.0-17.5) gm/dL Hct 28.4 L 29.1 L (39.0-53.0) % Plt Count 130 L 147 L (150-450) k/uL Chloride 117 H (98-107) mmol/L Carbon Dioxide 17 L (22-30) mmol/L Creatinine 0.54 L (0.66-1.25) mg/dL Calcium 8.2 L (8.4-10.2) mg/dL Assessment and Plan Plan: Neurogenic claudication and chronic back pain and radiculopathy along with history of spinal stenosis. The patient underwent T10 to pelvis decompression fusion and L2-L3 dural erosion repair with a fat patch graft, patient is postop day # 5 estimated blood loss 1.7 L. The patient is currently hemodynamically stable on room air oxygen. Acute blood loss anemia with a hemoglobin of 8.6, expected outcome of surgery and the patient is receiving unit of packed RBC. The patient was transfused a total of 2 units of packed RBCs postop., Maintained on CPAP therapy Acute hypoxic respiratory failure, currently, comfortable on room air oxygen Paroxysmal atrial fibrillation, current rhythm is sinus Hypertension Hyperlipidemia BPH Obstructive sleep apnea Plan The patient is clinically stable. Awake and alert without any major respiratory difficulties. The patient continues to recover from his surgery. No active issues at this point in time and is treatment/related to his postsurgical care. Hemovac is in place patent to drainage total amount of output was 100 cc. Oxygen at room air Provided patient incentive spirometer Restart using the CPAP machine from home PRBC Transfusion was given by the surgical team in the hemoglobin stable for now Pain control with Dilaudid and Toradol and IV Tylenol. The patient is also on Neurontin and muscle relaxants. Continue amiodarone 100 mg p.o. daily and Cardizem 240 mg p.o. daily Continue Flomax 0.4 mg p.o. daily Continue Lipitor 20 mg p.o. daily Continue Neurontin 300 mg p.o. 3 times daily Heparin subcu for DVT prophylaxis every 12 hours CAT scan of the lumbosacral spine noted showing essentially postsurgical changes Continue using incentive spirometer Increase mobility Surgical team is on the case and management of the Hemovac is to spine surgery Pulmonary critical care services will sign off..
[2023-10-16] MEDS: MAGNESIUM HYDROXIDE 2,400 MG/30 ML CUP PO PRN (17:06)
[2023-10-16] MEDS: BUTALB/APAP/CAFF 50-325-40MG TAB PO PRN (19:36)
[2023-10-17 06:01] LABS: HCT 27.3 % (39.0-53.0); HGB 8.9 gm/dL (13.0-17.5); MCH 29.7 pg (25.0-35.0); MCHC 32.7 g/dL (31.0-37.0); MCV 90.9 fL (80.0-100.0); Mean Platelet Volume 9.1; Platelet Count 163 k/uL (150-450); RBC 3.01 m/uL (4.30-5.90); RDW 14.1 % (11.5-15.5)
[2023-10-17 06:08] LABS: African American GFR (CKD) >90 (>60 ml/min/1.73 sqM); Anion Gap 4 mmol/L; Blood Urea Nitrogen 12 mg/dL (9-20); Calcium 8.1 mg/dL (8.4-10.2); Carbon Dioxide 16 mmol/L (22-30); Chloride 114 mmol/L (98-107); Glucose 112 mg/dL (74-99); Non-African American GFR(CKD) >90 (>60 ml/min/1.73 sqM); Potassium 3.7 mmol/L (3.5-5.1); Sodium 134 mmol/L (137-145)
--- NOTE | 2023-10-17 07:34 | P.PN ---
Subjective Progress Note Date: 10/17/23 Principal diagnosis: 1. L1-S1 spondylosis with stenosis 2. Bilateral lower extremity radiculopathy 3. Neurogenic claudication Patient seen and examined this morning. Patient resting comfortably in bed. Patient had an episode of a slow increasing headache last night and patient was returned to laying flat. Patient is currently sitting up in bed at approx 40 degrees eating breakfast with no complaints. Surgical incision to the thoracolumbar spine, incision is well approximated and nimco intact. There is a small mid-low area of the incision that had moderate serosanguineous drainage. New surgical dressing and pressure dressing has been placed yesterday evening, CDI. Continue to keep dressing clean and dry. Hemovac is present and patent to gravity, a total of 180 ml overnight. Patient continues to have LLE radiculopathy. Encourage patient to continue with ankle pumps and leg exercises. Continue to encourage patient to sit in chair today. Continue to encourage use of incentive spirometer 10x/hr while awake. Kilpatrick catheter is patent. Patient is passing gas, no BM. Objective - Vital Signs Vital signs: Vital Signs Temp 98.3 F 10/17/23 01:29 Pulse 72 10/17/23 01:29 Resp 18 10/17/23 01:29 BP 151/77 10/17/23 01:29 Pulse Ox 95 10/17/23 01:29 FiO2 Intake & Output 10/16/23 10/17/23 10/17/23 18:59 06:59 18:59 Output Total 21508 2080 Balance -21958 -2080 Output: Drainage 70 180 Back 70 180 Urine 58781 1900 Other: Voiding Method Indwelling Catheter ABP, PAP, CO, CI - Last Documented Arterial Blood Pressure 166/77 - Exam Physical Examination General: The patient is awake and alert, in no acute distress Skin: Skin is warm and dry with no obvious rashes or lesions. Surgical incision to the thoracolumbar spine, incision is well approximated and nimco intact. There is a small mid-low area of the incision that has moderate serosanguineous drainage. Pressure dressing present and CDI. Hemovac is present and patent to gravity, a total of 180ml overnight. Eye: Pupils are equal, round and reactive to light, extra-ocular movements are intact; there is normal conjunctiva bilaterally. Neck: The neck is supple, there is no tenderness and ROM intact. Cardiovascular: There is a regular rate and rhythm. No murmur, rub or gallop is appreciated. Respiratory: Respirations are non-labored, breath sounds are equal. Gastrointestinal: Soft, non-distended, non-tender abdomen. Back: There is no tenderness to palpation in the midline, paralumbar, parathoracic or buttocks region. There is no obvious deformity . Musculoskeletal: ROM limited secondary to pain and stiffness from surgical procedure. Muscle strength in all major muscle groups of bilateral upper extremities 5/5, bilateral lower extremities 4/5. Neurological: CN 2-12 intact. There are no obvious motor or sensory deficits. Movement and coordination equal and intact. Sensory exam to light touch intact C5-T1 and intact from L2-S1. Reflexes 2/4 in bilateral upper and lower extremities. Negative Hoffmans, babinski, and clonus signs. Psychiatric: Cooperative, appropriate mood & affect, normal judgment. - Labs CBC & Chem 7: 10/17/23 05:31 10/17/23 05:31 Labs: Abnormal Lab Results - Last 24 Hours (Table) 10/16/23 10/17/23 10/17/23 Range/Units 06:10 05:31 05:31 RBC 3.01 L (4.30-5.90) m/uL Hgb 8.9 L (13.0-17.5) gm/dL Hct 27.3 L (39.0-53.0) % Sodium 134 L (137-145) mmol/L Chloride 117 H 114 H (98-107) mmol/L Carbon Dioxide 17 L 16 L (22-30) mmol/L Creatinine 0.54 L 0.55 L (0.66-1.25) mg/dL Glucose 112 H (74-99) mg/dL Calcium 8.2 L 8.1 L (8.4-10.2) mg/dL Assessment and Plan Assessment: Post-Op Day 6: [id number] decompression and fusion with L2-L3 right dural erosion repair with fat patch graft 1. L1-S1 spondylosis with stenosis 2. L2-L3 right dural erosion tear 3. Bilateral lower extremity radiculopathy 4. Neurogenic claudication Plan: -Appreciate product/industry consultant and team management. -Activity: Attempt to have patient sitting upright and to sit in chair today. Keep Abdominal binder in place. -Pain control: Medications have been adjusted and scheduled. -Meds: reviewed -GI ppx: senna, Miralax, MOM, Mag citrate -Maintain kilpatrick at this time. -DVT PPX: Heparin -Hygiene: Maintain dressing clean and dry. Meticulous cleaning after BMs away from the incision site -Drains: Maintain for now. Continue to monitor and record output q 4hrs. -Encourage IS 10x/hr -Dispo: Clinically pending *I reviewed and discussed this case with my attending Dr. Chow, whom has reviewed this chart and films and is in agreement with assessment and plan of care as outlined above. I have personally seen and examined the patient, performed the documentation and the assessment and plan as written. Number of minutes spent on the visit: 20m.
[2023-10-17] MEDS: MAGNESIUM CITRATE 296 ML BOTTLE PO ONE (07:58)
[2023-10-17] MEDS ORDERED: Potassium Replacement Protocol 1 EACH MISC MISCELLANE PRN (09:52)
[2023-10-17] MEDS: POTASSIUM CHLORIDE ER 20 MEQ TAB.ER PO SCH (11:13)
--- NOTE | 2023-10-17 14:09 | P.PN ---
Subjective Progress Note Date: 10/17/23 Pt continues to have orthostatic headache, followed by ortho for this. No concerning features for meningitis are present at this time. Pending rehab placement. Gen: in no apparent distress, resting comfortably in bed Eyes: PERRL, no scleral injection or icterus HENT: normocephalic, atraumatic, good hearing acuity, moist mucous membranes Neck: no tracheal deviation, full range of motion Resp: good air exchange, breathing comfortably with no accessory muscle use, no tactile fremitus CVS: good distal perfusion x 4, no pitting edema GI: soft, NTTP, ND, no hepatosplenomegaly : no suprapubic tenderness, no CVAT, kilpatrick catheter is present MSK: no clubbing, no cyanosis, no noted contractures of extremities Skin: no noted rashes, petechiae; temperature of skin is appropriate Neuro: Left lower extremity weakness at the hip flexor, CN II-XII intact Psych: cooperative, euthymic mood, insight and judgment intact Hospital Course: 63-year-old male with medical history of atrial fibrillation status post Watchman, hypertension, hyperlipidemia, DELIO, hypothyroidism, BPH presented for elective surgery: T10 to pelvis decompression and fusion. Medicine was consulted by orthopedic surgery service for medical management. Upon initial evaluation, patient was afebrile, 133/67, heart rate 60, 99% on 2 L nasal cannula. White blood cell count was 17.6, hemoglobin is 11.7. Sodium was 135, chloride 112, CO2 20, BUN 35. Postoperative lumbar spine CT showed postsurgical changes without immediate postoperative complication. Assessment/plan: Atrial fibrillation status post Watchman -Continue amiodarone 100 mg daily -Continue Cardizem 240 mg p.o. daily s/p [id number] decompression/fusion -pain control: REGINALDO 300mg TID, dilaudid PRN, flexeril TID, methocarbamol TID, norco PRN -bowel regimen: miralax, senokot-S, milk of mg, -PT/OT HTN HLD DELIO Hypothyroidism BPH -continue home meds Objective - Vital Signs Vital signs: Vital Signs Temp 98.3 F 10/17/23 08:00 Pulse 69 10/17/23 08:00 Resp 17 10/17/23 08:00 BP 151/72 10/17/23 08:00 Pulse Ox 97 10/17/23 08:00 FiO2 Intake & Output 10/16/23 10/17/23 10/17/23 18:59 06:59 18:59 Output Total 86003 2079 990 Balance -74733 -2079 -99 Output: Drainage 70 180 190 Back 70 180 190 Urine 30392 1900 800 Other: Voiding Method Indwelling Catheter Indwelling Catheter ABP, PAP, CO, CI - Last Documented Arterial Blood Pressure 166/77 - Labs CBC & Chem 7: 10/17/23 05:31 10/17/23 05:31 Labs: Abnormal Lab Results - Last 24 Hours (Table) 10/17/23 10/17/23 Range/Units 05:31 05:31 RBC 3.01 L (4.30-5.90) m/uL Hgb 8.9 L (13.0-17.5) gm/dL Hct 27.3 L (39.0-53.0) % Sodium 134 L (137-145) mmol/L Chloride 114 H (98-107) mmol/L Carbon Dioxide 16 L (22-30) mmol/L Creatinine 0.55 L (0.66-1.25) mg/dL Glucose 112 H (74-99) mg/dL Calcium 8.1 L (8.4-10.2) mg/dL
[2023-10-18 06:03] LABS: MCH 29.4 pg (25.0-35.0); MCHC 32.2 g/dL (31.0-37.0); MCV 91.3 fL (80.0-100.0); Mean Platelet Volume 8.9; Platelet Count 188 k/uL (150-450); RBC 3.07 m/uL (4.30-5.90); RDW 14.1 % (11.5-15.5); WBC 7.1 k/uL (3.8-10.6)
[2023-10-18 06:34] LABS: African American GFR (CKD) >90 (>60 ml/min/1.73 sqM); Anion Gap 1 mmol/L; Blood Urea Nitrogen 12 mg/dL (9-20); Calcium 8.3 mg/dL (8.4-10.2); Carbon Dioxide 22 mmol/L (22-30); Chloride 114 mmol/L (98-107); Glucose 118 mg/dL (74-99); Non-African American GFR(CKD) >90 (>60 ml/min/1.73 sqM); Potassium 3.9 mmol/L (3.5-5.1); Sodium 137 mmol/L (137-145)
--- NOTE | 2023-10-18 08:49 | P.PN ---
Subjective Progress Note Date: 10/18/23 Principal diagnosis: 1. L1-S1 spondylosis with stenosis 2. Bilateral lower extremity radiculopathy 3. Neurogenic claudication Patient seen and examined this morning. Dr. Chow present this morning during exam. Patient resting comfortably in bed. Patient reports experiencing slight headaches when up and about. Patient is currently sitting up in bed at approx 40 degrees with no complaints. Surgical incision to the thoracolumbar spine, incision is well approximated and nimco intact. There is a small mid- low area of the incision that had mild to moderate serosanguineous drainage. New surgical dressing and pressure dressing has been applied this morning. Hemovac drain has been removed. Continue to keep dressing clean and dry. Continue to encourage patient to sit in chair today. Continue to encourage use of incentive spirometer 10x/hr while awake. Kilpatrick catheter is patent. Patient is passing gas and has had a BM yesterday, 10/17/23. Objective - Vital Signs Vital signs: Vital Signs Temp 98.0 F 10/18/23 02:00 Pulse 66 10/18/23 02:00 Resp 20 10/18/23 02:00 BP 146/76 10/18/23 02:00 Pulse Ox 97 10/18/23 02:00 FiO2 Intake & Output 10/17/23 10/18/23 10/18/23 18:59 06:59 18:59 Output Total 5250 1200 Balance -5250 -1200 Output: Drainage 250 300 Back 250 300 Urine 5000 900 Other: Voiding Method Indwelling Catheter Indwelling Catheter # Bowel Movements 1 ABP, PAP, CO, CI - Last Documented Arterial Blood Pressure 166/77 - Exam Physical Examination General: The patient is awake and alert, in no acute distress Skin: Skin is warm and dry with no obvious rashes or lesions. Surgical incision to the thoracolumbar spine, incision is well approximated and nimco intact. There is a small mid-low area of the incision that has mild to moderate serosanguineous drainage. New dressing applied this morning. Hemovac has been discontinued. Eye: Pupils are equal, round and reactive to light, extra-ocular movements are i ntact; there is normal conjunctiva bilaterally. Neck: The neck is supple, there is no tenderness and ROM intact. Cardiovascular: There is a regular rate and rhythm. No murmur, rub or gallop is appreciated. Respiratory: Respirations are non-labored, breath sounds are equal. Gastrointestinal: Soft, non-distended, non-tender abdomen. Back: There is no tenderness to palpation in the midline, paralumbar, parathoracic or buttocks region. There is no obvious deformity . Musculoskeletal: ROM limited secondary to pain and stiffness from surgical procedure. Muscle strength in all major muscle groups of bilateral upper extremities 5/5, bilateral lower extremities 4/5. Neurological: CN 2-12 intact. There are no obvious motor or sensory deficits. Movement and coordination equal and intact. Sensory exam to light touch intact C5-T1 and intact from L2-S1. Reflexes 2/4 in bilateral upper and lower extremities. Negative Hoffmans, babinski, and clonus signs. Psychiatric: Cooperative, appropriate mood & affect, normal judgment. - Labs CBC & Chem 7: 10/18/23 05:18 10/18/23 05:18 Labs: Abnormal Lab Results - Last 24 Hours (Table) 10/18/23 10/18/23 Range/Units 05:18 05:18 RBC 3.07 L (4.30-5.90) m/uL Hgb 9.0 L (13.0-17.5) gm/dL Hct 28.0 L (39.0-53.0) % Chloride 114 H (98-107) mmol/L Creatinine 0.47 L (0.66-1.25) mg/dL Glucose 118 H (74-99) mg/dL Calcium 8.3 L (8.4-10.2) mg/dL Assessment and Plan Assessment: Post-Op Day 7: C32-[id number] decompression and fusion with L2-L3 right dural erosion repair with fat patch graft 1. L1-S1 spondylosis with stenosis 2. L2-L3 right dural erosion tear 3. Bilateral lower extremity radiculopathy 4. Neurogenic claudication Plan: -Appreciate product development consultant and team management. -Activity: Attempt to have patient sitting upright and to sit in chair today. Keep Abdominal binder in place. -Pain control: Adequate at this time. -Meds: reviewed -GI ppx: senna, Miralax, MOM, Mag citrate -Maintain kilpatrick at this time. -DVT PPX: Heparin -Hygiene: Maintain dressing clean and dry. Meticulous cleaning after BMs away from the incision site -Encourage IS 10x/hr -Dispo: Clinically pending *I reviewed and discussed this case with my attending Dr. Chow, whom has reviewed this chart and films and is in agreement with assessment and plan of care as outlined above. I have personally seen and examined the patient, performed the documentation and the assessment and plan as written. Number of minutes spent on the visit: 20m.
--- NOTE | 2023-10-18 14:52 | P.PN ---
Subjective Progress Note Date: 10/18/23 Hospital course 63-year-old male with medical history of atrial fibrillation status post Watchman, hypertension, hyperlipidemia, DELIO, hypothyroidism, BPH presented for elective surgery: T10 to pelvis decompression and fusion. Medicine was consulted by orthopedic surgery service for medical management. Upon initial evaluation, patient was afebrile, 133/67, heart rate 60, 99% on 2 L nasal cannula. White blood cell count was 17.6, hemoglobin is 11.7. Sodium was 135, chloride 112, CO2 20, BUN 35. Postoperative lumbar spine CT showed postsurgical changes without immediate postoperative complication. Patient seen this morning. He had no acute complaints. No other acute issues overnight. 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 Psych - Calm and cooperative Assessment and plan Atrial fibrillation status post watchman Continue with amiodarone and Cardizem Status post thoracic pelvis decompression and fusion Continue with pain control as per primary team PT OT Chronic conditions Hypertension hyperlipidemia DELIO hypothyroidism BPH Continue home meds Objective - Vital Signs Vital signs: Vital Signs Temp 98.2 F 10/18/23 13:32 Pulse 65 10/18/23 13:32 Resp 19 10/18/23 13:32 BP 162/66 10/18/23 13:32 Pulse Ox 95 10/18/23 13:32 FiO2 Intake & Output 10/17/23 10/18/23 10/18/23 18:59 06:59 18:59 Output Total 5250 1200 Balance -5250 -1200 Output: Drainage 250 300 Back 250 300 Urine 5000 900 Other: Voiding Method Indwelling Catheter Indwelling Catheter Indwelling Catheter # Bowel Movements 1 700 ABP, PAP, CO, CI - Last Documented Arterial Blood Pressure 166/77 - Labs CBC & Chem 7: 10/18/23 05:18 10/18/23 05:18 Labs: Abnormal Lab Results - Last 24 Hours (Table) 10/18/23 10/18/23 Range/Units 05:18 05:18 RBC 3.07 L (4.30-5.90) m/uL Hgb 9.0 L (13.0-17.5) gm/dL Hct 28.0 L (39.0-53.0) % Chloride 114 H (98-107) mmol/L Creatinine 0.47 L (0.66-1.25) mg/dL Glucose 118 H (74-99) mg/dL Calcium 8.3 L (8.4-10.2) mg/dL
[2023-10-18 15:41] VITALS: BMI 42.3
[2023-10-19] MEDS: HYDROcodone/APAP 10-325MG 1 EACH TAB PO PRN (03:16)
[2023-10-19 08:04] LABS: HCT 30.8 % (39.0-53.0); HGB 10.1 gm/dL (13.0-17.5); Hypochromasia Slight; MCH 29.8 pg (25.0-35.0); MCHC 32.6 g/dL (31.0-37.0); MCV 91.3 fL (80.0-100.0); Platelet Count 245 k/uL (150-450); Poikilocytosis Slight; RBC 3.38 m/uL (4.30-5.90); RDW 14.5 % (11.5-15.5); WBC 8.9 k/uL (3.8-10.6)
[2023-10-19 08:06] LABS: African American GFR (CKD) >90 (>60 ml/min/1.73 sqM); Anion Gap 2 mmol/L; Blood Urea Nitrogen 11 mg/dL (9-20); Calcium 8.7 mg/dL (8.4-10.2); Carbon Dioxide 23 mmol/L (22-30); Chloride 113 mmol/L (98-107); Glucose 84 mg/dL (74-99); Non-African American GFR(CKD) >90 (>60 ml/min/1.73 sqM); Potassium 4.1 mmol/L (3.5-5.1); Sodium 138 mmol/L (137-145)
--- NOTE | 2023-10-19 08:33 | P.PN ---
Subjective Progress Note Date: 10/19/23 Principal diagnosis: 1. L1-S1 spondylosis with stenosis 2. Bilateral lower extremity radiculopathy 3. Neurogenic claudication Patient seen and examined this morning. Upon entering room patient was using the BSC, he has had multiple BM and urinating without difficulty. Patient reports he is feeling much better today. He denies any headaches, dizziness, nausea/vomiting. Surgical incision is well approximated with nimco intact. There is an area mid-low portion of the incision that has been draining serosanguineous. This has significantly decreased to scant amount on dressing. New surgical dressing has been applied. Patient is standby assist with walker. He continues to report some radiculopathy into the left lower extremity that is improving. Patient is cleared at this time for discharge to subacute rehab. Discharge instructions have been reviewed with patient and have been placed in chart. Objective - Vital Signs Vital signs: Vital Signs Temp 98.1 F 10/19/23 00:36 Pulse 64 10/19/23 00:36 Resp 18 10/19/23 00:36 BP 135/68 10/19/23 00:36 Pulse Ox 96 10/19/23 00:36 FiO2 Intake & Output 10/18/23 10/19/23 10/19/23 18:59 06:59 18:59 Output Total 450 Balance -450 Weight 133.8 kg Output: Urine 450 Other: Voiding Method Indwelling Catheter # Voids 1 # Bowel Movements 700 1 ABP, PAP, CO, CI - Last Documented Arterial Blood Pressure 166/77 - Exam Physical Examination General: The patient is awake and alert, in no acute distress Skin: Skin is warm and dry with no obvious rashes or lesions. Surgical incision to the thoracolumbar spine, incision is well approximated and nimco intact. There is a small mid-low area of the incision that has scant serosanguineous drainage. New dressing applied this morning. Hemovac has been discontinued. Eye: Pupils are equal, round and reactive to light, extra-ocular movements are intact; there is normal conjunctiva bilaterally. Neck: The neck is supple, there is no tenderness and ROM intact. Cardiovascular: There is a regular rate and rhythm. No murmur, rub or gallop is appreciated. Respiratory: Respirations are non-labored, breath sounds are equal. Gastrointestinal: Soft, non-distended, non-tender abdomen. Back: There is no tenderness to palpation in the midline, paralumbar, parathoracic or buttocks region. There is no obvious deformity . Musculoskeletal: ROM limited secondary to pain and stiffness from surgical procedure. Muscle strength in all major muscle groups of bilateral upper extremities 5/5, bilateral lower extremities 4/5. Neurological: CN 2-12 intact. There are no obvious motor or sensory deficits. Movement and coordination equal and intact. Sensory exam to light touch intact C5-T1 and intact from L2-S1. Reflexes 2/4 in bilateral upper and lower extremities. Negative Hoffmans, babinski, and clonus signs. Psychiatric: Cooperative, appropriate mood & affect, normal judgment. - Labs CBC & Chem 7: 10/19/23 07:28 10/19/23 07:28 Assessment and Plan Assessment: Post-Op Day 8: [id number] decompression and fusion with L2-L3 right dural erosion repair with fat patch graft 1. L1-S1 spondylosis with stenosis 2. L2-L3 right dural erosion tear 3. Bilateral lower extremity radiculopathy 4. Neurogenic claudication Plan: -Appreciate health consultant and team management. -Activity: Ambulate QID, OOB all meals, up and about, limit lifting bending twisting to less than 5 lbs. Use walker or cane if needed for stability. -Daily PT/OT, increase ambulation strength and balance. -Brace when up and about, not needed in bed or chair -Pain control: Adequate at this time -Meds: reviewed -GI ppx: senna, Miralax -DVT PPX: Heparin -Hygiene: Shower today. Maintain dressing clean and dry. Meticulous cleaning after BMs away from the incision site -Encourage IS 10x/hr -Dispo: Patient is cleared from orthopedic standpoint for discharge to subacute rehab *I reviewed and discussed this case with my attending Dr. Chow, whom has reviewed this chart and films and is in agreement with assessment and plan of care as outlined above. I have personally seen and examined the patient, performed the documentation and the assessment and plan as written. Number of minutes spent on the visit: 20m.
--- NOTE | 2023-10-19 08:49 | P.DS ---
Providers Date of admission: 10/11/23 05:35 Expected date of discharge: 10/19/23 Attending physician: El Chow DO Consults: 10/11/23 17:04 Consult Physician Routine Consulting Provider: Heather Augustin Consult Reason/Comments: medical management Do you want consulting provider notified?: Yes 10/11/23 17:48 Consult Physician Routine Consulting Provider: Dang Barron Consult Reason/Comments: icu management Do you want consulting provider notified?: Already Contacted Primary care physician: Stated None Hospital Course: Hospital Course: The patient was evaluated preoperatively and found to have the diagnosis of lumbar spondylosis with stenosis. They underwent appropriate preoperative care and were willing to undergo the intended procedure. They underwent a successful [id number] decompression and fusion, were recovered appropriately and sent to the floor. While on the floor they worked with physical therapy, occupational therapy and nursing to enhance their recovery experience. Their pain was well controlled through their stay and they were started on appropriate medications, DVT ppx modalities, activity and dietary needs. Daily labs were monitored closely, and transfusions were only used when necessary. Medicine as well as other consulting services have made their input and have helped with our team approach and multidisciplinary care. PT milestones have been met and passed and they have made the recommendation of subacute rehab for this patient and treating providers agree with this care path. The patient will be discharged home with appropriate medications, instructions and follow-up information and in stable condition. Patient Condition at Discharge: Stable Plan - Discharge Summary Discharge Rx Participant: Yes New Discharge Prescriptions: New Sulfamethox-Tmp 800-160Mg [Bactrim DS 800-160 mg] 1 tab PO Q12HR #10 tab HYDROcodone/APAP 10-325MG [[place] 10-325] 1 tab PO Q4-6H PRN #40 tab PRN Reason: Pain Butalb/Acetaminophen/Caffeine [Fioricet 50-300-40 mg Capsule] 1 - 2 cap PO Q4HR PRN #20 cap PRN Reason: Headache Cyclobenzaprine [Flexeril] 5 mg PO TID PRN #40 tablet PRN Reason: Muscle Spasm Gabapentin 300 mg PO TID #90 cap Sennosides/Docusate Sodium [Senna Plus 8.6-50 mg Tablet] 1 each PO DAILY PRN #20 tablet PRN Reason: Constipation No Action Amiodarone [Cordarone] 100 mg PO DAILY dilTIAZem HCL [dilTIAZem HCL 12Hr ER] 240 mg PO DAILY Aspirin [Adult Low Dose Aspirin EC] 81 mg PO DAILY Atorvastatin [Lipitor] 20 mg PO HS Gabapentin 300 mg PO TID Ferrous Sulfate [Feosol] 325 mg PO Q48H methocarbamoL 1,000 mg PO DAILY PRN PRN Reason: Muscle Spasm Tamsulosin [Flomax] 0.4 mg PO DAILY Cholecalciferol (Vitamin D3) [Vitamin D3 (50 Mcg = 2000 Iu)] 100 mcg PO DAILY Discharge Medication List Amiodarone [Cordarone] 100 mg PO DAILY 11/17/21 [History] dilTIAZem HCL [dilTIAZem HCL 12Hr ER] 240 mg PO DAILY 11/17/21 [History] Aspirin [Adult Low Dose Aspirin EC] 81 mg PO DAILY 04/20/23 [History] Ferrous Sulfate [Feosol] 325 mg PO Q48H 04/20/23 [History] Tamsulosin [Flomax] 0.4 mg PO DAILY 04/20/23 [History] methocarbamoL 1,000 mg PO DAILY PRN 04/20/23 [History] Atorvastatin [Lipitor] 20 mg PO HS 10/05/23 [History] Cholecalciferol (Vitamin D3) [Vitamin D3 (50 Mcg = 2000 Iu)] 100 mcg PO DAILY 10/05/23 [History] Gabapentin 300 mg PO TID 10/05/23 [History] Butalb/Acetaminophen/Caffeine [Fioricet 50-300-40 mg Capsule] 1 - 2 cap PO Q4HR PRN #20 cap 10/19/23 [Rx] Cyclobenzaprine [Flexeril] 5 mg PO TID PRN #40 tablet 10/19/23 [Rx] Gabapentin 300 mg PO TID #90 cap 10/19/23 [Rx] HYDROcodone/APAP 10-325MG [[place] 10-325] 1 tab PO Q4-6H PRN #40 tab 10/19/23 [Rx] Sennosides/Docusate Sodium [Senna Plus 8.6-50 mg Tablet] 1 each PO DAILY PRN #20 tablet 10/19/23 [Rx] Sulfamethox-Tmp 800-160Mg [Bactrim DS 800-160 mg] 1 tab PO Q12HR #10 tab 10/19/23 [Rx] Follow up Appointment(s)/Referral(s): El Chow DO [Doctor of Osteopathic Medicine] - 1 Week Chip Smith NPC [REFERRING] - 1 Week Activity/Diet/Wound Care/Special Instructions: Spine Discharge and Recovery Instructions Date of Surgery: 10/11/2023 Diagnosis: Lumbar spondylosis with stenosis Procedure: [id number] decompression and fusion Medications: See medication list All medication refills should be obtained through your primary care doctor or your clinic spine surgeon. Please discuss prescription refills at your follow up appointment. Do not call the hospital for medication refills. Activity: Encourage ambulation with assist of walker, Up and about 6-8x daily PT/OT daily work on balance, strength and mobility Up in chair with all meals Shower daily Brace: Use brace when up and about, do not wear in bed or shower Dressing: Leave your dressing in place for a total of 3 days post operatively. Then you may remove your dressing and leave open to air. Keep the area clean and if not able to keep area clean, then cover with sterile gauze and tape. Showering: You may shower 3 days after your procedure allowing soap and water to run over incision. Do not scrub. Do not soak. Blot dry. Follow up: Please confirm a follow up appointment with your surgeon 2 weeks post operatively. Please make an appointment to follow up with your PCP in 1-2 weeks after surgery for evaluation `3 phase, 3-week plan POST OP WEEKS 1-3 1. Lifting/carrying/pushing/pulling limited to less than 5 pounds. 2. Do not sit for longer than 15 minutes at one time. Get up and walk around. Prolonged sitting is NOT advised. If you lay down, see if you can tolerate laying down on you front (belly side) 3. Walk for periods of 15 minutes = 1 mile but no longer; do it multiple times times each day. 4. Ice your low back after activity. POST OP WEEKS 3-6 1. Lifting limited to less than 20 pounds. 2. Do not sit for longer than 30 minutes at a time. Frequently change positions. Use a sit-to stand workstation or take frequent breaks from sitting if you have returned to work. 3. Walk for 30 minutes each day. If possible, do these three or more times a day POST OP WEEKS 6+ At your 6-week appointment we will give you a physical therapy referral to focus on a core stabilization and strengthening program. You should also work on leg & buttock strengthening, hamstring & quadriceps stretching, and continue a low impact aerobic activity program such as swimming, walking, or riding a stationary bicycle. During the initial 6 weeks after your surgery, you are at the highest risk of re-injuring your spine. You should generally avoid BLTs (bending, lifting and twisting combination motions) and follow the above guidelines to reduce the chance of reinjury. You can anticipate post op appointments in our office at approximately 3 weeks and 6 weeks after your surgery. INCISION CARE: If your incision is not draining you do NOT need to cover it with a dressing. Keep your incision clean, dry and intact. In most cases, we apply skin glue, nimco or sutures to the incision at the time of surgery. This will be like a crust or have the appearance of a scab and will fall off in time on its own. The stitches or nimco need to be removed at 3 weeks post op appointment. You may begin to shower 3 days after surgery (this allows the glue to wolf well). However, please avoid scrubbing the incision site or peeling off any of the skin glue. This will ensure optimal healing of your incision. Also, during this time avoid soaking the incision area in water - this includes swimming pools, hot tubs or baths. No ointments, lotions or oils on the incision until your surgeon allows. Leave nimco, sutures or glue in place. Neurological dysfunction that comes on suddenly can also be a sign of a stroke. Below some common symptoms of a stroke are listed: B - balance difficulty such as sudden onset walking or leaning to one side - NEW E - eye problem such as sudden double vision or trouble seeing on one side - NEW F - Facial weakness or numbness on one side - NEW A - Arm or leg weakness or numbness on one side - NEW S - Slurred speech or difficulty with word finding - NEW T - Time is BRAIN! Call 911 as soon as you recognize these symptoms Diet: Consume a regular diet rich in vegetables and lean protein such as chicken or fish. You should consume in a ratio of approximately 20% fats|40% carbohydrates|40%protein. Vegetables, sweet potatoes, brown rice or quinoa are examples of good carbohydrates. Chips, white bread, cookies and sweets/sugar are examples of bad carbohydrates. Limit your bad carbs, go wild with good carbs. 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 (1) Get Active. Physical activity can help people lose weight, control high blood pressure and cholesterol, feel emotionally better, and sleep better. (2) Control Cholesterol. Avoid a diet high in saturated fat, trans fat, & cholesterol. Limit whole milk & cream, ice cream, butter, egg yolks, processed meats (like sausage and hot dogs), and fatty meats. Choose healthy foods that are low in saturated fat, trans fat and cholesterol which include: Fruits and vegetables, fiber rich grain products (like whole grain pasta and brown rice), lean meat such as chicken, fish, nuts, seeds, and legumes. (3) Eat Better. Eat small portions. Shop at the grocery with a list and do not stray from it. Tips for a healthy diet include: Limit sodium intake to less than 1500mg daily, avoid prepackaged, processed, and fast foods, choose a diet rich in fruits, vegetables, and whole grain, high fiber foods, and limit saturated & cholesterol in your diet. (4) Manage Blood Pressure. If you have high blood pressure, you should have a cuff at home so that you can check your blood pressure regularly. Be sure you have a good cuff. An arm one is generally better than a wrist one. Bring the cuff to a doctor's appointment to validate that the measurements that your cuff are taking are accurate. Take your blood pressure twice daily when you are sitting down and relaxing. Record the numbers in a log and bring this log with you to your doctors' appointments. (5) Lose Weight if your BMI is above 25. A healthy BMI is between 19-25. To calculate Your BMI, you may use a Standard BMI Calculator on the NIH BMI website: <www.nhlbi.nih.gov/guidelines/obesity/BMI/bmicalc.htm>. Weigh oneself daily. If you are overweight, set a goal to lose weight. A pound a week loss if needed is a good target. (6) Reduce Blood Sugar. Limit foods and liquids with "added sugars." (Added sugars include sucrose, fructose, glucose, maltose, dextrose, high fructose corn syrup, corn syrup, concentrated fruit juice and honey). (7) Stop Smoking. If you smoke, quitting smoking is one of the best things that you can do for your health. Smoking increases your risk of heart attack, stroke, and peripheral vascular disease, which is a build-up of plaque in your arteries. Please discard all the cigarettes and lighters in your house. Have a plan for what you will do when you have the urge to smoke. Direct and second- hand smoke shortens your life as well as the lives of your family, friends and others around you. For your health and the health of those around you, please consider quitting! Proper Bending Body Mechanics: Maintain a wide stance with one foot slightly in front of the other. Keep your back straight. Bend utilizing the strength in your hips and knees. Do not bend at the waist. Maintain the lifted object at your waist-level close to your body. Avoid lifting weight that causes immediately pain or pain anywhere in the body afterwards. Smoking/Nicotine If there was ever one thing that you could do to increase your overall health, decrease your risk of cardiovascular problems by about 39% the second you make the choice, it is to STOP SMOKING. Your body's most instant gratification is the second you stop smoking. We have all heard the studies, read the articles but it is true, smoking is extremely bad for your overall health, and moreover it is detrimental to your bone health. Nicotine, IN ANY FORM, kills bone cells, prevents your body from healing fractures, and significantly prolongs healing after surgery. In spine surgery specifically, it increases your risk of not healing your bones to create a fusion and increases your risk of having a revision surgery due to this up to 60%. I know it is hard. I know it feels impossible. But there are ways. Take control of your life. We are here to help you through it. And when you are ready, ask us and we can direct you to help if you desire. Use the START Plan to Quit Smoking (please visit the Helpguide.org website listed below for more information): S = Set a quit date. Choose a date within the next 2 weeks, so you have enough time to prepare without losing your motivation to quit. If you mainly smoke at work, quit on the weekend, so you have a few days to adjust to the change. T = Tell family, friends, and co-workers that you plan to quit. Let your friends and family in on your plan to quit smoking and tell them you need their support and encouragement to stop. Look for a quit irma who wants to stop smoking as well. You can help each other get through the rough times. A = Anticipate and plan for the challenges you'll face while quitting. Most people who begin smoking again do so within the first 3 months. You can help yourself make it through by preparing ahead for common challenges, such as nicotine withdrawal and cigarette cravings. R = Remove cigarettes and other tobacco products from your home, car, and work. Throw away all your cigarettes (no emergency pack!), lighters, ashtrays, and matches. Wash your clothes and freshen up anything that smells like smoke. Shampoo your car, clean your drapes and carpet, and steam your furniture. T = Talk to your doctor about getting help to quit. Your doctor can prescribe medication to help with withdrawal and suggest other alternatives. If you can't see a doctor, you can get many products over the counter at your local pharmacy or grocery store, including the nicotine patch, nicotine lozenges, and nicotine gum. Resources for Quitting Smoking: <https://www.[place].gov /documents/[facility]/Quit_Tobacco_Resources_for_patients_313480_7.pdf> Supplementation: Take recommended dosages of Vitamin D and Calcium to help fortify your bones and help them to heal. See your health maintenance packet for dosages and recommended levels. DVT/VTE prophylaxis: You will be given compression stockings from the hospital. Wear these daily for the first two weeks after surgery. You may take them off at night. You may be prescribed a medication to help thin your blood. Take this as directed. If you are not prescribed this medication, early and frequent ambulation has been shown to be the best prophylaxis to deep vein thrombosis and sequelae related to this event. Discharge Disposition: TRANSFER TO SNF/ECF
--- NOTE | 2023-10-19 13:40 | P.PN ---
Subjective Progress Note Date: 10/19/23 Hospital course 63-year-old male with medical history of atrial fibrillation status post Watchman, hypertension, hyperlipidemia, DELIO, hypothyroidism, BPH presented for elective surgery: T10 to pelvis decompression and fusion. Medicine was consulted by orthopedic surgery service for medical management. Upon initial evaluation, patient was afebrile, 133/67, heart rate 60, 99% on 2 L nasal cannula. White blood cell count was 17.6, hemoglobin is 11.7. Sodium was 135, chloride 112, CO2 20, BUN 35. Postoperative lumbar spine CT showed postsurgical changes without immediate postoperative complication. Patient seen this morning. He had no acute complaints. No other acute issues overnight. 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 daily and Cardizem to 240 mg daily Status post thoracic pelvis decompression and fusion Continue with pain control as per primary team PT OT -> recommending group home facility Chronic conditions Hypertension hyperlipidemia DELIO hypothyroidism BPH Continue home meds Patient is stable for discharge from a medical standpoint. Objective - Vital Signs Vital signs: Vital Signs Temp 97.9 F 10/19/23 08:00 Pulse 74 10/19/23 08:00 Resp 16 10/19/23 08:00 BP 149/87 10/19/23 08:00 Pulse Ox 96 10/19/23 08:36 FiO2 Intake & Output 10/18/23 10/19/23 10/19/23 18:59 06:59 18:59 Output Total 450 Balance -450 Weight 133.8 kg Output: Urine 450 Other: Voiding Method Indwelling Catheter Bedside Commode Urinal # Voids 1 # Bowel Movements 700 1 ABP, PAP, CO, CI - Last Documented Arterial Blood Pressure 166/77 - Labs CBC & Chem 7: 10/19/23 07:28 10/19/23 07:28 Labs: Abnormal Lab Results - Last 24 Hours (Table) 10/19/23 10/19/23 Range/Units 07:28 07:28 RBC 3.38 L (4.30-5.90) m/uL Hgb 10.1 L (13.0-17.5) gm/dL Hct 30.8 L (39.0-53.0) % Chloride 113 H (98-107) mmol/L Creatinine 0.45 L (0.66-1.25) mg/dL
[2023-10-20 02:47] VITALS: RESP 16
--- NOTE | 2023-10-20 08:07 | P.PN ---
Subjective Progress Note Date: 10/20/23 Principal diagnosis: 1. L1-S1 spondylosis with stenosis 2. Bilateral lower extremity radiculopathy 3. Neurogenic claudication Patient seen and examined this morning. Patient resting in bed. Patient reports he is feeling much better today. He denies any headaches, dizziness, nausea/vomiting. Surgical incision is well approximated with nimco intact. There is an area mid-low portion of the incision that has been draining serosanguineous. This has significantly decreased to scant amount on dressing. Patient is standby assist with walker. He continues to report some radiculopathy into the left lower extremity that is improving. Patient is cleared at this time for discharge to subacute rehab. Discharge instructions have been reviewed with patient and have been placed in chart. Objective - Vital Signs Vital signs: Vital Signs Temp 97.6 F 10/20/23 00:56 Pulse 72 10/20/23 00:56 Resp 16 10/20/23 00:56 BP 119/71 10/20/23 00:56 Pulse Ox 95 10/20/23 00:56 FiO2 Intake & Output 10/19/23 10/20/23 10/20/23 18:59 06:59 18:59 Other: Voiding Method Bedside Commode Urinal # Voids 4 1 ABP, PAP, CO, CI - Last Documented Arterial Blood Pressure 166/77 - Exam Physical Examination General: The patient is awake and alert, in no acute distress Skin: Skin is warm and dry with no obvious rashes or lesions. Surgical incision to the thoracolumbar spine, incision is well approximated and nimco intact. There is a small mid-low area of the incision that has scant serosanguineous drainage. Eye: Pupils are equal, round and reactive to light, extra-ocular movements are intact; there is normal conjunctiva bilaterally. Neck: The neck is supple, there is no tenderness and ROM intact. Cardiovascular: There is a regular rate and rhythm. No murmur, rub or gallop is appreciated. Respiratory: Respirations are non-labored, breath sounds are equal. Gastrointestinal: Soft, non-distended, non-tender abdomen. Back: There is no tenderness to palpation in the midline, paralumbar, parathoracic or buttocks region. There is no obvious deformity . Musculoskeletal: ROM limited secondary to pain and stiffness from surgical procedure. Muscle strength in all major muscle groups of bilateral upper extremities 5/5, bilateral lower extremities 4/5. Neurological: CN 2-12 intact. There are no obvious motor or sensory deficits. Movement and coordination equal and intact. Sensory exam to light touch intact C5-T1 and intact from L2-S1. Reflexes 2/4 in bilateral upper and lower extremities. Negative Hoffmans, babinski, and clonus signs. Psychiatric: Cooperative, appropriate mood & affect, normal judgment. - Labs CBC & Chem 7: 10/19/23 07:28 10/19/23 07:28 Labs: Abnormal Lab Results - Last 24 Hours (Table) 10/19/23 10/19/23 Range/Units 07:28 07:28 RBC 3.38 L (4.30-5.90) m/uL Hgb 10.1 L (13.0-17.5) gm/dL Hct 30.8 L (39.0-53.0) % Chloride 113 H (98-107) mmol/L Creatinine 0.45 L (0.66-1.25) mg/dL Assessment and Plan Assessment: Post-Op Day 9: [id number] decompression and fusion with L2-L3 right dural erosion repair with fat patch graft 1. L1-S1 spondylosis with stenosis 2. L2-L3 right dural erosion tear 3. Bilateral lower extremity radiculopathy 4. Neurogenic claudication Plan: -Appreciate oracle application consultant and team management. -Activity: Ambulate QID, OOB all meals, up and about, limit lifting bending twisting to less than 5 lbs. Use walker or cane if needed for stability. -Daily PT/OT, increase ambulation strength and balance. -Brace when up and about, not needed in bed or chair -Pain control: Adequate at this time -Meds: reviewed -GI ppx: senna, Miralax -DVT PPX: Heparin -Hygiene: Shower today. Maintain dressing clean and dry. Meticulous cleaning after BMs away from the incision site -Encourage IS 10x/hr -Dispo: Patient is cleared from orthopedic standpoint for discharge to subacute rehab *I reviewed and discussed this case with my attending Dr. Chow, whom has reviewed this chart and films and is in agreement with assessment and plan of care as outlined above. I have personally seen and examined the patient, performed the documentation and the assessment and plan as written. Number of minutes spent on the visit: 20m.
[2023-10-20] MEDS: CYCLOBENZAPRINE 10 MG TAB PO PRN (08:44)
[2023-10-20 14:51] VITALS: BP 137/54; PULSE 83; TEMP 97.9
--- NOTE | 2023-10-21 22:17 | CDI ---
Documentation Clarification Form Date: 10/21/2023 10:06:17 PM From: Indigo Feng Phone: Admit Date: 10/11/2023 05:35:00 AM Patient Name: Bryn Chicas Visit Number: [id number] Discharge Date: 10/20/2023 04:50:00 PM ATTENTION: The Clinical Documentation Specialists (CDI) and [facility] Coding Staff appreciate your assistance in clarifying documentation. Please respond to the clarification below the line at the bottom and electronically sign. The CDI & [facility] Coding staff will review the response and follow-up if needed. Please note: Queries are made part of the Legal Health Record. If you have any questions, please contact the author of this message via ITS. Dr. El Chow Patient has a documented BMI of 42.3 per OP Note. Additional clarification is requested. History/Risk Factors: 63yo M, [id number] w radiculopathy & Neurogenicclaudication, chronic back pain, Spondylolisthesis, BPH, DELIO Clinical Indicators: Height: 5'10" Weight: 272 lbs Calculated BMI is 42.3 Treatments: CPTMOD 22 THIS CASE TOOK 80% LONGER THAN EXPECTED DUE TO CORMORBID CONDITIONS, HIGH BMI >40, EXTENT OF LUMBAR DISEASE AND HIGH TECHNICALITY OF THE CASE. Dietary Recommendations: Consume a regulardietrich in vegetables and lean protein such as chicken or fish. Avoid adiethigh in saturated fat, Trans fat, cholesterol. Tips for a healthydietinclude: Limit sodium intake to less than 1500mg daily, avoid prepackaged, processed, and fast foods, choose adietrich in fruits, vegetables, and whole grain, high fiber foods, and limit saturated cholesterol in yourdiet. Please clarify if patients BMI indicates an additional diagnosis: [ ] Morbid (Extreme) (severe) obesity [ ] No additional diagnosis/not clinically significant [ ] Other, please specify ____ [ ] Unable to determine Reference: NIH Classification for BMI Overweight BMI 2529.9 Obesity (Class 1) BMI 3034.9 Obesity (Class 2) BMI 3539.9 Morbid obesity (Class 3/Extreme/severe) BMI =40 (Template Last Revised: September 2020) Morbid obesity (Class 3/Extreme/severe) BMI =40 MTDD
== END 2023-10-20 16:50 | DRG 304 ==
LOC: 2ORMAIN 05:35 → 2SICU 17:18 → 4SSUR 10-12 18:33
PROVIDERS: ADMIT Orthopaedic Surgery; ATTEND Orthopaedic Surgery
PROC: 0ST40ZZ Resection of Lumbosacral Disc, Open Approach (ICD-10-PCS; 2023-10-11)
PROC: 01NB0ZZ Release Lumbar Nerve, Open Approach (ICD-10-PCS; 2023-10-11)
PROC: 01NR0ZZ Release Sacral Nerve, Open Approach (ICD-10-PCS; 2023-10-11)
PROC: 0ST20ZZ Resection of Lumbar Vertebral Disc, Open Approach (ICD-10-PCS; 2023-10-11)
PROC: 8E0WXBZ Computer Assisted Procedure of Trunk Region (ICD-10-PCS; 2023-10-11)
PROC: 0QH304Z Insertion of Internal Fixation Device into Left Pelvic Bone, Open Approach (ICD-10-PCS; 2023-10-11)
PROC: 0QH204Z Insertion of Internal Fixation Device into Right Pelvic Bone, Open Approach (ICD-10-PCS; 2023-10-11)
PROC: 0SG30AJ Fusion of Lumbosacral Joint with Interbody Fusion Device, Posterior Approach, Anterior Column, Open Approach (ICD-10-PCS; 2023-10-11)
PROC: 0SG3071 Fusion of Lumbosacral Joint with Autologous Tissue Substitute, Posterior Approach, Posterior Column, Open Approach (ICD-10-PCS; 2023-10-11)
PROC: 0RG60AJ Fusion of Thoracic Vertebral Joint with Interbody Fusion Device, Posterior Approach, Anterior Column, Open Approach (ICD-10-PCS; 2023-10-11)
PROC: 0SG10AJ Fusion of 2 or more Lumbar Vertebral Joints with Interbody Fusion Device, Posterior Approach, Anterior Column, Open Approach (ICD-10-PCS; 2023-10-11)
PROC: 0SG1071 Fusion of 2 or more Lumbar Vertebral Joints with Autologous Tissue Substitute, Posterior Approach, Posterior Column, Open Approach (ICD-10-PCS; 2023-10-11)
PROC: 0RGA0AJ Fusion of Thoracolumbar Vertebral Joint with Interbody Fusion Device, Posterior Approach, Anterior Column, Open Approach (ICD-10-PCS; 2023-10-11)
PROC: 0RGA071 Fusion of Thoracolumbar Vertebral Joint with Autologous Tissue Substitute, Posterior Approach, Posterior Column, Open Approach (ICD-10-PCS; 2023-10-11)
PROC: 02HV33Z Insertion of Infusion Device into Superior Vena Cava, Percutaneous Approach (ICD-10-PCS; 2023-10-11)
PROC: 03HY32Z Insertion of Monitoring Device into Upper Artery, Percutaneous Approach (ICD-10-PCS; 2023-10-11)
PROC: 4A133B1 Monitoring of Arterial Pressure, Peripheral, Percutaneous Approach (ICD-10-PCS; 2023-10-11)
PROC: 4A133J1 Monitoring of Arterial Pulse, Peripheral, Percutaneous Approach (ICD-10-PCS; 2023-10-11)
PROC: 00UT07Z Supplement Spinal Meninges with Autologous Tissue Substitute, Open Approach (ICD-10-PCS; 2023-10-11)
PROC: 30233N1 Transfusion of Nonautologous Red Blood Cells into Peripheral Vein, Percutaneous Approach (ICD-10-PCS; 2023-10-11)
PROC: 0RG6071 Fusion of Thoracic Vertebral Joint with Autologous Tissue Substitute, Posterior Approach, Posterior Column, Open Approach (ICD-10-PCS; principal; 2023-10-11 07:30)
DX: M47.26 Other spondylosis with radiculopathy, lumbar region (principal); J96.01 Acute respiratory failure with hypoxia; M48.56XA Collapsed vertebra, not elsewhere classified, lumbar region, initial encounter for fracture; I48.0 Paroxysmal atrial fibrillation; E66.01 Morbid (severe) obesity due to excess calories; Z68.41 Body mass index [BMI] 40.0-44.9, adult; G96.11 Dural tear; D62 Acute posthemorrhagic anemia; I10 Essential (primary) hypertension; E03.9 Hypothyroidism, unspecified; M48.062 Spinal stenosis, lumbar region with neurogenic claudication; M47.27 Other spondylosis with radiculopathy, lumbosacral region; M48.07 Spinal stenosis, lumbosacral region; M43.16 Spondylolisthesis, lumbar region; M25.78 Osteophyte, vertebrae; G89.29 Other chronic pain; R51.0 Headache with orthostatic component, not elsewhere classified; G47.33 Obstructive sleep apnea (adult) (pediatric); N40.0 Benign prostatic hyperplasia without lower urinary tract symptoms; H91.93 Unspecified hearing loss, bilateral; E78.5 Hyperlipidemia, unspecified; Z96.643 Presence of artificial hip joint, bilateral; Z75.1 Person awaiting admission to adequate facility elsewhere; Z79.891 Long term (current) use of opiate analgesic; Z95.818 Presence of other cardiac implants and grafts; Z95.0 Presence of cardiac pacemaker; Z79.82 Long term (current) use of aspirin; Z86.718 Personal history of other venous thrombosis and embolism; Z97.4 Presence of external hearing-aid; Z91.048 Other nonmedicinal substance allergy status; Z79.899 Other long term (current) drug therapy; Z88.0 Allergy status to penicillin
CPT/HCPCS: 36415; 36430; 71045; 72100; 72131; 80048; 80051; 80053; 82805; 83605; 85025; 85027; 86850; 86900; 86901; 86920; 94660; 94760

== ENCOUNTER 2023-11-07 20:12 | Inpatient (IN) | payer OTHER ==
--- NOTE | 2023-11-07 20:56 | ED ---
General Adult HPI - General Chief complaint: Back Pain/Injury Stated complaint: back pain Time Seen by Provider: 11/07/23 20:17 Source: patient, EMS, RN notes reviewed Mode of arrival: EMS Limitations: no limitations - History of Present Illness Initial comments: Patient is a 63-year-old male present to the emergency department as a transfer from [facility]. Patient was seen there regarding problems with his back. Patient did have surgery around 3 weeks ago. Patient had decompression and fusion T12 to his pelvis. Patient has been having drainage, now somewhat purulent. Patient had elevated CRP and ESR. Patient was provided Ancef. Patient states he did have rigors earlier today. Patient had temperature of 99. They did talk with Dr. Perez some who did recommend transfer to the emergency department. - Related Data Home Medications Medication Instructions Recorded Confirmed Amiodarone [Cordarone] 100 mg PO DAILY 11/17/21 10/05/23 dilTIAZem HCL [dilTIAZem HCL 12Hr 240 mg PO DAILY 11/17/21 10/05/23 ER] Ferrous Sulfate [Feosol] 325 mg PO Q48H 04/20/23 10/05/23 Tamsulosin [Flomax] 0.4 mg PO DAILY 04/20/23 10/05/23 methocarbamoL 1,000 mg PO DAILY PRN 04/20/23 10/05/23 Atorvastatin [Lipitor] 20 mg PO HS 10/05/23 10/05/23 Cholecalciferol (Vitamin D3) 100 mcg PO DAILY 10/05/23 10/05/23 [Vitamin D3 (50 Mcg = 2000 Iu)] Previous Rx's Medication Instructions Recorded Butalb/Acetaminophen/Caffeine 1 - 2 cap PO Q4HR PRN #20 cap 10/19/23 [Fioricet 50-300-40 mg Capsule] Cyclobenzaprine [Flexeril] 5 mg PO TID PRN #40 tablet 10/19/23 Gabapentin 300 mg PO TID #90 cap 10/19/23 HYDROcodone/APAP 10-325MG [[place] 1 tab PO Q4-6H PRN #40 tab 10/19/23 10-325] Sennosides/Docusate Sodium [Senna 1 each PO DAILY PRN #20 tablet 10/19/23 Plus 8.6-50 mg Tablet] Sulfamethox-Tmp 800-160Mg [Bactrim 1 tab PO Q12HR #10 tab 10/19/23 DS 800-160 mg] cefaDROXiL [Duricef] 500 mg PO Q12HR 10 Days #20 cap 10/20/23 Allergies Allergy/AdvReac Type Severity Reaction Status Date / Time adhesive Allergy Rash/Hives Verified 11/07/23 20:29 Penicillins AdvReac Swelling Verified 11/07/23 20:29 Review of Systems ROS Statement: Those systems with pertinent positive or pertinent negative responses have been documented in the HPI. ROS Other: All systems not noted in ROS Statement are negative. Constitutional: Reports: as per HPI Eyes: Denies: eye pain Respiratory: Denies: dyspnea Cardiovascular: Denies: chest pain Endocrine: Reports: fatigue Gastrointestinal: Denies: abdominal pain Skin: Reports: as per HPI Past Medical History Past Medical History: Atrial Fibrillation, Deep Vein Thrombosis (DVT), Hearing Disorder / Deafness, Hyperlipidemia, Hypertension, Osteoarthritis (OA), Sleep Apnea/CPAP/BIPAP, Thyroid Disorder Additional Past Medical History / Comment(s): HX DVT 2019 TOP RIGHT ATRIUM. HX AFIB RESOLVED WITH PACEMAKER. Bilateral hearing aid use. Occasional feet swelling. CPAP use. Hx overactive thyroid 6-7 yrs ago, no treatment needed. History of Any Multi-Drug Resistant Organisms: None Reported Past Surgical History: Back Surgery, Joint Replacement, Orthopedic Surgery, Pacemaker Additional Past Surgical History / Comment(s): Bilateral hip replacements, right shoulder surgery, left knee surgery X2, Watchman Device 09/2020, colonoscopy, spinal decompression. Past Anesthesia/Blood Transfusion Reactions: No Reported Reaction Type of Cardiac Device: Permanent Pacemaker Device Placement Date:: 2017 Past Psychological History: Depression Smoking Status: Never smoker Past Alcohol Use History: Occasional Past Drug Use History: None Reported - Past Family History Mother Family Medical History: Cancer Father Family Medical History: Deep Vein Thrombosis (DVT), Myocardial Infarction (AR), Pulmonary Embolus General Exam Limitations: no limitations General appearance: alert, in no apparent distress Head exam: Present: normocephalic Eye exam: Present: normal appearance Respiratory exam: Present: normal lung sounds bilaterally Cardiovascular Exam: Present: regular rate, normal rhythm GI/Abdominal exam: Present: soft. Absent: tenderness Extremities exam: Present: normal inspection Back exam: Present: other (Incision is intact) Neurological exam: Present: alert Expanded Motor strength exam: RLE: 4, LLE: 3 Skin exam: Present: normal color, other (There is what appears to be minimal purulent drainage from back wound near the mid lumbar region. No significant erythema) Course Vital Signs 11/07/23 11/07/23 11/07/23 20:23 22:06 23:22 Temperature 99.4 F 101.2 F H 99.5 F Pulse Rate 69 74 65 Respiratory 18 18 20 Rate Blood Pressure 125/64 127/58 111/66 O2 Sat by Pulse 97 96 94 L Oximetry Medical Decision Making - Medical Decision Making Was pt. sent in by a medical professional or institution (, PA, CARE COMPANION, urgent care, hospital, or usp...) When possible be specific @ -Patient was sent from [facility] Did you speak to anyone other than the patient for history (EMS, parent, family, police, friend...)? What history was obtained from this source @ -I did speak with transferring physician. Patient did receive Ancef prior to transfer. Did you review nursing and triage notes (agree or disagree)? Why? @ -I reviewed and agree with nursing and triage notes Were old charts reviewed (outside hosp., previous admission, EMS record, old EKG, old radiological studies, urgent care reports/EKG's, usp records)? Report findings @ -Chart reviewed from [facility] Differential Diagnosis (chest pain, altered mental status, abdominal pain women, abdominal pain men, vaginal bleeding, weakness, fever, dyspnea, syncope, headache, dizziness, GI bleed, back pain, seizure, CVA, palpatations, mental health, musculoskeletal)? @ -Differential Back Pain: Strain, zoster, cauda equina syndrome, epidural abscess, vertebral osteomyelitis, discitis, fracture, subluxation, disc herniation, DJD, spinal stenosis, dissection, AAA, pancreatitis, peptic ulcer disease, pyelonephritis, kidney stone, this is not meant to be an all-inclusive list. EKG interpreted by me (3pts min.). @ -As above X-rays interpreted by me (1pt min.). @ -None done CT interpreted by me (1pt min.). @ -None done U/S interpreted by me (1pt. min.). @ -None done What testing was considered but not performed or refused? (CT, X-rays, U/S, labs)? Why? @ -None What meds were considered but not given or refused? Why? @ -None Did you discuss the management of the patient with other professionals (professionals i.e. , PA, CARE COMPANION, lab, RT, psych nurse, social media community manager, refined syrup operator, teacher, forest fire management officer, nurse case management)? Give summary @ -Case discussed with Dr. Goodman gutierrez who would like patient admitted, n.p.o. and continue with Anc. Case also discussed with Dr. Griffin, covering Dr. Nava, who admits for Dr. Rosenthal. Was smoking cessation discussed for >3mins.? @ -No Was critical care preformed (if so, how long)? @ -No Were there social determinants of health that impacted care today? How? (Homelessness, low income, unemployed, alcoholism, drug addiction, transportation, low edu. Level, literacy, decrease access to med. care, custodial, rehab)? @ -No Was there de-escalation of care discussed even if they declined (Discuss DNR or withdrawal of care, Hospice)? DNR status @ -No What co-morbidities impacted this encounter? (DM, HTN, Smoking, COPD, CAD, Cancer, CVA, ARF, Chemo, Hep., AIDS, mental health diagnosis, sleep apnea, morbid obesity)? @ -None Was patient admitted / discharged? Hospital course, mention meds given and route, prescriptions, significant lab abnormalities, going to OR and other pertinent info. @ -Patient presents as a transfer. Patient will be admitted with antibiotics for probable surgery tomorrow. Undiagnosed new problem with uncertain prognosis? @ -No Drug Therapy requiring intensive monitoring for toxicity (Heparin, Nitro, Insulin, Cardizem)? @ -No Were any procedures done? @ -No Diagnosis/symptom? @ -Back pain Acute, or Chronic, or Acute on Chronic? @ -Acute Uncomplicated (without systemic symptoms) or Complicated (systemic symptoms)? @ -Default Side effects of treatment? @ -No Exacerbation, Progression, or Severe Exacerbation? @ -No Poses a threat to life or bodily function? How? (Chest pain, USA, AR, pneumonia, PE, COPD, DKA, ARF, appy, cholecystitis, CVA, Diverticulitis, Homicidal, Suicidal, threat to staff... and all critical care pts) @ -No Disposition Clinical Impression: Back pain Disposition: ADMITTED IP TO THIS HOSP Is patient prescribed a controlled substance at d/c from ED?: No Referrals: Mendel Rosenthal MD [Primary Care Provider] - 1-2 days Time of Disposition: 23:48
[2023-11-07] MEDS: ACETAMINOPHEN TAB 500 MG TAB PO STA (22:08)
[2023-11-07] MEDS: HYDROmorphone 1 MG/ML 1 ML SYRINGE IVP STA (22:09)
[2023-11-07] MEDS ORDERED: NALOXONE 0.4 MG/ML 1 ML VIAL IV PRN (23:49)
[2023-11-08] MEDS: SODIUM CHLORIDE 0.9% 1,000 ML IV SCH (00:31)
[2023-11-08 03:49] LABS: ALT 24 U/L (4-49); AST 30 U/L (17-59); African American GFR (CKD) >90 (>60 ml/min/1.73 sqM); Albumin 2.2 g/dL (3.5-5.0); Alkaline Phosphatase 279 U/L (38-126); Anion Gap 6 mmol/L; Blood Urea Nitrogen 13 mg/dL (9-20); Calcium 8.1 mg/dL (8.4-10.2); Carbon Dioxide 25 mmol/L (22-30); Chloride 106 mmol/L (98-107); Glucose 147 mg/dL (74-99); Non-African American GFR(CKD) >90 (>60 ml/min/1.73 sqM); Potassium 3.4 mmol/L (3.5-5.1); Sodium 137 mmol/L (137-145); Total Bilirubin 0.5 mg/dL (0.2-1.3); Total Protein 5.2 g/dL (6.3-8.2)
[2023-11-08 04:47] LABS: Basophils % (A) 0 %; Eosinophils # (A) 0.1 k/uL (0-0.7); Eosinophils % (A) 1 %; HCT 27.8 % (39.0-53.0); Hypochromasia Marked; Lymphocytes # (A) 1.1 k/uL (1.0-4.8); Lymphocytes % (A) 18 %; MCH 27.1 pg (25.0-35.0); MCHC 31.1 g/dL (31.0-37.0); MCV 87.3 fL (80.0-100.0); Mean Platelet Volume 8.9; Monocytes # (A) 0.7 k/uL (0-1.0); Monocytes % (A) 11 %; Neutrophils # (A) 4.2 k/uL (1.3-7.7); Neutrophils % (A) 67 %; Platelet Count 278 k/uL (150-450); Poikilocytosis Slight; RBC 3.19 m/uL (4.30-5.90); RDW 14.9 % (11.5-15.5); WBC 6.3 k/uL (3.8-10.6)
[2023-11-08 04:55] LABS: HGB 8.6 gm/dL (13.0-17.5)
[2023-11-08] MEDS: HYDROmorphone 1 MG/ML 1 ML SYRINGE IVP PRN (05:39)
[2023-11-08] MEDS ORDERED: SENNOSIDES 8.6 MG TAB PO PRN (06:08)
[2023-11-08] MEDS: CYCLOBENZAPRINE 10 MG TAB PO PRN (06:40)
--- NOTE | 2023-11-08 07:08 | P.CNOR ---
History of Present Illness - HPI Consult date: 11/08/23 Consult reason: low back pain History of present illness: 63 yo male presenting from [facility] from his [facility] care facility due to increased drainage from his low back over the weekend with increased pain and a spot lactic acid lab at the facility that was falsely elevated. Pt has had drainage since surgery, but it had slowed down substantially over the weekend, but then yesterday increased again and nursing at the facility stating it was foul smelling and different in color. They also got a lactic acid on him and no other labs stating it was 7.7 at the time. We advised he go to the ED in [place] then. ED physician from [place] called me after assessment and repeat labs to find that his WBC were around 10 and his LA was around 2.2. New Labs drawn today are as stated in chart, but WBC are 6.6 and LA is low. He was afebrile in [place], but was still having drainage so we accepted transfer to our facility for further care and higher level of care. Today, Mr. Pickering was assessed. He continues to have low back pain. He states it is worse than it was before. He states the care facility was not taking care of him well and was not changing his dressing frequently. He states he would sit in his own urine for hours before they would come in and change him. He states he was having chills earlier today, but seems better. Denies any sob, cp, DELAROSA, N, V, at this time. He does NOT have positional DELAROSA at this time. Review of Systems 16 pt ROS completed and as stated in HPI. All other systems reviwed negative. Constitutional: Reports as per HPI Past Medical History Past Medical History: Atrial Fibrillation, Deep Vein Thrombosis (DVT), Hearing Disorder / Deafness, Hyperlipidemia, Hypertension, Osteoarthritis (OA), Sleep Apnea/CPAP/BIPAP, Thyroid Disorder Additional Past Medical History / Comment(s): HX DVT 2019 TOP RIGHT ATRIUM. HX AFIB RESOLVED WITH PACEMAKER. Bilateral hearing aid use. Occasional feet swelling. CPAP use. Hx overactive thyroid 6-7 yrs ago, no treatment needed. History of Any Multi-Drug Resistant Organisms: None Reported Past Surgical History: Back Surgery, Joint Replacement, Orthopedic Surgery, Pacemaker Additional Past Surgical History / Comment(s): Bilateral hip replacements, right shoulder surgery, left knee surgery X2, Watchman Device 09/2020, colonoscopy, spinal decompression. Past Anesthesia/Blood Transfusion Reactions: No Reported Reaction Type of Cardiac Device: Permanent Pacemaker Device Placement Date:: 2017 Past Psychological History: Depression Smoking Status: Never smoker Past Alcohol Use History: Occasional Past Drug Use History: None Reported - Past Family History Mother Family Medical History: Cancer Father Family Medical History: Deep Vein Thrombosis (DVT), Myocardial Infarction (AR), Pulmonary Embolus Medications and Allergies Home Medications Medication Instructions Recorded Confirmed Type Amiodarone [Cordarone] 100 mg PO DAILY 11/17/21 10/05/23 History dilTIAZem HCL [dilTIAZem HCL 12Hr 240 mg PO DAILY 11/17/21 10/05/23 History ER] Ferrous Sulfate [Feosol] 325 mg PO Q48H 04/20/23 10/05/23 History Tamsulosin [Flomax] 0.4 mg PO DAILY 04/20/23 10/05/23 History methocarbamoL 1,000 mg PO DAILY PRN 04/20/23 10/05/23 History Atorvastatin [Lipitor] 20 mg PO HS 10/05/23 10/05/23 History Cholecalciferol (Vitamin D3) 100 mcg PO DAILY 10/05/23 10/05/23 History [Vitamin D3 (50 Mcg = 2000 Iu)] Butalb/Acetaminophen/Caffeine 1 - 2 cap PO Q4HR PRN #20 cap 10/19/23 Rx [Fioricet 50-300-40 mg Capsule] Cyclobenzaprine [Flexeril] 5 mg PO TID PRN #40 tablet 10/19/23 Rx Gabapentin 300 mg PO TID #90 cap 10/19/23 Rx HYDROcodone/APAP 10-325MG [[place] 1 tab PO Q4-6H PRN #40 tab 10/19/23 Rx 10-325] Sennosides/Docusate Sodium [Senna 1 each PO DAILY PRN #20 tablet 10/19/23 Rx Plus 8.6-50 mg Tablet] Sulfamethox-Tmp 800-160Mg [Bactrim 1 tab PO Q12HR #10 tab 10/19/23 Rx DS 800-160 mg] cefaDROXiL [Duricef] 500 mg PO Q12HR 10 Days #20 cap 10/20/23 Rx Allergies Allergy/AdvReac Type Severity Reaction Status Date / Time adhesive Allergy Rash/Hives Verified 11/07/23 20:29 Penicillins AdvReac Swelling Verified 11/07/23 20:29 Physical Examination Osteopathic Statement: *. No significant issues noted on an osteopathic structural exam other than those noted in the History and Physical/Consult. PHYSICAL EXAMINATION: Vitals: Stable at this time General: Awake, alert, appropriate for age, in no acute distress. HEENT: No unusual neck masses around region of lateral neck triangle, thyroid, supraclavicular groove. Extremities: Skin warm and dry without no acute lesions, coloration, temperature, skin intact, no tenderness or erythema. Integument: Hairy patches: Absent Dorsal skin dimples: Absent Cafe au lait spots: Absent Surgical incisions: Posterior Thoracolumbar incision is healed very well except for a small area at the caudal 1/3 where there is a .5x.5 cm area of some purulent discharge noted with drainage. This drainage is serous/purulent. Does not look like CSF at this time, but hard to tell due to the mixture. Dressing was changed and was mildly saturated with this fluid. The remainder of the incision is very well healed. Palpation: Please see Pain drawing on Intake sheet for further detail. (Tenderness = T, Nontender = NT, Swelling = S, Ecchymosis = E) Findings on Midline and paraspinal palpation and percussion: Cervical: NT Thoracic: NT Lumbar: TTP paraspinal Sacral: NT Special findings: None POSTURAL and MUSCULO-SKELETAL EVALUATION: Coronal Balance: Neutral Recumbent testing: Patient can lay flat on back Sagittal Balance: [Neutral] Shoulder Profile: [Level] Pelvic Girdle: [Level] Neck ROM: [Unrestricted in six directions] Lumbar ROM: Restricted due to pain Shoulder ROM: Symmetric in abduction, ER/IR Hip ROM: Symmetric in abduction, adduction, ER/IR Knee ROM: Symmetric and intact in Flexion / extension Hands: Normal appearing structure L and R Feet: Normal appearing structure L and R VASCULAR STATUS : Wrist Pulses: [2/4 bilateral radial and ulnar] Pedal Pulses: [2/4 bilateral DP and PT] Color: [Normal] Edema: [None] NEUROLOGIC EXAMINATION: Mental Status: Awake and alert, fully oriented, with normal attention, concentration and memory, and fluent, appropriate speech. Cranial Nerves: I: Olfactory not tested. II: Visual acuity normal, no visual field deficit noted with confrontation. III,IV: Normal pupillary reflexes & intact extraocular movements without nystagmus. V,: Intact symmetrical facial sensation. VII: Intact symmetrical facial motor movement VIII: Hearing intact. IX,X: Intact gag, swallow, & normal voice. XI: Sternocleidomastoid, trapezius function intact. XII: Tongue midline with normal movements. Special Tests: L'hermitte's Sign: Absent Spurling'Sign: Absent Bilateral Cubital percussion test: Absent Bilateral Ethan-Tinel sign - Carpal region: Absent Bilateral Straight Leg Raising: Absent Bilateral Motor Exam (0-5/5, N/T) STRENGTH UPPER EXTREMITY [5]/5 in all major muscle groups of the UE b/l LOWER EXTREMITY 4-/5 in all major muscle groups of the LE b/l due to recent surgery, deconditioning and LLE still shwoing some weakness ffrom before surgery REFLEXES Upper Extremity: RIGHT [2]/4 LEFT [2]/4 Lower Extremity: RIGHT [2]/4 LEFT [2]/4 Pathological Reflexes Pickard's: RIGHT [Absent] LEFT [Absent] Babinski: RIGHT [Absent] LEFT [Absent] Clonus: RIGHT [None] LEFT [None] SENSORY Pain and LT sense [Intact C5-T1 and L2-S1] Dermatomal deficit : mild paresthesias b/l LE but improving. Gait and Functional Evaluation: Ambulatory aids: Transfers with walker currently, can walk about 20 steps but not much further as he cannot tolerate due to pain Results CT pending Lumbar spine - Labs Labs: Abnormal Lab Results - Last 24 Hours (Table) 11/08/23 11/08/23 Range/Units 03:11 03:11 RBC 3.19 L (4.30-5.90) m/uL Hgb 8.6 L D (13.0-17.5) gm/dL Hct 27.8 L (39.0-53.0) % Potassium 3.4 L (3.5-5.1) mmol/L Creatinine 0.48 L (0.66-1.25) mg/dL Glucose 147 H (74-99) mg/dL Calcium 8.1 L (8.4-10.2) mg/dL Alkaline Phosphatase 279 H (38-126) U/L Total Protein 5.2 L (6.3-8.2) g/dL Albumin 2.2 L (3.5-5.0) g/dL H & H 11/08/23 Range/Units 03:11 Hgb 8.6 L D (13.0-17.5) gm/dL Hct 27.8 L (39.0-53.0) % Result Diagrams: 11/08/23 03:11 11/08/23 03:11 Assessment and Plan Assessment: 63 yo male s/p [id number] revision decompression and fusion with continued wound drainage 3 weeks PO Lumbar spondylosis with stenosis LE weakness Neurogenic claudication Complex medical patient. Plan: -CT lumbar spine stat -Cont with abx -OK for diet today -Primary medical management -Consult ID -Pain control PRN -Plan for surgical debridment and washout on 11/10/23
[2023-11-08] MEDS: ACETAMINOPHEN IV (For NPO) 1,000 MG in EMPTY BAG 1 BAG IVPB SCH (08:39)
[2023-11-08] MEDS: GABAPENTIN 300 MG CAP PO SCH (08:40)
--- NOTE | 2023-11-08 08:50 | CT ---
EXAMINATION TYPE: CT lumbar spine wo con CT DLP: 2502 mGycm, Automated exposure control for dose reduction was used. DATE OF EXAM: 11/08/2023 7:14 AM COMPARISON: 10/12/2023. CLINICAL INDICATION:Male, 63 years old with history of post op fluid collection; [facility], Pt transferred from [place] for surgery consult. Pt had back surgery on the September at this location. P t was experiencing pain and shaking while at his rehab facility. Pt states that her overheard the sta ff mentioning that his drainage from his surgical site is a brown color. TECHNIQUE: Multiple axial images were obtained from the midportion of T11 through the sacroiliac gwen nts. Soft tissue and bone windows in coronal and sagittal planes were obtained and reviewed. Contrast used: mL of , (None, if empty). Oral contrast used: (None, if empty). FINDINGS: Alignment: There are 5 lumbar type vertebral bodies within normal alignment. Bone: Hardware extending from T10 to S1. Discectomy at L2-L3, L3-L4, L4-L5, and L5-S1. Hardware appea rs intact. There is multilevel degeneration changes throughout the spine. Discs: Within the limitations of exam the spinal canal is patent. There is scattered mild to moderate spinal canal stenosis at various levels due to osteophyte formation. The neural foramen are moderately to s everely narrowed L5-S1 and moderate at L2-L4 and L4-L5 bilaterally. Other: There is subcutaneous gas along the surgical site with layering fluid and fluid collection. Gas tracks approximately 10.9 cm in caudocranial dimension with fluid collection which is hard to vis ualize given CT technique. IMPRESSION: 1. Surgical bed suspected infection with gas and fluid collection present concerning for abscess. Bales rgical consultation recommended. 2. Fixation hardware in place and intact.
[2023-11-08] MEDS: CAFFEINE-SODIUM BENZOATE 500 MG in SODIUM CHLORIDE 0.9% 100 ML IVPB ONE (09:30)
[2023-11-08] MEDS: polyethylene glycoL 3350 17 GM POWD.PACK PO SCH (09:37)
[2023-11-08] MEDS: 0.9% NACL WITH KCL 20 MEQ/L 1,000 ML IV SCH (11:57)
--- NOTE | 2023-11-08 12:38 | P.HPIM ---
History of Present Illness 63-year-old male was transferred from another facility for infected back. Lactic acid is elevated to 7.2. White count is elevated patient had a recent back surgery surgical site area appears to be infected. Patient was started on cefazolin with infectious disease consultation and patient will go for incision and drainage by orthopedic surgery because of continued wound drainage and suspicion of infection. REVIEW OF SYSTEMS: CONSTITUTIONAL: No fever, no malaise, no fatigue. HEENT: No recent visual problems or hearing problems. Denied any sore throat. CARDIOVASCULAR: No chest pain, orthopnea, PND, no palpitations, no syncope. PULMONARY: No shortness of breath, no cough, no hemoptysis. GASTROINTESTINAL: No diarrhea, no nausea, no vomiting, no abdominal pain. NEUROLOGICAL: No headaches, no weakness, no numbness. HEMATOLOGICAL: Denies any bleeding or petechiae. GENITOURINARY: Denies any burning micturition, frequency, or urgency. MUSCULOSKELETAL/RHEUMATOLOGICAL back pain as mentioned above ENDOCRINE: Denies any polyuria or polydipsia. The rest of the 14-point review of systems is negative. PHYSICAL EXAMINATION: GENERAL: The patient is alert and oriented x3, not in any acute distress. Well developed, well nourished. HEENT: Pupils are round and equally reacting to light. EOMI. No scleral icterus. No conjunctival pallor. Normocephalic, atraumatic. No pharyngeal erythema. No thyromegaly. CARDIOVASCULAR: S1 and S2 present. No murmurs, rubs, or gallops. PULMONARY: Chest is clear to auscultation, no wheezing or crackles. ABDOMEN: Soft, nontender, nondistended, normoactive bowel sounds. No palpable organomegaly. MUSCULOSKELETAL: Surgical site area has some area with purulent drainage EXTREMITIES: No cyanosis, clubbing, or pedal edema. NEUROLOGICAL: Gross neurological examination did not reveal any focal deficits. SKIN: No rashes. Assessment and plan Possible infected surgical site area in the back and the thoracolumbar incision site area patient is on cefazolin will undergo surgical drainage infectious disease was consulted -Paroxysmal atrial fibrillation patient will be resumed on home medications there is diltiazem patient is not on any anticoagulation not sure the reason for not anticoagulating the patient -History of DVT in the past -Hyperlipidemia -Hypertension -Sleep apnea -Hypothyroidism -Hypokalemia potassium will be replaced For above-mentioned chronic medical problems patient will be resumed on appropriate home medications DVT prophylaxis: Subcutaneous heparin Past Medical History Past Medical History: Atrial Fibrillation, Deep Vein Thrombosis (DVT), Hearing Disorder / Deafness, Hyperlipidemia, Hypertension, Osteoarthritis (OA), Sleep Apnea/CPAP/BIPAP, Thyroid Disorder Additional Past Medical History / Comment(s): HX DVT 2019 TOP RIGHT ATRIUM. HX AFIB RESOLVED WITH PACEMAKER. Bilateral hearing aid use. Occasional feet swelling. CPAP use. Hx overactive thyroid 6-7 yrs ago, no treatment needed. History of Any Multi-Drug Resistant Organisms: None Reported Past Surgical History: Back Surgery, Joint Replacement, Orthopedic Surgery, Pacemaker Additional Past Surgical History / Comment(s): Bilateral hip replacements, right shoulder surgery, left knee surgery X2, Watchman Device 09/2020, colonoscopy, spinal decompression. Past Anesthesia/Blood Transfusion Reactions: No Reported Reaction Type of Cardiac Device: Permanent Pacemaker Device Placement Date:: 2017 Past Psychological History: Depression Smoking Status: Never smoker Past Alcohol Use History: Occasional Past Drug Use History: None Reported - Past Family History Mother Family Medical History: Cancer Father Family Medical History: Deep Vein Thrombosis (DVT), Myocardial Infarction ([place]), Pulmonary Embolus Medications and Allergies Home Medications Medication Instructions Recorded Confirmed Type Amiodarone [Cordarone] 100 mg PO DAILY 11/17/21 11/08/23 History Ferrous Sulfate [Feosol] 325 mg PO Q48H 04/20/23 11/08/23 History Tamsulosin [Flomax] 0.4 mg PO DAILY 04/20/23 11/08/23 History methocarbamoL 1,000 mg PO DAILY PRN 04/20/23 11/08/23 History Atorvastatin [Lipitor] 20 mg PO HS 10/05/23 11/08/23 History Cholecalciferol (Vitamin D3) 100 mcg PO DAILY 10/05/23 11/08/23 History [Vitamin D3 (50 Mcg = 2000 Iu)] Aspirin EC [Ecotrin Low Dose] 81 mg PO DAILY 11/08/23 11/08/23 History Butalb/Acetaminophen/Caffeine 1 cap PO Q4HR PRN 11/08/23 11/08/23 History [Fioricet 50-300-40 mg Capsule] Calcium Carbonate 1,000 mg PO Q4H PRN 11/08/23 11/08/23 History Gabapentin 300 mg PO TID@0900,1300,2100 11/08/23 11/08/23 History HYDROcodone/APAP 10-325MG [[place] 1 tab PO Q4H PRN 11/08/23 11/08/23 History 10-325] L.acidoph,Paracasei, B.lactis 1 cap PO HS 11/08/23 11/08/23 History [Probiotic] Magnesium Hydroxide [Milk of 2,400 mg PO DAILY PRN 11/08/23 11/08/23 History Magnesia] Muscle Rub External Cream 10-15% 1 applic TOPICAL Q4H PRN 11/08/23 11/08/23 History Sennosides/Docusate Sodium [Senna 1 tab PO DAILY 11/08/23 11/08/23 History Plus 8.6-50 mg Tablet] bisacodyL [Dulcolax] 10 mg PO DAILY PRN 11/08/23 11/08/23 History dilTIAZem HCL [dilTIAZem HCL 24Hr 240 mg PO DAILY 11/08/23 11/08/23 History ER (CD)] Allergies Allergy/AdvReac Type Severity Reaction Status Date / Time adhesive Allergy Rash/Hives Verified 11/08/23 09:05 Penicillins AdvReac Swelling Verified 11/08/23 09:05 Physical Exam Vitals: Vital Signs Temp Pulse Resp BP BP Pulse Ox 11/08/23 08:00 97.8 F 18 149/75 92 L 11/08/23 06:00 78 19 133/65 91 L 11/08/23 04:59 78 19 141/71 96 11/08/23 00:42 71 18 124/73 93 L 11/07/23 23:22 99.5 F 65 20 111/66 94 L 11/07/23 22:06 101.2 F H 74 18 127/58 96 11/07/23 20:23 99.4 F 69 18 125/64 97 Intake and Output 11/07/23 11/08/23 11/08/23 22:59 06:59 14:59 Other: Voiding Method External Catheter Weight 124.738 kg Results CBC & Chem 7: 11/08/23 03:11 11/08/23 03:11 Labs: Abnormal Lab Results - Last 24 Hours (Table) 11/08/23 11/08/23 11/08/23 Range/Units 03:11 03:11 03:11 RBC 3.19 L (4.30-5.90) m/uL Hgb 8.6 L D (13.0-17.5) gm/dL Hct 27.8 L (39.0-53.0) % ESR 72 H (0-20) mm/Hr Potassium 3.4 L (3.5-5.1) mmol/L Creatinine 0.48 L (0.66-1.25) mg/dL Glucose 147 H (74-99) mg/dL Calcium 8.1 L (8.4-10.2) mg/dL Alkaline Phosphatase 279 H (38-126) U/L C-Reactive Protein (<1.0) mg/dL Total Protein 5.2 L (6.3-8.2) g/dL Albumin 2.2 L (3.5-5.0) g/dL 11/08/23 Range/Units 03:11 RBC (4.30-5.90) m/uL Hgb (13.0-17.5) gm/dL Hct (39.0-53.0) % ESR (0-20) mm/Hr Potassium (3.5-5.1) mmol/L Creatinine (0.66-1.25) mg/dL Glucose (74-99) mg/dL Calcium (8.4-10.2) mg/dL Alkaline Phosphatase (38-126) U/L C-Reactive Protein 13.8 H (<1.0) mg/dL Total Protein (6.3-8.2) g/dL Albumin (3.5-5.0) g/dL Microbiology - Last 24 Hours (Table) 11/07/23 22:06 Gram Stain - Preliminary Back
--- NOTE | 2023-11-08 14:17 | P.HPOR ---
History of Present Illness H&P Date: 11/08/23 MEDICINE REQUESTED THAT ORTHOPEDICS TAKE ADMISSION DUE TO LUMBAR SPINE INFECTION AND THEY WILL BE ON CONSULT. THIS IS ORTHO ADMISSION H&P. Orthopedics - HISTORY AND PHYSICAL 0 History of Present Illness - HPI Consult date: 11/08/23 Consult reason: low back pain History of present illness: 63 yo male presenting from [facility] from his [facility] due to increased drainage from his low back over the weekend with increased pain and a spot lactic acid lab at the facility that was falsely elevated. Pt has had drainage since surgery, but it had slowed down substantially over the weekend, but then yesterday increased again and nursing at the facility stating it was foul smelling and different in color. They also got a lactic acid on him and no other labs stating it was 7.7 at the time. We advised he go to the ED in [place] then. ED physician from [place] called me after assessment and repeat labs to find that his WBC were around 10 and his LA was around 2.2. New Labs drawn today are as stated in chart, but WBC are 6.6 and LA is low. He was afebrile in [place], but was still having drainage so we accepted transfer to our facility for further care and higher level of care. Today, Mr. Pickering was assessed. He continues to have low back pain. He states it is worse than it was before. He states the care facility was not taking care of him well and was not changing his dressing frequently. He states he would sit in his own urine for hours before they would come in and change him. He states he was having chills earlier today, but seems better. Denies any sob, cp, DELAROSA, N, V, at this time. He does NOT have positional DELAROSA at this time. Review of Systems 16 pt ROS completed and as stated in HPI. All other systems reviwed negative. Constitutional: Reports as per HPI Past Medical History Past Medical History: Atrial Fibrillation, Deep Vein Thrombosis (DVT), Hearing Disorder / Deafness, Hyperlipidemia, Hypertension, Osteoarthritis (OA), Sleep Apnea/CPAP/BIPAP, Thyroid Disorder Additional Past Medical History / Comment(s): HX DVT 2019 TOP RIGHT ATRIUM. HX AFIB RESOLVED WITH PACEMAKER. Bilateral hearing aid use. Occasional feet swelling. CPAP use. Hx overactive thyroid 6-7 yrs ago, no treatment needed. History of Any Multi-Drug Resistant Organisms: None Reported Past Surgical History: Back Surgery, Joint Replacement, Orthopedic Surgery, Pacemaker Additional Past Surgical History / Comment(s): Bilateral hip replacements, right shoulder surgery, left knee surgery X2, Watchman Device 09/2020, colonoscopy, spinal decompression. Past Anesthesia/Blood Transfusion Reactions: No Reported Reaction Type of Cardiac Device: Permanent Pacemaker Device Placement Date:: 2017 Past Psychological History: Depression Smoking Status: Never smoker Past Alcohol Use History: Occasional Past Drug Use History: None Reported - Past Family History Mother Family Medical History: Cancer Father Family Medical History: Deep Vein Thrombosis (DVT), Myocardial Infarction ([place]), Pulmonary Embolus Medications and Allergies Home Medications Medication Instructions Recorded Confirmed Type Amiodarone [Cordarone] 100 mg PO DAILY 11/17/21 10/05/23 History dilTIAZem HCL [dilTIAZem HCL 12Hr 240 mg PO DAILY 11/17/21 10/05/23 History ER] Ferrous Sulfate [Feosol] 325 mg PO Q48H 04/20/23 10/05/23 History Tamsulosin [Flomax] 0.4 mg PO DAILY 04/20/23 10/05/23 History methocarbamoL 1,000 mg PO DAILY PRN 04/20/23 10/05/23 History Atorvastatin [Lipitor] 20 mg PO HS 10/05/23 10/05/23 History Cholecalciferol (Vitamin D3) 100 mcg PO DAILY 10/05/23 10/05/23 History [Vitamin D3 (50 Mcg = 2000 Iu)] Butalb/Acetaminophen/Caffeine 1 - 2 cap PO Q4HR PRN #20 cap 10/19/23 Rx [Fioricet 50-300-40 mg Capsule] Cyclobenzaprine [Flexeril] 5 mg PO TID PRN #40 tablet 10/19/23 Rx Gabapentin 300 mg PO TID #90 cap 10/19/23 Rx HYDROcodone/APAP 10-325MG [[place] 1 tab PO Q4-6H PRN #40 tab 10/19/23 Rx 10-325] Sennosides/Docusate Sodium [[place] 1 each PO DAILY PRN #20 tablet 10/19/23 Rx Plus 8.6-50 mg Tablet] Sulfamethox-Tmp 800-160Mg [Bactrim 1 tab PO Q12HR #10 tab 10/19/23 Rx DS 800-160 mg] cefaDROXiL [Duricef] 500 mg PO Q12HR 10 Days #20 cap 10/20/23 Rx Allergies Allergy/AdvReac Type Severity Reaction Status Date / Time adhesive Allergy Rash/Hives Verified 11/07/23 20:29 Penicillins AdvReac Swelling Verified 11/07/23 20:29 Physical Examination Osteopathic Statement: *. No significant issues noted on an osteopathic structural exam other than those noted in the History and Physical/Consult. PHYSICAL EXAMINATION: Vitals: Stable at this time General: Awake, alert, appropriate for age, in no acute distress. HEENT: No unusual neck masses around region of lateral neck triangle, thyroid, supraclavicular groove. Extremities: Skin warm and dry without no acute lesions, coloration, temperature, skin intact, no tenderness or erythema. Integument: Hairy patches: Absent Dorsal skin dimples: Absent Cafe au lait spots: Absent Surgical incisions: Posterior Thoracolumbar incision is healed very well except for a small area at the caudal 1/3 where there is a .5x.5 cm area of some purulent discharge noted with drainage. This drainage is serous/purulent. Does not look like CSF at this time, but hard to tell due to the mixture. Dressing was changed and was mildly saturated with this fluid. The remainder of the incision is very well healed. Palpation: Please see Pain drawing on Intake sheet for further detail. (Tenderness = T, Nontender = NT, Swelling = S, Ecchymosis = E) Findings on Midline and paraspinal palpation and percussion: Cervical: NT Thoracic: NT Lumbar: TTP paraspinal Sacral: NT Special findings: None POSTURAL and MUSCULO-SKELETAL EVALUATION: Coronal Balance: Neutral Recumbent testing: Patient can lay flat on back Sagittal Balance: [Neutral] Shoulder Profile: [Level] Pelvic Girdle: [Level] Neck ROM: [Unrestricted in six directions] Lumbar ROM: Restricted due to pain Shoulder ROM: Symmetric in abduction, ER/IR Hip ROM: Symmetric in abduction, adduction, ER/IR Knee ROM: Symmetric and intact in Flexion / extension Hands: Normal appearing structure L and R Feet: Normal appearing structure L and R VASCULAR STATUS : Wrist Pulses: [2/4 bilateral radial and ulnar] Pedal Pulses: [2/4 bilateral DP and PT] Color: [Normal] Edema: [None] NEUROLOGIC EXAMINATION: Mental Status: Awake and alert, fully oriented, with normal attention, concentration and memory, and fluent, appropriate speech. Cranial Nerves: I: Olfactory not tested. II: Visual acuity normal, no visual field deficit noted with confrontation. III,IV: Normal pupillary reflexes & intact extraocular movements without nystagmus. V,: Intact symmetrical facial sensation. VII: Intact symmetrical facial motor movement VIII: Hearing intact. IX,X: Intact gag, swallow, & normal voice. XI: Sternocleidomastoid, trapezius function intact. XII: Tongue midline with normal movements. Special Tests: L'hermitte's Sign: Absent Spurling'Sign: Absent Bilateral Cubital percussion test: Absent Bilateral Ethan-Tinel sign - Carpal region: Absent Bilateral Straight Leg Raising: Absent Bilateral Motor Exam (0-5/5, N/T) STRENGTH UPPER EXTREMITY [5]/5 in all major muscle groups of the UE b/l LOWER EXTREMITY 4-/5 in all major muscle groups of the LE b/l due to recent surgery, deconditioning and LLE still shwoing some weakness ffrom before surgery REFLEXES Upper Extremity: RIGHT [2]/4 LEFT [2]/4 Lower Extremity: RIGHT [2]/4 LEFT [2]/4 Pathological Reflexes Pickard's: RIGHT [Absent] LEFT [Absent] Babinski: RIGHT [Absent] LEFT [Absent] Clonus: RIGHT [None] LEFT [None] SENSORY Pain and LT sense [Intact C5-T1 and L2-S1] Dermatomal deficit : mild paresthesias b/l LE but improving. Gait and Functional Evaluation: Ambulatory aids: Transfers with walker currently, can walk about 20 steps but not much further as he cannot tolerate due to pain Results CT pending Lumbar spine - Labs Labs: Abnormal Lab Results - Last 24 Hours (Table) 11/08/23 11/08/23 Range/Units 03:11 03:11 RBC 3.19 L (4.30-5.90) m/uL Hgb 8.6 L D (13.0-17.5) gm/dL Hct 27.8 L (39.0-53.0) % Potassium 3.4 L (3.5-5.1) mmol/L Creatinine 0.48 L (0.66-1.25) mg/dL Glucose 147 H (74-99) mg/dL Calcium 8.1 L (8.4-10.2) mg/dL Alkaline Phosphatase 279 H (38-126) U/L Total Protein 5.2 L (6.3-8.2) g/dL Albumin 2.2 L (3.5-5.0) g/dL H & H 11/08/23 Range/Units 03:11 Hgb 8.6 L D (13.0-17.5) gm/dL Hct 27.8 L (39.0-53.0) % Result Diagrams: 11/08/23 03:11 11/08/23 03:11 Assessment and Plan Assessment: 63 yo male s/p [id number] revision decompression and fusion with continued wound drainage 3 weeks PO Lumbar spondylosis with stenosis LE weakness Neurogenic claudication Complex medical patient. Plan: -CT lumbar spine stat -Cont with abx -OK for diet today -Primary medical management -Consult ID -Pain control PRN -Plan for surgical debridment and washout on 11/10/23 Past Medical History Past Medical History: Atrial Fibrillation, Deep Vein Thrombosis (DVT), Hearing Disorder / Deafness, Hyperlipidemia, Hypertension, Osteoarthritis (OA), Sleep Apnea/CPAP/BIPAP, Thyroid Disorder Additional Past Medical History / Comment(s): HX DVT 2019 TOP RIGHT ATRIUM. HX AFIB RESOLVED WITH PACEMAKER. Bilateral hearing aid use. Occasional feet swelling. CPAP use. Hx overactive thyroid 6-7 yrs ago, no treatment needed. History of Any Multi-Drug Resistant Organisms: None Reported Past Surgical History: Back Surgery, Joint Replacement, Orthopedic Surgery, Pacemaker Additional Past Surgical History / Comment(s): Bilateral hip replacements, right shoulder surgery, left knee surgery X2, Watchman Device 09/2020, colonoscopy, spinal decompression. Past Anesthesia/Blood Transfusion Reactions: No Reported Reaction Type of Cardiac Device: Permanent Pacemaker Device Placement Date:: 2017 Past Psychological History: Depression Smoking Status: Never smoker Past Alcohol Use History: Occasional Past Drug Use History: None Reported - Past Family History Mother Family Medical History: Cancer Father Family Medical History: Deep Vein Thrombosis (DVT), Myocardial Infarction ([place]), Pulmonary Embolus Medications and Allergies Home Medications Medication Instructions Recorded Confirmed Type Amiodarone [Cordarone] 100 mg PO DAILY 11/17/21 11/08/23 History Ferrous Sulfate [Feosol] 325 mg PO Q48H 04/20/23 11/08/23 History Tamsulosin [Flomax] 0.4 mg PO DAILY 04/20/23 11/08/23 History methocarbamoL 1,000 mg PO DAILY PRN 04/20/23 11/08/23 History Atorvastatin [Lipitor] 20 mg PO HS 10/05/23 11/08/23 History Cholecalciferol (Vitamin D3) 100 mcg PO DAILY 10/05/23 11/08/23 History [Vitamin D3 (50 Mcg = 2000 Iu)] Aspirin EC [Ecotrin Low Dose] 81 mg PO DAILY 11/08/23 11/08/23 History Butalb/Acetaminophen/Caffeine 1 cap PO Q4HR PRN 11/08/23 11/08/23 History [Fioricet 50-300-40 mg Capsule] Calcium Carbonate 1,000 mg PO Q4H PRN 11/08/23 11/08/23 History Gabapentin 300 mg PO TID@0900,1300,2100 11/08/23 11/08/23 History HYDROcodone/APAP 10-325MG [[place] 1 tab PO Q4H PRN 11/08/23 11/08/23 History 10-325] L.acidoph,Paracasei, B.lactis 1 cap PO HS 11/08/23 11/08/23 History [Probiotic] Magnesium Hydroxide [Milk of 2,400 mg PO DAILY PRN 11/08/23 11/08/23 History Magnesia] Muscle Rub External Cream 10-15% 1 applic TOPICAL Q4H PRN 11/08/23 11/08/23 History Sennosides/Docusate Sodium [[place]enna 1 tab PO DAILY 11/08/23 11/08/23 History Plus 8.6-50 mg Tablet] bisacodyL [Dulcolax] 10 mg PO DAILY PRN 11/08/23 11/08/23 History dilTIAZem HCL [dilTIAZem HCL 24Hr 240 mg PO DAILY 11/08/23 11/08/23 History ER (CD)] Allergies Allergy/AdvReac Type Severity Reaction Status Date / Time adhesive Allergy Rash/Hives Verified 11/08/23 09:05 Penicillins AdvReac Swelling Verified 11/08/23 09:05 Physical Examination Osteopathic Statement: *. No significant issues noted on an osteopathic structural exam other than those noted in the History and Physical/Consult. Results - Labs Labs: Abnormal Lab Results - Last 24 Hours (Table) 11/08/23 11/08/23 11/08/23 Range/Units 03:11 03:11 03:11 RBC 3.19 L (4.30-5.90) m/uL Hgb 8.6 L D (13.0-17.5) gm/dL Hct 27.8 L (39.0-53.0) % ESR 72 H (0-20) mm/Hr Potassium 3.4 L (3.5-5.1) mmol/L Creatinine 0.48 L (0.66-1.25) mg/dL Glucose 147 H (74-99) mg/dL Calcium 8.1 L (8.4-10.2) mg/dL Alkaline Phosphatase 279 H (38-126) U/L C-Reactive Protein (<1.0) mg/dL Total Protein 5.2 L (6.3-8.2) g/dL Albumin 2.2 L (3.5-5.0) g/dL 11/08/23 Range/Units 03:11 RBC (4.30-5.90) m/uL Hgb (13.0-17.5) gm/dL Hct (39.0-53.0) % ESR (0-20) mm/Hr Potassium (3.5-5.1) mmol/L Creatinine (0.66-1.25) mg/dL Glucose (74-99) mg/dL Calcium (8.4-10.2) mg/dL Alkaline Phosphatase (38-126) U/L C-Reactive Protein 13.8 H (<1.0) mg/dL Total Protein (6.3-8.2) g/dL Albumin (3.5-5.0) g/dL Microbiology - Last 24 Hours (Table) 11/07/23 22:06 Gram Stain - Preliminary Back H & H 11/08/23 Range/Units 03:11 Hgb 8.6 L D (13.0-17.5) gm/dL Hct 27.8 L (39.0-53.0) % Result Diagrams: 11/08/23 03:11 11/08/23 03:11
[2023-11-08] MEDS: POTASSIUM CHLORIDE ER 20 MEQ TAB.ER PO STA (15:54)
[2023-11-08] MEDS: ACETAMINOPHEN TAB 325 MG TAB PO PRN (18:48)
[2023-11-08] MEDS: ATORVASTATIN 20 MG TAB PO SCH (21:06)
[2023-11-08] MEDS: HYDROcodone/APAP 10-325MG 1 EACH TAB PO PRN (22:53)
[2023-11-09 04:01] LABS: African American GFR (CKD) >90 (>60 ml/min/1.73 sqM); Anion Gap 3 mmol/L; Blood Urea Nitrogen 8 mg/dL (9-20); Calcium 8.2 mg/dL (8.4-10.2); Carbon Dioxide 23 mmol/L (22-30); Chloride 110 mmol/L (98-107); Glucose 126 mg/dL (74-99); Non-African American GFR(CKD) >90 (>60 ml/min/1.73 sqM); Potassium 3.9 mmol/L (3.5-5.1); Sodium 136 mmol/L (137-145)
[2023-11-09 05:02] LABS: HCT 28.7 % (39.0-53.0); Hypochromasia Marked; MCH 27.3 pg (25.0-35.0); MCHC 31.4 g/dL (31.0-37.0); MCV 87.1 fL (80.0-100.0); Mean Platelet Volume 8.5; Platelet Count 304 k/uL (150-450); RDW 15.4 % (11.5-15.5); WBC 7.9 k/uL (3.8-10.6)
[2023-11-09 06:21] LABS: Eosinophils # (M) 0.08 k/uL (0-0.7); Lymphocytes # (M) 1.34 k/uL (1.0-4.8); Monocytes # (M) 0.47 k/uL (0-1.0); Neutrophils % (M) 76 %; Nucleated Red Blood Cells 0 /100 WBC (0-0); Total Cells Counted 100
[2023-11-09 06:24] LABS: Poikilocytosis (M) Present; Rouleaux Present
[2023-11-09] MEDS ORDERED: BUTALB/APAP/CAFF 50-325-40MG TAB PO PRN (07:00)
--- NOTE | 2023-11-09 07:19 | P.PN ---
Subjective Progress Note Date: 11/09/23 Principal diagnosis: Post op infection Pt s/e this AM. Resting in bed comfortable. Pain controlled. States he slept well last night. Denies any F/C/SOB/CP at this time. Denies any other sx. Back pain only complaint. Hard to move due to increased pain. Objective - Vital Signs Vital signs: Vital Signs Temp 98.1 F 11/09/23 07:13 Pulse 68 11/09/23 07:13 Resp 16 11/09/23 07:13 BP 146/73 11/09/23 07:13 Pulse Ox 97 11/09/23 07:13 FiO2 21 11/08/23 23:49 Intake & Output 11/08/23 11/09/23 11/09/23 18:59 06:59 18:59 Output Total 750 Balance -750 Weight 124.738 kg Output: Urine 750 Other: Voiding Method External Catheter - Exam Physical Exam: -Patient is alert and oriented 3 appears well-nourished well-hydrated is in no acute distress. They do not appear septic. -There is TTP lumbar spine Well-healed above and below with a 2 cm region at the bottom third with drainage that is purulent -Upper extremities show 5 out of 5 strength in all major muscle groups. -Lower extremities with 4 out of 5 strength in all major muscle groups -There is FROM that is painless of the b/l UE and LE in all major joints. Negative straight leg raise bilaterally -They are intact to light touch sensation in C5 to T1 and L2 to S1 nerve distribution. -DTR 2/4 all upper and lower extremities -Patient has palpable distal pulses all 4 ext -Compartments are soft and compressible. -Patient shows a negative Mikki's -Neg Hoffmans b/l -Neg Clonus b/l -Neg babinski b/l Cranial nerves II through XII are grossly intact. - Labs CBC & Chem 7: 11/09/23 03:32 11/09/23 03:32 Labs: Abnormal Lab Results - Last 24 Hours (Table) 11/08/23 11/08/23 11/09/23 Range/Units 03:11 03:11 03:32 RBC 3.30 L (4.30-5.90) m/uL Hgb 9.0 L (13.0-17.5) gm/dL Hct 28.7 L (39.0-53.0) % ESR 72 H (0-20) mm/Hr Sodium (137-145) mmol/L Chloride (98-107) mmol/L BUN (9-20) mg/dL Creatinine (0.66-1.25) mg/dL Glucose (74-99) mg/dL Calcium (8.4-10.2) mg/dL C-Reactive Protein 13.8 H (<1.0) mg/dL 11/09/23 Range/Units 03:32 RBC (4.30-5.90) m/uL Hgb (13.0-17.5) gm/dL Hct (39.0-53.0) % ESR (0-20) mm/Hr Sodium 136 L (137-145) mmol/L Chloride 110 H (98-107) mmol/L BUN 8 L (9-20) mg/dL Creatinine 0.38 L (0.66-1.25) mg/dL Glucose 126 H (74-99) mg/dL Calcium 8.2 L (8.4-10.2) mg/dL C-Reactive Protein (<1.0) mg/dL Microbiology - Last 24 Hours (Table) 11/07/23 22:06 Gram Stain - Preliminary Back Wound Culture - Preliminary Gram Neg Bacilli Assessment and Plan (1) Lumbar surgical wound fluid collection Narrative/Plan: PLAN FOR OR TOMORROW 11/10/23 FOR INCISION AND DRAINAGE WITH WASHOUT OF LUMBAR SPINE WITH ABX BEAD PLACEMENT. CONT WITH ABX PICC LINE TODAY CONSULT ID FOR ABX MGT CONT WITH PAIN CONTROL MEDICAL MANAGEMENT GI PPX, MECH DVT PPX Current Visit: Yes Status: Acute Priority: Medium Onset Date: ~11/06/23 Code(s): T81.89XA - OTH COMPLICATIONS OF PROCEDURES, NEC, INIT SNOMED Code(s): 517453404
[2023-11-09] MEDS: ASPIRIN 81 MG PO SCH (09:19)
[2023-11-09] MEDS: DILTIAZEM CD 240 MG CAP.ER.24H PO SCH (09:19)
[2023-11-09] MEDS: AMIODARONE 100 MG TAB PO SCH (09:20)
[2023-11-09] MEDS: TAMSULOSIN 0.4 MG CAP.ER.24H PO SCH (09:20)
[2023-11-09] MEDS: ceFAZolin 3 GM in SODIUM CHLORIDE 0.9% 100 ML IVPB SCH (09:20)
[2023-11-09] MEDS: CEFEPIME 2 GM in SODIUM CHLORIDE 0.9% 100 ML IVPB SCH (10:48)
[2023-11-09 14:08] VITALS: BMI 39.4
--- NOTE | 2023-11-09 16:23 | P.PN ---
Subjective Progress Note Date: 11/09/23 63-year-old male was transferred from another facility for infected back. Lactic acid is elevated to 7.2. White count is elevated patient had a recent back surgery surgical site area appears to be infected. Patient was started on cefazolin with infectious disease consultation and patient will go for incision and drainage by orthopedic surgery because of continued wound drainage and suspicion of infection. 11/09/2023 Patient is seen in follow-up today currently awaiting a PICC line with infectious disease following along with orthopedics. Plan is for washout with deep cultures on 11/10/2023. Patient is afebrile with no reported chest pain or shortness of breath. Patient continues to report some incisional discomfort of the back and is maintained on current pain management regimen per orthopedics. Patient will need PT/OT therapy evaluation and discussion of possible ECF. Plan is for outpatient PICC line and IV antibiotics per infectious disease recommendations. Awaiting finalized cultures. Preliminary is showing gram- negative bacilli at this time. Blood cultures are negative. Review of systems: Constitutional: No reports of fatigue, fever, or chills Cardiovascular: No reports of chest pain or palpitations Respiratory: No reports of shortness of breath or cough GI: No reports of nausea, vomiting, or diarrhea : No reports of dysuria or retention Neurovascular:reports of generalized weakness and continued lower back pain All medications have been reviewed PHYSICAL EXAMINATION: GENERAL: The patient is alert and oriented x3, not in any acute distress. Well developed, well nourished. Obese HEENT: Pupils are round and equally reacting to light. EOMI. No scleral icterus. No conjunctival pallor. Normocephalic, atraumatic. No pharyngeal erythema. No thyromegaly. CARDIOVASCULAR: S1 and S2 present. No murmurs, rubs, or gallops. PULMONARY: Chest is clear to auscultation, no wheezing or crackles. ABDOMEN: Soft, obese nontender, nondistended, normoactive bowel sounds. No palpable organomegaly. MUSCULOSKELETAL: Surgical site area has some area with purulent drainage EXTREMITIES: No cyanosis, clubbing, or pedal edema. NEUROLOGICAL: Gross neurological examination did not reveal any focal deficits. Diffusely weak SKIN: No rashes. Assessment and plan -Possible infected surgical site area in the back and the thoracolumbar incision site area, patient is on cefazolin will undergo surgical washout and evaluation with deep tissue cultures on 11/10/2023 -Paroxysmal atrial fibrillation patient will be resumed on home medications there is diltiazem patient is not on any anticoagulation not sure the reason for not anticoagulating the patient -History of DVT in the past -Hyperlipidemia -Hypertension -Sleep apnea -Hypothyroidism -Hypokalemia potassium will be replaced, improving -GI prophylaxis -DVT prophylaxis: Subcutaneous heparin Obesity with a BMI of 39.5 Full code Plan: Patient is currently maintained on IV antibiotics with infectious disease following and plan is for PICC line. Tentatively scheduled for washout and deep tissue cultures on 11/10/2023 with orthopedics Patient will be n.p.o. at midnight and resume diet once cleared by surgery Patient to continue with wound care of the back and dressing changes as needed per orthopedics Home medications reviewed and resumed as appropriate We will continue to follow with orthopedics during hospitalization. Will await surgical report on 11/10/2023 Thank you kindly for this consultation. Orthopedics has agreed to take this patient as admitting and attending and we will continue to follow as a consult. The impression and plan of care has been dictated by Genevieve Braxton, Nurse Pr actitioner as directed. Dr. Juani MD I have performed a history and examination and MDM of this patient, discussed the same with the dictator, and agree with the dictator's assessment and plan as written ,documented as a scribe. Based on total visit time, I have performed more than 50% of the visit. Objective - Vital Signs Vital signs: Vital Signs Temp 98.7 F 11/09/23 13:21 Pulse 72 11/09/23 13:21 Resp 16 11/09/23 13:21 BP 147/74 11/09/23 13:21 Pulse Ox 99 11/09/23 13:21 FiO2 21 11/08/23 23:49 Intake & Output 11/08/23 11/09/23 11/09/23 18:59 06:59 18:59 Output Total 750 1100 Balance -750 -1100 Weight 124.738 kg 124.738 kg Output: Urine 750 1100 Other: Voiding Method External Catheter - Labs CBC & Chem 7: 11/09/23 03:32 11/09/23 03:32 Labs: Abnormal Lab Results - Last 24 Hours (Table) 11/09/23 11/09/23 Range/Units 03:32 03:32 RBC 3.30 L (4.30-5.90) m/uL Hgb 9.0 L (13.0-17.5) gm/dL Hct 28.7 L (39.0-53.0) % Sodium 136 L (137-145) mmol/L Chloride 110 H (98-107) mmol/L BUN 8 L (9-20) mg/dL Creatinine 0.38 L (0.66-1.25) mg/dL Glucose 126 H (74-99) mg/dL Calcium 8.2 L (8.4-10.2) mg/dL Microbiology - Last 24 Hours (Table) 11/07/23 22:06 Gram Stain - Preliminary Back Wound Culture - Preliminary Gram Neg Bacilli
[2023-11-09 20:40] LABS: Glucose,Whole Blood 155 mg/dL (70-110)
--- NOTE | 2023-11-09 21:30 | P.CONS ---
History of Present Illness - Reason for Consult Consult date: 11/09/23 Antibiotic management spinal infection Requesting physician: El Chow - Chief Complaint Back pain and drainage x days - History of Present Illness Patient is a 63-year-old male with a past medical history difficult for atrial fibrillation DVT hypertension hyperlipidemia sleep apnea depression in this patient who is status post osteotomy of the spine arthrodesis L5-S1 arthrodesis of the sacroiliac joint arthrodesis posterior T10 and L1 posterior segmental instrumentation [id number] procedure was completed on 10/11/2023 patient apparently seem to have problems with the drainage from his incision since the surgery that has gotten really worse recently also complaining of more pain to the lower back area describing it to be sharp moderate to severe i ntensity worse with movement denies any weakness to lower extremity bowel or bladder problem patient denies high-grade fever or any chills with the symptoms the patient has been admitted to the hospital patient did spike a fever of 101.2 degree for night last night unfortunately no blood culture obtained patient did have local culture obtained from the spine which are currently growing gram-negative patient has been on cefazolin infectious disease was consulted for further management of antibiotic therapy patient did have a white count of 6.3 creatinine 0.48 sed rate of 72 CRP of 13.8 Review of Systems Positive point and negatives has been mentioned in the HPI, complete review of systems was performed and all other systems are negative Past Medical History Past Medical History: Atrial Fibrillation, Deep Vein Thrombosis (DVT), Hearing Disorder / Deafness, Hyperlipidemia, Hypertension, Osteoarthritis (OA), Sleep Apnea/CPAP/BIPAP, Thyroid Disorder Additional Past Medical History / Comment(s): HX DVT 2019 TOP RIGHT ATRIUM. HX AFIB RESOLVED WITH PACEMAKER. Bilateral hearing aid use. Occasional feet swelling. CPAP use. Hx overactive thyroid 6-7 yrs ago, no treatment needed. History of Any Multi-Drug Resistant Organisms: None Reported Past Surgical History: Back Surgery, Joint Replacement, Orthopedic Surgery, Pacemaker Additional Past Surgical History / Comment(s): Bilateral hip replacements, right shoulder surgery, left knee surgery X2, Watchman Device 09/2020, colonoscopy, spinal decompression. Past Anesthesia/Blood Transfusion Reactions: No Reported Reaction Type of Cardiac Device: Permanent Pacemaker Device Placement Date:: 2017 Past Psychological History: Depression Smoking Status: Never smoker Past Alcohol Use History: Occasional Past Drug Use History: None Reported - Past Family History Mother Family Medical History: Cancer Father Family Medical History: Deep Vein Thrombosis (DVT), Myocardial Infarction (AR), Pulmonary Embolus Medications and Allergies Home Medications Medication Instructions Recorded Confirmed Type Amiodarone [Cordarone] 100 mg PO DAILY 11/17/21 11/08/23 History Ferrous Sulfate [Feosol] 325 mg PO Q48H 04/20/23 11/08/23 History Tamsulosin [Flomax] 0.4 mg PO DAILY 04/20/23 11/08/23 History methocarbamoL 1,000 mg PO DAILY PRN 04/20/23 11/08/23 History Atorvastatin [Lipitor] 20 mg PO HS 10/05/23 11/08/23 History Cholecalciferol (Vitamin D3) 100 mcg PO DAILY 10/05/23 11/08/23 History [Vitamin D3 (50 Mcg = 2000 Iu)] Aspirin EC [Ecotrin Low Dose] 81 mg PO DAILY 11/08/23 11/08/23 History Butalb/Acetaminophen/Caffeine 1 cap PO Q4HR PRN 11/08/23 11/08/23 History [Fioricet 50-300-40 mg Capsule] Calcium Carbonate 1,000 mg PO Q4H PRN 11/08/23 11/08/23 History Gabapentin 300 mg PO TID@0900,1300,2100 11/08/23 11/08/23 History HYDROcodone/APAP 10-325MG [[place] 1 tab PO Q4H PRN 11/08/23 11/08/23 History 10-325] L.acidoph,Paracasei, B.lactis 1 cap PO HS 11/08/23 11/08/23 History [Probiotic] Magnesium Hydroxide [Milk of 2,400 mg PO DAILY PRN 11/08/23 11/08/23 History Magnesia] Muscle Rub External Cream 10-15% 1 applic TOPICAL Q4H PRN 11/08/23 11/08/23 History Sennosides/Docusate Sodium [Senna 1 tab PO DAILY 11/08/23 11/08/23 History Plus 8.6-50 mg Tablet] bisacodyL [Dulcolax] 10 mg PO DAILY PRN 11/08/23 11/08/23 History dilTIAZem HCL [dilTIAZem HCL 24Hr 240 mg PO DAILY 11/08/23 11/08/23 History ER (CD)] Allergies Allergy/AdvReac Type Severity Reaction Status Date / Time adhesive Allergy Rash/Hives Verified 11/08/23 09:05 Penicillins AdvReac Swelling Verified 11/08/23 09:05 Physical Exam Vitals: Vital Signs Temp Pulse Pulse Resp BP BP Pulse Ox 11/09/23 07:13 98.1 F 68 16 146/73 97 11/09/23 02:00 99.2 F 72 151/88 95 11/08/23 23:49 11/08/23 21:14 99.2 F 18 147/83 94 L 11/08/23 20:00 99.5 F 83 147/79 95 11/08/23 17:52 76 18 156/67 95 11/08/23 15:45 75 18 150/52 95 11/08/23 14:00 98.7 F 20 135/63 98 FiO2 11/09/23 07:13 11/09/23 02:00 11/08/23 23:49 21 11/08/23 21:14 11/08/23 20:00 11/08/23 17:52 11/08/23 15:45 11/08/23 14:00 Intake and Output 11/08/23 11/09/23 11/09/23 22:59 06:59 14:59 Output Total 750 1100 Balance -750 -1100 Output: Urine 750 1100 Other: Weight 124.738 kg GENERAL DESCRIPTION: Middle-aged male lying in bed, no distress. No tachypnea or accessory muscle of respiration use. HEENT: Shows Pallor , no scleral icterus. Oral mucous membrane is dry. No pharyngeal erythema or thrush NECK: Trachea central, no thyromegaly. LUNGS: Unlabored breathing. Clear to auscultation anteriorly. No wheeze or cr ackle. HEART: S1, S2, regular rate and rhythm. No loud murmur ABDOMEN: Soft, no tenderness , guarding or rigidity, no organomegaly EXTREMITIES: No edema of feet. SKIN: Patient did have some drainage from his spinal incision with associated tenderness NEUROLOGICAL: The patient is awake, alert, oriented x3, mood and affect normal. Results CBC & Chem 7: 11/09/23 03:32 11/09/23 03:32 Labs: Abnormal Lab Results - Last 24 Hours (Table) 11/09/23 11/09/23 Range/Units 03:32 03:32 RBC 3.30 L (4.30-5.90) m/uL Hgb 9.0 L (13.0-17.5) gm/dL Hct 28.7 L (39.0-53.0) % Sodium 136 L (137-145) mmol/L Chloride 110 H (98-107) mmol/L BUN 8 L (9-20) mg/dL Creatinine 0.38 L (0.66-1.25) mg/dL Glucose 126 H (74-99) mg/dL Calcium 8.2 L (8.4-10.2) mg/dL Microbiology - Last 24 Hours (Table) 11/07/23 22:06 Gram Stain - Preliminary Back Wound Culture - Preliminary Gram Neg Bacilli Assessment and Plan (1) Surgical site infection Current Visit: Yes Status: Acute Code(s): T81.49XA - INFECTION FOLLOWING A PROCEDURE, OTHER SURGICAL SITE, INIT SNOMED Code(s): 12816363 (2) Penicillin allergy Current Visit: Yes Status: Acute Code(s): Z88.0 - ALLERGY STATUS TO PENICILLIN SNOMED Code(s): 10011075 (3) Lumbar surgical wound fluid collection Current Visit: Yes Status: Acute Priority: Medium Onset Date: ~11/06/23 Code(s): T81.89XA - OTH COMPLICATIONS OF PROCEDURES, NEC, INIT SNOMED Code(s): 075099349 (4) Open wound of lumbar region Current Visit: Yes Status: Acute Code(s): S31.000A - UNSP OPN WND LOW BACK AND PELV W/O PENET RETROPERITON, INIT SNOMED Code(s): 853745114 Plan: 1patient presented to hospital with worsening lower back pain drainage conc erning for lumbar surgical site infection in this patient who did have a extensive lumbosacral spine surgery completed on 10/11/2023. 2local culture currently growing gram-negative with ID sensitivities pending. 3obtain blood cultures. 4discontinue cefazolin. 5start the patient cefepime 2 g every 8 hours and the patient benefit from deep or culture with time surgical drainage tomorrow. We will follow on clinical condition and cultures to further adjust medication if needed Thank you for this consultation we will follow the patient along with you Dictation was produced using [employer] dictation software. please excuse any grammatical, word or spelling errors. Time with Patient: Greater than 30
[2023-11-09] MEDS: HYDROmorphone 0.5 MG/0.5 ML SYRINGE IVP PRN (23:20)
[2023-11-10 05:55] LABS: Glucose,Whole Blood 102 mg/dL (70-110)
[2023-11-10] MEDS ORDERED: LIDOCAINE 1% (10MG/ML) FOR IV START INTRADERMA PRN (06:19)
[2023-11-10] MEDS ORDERED: HYDROmorphone 0.5 MG/0.5 ML SYRINGE IVP PRN (07:00)
--- NOTE | 2023-11-10 07:10 | P.PN ---
Subjective Progress Note Date: 11/10/23 Principal diagnosis: Post op infection Pt s/e this AM. Doing OK. Ready for surgery. [place] been NPO at [place]. Denies any other issues at this time. Objective - Vital Signs Vital signs: Vital Signs Temp 98 F 11/10/23 01:45 Pulse 74 11/10/23 01:45 Resp 18 11/10/23 01:45 BP 160/75 11/10/23 01:45 Pulse Ox 96 11/10/23 01:45 FiO2 21 11/10/23 03:46 Intake & Output 11/09/23 11/10/23 11/10/23 18:59 06:59 18:59 Output Total 1800 1100 Balance -1800 -1100 Weight 124.738 kg Output: Urine 1800 1100 Other: Voiding Method External Catheter - Exam Physical Exam: No changes today -Patient is alert and oriented 3 appears well-nourished well-hydrated is in no acute distress. They do not appear septic. -There is TTP lumbar spine Well-healed above and below with a 2 cm region at the bottom third with drainage that is purulent -Upper extremities show 5 out of 5 strength in all major muscle groups. -Lower extremities with 4 out of 5 strength in all major muscle groups -There is FROM that is painless of the b/l UE and LE in all major joints. Negative straight leg raise bilaterally -They are intact to light touch sensation in C5 to T1 and L2 to S1 nerve distribution. -DTR 2/4 all upper and lower extremities -Patient has palpable distal pulses all 4 ext -Compartments are soft and compressible. -Patient shows a negative Mikki's -Neg Hoffmans b/l -Neg Clonus b/l -Neg babinski b/l Cranial nerves II through XII are grossly intact. - Labs CBC & Chem 7: 11/09/23 03:32 11/09/23 03:32 Labs: Abnormal Lab Results - Last 24 Hours (Table) 11/09/23 Range/Units 20:39 POC Glucose (mg/dL) 155 H (70-110) mg/dL Microbiology - Last 24 Hours (Table) 11/07/23 22:06 Gram Stain - Final Back Wound Culture - Final Enterobacter cloacae Escherichia coli Assessment and Plan (1) Lumbar surgical wound fluid collection Current Visit: Yes Status: Acute Priority: Medium Onset Date: ~11/06/23 Code(s): T81.89XA - OTH COMPLICATIONS OF PROCEDURES, NEC, INIT SNOMED Code(s): 434423641 Plan: Spine Surgery Clinical and Risk Review Bryn Chicas is a [Demographic] presenting for evaluation of LOW BACK PAIN, INCREASED DRAINAGE FROM WOUND. It was my pleasure to have seen and examined Bryn Chicas . In our visit today we have had a chance to go over subjective complaints, physical examination findings and treatments including the natural course history without intervention and various interventional options. The patients imaging demonstrates LARGE SUBFACIAL FLUID COLLECTION. On physical exam, Bryn Chicas demonstrates DRAINING WOUND LUMBAR WITH PURULENCE. I have explained to the patient that as their condition progresses it will cause further neurological deficits and eventual paralysis. Based on the patients imaging, physical exam, and the rapid progression and disabling nature of their symptoms, at this time I recommend surgery in the form or a: INCISION AND DRAINAGE WITH IRRIGATION AND DEBRIDEMENT LUMBAR SPINE. I discussed the risk and benefits of this procedure at length with Bryn Chicas ]. The patient agreed to considered pursuing the procedure abovementioned. Prior to surgery, she should follow up with her PCP (Cardio, ID, IM etc) for clearance. Questions were invited and answered, and the patient wishes to proceed as outlined below. Currently, I am recommendin. INCISION AND DRAINAGE WITH IRRIGATION AND DEBRIDEMENT LUMBAR SPINE 2. Follow up with PCP for surgical clearance 3. Review of surgical risks and benefits as well as an educational packet on the proposed surgical procedure. Risks: All surgical procedures come with inherent risks, including those related to positioning, anesthesia, intraoperative findings, and postoperative complications. It is important to understand that surgery does not come with any guarantee of a successful outcome as complications and adverse events are always possible. The patient was given a handout in office today discussing the surgical procedure and risks associated with the intervention, both of which were discussed with the patient. These risks include but are not limited to the following: * Experiencing same, different or even worse symptoms in back, neck, arms, or legs compared to before surgery. * Requiring further surgery or other forms of treatment presently or at some time in the future at same or other levels of the intended spine surgery. * On an extreme but fortunately relatively rare basis severe complication such as blindness, stroke, heart attack, temporary and/or permanent nerve injury, paralysis, coma, or may occur, sometimes without known explanation. * Surgical complications may include but are not limited to risk of infection, fluid accumulation in the surgical dissection site, including a seroma or hematoma, that requires additional surgery, wound drainage, bleeding, new numbness or weakness, vision changes/loss, spinal fluid leakage, non-healing and/or infected incision, headaches, difficulty or inability to swallow, hoarseness, hemopneumothorax, pneumothorax, impotence, retrograde ejaculation, vaginal dryness; injury to nerves, spinal cord, blood vessels, lymphatics or other vital organs (i.e., bowel injury, injury to the great vessels); heterotopic bone formation; complications related to the hardware such as screws, rods, cages including misplaced hardware, device failure, instrumentation at the wrong spine level, hardware fracture/breakage, or hardware loosening; vertebral failure of the spinal column above or below the newly placed hardware; retained surgical instrumentations or devices and the need for further surgery. * Medical risks of the planned spine surgery include but are not limited to generalized Infections to the whole body or local areas outside of the surgical site (sepsis), heart attack, bleeding, anaphylaxis, meningitis, seizure, epilepsy, hearing loss, burn mosqueda, laceration of the head or other areas of the body, bruising, hypersensitivity of the skin, bladder over distension; allergic reaction; shoulder injury related to positioning; fat, blood and air clots to other areas of the body like heart, lungs, brain; failure of internal organs such as lungs, kidneys, liver and excessive bleeding. If blood transfusions are necessary, note that transfusions may cause intolerance reactions such as anaphylaxis or other complex reactions. * Despite best efforts, the results of spine surgery might not heal in terms of bone, soft tissues such as skin, fascia, ligaments, and joints. Additionally, in order to achieve best possible results, spine surgery may be carried out beyond the initially planned levels and involve decompression, fusion including insertion of hardware at levels other than the original intended area of surgical interest change some portions of the procedure in order to ensure the best possible outcomes. * With spine surgery and spinal fusion, there are different off label uses of instrumentation (devices, implants and hardware) as well as biological substances (bone morphogenic proteins, demineralized bone matrix) as well as using extra bone from allograft sources (i.e. cadaver bone) or autograft (iliac crest bone, ribs, or the spine itself). The patient has been given information about these practices and their inherent risks and benefits. The patient has had a chance to review all the listed information, has been given print outs detailing this information, and has had all his/her questions answered to their satisfaction. It was my pleasure to have seen and examined Bryn Chicas . In our visit today we have had a chance to go over my understanding of our patient's current condition, the natural course history without intervention and various interventional options. Questions were invited and answered, and the patient wishes to proceed as outlined above. I have seen and examined the patient for 25 minutes and we have spent more than 50% of the time in repeat and detailed counseling about the patient's condition, its natural course history with out and as much as can be predicted with surgery and re-review of various surgical treatment options. In conclusion, Bryn Chicas requested we proceed with the above suggested surgery and are willing to accept risks and limitations of the suggested surgery as nature of the disease process and our best attempts at treatment for the condition. Thank you again for allowing us to be part of your patient's care. Please don't hesitate to contact me if you have any further questions. Signed and authenticated by: [facility] [address] [facility] [address] [address]
--- NOTE | 2023-11-10 10:55 | XR ---
EXAMINATION TYPE: XR chest 1V DATE OF EXAM: 11/10/2023 HISTORY: Shortness of breath. COMPARISON: 10/12/2023 TECHNIQUE: Single view of the chest is submitted. FINDINGS: Demonstrated are scattered senescent parenchymal change. Right-sided PICC line noted with distal tip overlying the SVC. No evidence for pneumothorax. There is no evidence for focal infiltrate. The heart is stable. Hilar and mediastinal structures are within normal limits. Degenerative changes are seen of the dorsal spine. IMPRESSION: 1. Chronic changes without evidence for acute pulmonary disease.
[2023-11-10] MEDS ORDERED: SENNOSIDES-DOCUSATE SODIUM 1 EACH TAB PO PRN (11:00)
[2023-11-10] MEDS: IV FLUID CONTINUATION 1,000 ML IV ONE ×2 (11:07→11:27)
[2023-11-10] MEDS: LACTATED RINGERS 1,000 ML IV SCH (11:24)
[2023-11-10] MEDS: DEXAMETHASONE SOD PHOSPHATE 4 MG/ML 1 ML VIAL IV ONE (11:25)
[2023-11-10] MEDS: ONDANSETRON 4 MG/2 ML VIAL IVP PRN (11:25)
[2023-11-10] MEDS ORDERED: PROPOFOL 10 MG/ML 20 ML VIAL IV ONE (11:41)
[2023-11-10] MEDS ORDERED: SUCCINYLCHOLINE CHLORIDE 200 MG/10 ML VIAL IV ONE (11:41)
[2023-11-10] MEDS ORDERED: fentaNYL (PF) 50 MCG/ML 2 ML AMP ONE (11:41)
[2023-11-10] MEDS ORDERED: MIDAZOLAM 2 MG/2 ML VIAL ONE (11:41)
[2023-11-10] MEDS ORDERED: LIDOCAINE 1% INJ 10MG/ML (20 ML MDV) ONE (11:41)
[2023-11-10] MEDS ORDERED: HYDROmorphone (PF) 1 MG/ML ONE (11:41)
[2023-11-10] MEDS: VANCOMYCIN 1,000 MG VIAL MISCELLANE ONE ×2 (12:42→13:03)
[2023-11-10] MEDS: TOBRAMYCIN SULFATE 1.2 GM VIAL MISCELLANE ONE (12:42)
[2023-11-10] MEDS: GENTAMICIN PF 20 MG/2 ML VIAL IM ONE (12:43)
[2023-11-10] MEDS: THROMBIN (BOVINE) 5,000 UNIT VIAL MISCELLANE ONE (12:44)
[2023-11-10] MEDS: ceFAZolin 3,000 MG in SODIUM CHLORIDE 0.9% IRRIGATIO 3,000 ML IRRIGATION ONE (12:52)
[2023-11-10] MEDS: GENTAMICIN 80 MG in SODIUM CHLORIDE 0.9% IRRIGATIO 3,000 ML IRRIGATION ONE (12:52)
[2023-11-10] MEDS: SCOPOLAMINE 1 MG/72 HR PATCH TRANSDERM ONE (16:06)
--- NOTE | 2023-11-10 16:19 | P.PN ---
Subjective Progress Note Date: 11/10/23 Principal diagnosis: Reason for follow-up is lumbar surgical site infection Patient is status post surgical drainage of his lumbar abscess procedure completed on 11/10/2023 as well as deep culture. On today's evaluation that is 11/10/2023, Patient is afebrile this morning and denies any chills, patient mention breathing comfortably and is currently on room air, patient denies any chest pain occasional cough patient denies any abdominal pain no diarrhea no nausea no vomiting, pain to the lower back is currently controlled. No new labs has been repeated today initial culture did grow Enterobacter and E. coli Objective - Vital Signs Vital signs: Vital Signs Temp 97.8 F 11/10/23 14:10 Pulse 96 11/10/23 14:10 Resp 16 11/10/23 14:10 BP 145/70 11/10/23 14:10 Pulse Ox 96 11/10/23 14:10 FiO2 21 11/10/23 03:46 Intake & Output 11/09/23 11/10/23 11/10/23 18:59 06:59 18:59 Intake Total 802 Output Total 1800 1100 150 Balance -1800 -1100 652 Weight 124.738 kg Intake: IV 802 Output: Urine 1800 1100 Estimated Blood Loss 150 Other: Voiding Method External Catheter External Catheter - Exam GENERAL DESCRIPTION: Middle-age male lying in bed in no distress RESPIRATORY SYSTEM: Unlabored breathing , decreased breath sounds at bases HEART: S1 S2 regular rate and rhythm , ABDOMEN: Soft , no tenderness EXTREMITIES: No edema feet - Labs CBC & Chem 7: 11/09/23 03:32 11/09/23 03:32 Labs: Abnormal Lab Results - Last 24 Hours (Table) 11/09/23 Range/Units 20:39 POC Glucose (mg/dL) 155 H (70-110) mg/dL Microbiology - Last 24 Hours (Table) 11/07/23 22:06 Gram Stain - Final Back Wound Culture - Final Enterobacter cloacae Escherichia coli Assessment and Plan (1) Surgical site infection Current Visit: Yes Status: Acute Code(s): T81.49XA - INFECTION FOLLOWING A PROCEDURE, OTHER SURGICAL SITE, INIT SNOMED Code(s): 92992388 (2) Penicillin allergy Current Visit: Yes Status: Acute Code(s): Z88.0 - ALLERGY STATUS TO PENICILLIN SNOMED Code(s): 81639469 (3) Lumbar surgical wound fluid collection Current Visit: Yes Status: Acute Priority: Medium Onset Date: ~11/06/23 Code(s): T81.89XA - OTH COMPLICATIONS OF PROCEDURES, NEC, INIT SNOMED Code(s): 408319446 (4) Open wound of lumbar region Current Visit: Yes Status: Acute Code(s): S31.000A - UNSP OPN WND LOW BACK AND PELV W/O PENET RETROPERITON, INIT SNOMED Code(s): 641457254 Plan: 1patient presented to hospital with worsening lower back pain drainage concerning for lumbar surgical site infection in this patient who did have a extensive lumbosacral spine surgery completed on 10/11/2023. 2local culture currently growing Enterobacter and E. coli, OR cultures currently pending, blood cultures pending 3patient to continue with cefepime 2 g every 8 hours will likely need a PICC line and outpatient antibiotic on the basis of deep OR culture Dictation was produced using [employer] dictation software. please excuse any gramm atical, word or spelling errors. Time with Patient: Less than 30
[2023-11-10] MEDS: ceFAZolin 3 GM in SODIUM CHLORIDE 0.9% 100 ML IVPB SCH (16:20)
--- NOTE | 2023-11-10 17:19 | P.OP ---
Date of Procedure: 11/10/23 Preoperative Diagnosis: Current Active Problems Surgical site infection (Acute) Penicillin allergy (Acute) Open wound of lumbar region (Acute) Lumbar surgical wound fluid collection (Acute ~11/06/23) Postoperative Diagnosis: Current Active Problems Surgical site infection (Acute) Penicillin allergy (Acute) Open wound of lumbar region (Acute) Lumbar surgical wound fluid collection (Acute ~11/06/23) Procedure(s) Performed: 1. INCISION AND DRAINAGE WITH IRRIGATION AND EXCISIONAL DEBRIDEMENT LUMBAR SPINE SKIN, SOFT TISSUE, MUSCLE AND BONE MEASURING 35 X 17 X 10 CM USING THE FOLLOWING: -KNIFE USED TO EXCISE SINUS TRACT AND SKIN WELL FASCIA AND NECROTIC SOFT TISSUES -CURETTE AND VELASQUEZ USED TO DEBRIDE SOFT TISSUES -RONGURE USED TO REMOVE AND DEBRIDE SOFT TISSUES AND BONE AND REMOVE NECROTIC TISSUES AND BONE -IRRIGATION 3L ANCEF, 3L GENTAMYCIN, 6L NSS, 2L IRRICEPT, 2 L BETADINE SOLUTION FOR WASHOUT 2. REMOVAL OF HARDWARE LUMBAR, CROSSLINKS X2 3. COMPLEX WOUND CLOSURE, 4 LAYERS, LUMBAR SPINE 35 X 17 X 10 CM Implants: SAÚL CROSSLINKS Anesthesia: GETA Surgeon: El Chow Dredge Pipe Installer #1: Melo Morales (RODOLFO Barber Was present and assisted with all aspects of the case from positioning to dressing placement) Estimated Blood Loss (ml): 150 IV fluids (ml): 1,200 Urine output (ml): 0 Pathology: other (X2 CULTURES SENT LUMBAR SPINE SUPERFICIAL AND DEEP) Condition: stable Disposition: PACU Indications for Procedure: Bryn Chicas is a 63 yo male presenting for evaluation of LOW BACK PAIN, INCREASED DRAINAGE FROM WOUND. It was my pleasure to have seen and examined Bryn Chicas . In our visit today we have had a chance to go over subjective complaints, physic al examination findings and treatments including the natural course history without intervention and various interventional options. The patients imaging demonstrates LARGE SUBFACIAL FLUID COLLECTION. On physical exam, Bryn Chicas demonstrates DRAINING WOUND LUMBAR WITH PURULENCE. I have explained to the patient that as their condition progresses it will cause further neurological deficits and eventual paralysis. Based on the patients imaging, physical exam, and the rapid progression and disabling nature of their symptoms, at this time I recommend surgery in the form or a: INCISION AND DRAINAGE WITH IRRIGATION AND DEBRIDEMENT LUMBAR SPINE. I discussed the risk and benefits of this procedure at length with Bryn Chicas ]. The patient agreed to considered pursuing the procedure abovementioned. Prior to surgery, she should follow up with her PCP (Cardio, ID, IM etc) for clearance. Questions were invited and answered, and the patient wishes to proceed as outlined below. Currently, I am recommendin. INCISION AND DRAINAGE WITH IRRIGATION AND DEBRIDEMENT LUMBAR SPINE Description of Procedure: The patient was seen and examined in the preoperative area. All preoperative p rotocols were followed. Informed consent was obtained risks and benefits of the procedure were discussed at length. Risks including bleeding infection damage to the surrounding tissue and risk of reoperation were discussed with the patient. Risk of anesthesia up to and including was a discussed with the patient. These are outlined in the risk review. They were willing to accept these risks and all of the risks of surgery. The patient was given a weight- based dose of antibiotics in the form of Cefepime and ceftriaxone from the floor. The patient was seen and evaluated by the anesthesia team who deemed them fit for surgery. The site was marked, the patient was willing to proceed with the procedure. The patient was transferred to the operative suite by the Department of fredis back. They were then drifted off to sleep by the department anesthesia and [anesthesia type] was performed. The patient tolerated this well. [Pimentel catheter was placed by nursing staff, atraumatically]. Once confirmation of lines and ventilation the patient was transferred to a [prone Manuel table very carefully]. All bony prominences including wrists, elbows, axilla, chest, hips, and thighs, and feet were padded very well. Special attention was paid to the genitalia and these were padded accordingly. SCDs were placed on bilateral lower extremities and were connected. Arms were well padded and placed [on arm boards up and out in the 90/90 position]. Once in position, again we confirmed good ventilation capabilities and that lines were running appropriately. The patient's thoracolumbar spine was then exposed. 1010s were placed outlining the incision site. Standard alcohol was used to clean the incision site and allowed to dry. C-arm was used to biomark the patient and confirm level for incision which was marked with a skin marker. Operative briefing was performed with all teams and everyone in agreement to proceed. The patient was then prepped and draped in a normal sterile fashion. Timeout was then performed and all parties were in agreement with the procedure to be performed. Elliptical midline skin incision was made over the previously marked area and the strength sinus tract was removed using a skin knife. This is taken down to the fascia which was still intact however there is draining purulence through this area. The fascia was opened and sutures were all removed from this area using stats. Once the fascia was opened cultures were taken of the. Material superficially as well as deep. We then opened the fascia entirely and placed retractors. We investigated the area there is a large amount of purulence in this area which has not tracts 2 around the L2 region. It did not go any higher than this at this time. We did debride this area using curettes as well as Richard. Once debrided the cross-links were removed using the cross-link rolloff truck driver. We then irrigated the area with 3 L of Ancef irrigation. We then further debrided the area using curettes and Velasquez. We then irrigated with 1 L Irricept followed by 1 L of Betadine. Then irrigated with 3 L of gentamicin irrigation were then irrigated once again and debrided at same time with 3 L of normal sterile saline followed by 1 L of Irricept and 1 L of Betadine. We then irrigated once again with 6 L of normal sterile saline. The wound bed was then investigated. The previous fat patch and dural patch was still intact at the L2-3 area on the left-hand side Valsalva maneuver to 40 mmHg was done and there was no active drainage or CSF leak at this time. We investigated further and debrided bone using a rongeur as well as soft tissue. This allowed for good bleeding wound bed. We continued investigated. The area and irrigated thoroughly the wound one last time with 3 L of normal sterile saline. We then placed 2 cross-links at the L4-L5 region. We will pursue with complex closure. 2 g of powdered vancomycin was placed deep with the wound along with antibiotic stimulated and beads which included tobramycin and vancomycin as well as gentamicin. Tisseel was placed over the dura once again for further sealant over this area. We then closed the deep fascia with #1 PDS. The superficial fascia was closed with #1 PDS. The deep subcu tissue was closed with 0 PDS the superficial subcu tissues closed with 2-0 Vicryl and the skin was closed 2-0 nylon in a horizontal mattress fashion. Wound edges approximated very well. The wound was then cleaned with alcohol and dressed sterilely with Adaptic 4 x 4's ABDs and Ioband. The patient was transferred back to their hospital bed atraumatically. . Patient was then awakened and extubated by the department of anesthesia having tolerated the procedure very well with no complications. They were transferred to the postoperative care unit in stable condition.
--- NOTE | 2023-11-10 18:34 | P.PN ---
Progress Note - Text Progress Note Date: 11/10/23 63-year-old male was transferred from another facility for infected back. Lactic acid is elevated to 7.2. White count is elevated patient had a recent back surgery surgical site area appears to be infected. Patient was started on cefazolin with infectious disease consultation and patient will go for incision and drainage by orthopedic surgery because of continued wound drainage and suspicion of infection. 11/09/2023 Patient is seen in follow-up today currently awaiting a PICC line with in fectious disease following along with orthopedics. Plan is for washout with deep cultures on 11/10/2023. Patient is afebrile with no reported chest pain or shortness of breath. Patient continues to report some incisional discomfort of the back and is maintained on current pain management regimen per orthopedics. Patient will need PT/OT therapy evaluation and discussion of possible ECF. Plan is for outpatient PICC line and IV antibiotics per infectious disease recommendations. Awaiting finalized cultures. Preliminary is showing gram- negative bacilli at this time. Blood cultures are negative. November 09: Patient went I&D by Dr. Chow today. Dressing in place. No drain. Some pain present. On IV Ancef and IV cefepime. Active Medications Acetaminophen (Acetaminophen Tab 325 Mg Tab) 650 mg PO Q6HR PRN PRN Reason: Mild Pain or Fever > 100.5 Last Admin: 11/08/23 18:48 Dose: 650 mg Acetaminophen/Butalbital/Caffeine (Butalb/Apap/Caff 50-325-40mg Tab) 1 each PO Q4HR PRN PRN Reason: Headache/Pain Hydrocodone Bitart/Acetaminophen (Hydrocodone/Apap 10-325mg 1 Each Tab) 1 each PO Q4H PRN PRN Reason: Pain Last Admin: 11/09/23 22:00 Dose: 1 each Amiodarone HCl (Amiodarone 100 Mg Tab) 100 mg PO DAILY [facility] Last Admin: 11/10/23 08:18 Dose: 100 mg Aspirin (Aspirin 81 Mg) 81 mg PO DAILY [facility] Last Admin: 11/10/23 08:18 Dose: 81 mg Atorvastatin Calcium (Atorvastatin 20 Mg Tab) 20 mg PO HS [facility] Last Admin: 11/09/23 22:00 Dose: 20 mg Cyclobenzaprine HCl (Cyclobenzaprine 10 Mg Tab) 10 mg PO TID PRN PRN Reason: Muscle Spasm Last Admin: 11/10/23 16:19 Dose: 10 mg Diltiazem HCl (Diltiazem Cd 240 Mg Cap.Er.24h) 240 mg PO DAILY [facility] Last Admin: 11/10/23 08:18 Dose: 240 mg Gabapentin (Gabapentin 300 Mg Cap) 300 mg PO TID [facility] Last Admin: 11/10/23 16:19 Dose: 300 mg Hydromorphone HCl (Hydromorphone 0.5 Mg/0.5 Ml Syringe) 0.5 mg IVP Q3HR PRN PRN Reason: Moderate Pain (Scale 4 to 6) Last Admin: 11/09/23 23:20 Dose: 0.5 mg Hydromorphone HCl (Hydromorphone 1 Mg/Ml 1 Ml Syringe) 1 mg IVP Q3HR PRN PRN Reason: Severe Pain (Scale 7 to 10) Last Admin: 11/10/23 03:42 Dose: 1 mg Hydromorphone HCl (Hydromorphone 0.5 Mg/0.5 Ml Syringe) 0.5 mg IVP Q5M PRN PRN Reason: Phase 1 or 2 - Pain Control Stop: 11/10/23 23:00 Sodium Chloride (Saline 0.9%) 1,000 mls @ 130 mls/hr IV .Q7H42M [facility] Last Admin: 11/10/23 16:07 Dose: Not Given Potassium Chloride/Sodium Chloride (Ns-Kcl 20 Meq/L Iv Solution) 1,000 mls @ 50 mls/hr IV .Q20H [facility] Last Admin: 11/10/23 16:21 Dose: 50 mls/hr Cefepime HCl 2 gm/ Sodium (Chloride) 100 mls @ 25 mls/hr IVPB Q8HR [facility]; Protocol Last Admin: 11/10/23 16:40 Dose: 25 mls/hr Lactated Ringer's (Lactated Ringers) 1,000 mls @ 20 mls/hr IV .Q24H [facility] Last Admin: 11/10/23 11:24 Dose: 20 mls/hr Cefazolin Sodium 3 gm/ Sodium (Chloride) 100 mls @ 200 mls/hr IVPB Q8HR [facility] Stop: 11/11/23 00:29 Last Admin: 11/10/23 16:20 Dose: 200 mls/hr Lidocaine HCl (Lidocaine 1% (10mg/Ml) For Iv Start) 0.1 ml INTRADERMA PER PROTOCOL PRN PRN Reason: IV Start Magnesium Hydroxide (Magnesium Hydroxide 2,400 Mg/30 Ml Cup) 2,400 mg PO DAILY PRN PRN Reason: Constipation Naloxone HCl (Naloxone 0.4 Mg/Ml 1 Ml Vial) 0.2 mg IV Q2M PRN PRN Reason: Opioid Reversal Ondansetron HCl (Ondansetron 4 Mg/2 Ml Vial) 4 mg IVP Q6HR PRN PRN Reason: Nausea And Vomiting Last Admin: 11/10/23 11:25 Dose: 4 mg Polyethylene Glycol (Polyethylene Glycol 3350 17 Gm Powd.Pack) 17 gm PO DAILY [facility] Last Admin: 11/10/23 11:26 Dose: Not Given Senna (Sennosides 8.6 Mg Tab) 8.6 mg PO BID PRN PRN Reason: Constipation Senna/Docusate Sodium (Sennosides-Docusate Sodium 1 Each Tab) 2 each PO DAILY PRN PRN Reason: Constipation Sodium Chloride (Sodium Chloride 0.9% Flush 10 Ml Syringe) 10 ml IV Q6H [facility] Last Admin: 11/10/23 16:06 Dose: Not Given Tamsulosin HCl (Tamsulosin 0.4 Mg Cap.Er.24h) 0.4 mg PO DAILY [facility] Last Admin: 11/10/23 08:18 Dose: 0.4 mg On examination: VITAL SIGNS: [98.9, 86, 17, 127 x 63, 92% room air] GENERAL APPEARANCE: BMI 39.5, laying in bed not in distress HEENT: Normal external appearance of nose and ear. Oral cavity normal EYES: Pupils equal. Conjunctiva normal. NECK: JVD not raised. Mass not palpable. RESPIRATORY: Respiratory effort normal. Lungs clear to auscultation. CARDIOVASCULAR: First and second sounds normal. No edema. ABDOMEN: Soft. Liver and spleen not palpable. No tenderness. No mass palpable. PSYCHIATRY: Alert and oriented x3. Mood and affect normal. MUSCULOSKELETAL: Dressing over the operative site INVESTIGATIONS, reviewed in the clinical context: November 08: White count 7.9 hemoglobin 9 platelets 304 sodium 136 potassium 3.9 creatinine 0.38 CRP 13.8 albumin 2.2 Wound culture [November 06] Enterobacter cloacae, E. coli Assessment and plan -Acute infected surgical site area in the lumbar area with I&D today on November 09, by Dr. Chow Wound cultures have been positive for Enterobacter cloacae and E. coli Getting IV Ancef and IV cefepime. ID following -Paroxysmal atrial fibrillation Amiodarone 100 mg a day. Not on anticoagulation -Hard of hearing Hearing aids bilateral -Hyperlipidemia Lipitor 20 mg nightly -Hypertension Cardizem CD, 240 mg a day -Obstructive sleep apnea CPAP Obesity with a BMI of 39.5 Weight loss measures Full code Discussed with patient. Continue current treatment plan. Follow-up with ID and surgery
[2023-11-11 10:42] LABS: Basophils # (A) 0.03 X 10*3/uL (0.00-0.10); Basophils % (A) 0.3 %; Eosinophils # (A) 0.02 X 10*3/uL (0.04-0.35); Eosinophils % (A) 0.2 %; HCT 26.9 % (39.6-50.0); HGB 8.3 g/dL (13.0-17.0); Lymphocytes # (A) 1.17 X 10*3/uL (0.90-5.00); Lymphocytes % (A) 12.4 %; MCH 26.4 pg (27.0-32.0); MCHC 30.9 g/dL (32.0-37.0); MCV 85.7 FL (80.0-97.0); Mean Platelet Volume 10.7 FL (9.5-12.2); Monocytes # (A) 0.79 X 10*3/uL (0.20-1.00); Monocytes % (A) 8.4 %; NRBC Per 100 WBC 0 X 10*3/uL (0.00-0.01); Neutrophils # (A) 7.34 X 10*3/uL (1.80-7.70); Neutrophils % (A) 78.2 %; Platelet Count 351 X 10*3/uL (140-440); RBC 3.14 X 10*6/uL (4.40-5.60); RDW 15.2 % (11.5-14.5)
[2023-11-11 10:59] LABS: BUN/Creat Ratio 27.75 Ratio (12.00-20.00); Blood Urea Nitrogen 11.1 mg/dL (9.0-27.0); Calcium 8.5 mg/dL (8.7-10.3); Carbon Dioxide 24.4 mmol/L (21.6-31.8); Chloride 105 mmol/L (96-109); Glucose 128 mg/dL (70-110); Potassium 4.6 mmol/L (3.5-5.5); Sodium 137 mmol/L (135-145)
--- NOTE | 2023-11-11 11:16 | P.PN ---
Subjective Progress Note Date: 11/11/23 Principal diagnosis: Lumbar wound fluid collection, infection Patient was seen at bedside this morning lying in semirecumbent position in bed. Patient says he is having generalized pain in the low back at this time. Patient denies any radiation pain down the legs. Patient says he is looking forward to work with therapy today. Patient denies any other issues at this time. Objective - Vital Signs Vital signs: Vital Signs Temp 98.9 F 11/10/23 17:36 Pulse 86 11/10/23 17:36 Resp 17 11/10/23 17:36 BP 127/63 11/10/23 17:36 Pulse Ox 92 L 11/10/23 17:36 FiO2 21 11/11/23 04:48 Intake & Output 11/10/23 11/11/23 11/11/23 18:59 06:59 18:59 Intake Total 802 Output Total 850 Balance -48 Intake: IV 802 Output: Urine 700 Estimated Blood Loss 150 Other: Voiding Method External Catheter External Catheter - Exam Ioban dressing is present over lumbar spine. Negative for any active drainage. Sensation is equal, symmetric, bilateral intact at the upper and lower extremities on exam. There is some generalized tenderness patient diffusely throughout the mid to lower back and midline near incision. Nontender to palpation throughout rest of exam. Patient has full range of motion throughout bilateral upper extremities on exam. There is some limited range of motion of bilateral hips secondary to referred pain and stiffness low back. Full range of motion throughout bilateral knees and ankles on exam. 5/5 in all major motor groups in bilateral upper extremities. 4/5 in all major motor groups in bilateral lower extremities. Neurovascular status intact bilaterally. Radial pulses intact bilaterally. Cap refill under 3 seconds in digits of upper extremities. - Labs CBC & Chem 7: 11/11/23 07:44 11/11/23 07:44 Labs: Microbiology - Last 24 Hours (Table) 11/10/23 13:00 Gram Stain - Preliminary Other - Other 11/10/23 12:47 Gram Stain - Preliminary Other - Other 11/09/23 21:57 Blood Culture - Preliminary Blood Assessment and Plan Assessment: 1. Lumbar wound fluid collection, infection - Postoperative day 1 status post lumbar wound incision drainage and irrigation and debridement Plan: 1. Lumbar wound fluid collection, infection - surgery performed yesterday, , 11/10/2023 lumbar wound incision drainage and irrigation and debridement. Dressing appears to be clean, dry, intact at bedside this morning. Assess dressing daily. Await cultures from surgery. Cultures pending at this time. PT/OT daily. Weightbearing as tolerated with walker and assistance. Pain medication as needed. Continue IV antibiotics. We'll continue to follow patient during this stay in hospital. 2. Appreciate medical management and ID management 3. Pain management - Tylenol; [place]; gabapentin; Flexeril 4. DVT prophylaxis - aspirin 5. GI prophylaxis - senna; MiraLAX 6. PT/OT - weightbearing as tolerated walker and assistance as needed 7. Encourage incentive spirometer use 8. Discharge planning - pending Time with Patient: Less than 30
--- NOTE | 2023-11-11 16:39 | P.PN ---
Progress Note - Text Progress Note Date: 11/11/23 63-year-old male was transferred from another facility for infected back. Lactic acid is elevated to 7.2. White count is elevated patient had a recent back surgery surgical site area appears to be infected. Patient was started on cefazolin with infectious disease consultation and patient will go for incision and drainage by orthopedic surgery because of continued wound drainage and suspicion of infection. 11/09/2023 Patient is seen in follow-up today currently awaiting a PICC line with in fectious disease following along with orthopedics. Plan is for washout with deep cultures on 11/10/2023. Patient is afebrile with no reported chest pain or shortness of breath. Patient continues to report some incisional discomfort of the back and is maintained on current pain management regimen per orthopedics. Patient will need PT/OT therapy evaluation and discussion of possible ECF. Plan is for outpatient PICC line and IV antibiotics per infectious disease recommendations. Awaiting finalized cultures. Preliminary is showing gram- negative bacilli at this time. Blood cultures are negative. November 09: Patient went I&D by Dr. Chow today. Dressing in place. No drain. Some pain present. On IV Ancef and IV cefepime. November 10: Laying in bed. Some pain present. Eating about 50%. Continues on antibiotics. Prior to surgery was just able to stand and rehab. No fever. Active Medications Acetaminophen (Acetaminophen Tab 325 Mg Tab) 650 mg PO Q6HR PRN PRN Reason: Mild Pain or Fever > 100.5 Last Admin: 11/08/23 18:48 Dose: 650 mg Acetaminophen/Butalbital/Caffeine (Butalb/Apap/Caff 50-325-40mg Tab) 1 each PO Q4HR PRN PRN Reason: Headache/Pain Hydrocodone Bitart/Acetaminophen (Hydrocodone/Apap 10-325mg 1 Each Tab) 1 each PO Q4H PRN PRN Reason: Pain Last Admin: 11/11/23 12:42 Dose: 1 each Amiodarone HCl (Amiodarone 100 Mg Tab) 100 mg PO DAILY [facility] Last Admin: 11/11/23 08:02 Dose: 100 mg Aspirin (Aspirin 81 Mg) 81 mg PO DAILY [facility] Last Admin: 11/11/23 08:01 Dose: 81 mg Atorvastatin Calcium (Atorvastatin 20 Mg Tab) 20 mg PO HS [facility] Last Admin: 11/10/23 20:31 Dose: 20 mg Cyclobenzaprine HCl (Cyclobenzaprine 10 Mg Tab) 10 mg PO TID PRN PRN Reason: Muscle Spasm Last Admin: 11/11/23 11:23 Dose: 10 mg Diltiazem HCl (Diltiazem Cd 240 Mg Cap.Er.24h) 240 mg PO DAILY [facility] Last Admin: 11/11/23 08:02 Dose: 240 mg Gabapentin (Gabapentin 300 Mg Cap) 300 mg PO TID [facility] Last Admin: 11/11/23 16:35 Dose: 300 mg Hydromorphone HCl (Hydromorphone 0.5 Mg/0.5 Ml Syringe) 0.5 mg IVP Q3HR PRN PRN Reason: Moderate Pain (Scale 4 to 6) Last Admin: 11/09/23 23:20 Dose: 0.5 mg Hydromorphone HCl (Hydromorphone 1 Mg/Ml 1 Ml Syringe) 1 mg IVP Q3HR PRN PRN Reason: Severe Pain (Scale 7 to 10) Last Admin: 11/10/23 20:31 Dose: 1 mg Sodium Chloride (Saline 0.9%) 1,000 mls @ 130 mls/hr IV .Q7H42M [facility] Last Admin: 11/11/23 16:28 Dose: Not Given Potassium Chloride/Sodium Chloride (Ns-Kcl 20 Meq/L Iv Solution) 1,000 mls @ 50 mls/hr IV .Q20H [facility] Last Admin: 11/11/23 14:16 Dose: Not Given Cefepime HCl 2 gm/ Sodium (Chloride) 100 mls @ 25 mls/hr IVPB Q8HR [facility]; Protocol Last Admin: 11/11/23 16:35 Dose: 25 mls/hr Lactated Ringer's (Lactated Ringers) 1,000 mls @ 20 mls/hr IV .Q24H [facility] Last Admin: 11/11/23 06:18 Dose: Not Given Lidocaine HCl (Lidocaine 1% (10mg/Ml) For Iv Start) 0.1 ml INTRADERMA PER PROTOCOL PRN PRN Reason: IV Start Magnesium Hydroxide (Magnesium Hydroxide 2,400 Mg/30 Ml Cup) 2,400 mg PO DAILY PRN PRN Reason: Constipation Naloxone HCl (Naloxone 0.4 Mg/Ml 1 Ml Vial) 0.2 mg IV Q2M PRN PRN Reason: Opioid Reversal Ondansetron HCl (Ondansetron 4 Mg/2 Ml Vial) 4 mg IVP Q6HR PRN PRN Reason: Nausea And Vomiting Last Admin: 11/10/23 11:25 Dose: 4 mg Polyethylene Glycol (Polyethylene Glycol 3350 17 Gm Powd.Pack) 17 gm PO DAILY [facility] Last Admin: 11/11/23 08:01 Dose: 17 gm Senna (Sennosides 8.6 Mg Tab) 8.6 mg PO BID PRN PRN Reason: Constipation Senna/Docusate Sodium (Sennosides-Docusate Sodium 1 Each Tab) 2 each PO DAILY PRN PRN Reason: Constipation Sodium Chloride (Sodium Chloride 0.9% Flush 10 Ml Syringe) 10 ml IV Q6H [facility] Last Admin: 11/11/23 11:25 Dose: Not Given Tamsulosin HCl (Tamsulosin 0.4 Mg Cap.Er.24h) 0.4 mg PO DAILY [facility] Last Admin: 11/11/23 08:01 Dose: 0.4 mg On examination: VITAL SIGNS: 99.5, 89, 19, 162 x 66, 91% room air GENERAL APPEARANCE: BMI 39.5, laying in bed not in distress HEENT: Normal external appearance of nose and ear. Oral cavity normal EYES: Pupils equal. Conjunctiva normal. NECK: JVD not raised. Mass not palpable. RESPIRATORY: Respiratory effort normal. Lungs clear to auscultation. CARDIOVASCULAR: First and second sounds normal. No edema. ABDOMEN: Soft. Liver and spleen not palpable. No tenderness. No mass palpable. PSYCHIATRY: Alert and oriented x3. Mood and affect normal. MUSCULOSKELETAL: Dressing over the operative site NEUROLOGICAL: Able to use his arms well. Not able to lift his legs off the bed INVESTIGATIONS, reviewed in the clinical context: November 10: White count 9.4 hemoglobin 8.3 platelets 351 potassium 4.6 creatinine 0.4 November 08: White count 7.9 hemoglobin 9 platelets 304 sodium 136 potassium 3.9 creatinine 0.38 CRP 13.8 albumin 2.2 Wound culture [November 06] Enterobacter cloacae, E. coli Assessment and plan -Acute infected surgical site area in the lumbar area with I&D today on November 09, by Dr. Chow Wound cultures have been positive for Enterobacter cloacae and E. coli Getting IV Ancef and IV cefepime. ID following -Paroxysmal atrial fibrillation Amiodarone 100 mg a day. Not on anticoagulation -Medical debility. Prior to this admission patient was just able to stand. Was not really ambulating -Hard of hearing Hearing aids bilateral -Hyperlipidemia Lipitor 20 mg nightly -Hypertension Cardizem CD, 240 mg a day -Obstructive sleep apnea CPAP Obesity with a BMI of 39.5 Weight loss measures Full code Discussed. Continue antibiotics current treatment plan.
--- NOTE | 2023-11-12 09:03 | P.PN ---
Subjective Progress Note Date: 11/12/23 Principal diagnosis: Lumbar wound fluid collection, infection Patient was seen at bedside this morning lying in semirecumbent position in bed. Patient says he is having generalized pain in the low back at this time. Patient denies any radiation pain down the legs. Patient says he is looking forward to work with therapy today. Patient denies any other issues at this time. Objective - Vital Signs Vital signs: Vital Signs Temp 98.2 F 11/12/23 08:16 Pulse 73 11/12/23 08:16 Resp 20 11/12/23 08:16 BP 138/77 11/12/23 08:16 Pulse Ox 97 11/12/23 08:16 FiO2 21 11/11/23 04:48 Intake & Output 11/11/23 11/12/23 11/12/23 18:59 06:59 18:59 Output Total 1400 900 650 Balance -1400 -900 -650 Weight 124.738 kg Output: Urine 1400 900 650 Other: Voiding Method Incontinent External Catheter - Exam Ioban dressing is present over lumbar spine. Negative for any active drainage. Dressing removed. Some spotting present over dressings. Sutures well aligned and intact. New dressing placed over incision. Sensation is equal, symmetric, bilateral intact at the upper and lower extremities on exam. There is some generalized tenderness patient diffusely throughout the mid to lower back and midline near incision. Nontender to palpation throughout rest of exam. Patient has full range of motion throughout bilateral upper extremities on exam. There is some limited range of motion of bilateral hips secondary to referred pain and stiffness low back. Full range of motion throughout bilateral knees and ankles on exam. 5/5 in all major motor groups in bilateral upper extremities. 4/5 in all major motor groups in bilateral lower extremities. Neurovascular status intact bilaterally. Radial pulses intact bilaterally. Cap refill under 3 seconds in digits of upper extremities. - Labs CBC & Chem 7: 11/11/23 07:44 11/11/23 07:44 Labs: Abnormal Lab Results - Last 24 Hours (Table) 11/11/23 11/11/23 Range/Units 07:44 07:44 RBC 3.14 L (4.40-5.60) X 10*6/uL Hgb 8.3 L (13.0-17.0) g/dL Hct 26.9 L (39.6-50.0) % MCH 26.4 L (27.0-32.0) pg MCHC 30.9 L (32.0-37.0) g/dL RDW 15.2 H (11.5-14.5) % Immature Gran # 0.05 H (0.00-0.04) X 10*3/uL Eosinophils # 0.02 L (0.04-0.35) X 10*3/uL Creatinine 0.4 L (0.6-1.5) mg/dL BUN/Creatinine Ratio 27.75 H (12.00-20.00) Ratio Glucose 128 H (70-110) mg/dL Calcium 8.5 L (8.7-10.3) mg/dL Microbiology - Last 24 Hours (Table) 11/09/23 21:57 Blood Culture - Preliminary Blood 11/10/23 12:47 Gram Stain - Preliminary Other - Other Wound Culture - Preliminary Gram Neg Bacilli 11/10/23 13:00 Gram Stain - Preliminary Other - Other Wound Culture - Preliminary Gram Neg Bacilli Assessment and Plan Assessment: 1. Lumbar wound fluid collection, infection - Postoperative day 2 status post lumbar wound incision drainage and irrigation and debridement Plan: 1. Lumbar wound fluid collection, infection - surgery performed , 11/10/2023 lumbar wound incision drainage and irrigation and debridement. Dressing changed at bedside this morning. Assess dressing daily. Await cultures from surgery. Cultures pending at this time. PT/OT daily. Weightbearing as tolerated with walker and assistance. Pain medication as needed. Continue IV antibiotics. We'll continue to follow patient during this stay in hospital. 2. Appreciate medical management and ID management 3. Pain management - Tylenol; [place]; gabapentin; Flexeril 4. DVT prophylaxis - aspirin 5. GI prophylaxis - senna; MiraLAX 6. PT/OT - weightbearing as tolerated walker and assistance as needed 7. Encourage incentive spirometer use 8. Discharge planning - pending Time with Patient: Less than 30
--- NOTE | 2023-11-12 14:47 | P.PN ---
Subjective Progress Note Date: 11/12/23 Principal diagnosis: Reason for follow-up is lumbar surgical site infection Patient is status post surgical drainage of his lumbar abscess procedure completed on 11/10/2023 as well as deep culture. status post I&D and excisional debridement lumbar spine skin soft tissue muscle and wound with a drainage of an abscess procedure completed on 11/10/2023 On today's evaluation that is 11/12/2023,the patient remains to be afebrile, patient is on room air not requiring supplemental oxygen and denies any shortness of breath no chest pain or cough.Patient denies having any nausea or v omiting, no abdominal pain and no diarrhea has been reported, patient denies any worsening pain to his lower back area. Patient overall culture also growing gram-negative blood culture has been negati ve initial culture with E. coli and Enterobacter Objective - Vital Signs Vital signs: Vital Signs Temp 98.2 F 11/12/23 08:16 Pulse 73 11/12/23 08:16 Resp 20 11/12/23 08:16 BP 138/77 11/12/23 08:16 Pulse Ox 97 11/12/23 08:16 FiO2 21 11/11/23 04:48 Intake & Output 11/11/23 11/12/23 11/12/23 18:59 06:59 18:59 Output Total 1400 900 650 Balance -1400 -900 -650 Weight 124.738 kg Output: Urine 1400 900 650 Other: Voiding Method Incontinent External Catheter - Exam GENERAL DESCRIPTION: Middle-age male lying in bed in no distress RESPIRATORY SYSTEM: Unlabored breathing , decreased breath sounds at bases HEART: S1 S2 regular rate and rhythm , ABDOMEN: Soft , no tenderness EXTREMITIES: No edema feet - Labs CBC & Chem 7: 11/11/23 07:44 11/11/23 07:44 Labs: Microbiology - Last 24 Hours (Table) 11/09/23 21:57 Blood Culture - Preliminary Blood 11/10/23 12:47 Gram Stain - Preliminary Other - Other Wound Culture - Preliminary Gram Neg Bacilli 11/10/23 13:00 Gram Stain - Preliminary Other - Other Wound Culture - Preliminary Gram Neg Bacilli Assessment and Plan (1) Surgical site infection Current Visit: Yes Status: Acute Code(s): T81.49XA - INFECTION FOLLOWING A PROCEDURE, OTHER SURGICAL SITE, INIT SNOMED Code(s): 46287178 (2) Penicillin allergy Current Visit: Yes Status: Acute Code(s): Z88.0 - ALLERGY STATUS TO PENICILLIN SNOMED Code(s): 36739317 (3) Lumbar surgical wound fluid collection Current Visit: Yes Status: Acute Priority: Medium Onset Date: ~11/06/23 Code(s): T81.89XA - OTH COMPLICATIONS OF PROCEDURES, NEC, INIT SNOMED Code(s): 809772354 (4) Open wound of lumbar region Current Visit: Yes Status: Acute Code(s): S31.000A - UNSP OPN WND LOW BACK AND PELV W/O PENET RETROPERITON, INIT SNOMED Code(s): 716126201 Plan: 1patient presented to hospital with worsening lower back pain drainage concerning for lumbar surgical site infection in this patient who did have a extensive lumbosacral spine surgery completed on 10/11/2023. 2local culture currently growing Enterobacter and E. coli, OR cultures currently growing gram-negative bacilli with ID and sensitivities pending, blood cultures has been negative so far 3patient seem to have some clinical improvement and will continue with cefepime 2 g every 8 hours antibiotics will be adjusted further on the basis of deep culture which are currently growing gram-negative bacilli Dictation was produced using [employer] dictation software. please excuse any grammatical, word or spelling errors. Time with Patient: Less than 30
--- NOTE | 2023-11-12 14:47 | P.PN ---
Subjective Progress Note Date: 11/11/23 Principal diagnosis: Reason for follow-up is lumbar surgical site infection Patient is status post surgical drainage of his lumbar abscess procedure completed on 11/10/2023 as well as deep culture. status post I&D and excisional debridement lumbar spine skin soft tissue muscle and wound with a drainage of an abscess procedure completed on 11/10/2023 On today's evaluation that is 11/11/2023,the patient denies any fever or any chills, patient is breathing comfortably on room air, the patient denies chest pain shortness of breath and no significant cough, patient denies abdominal pain, no nausea vomiting or diarrhea. Patient pain to the lower back is currently controlled. Patient did have white count 9.40, creatinine 0.4 initial culture with Enterobacter and E. coli blood cultures so far negative Objective - Vital Signs Vital signs: Vital Signs Temp 98.9 F 11/10/23 17:36 Pulse 86 11/10/23 17:36 Resp 17 11/10/23 17:36 BP 127/63 11/10/23 17:36 Pulse Ox 92 L 11/10/23 17:36 FiO2 21 11/11/23 04:48 Intake & Output 11/10/23 11/11/23 11/11/23 18:59 06:59 18:59 Intake Total 802 Output Total 850 Balance -48 Intake: IV 802 Output: Urine 700 Estimated Blood Loss 150 Other: Voiding Method External Catheter External Catheter - Exam GENERAL DESCRIPTION: Middle-age male lying in bed in no distress RESPIRATORY SYSTEM: Unlabored breathing , decreased breath sounds at bases HEART: S1 S2 regular rate and rhythm , ABDOMEN: Soft , no tenderness EXTREMITIES: No edema feet - Labs CBC & Chem 7: 11/11/23 07:44 11/11/23 07:44 Labs: Abnormal Lab Results - Last 24 Hours (Table) 11/11/23 11/11/23 Range/Units 07:44 07:44 RBC 3.14 L (4.40-5.60) X 10*6/uL Hgb 8.3 L (13.0-17.0) g/dL Hct 26.9 L (39.6-50.0) % MCH 26.4 L (27.0-32.0) pg MCHC 30.9 L (32.0-37.0) g/dL RDW 15.2 H (11.5-14.5) % Immature Gran # 0.05 H (0.00-0.04) X 10*3/uL Eosinophils # 0.02 L (0.04-0.35) X 10*3/uL Creatinine 0.4 L (0.6-1.5) mg/dL BUN/Creatinine Ratio 27.75 H (12.00-20.00) Ratio Glucose 128 H (70-110) mg/dL Calcium 8.5 L (8.7-10.3) mg/dL Microbiology - Last 24 Hours (Table) 11/10/23 13:00 Gram Stain - Preliminary Other - Other 11/10/23 12:47 Gram Stain - Preliminary Other - Other 11/09/23 21:57 Blood Culture - Preliminary Blood Assessment and Plan (1) Surgical site infection Current Visit: Yes Status: Acute Code(s): T81.49XA - INFECTION FOLLOWING A PROCEDURE, OTHER SURGICAL SITE, INIT SNOMED Code(s): 77162347 (2) Penicillin allergy Current Visit: Yes Status: Acute Code(s): Z88.0 - ALLERGY STATUS TO PENICILLIN SNOMED Code(s): 37393496 (3) Lumbar surgical wound fluid collection Current Visit: Yes Status: Acute Priority: Medium Onset Date: ~11/06/23 Code(s): T81.89XA - OTH COMPLICATIONS OF PROCEDURES, NEC, INIT SNOMED Code(s): 885992742 (4) Open wound of lumbar region Current Visit: Yes Status: Acute Code(s): S31.000A - UNSP OPN WND LOW BACK AND PELV W/O PENET RETROPERITON, INIT SNOMED Code(s): 421758628 Plan: 1patient presented to hospital with worsening lower back pain drainage concerning for lumbar surgical site infection in this patient who did have a extensive lumbosacral spine surgery completed on 10/11/2023. 2local culture currently growing Enterobacter and E. coli, OR cultures currently pending, blood cultures has been negative so far 3patient to continue with cefepime 2 g every 8 hours antibiotics will be adjusted further on the basis of deep culture Dictation was produced using [employer] dictation software. please excuse any grammatical, word or spelling errors. Time with Patient: Less than 30
--- NOTE | 2023-11-12 15:14 | P.PN ---
Progress Note - Text Progress Note Date: 11/12/23 63-year-old male was transferred from another facility for infected back. Lactic acid is elevated to 7.2. White count is elevated patient had a recent back surgery surgical site area appears to be infected. Patient was started on cefazolin with infectious disease consultation and patient will go for incision and drainage by orthopedic surgery because of continued wound drainage and suspicion of infection. 11/09/2023 Patient is seen in follow-up today currently awaiting a PICC line with in fectious disease following along with orthopedics. Plan is for washout with deep cultures on 11/10/2023. Patient is afebrile with no reported chest pain or shortness of breath. Patient continues to report some incisional discomfort of the back and is maintained on current pain management regimen per orthopedics. Patient will need PT/OT therapy evaluation and discussion of possible ECF. Plan is for outpatient PICC line and IV antibiotics per infectious disease recommendations. Awaiting finalized cultures. Preliminary is showing gram- negative bacilli at this time. Blood cultures are negative. November 09: Patient went I&D by Dr. Chow today. Dressing in place. No drain. Some pain present. On IV Ancef and IV cefepime. November 10: Laying in bed. Some pain present. Eating about 50%. Continues on antibiotics. Prior to surgery was just able to stand and rehab. No fever. November 11: In bed. Pain fairly controlled. Eating fair. No bowel movement. On IV antibiotics. IV cefepime. Wound cultures noted. Active Medications Acetaminophen (Acetaminophen Tab 325 Mg Tab) 650 mg PO Q6HR PRN PRN Reason: Mild Pain or Fever > 100.5 Last Admin: 11/12/23 02:36 Dose: 650 mg Acetaminophen/Butalbital/Caffeine (Butalb/Apap/Caff 50-325-40mg Tab) 1 each PO Q4HR PRN PRN Reason: Headache/Pain Hydrocodone Bitart/Acetaminophen (Hydrocodone/Apap 10-325mg 1 Each Tab) 1 each PO Q4H PRN PRN Reason: Pain Last Admin: 11/12/23 08:08 Dose: 1 each Amiodarone HCl (Amiodarone 100 Mg Tab) 100 mg PO DAILY [facility] Last Admin: 11/12/23 08:09 Dose: 100 mg Aspirin (Aspirin 81 Mg) 81 mg PO DAILY [facility] Last Admin: 11/12/23 08:09 Dose: 81 mg Atorvastatin Calcium (Atorvastatin 20 Mg Tab) 20 mg PO HS [facility] Last Admin: 11/11/23 20:54 Dose: 20 mg Cyclobenzaprine HCl (Cyclobenzaprine 10 Mg Tab) 10 mg PO TID PRN PRN Reason: Muscle Spasm Last Admin: 11/12/23 02:37 Dose: 10 mg Diltiazem HCl (Diltiazem Cd 240 Mg Cap.Er.24h) 240 mg PO DAILY [facility] Last Admin: 11/12/23 08:09 Dose: 240 mg Gabapentin (Gabapentin 300 Mg Cap) 300 mg PO TID [facility] Last Admin: 11/12/23 08:09 Dose: 300 mg Hydromorphone HCl (Hydromorphone 0.5 Mg/0.5 Ml Syringe) 0.5 mg IVP Q3HR PRN PRN Reason: Moderate Pain (Scale 4 to 6) Last Admin: 11/09/23 23:20 Dose: 0.5 mg Hydromorphone HCl (Hydromorphone 1 Mg/Ml 1 Ml Syringe) 1 mg IVP Q3HR PRN PRN Reason: Severe Pain (Scale 7 to 10) Last Admin: 11/10/23 20:31 Dose: 1 mg Sodium Chloride (Saline 0.9%) 1,000 mls @ 130 mls/hr IV .Q7H42M [facility] Last Admin: 11/12/23 12:28 Dose: Not Given Potassium Chloride/Sodium Chloride (Ns-Kcl 20 Meq/L Iv Solution) 1,000 mls @ 50 mls/hr IV .Q20H [facility] Last Admin: 11/12/23 13:34 Dose: 50 mls/hr Cefepime HCl 2 gm/ Sodium (Chloride) 100 mls @ 25 mls/hr IVPB Q8HR [facility]; Protocol Last Admin: 11/12/23 08:08 Dose: 25 mls/hr Lactated Ringer's (Lactated Ringers) 1,000 mls @ 20 mls/hr IV .Q24H [facility] Last Admin: 11/12/23 05:06 Dose: Not Given Caffeine/Sodium Benzoate 500 (mg/ Sodium Chloride) 1,002 mls @ 1,002 mls/hr IVPB DAILY [facility] Stop: 11/15/23 09:59 Lidocaine HCl (Lidocaine 1% (10mg/Ml) For Iv Start) 0.1 ml INTRADERMA PER PROTOCOL PRN PRN Reason: IV Start Magnesium Hydroxide (Magnesium Hydroxide 2,400 Mg/30 Ml Cup) 2,400 mg PO DAILY PRN PRN Reason: Constipation Naloxone HCl (Naloxone 0.4 Mg/Ml 1 Ml Vial) 0.2 mg IV Q2M PRN PRN Reason: Opioid Reversal Ondansetron HCl (Ondansetron 4 Mg/2 Ml Vial) 4 mg IVP Q6HR PRN PRN Reason: Nausea And Vomiting Last Admin: 11/10/23 11:25 Dose: 4 mg Polyethylene Glycol (Polyethylene Glycol 3350 17 Gm Powd.Pack) 17 gm PO DAILY [facility] Last Admin: 11/12/23 08:08 Dose: 17 gm Senna (Sennosides 8.6 Mg Tab) 8.6 mg PO BID PRN PRN Reason: Constipation Senna/Docusate Sodium (Sennosides-Docusate Sodium 1 Each Tab) 2 each PO DAILY PRN PRN Reason: Constipation Sodium Chloride (Sodium Chloride 0.9% Flush 10 Ml Syringe) 10 ml IV Q6H [facility] Last Admin: 11/12/23 12:29 Dose: Not Given Tamsulosin HCl (Tamsulosin 0.4 Mg Cap.Er.24h) 0.4 mg PO DAILY [facility] Last Admin: 11/12/23 08:09 Dose: 0.4 mg On examination: VITAL SIGNS: 3, 75, 16, 167 x 78, 99% 2 L GENERAL APPEARANCE: , laying in bed not in distress HEENT: Normal external appearance of nose and ear. Oral cavity normal EYES: Pupils equal. Conjunctiva normal. NECK: JVD not raised. Mass not palpable. RESPIRATORY: Respiratory effort normal. Lungs clear to auscultation. CARDIOVASCULAR: First and second sounds normal. No edema. ABDOMEN: Soft. Liver and spleen not palpable. No tenderness. No mass palpable. PSYCHIATRY: Alert and oriented x3. Mood and affect normal. MUSCULOSKELETAL: Dressing over the operative site NEUROLOGICAL: Able to use his arms well. Some better movements in the legs.- Power 2-3/5 INVESTIGATIONS, reviewed in the clinical context: November 10: White count 9.4 hemoglobin 8.3 platelets 351 potassium 4.6 creatinine 0.4 November 08: White count 7.9 hemoglobin 9 platelets 304 sodium 136 potassium 3.9 creatinine 0.38 CRP 13.8 albumin 2.2 Wound culture [November 06] Enterobacter cloacae, E. coli Assessment and plan -Acute infected surgical site area in the lumbar area with I&D today on November 09, by Dr. Chow Wound cultures have been positive for Enterobacter cloacae and E. coli Getting IV Ancef and IV cefepime. ID following -Paroxysmal atrial fibrillation Amiodarone 100 mg a day. Not on anticoagulation -Acute postprocedure blood loss anemia expected from surgery IV Ferrlecit -Medical debility. Prior to this admission patient was just able to stand. Was not really ambulating -Hard of hearing Hearing aids bilateral -Hyperlipidemia Lipitor 20 mg nightly -Hypertension Cardizem CD, 240 mg a day -Obstructive sleep apnea CPAP Obesity with a BMI of 39.5 Weight loss measures Full code IV Ferrlecit. Other medications to continue
[2023-11-12] MEDS: PSYLLIUM HUSK 100% 6 GM PACKET PO SCH (16:27)
[2023-11-12] MEDS: SODIUM FERRIC GLUCONAT-SUCROSE 125 MG in SODIUM CHLORIDE 0.9% 100 ML IVPB SCH (16:27)
--- NOTE | 2023-11-13 08:12 | P.PN ---
Subjective Progress Note Date: 11/13/23 Principal diagnosis: Post op infection Pt s/e. Resting comfortable in bed. He states good day yesterday and his pain has decreased. He denies any f/c/sob/cp at this time. Denies any other issues. States no DELAROSA. No N/v/blurred or double vision. He has not been up fully yet. He wants to get to chair today. Objective - Vital Signs Vital signs: Vital Signs Temp 98.4 F 11/13/23 01:10 Pulse 76 11/13/23 01:10 Resp 17 11/13/23 01:10 BP 145/71 11/13/23 01:10 Pulse Ox 92 L 11/13/23 01:10 FiO2 21 11/11/23 04:48 Intake & Output 11/12/23 11/13/23 11/13/23 18:59 06:59 18:59 Intake Total 240 Output Total 1350 1200 Balance -1110 -1200 Intake: Oral 240 Output: Urine 1350 1200 Other: Voiding Method Incontinent Incontinent External Catheter External Catheter - Exam Physical Exam: No changes today -Patient is alert and oriented 3 appears well-nourished well-hydrated is in no acute distress. They do not appear septic. -There is TTP lumbar spine -Incision is CDI at this time. Dressing is CDI. No drainage. No purulence. No EEE. -Upper extremities show 5 out of 5 strength in all major muscle groups. -Lower extremities with 4 out of 5 strength in all major muscle groups Becoming more deconditioned due to prolonged time in bed. We discussed getting up more a nd doing more PT exercises in bed. -There is FROM that is painless of the b/l UE and LE in all major joints. Negative straight leg raise bilaterally -They are intact to light touch sensation in C5 to T1 and L2 to S1 nerve distribution. -DTR 2/4 all upper and lower extremities -Patient has palpable distal pulses all 4 ext -Compartments are soft and compressible. -Patient shows a negative Mikki's -Neg Hoffmans b/l -Neg Clonus b/l -Neg babinski b/l Cranial nerves II through XII are grossly intact. - Labs CBC & Chem 7: 11/11/23 07:44 11/11/23 07:44 Labs: Microbiology - Last 24 Hours (Table) 11/09/23 21:57 Blood Culture - Preliminary Blood 11/10/23 13:00 Gram Stain - Final Other - Other Wound Culture - Final Enterobacter cloacae 11/10/23 12:47 Gram Stain - Final Other - Other Wound Culture - Final Enterobacter cloacae Assessment and Plan (1) Lumbar surgical wound fluid collection Current Visit: Yes Status: Acute Priority: Medium Onset Date: ~11/06/23 Code(s): T81.89XA - OTH COMPLICATIONS OF PROCEDURES, NEC, INIT SNOMED Code(s): 159937090 (2) Fusion of lumbar spine Current Visit: Yes Status: Acute Code(s): M43.26 - FUSION OF SPINE, LUMBAR REGION SNOMED Code(s): 454441002 Plan: -Appreciate healthcare management consultant and team management. -Ice to back -Up today to chair is goal. -Activity: Ambulate QID, OOB all meals, up and about, limit lifting bending twisting to less than 5 lbs. Use walker or cane if needed for stability. -Daily PT/OT, increase ambulation strength and balance. -No brace needed. -Pain control: [Adequate at this time] -Meds: [reviewed] -GI ppx: senna, Miralax -DVT PPX: Heparin daily -Hygiene: Shower today. Maintain dressing clean and dry. Meticulous cleaning after BMs away from incision site -Drains: [Maintain for now. Record output] -Encourage IS 10x/hr -Dispo: [Pending], likely to need rehab.
[2023-11-13] MEDS: CAFFEINE-SODIUM BENZOATE 500 MG in SODIUM CHLORIDE 0.9% 1,000 ML IVPB SCH (08:28)
--- NOTE | 2023-11-13 18:09 | P.PN ---
Progress Note - Text Progress Note Date: 11/13/23 63-year-old male was transferred from another facility for infected back. Lactic acid is elevated to 7.2. White count is elevated patient had a recent back surgery surgical site area appears to be infected. Patient was started on cefazolin with infectious disease consultation and patient will go for incision and drainage by orthopedic surgery because of continued wound drainage and suspicion of infection. 11/09/2023 Patient is seen in follow-up today currently awaiting a PICC line with in fectious disease following along with orthopedics. Plan is for washout with deep cultures on 11/10/2023. Patient is afebrile with no reported chest pain or shortness of breath. Patient continues to report some incisional discomfort of the back and is maintained on current pain management regimen per orthopedics. Patient will need PT/OT therapy evaluation and discussion of possible ECF. Plan is for outpatient PICC line and IV antibiotics per infectious disease recommendations. Awaiting finalized cultures. Preliminary is showing gram- negative bacilli at this time. Blood cultures are negative. November 09: Patient went I&D by Dr. Chow today. Dressing in place. No drain. Some pain present. On IV Ancef and IV cefepime. November 10: Laying in bed. Some pain present. Eating about 50%. Continues on antibiotics. Prior to surgery was just able to stand and rehab. No fever. November 11: In bed. Pain fairly controlled. Eating fair. No bowel movement. On IV antibiotics. IV cefepime. Wound cultures noted. November 12: In bed. Pain well-controlled. Eating good. No BM. Getting laxatives. Remains on IV antibiotics. Getting IV Ferrlecit. Active Medications Acetaminophen (Acetaminophen Tab 325 Mg Tab) 650 mg PO Q6HR PRN PRN Reason: Mild Pain or Fever > 100.5 Last Admin: 11/12/23 02:36 Dose: 650 mg Acetaminophen/Butalbital/Caffeine (Butalb/Apap/Caff 50-325-40mg Tab) 1 each PO Q4HR PRN PRN Reason: Headache/Pain Hydrocodone Bitart/Acetaminophen (Hydrocodone/Apap 10-325mg 1 Each Tab) 1 each PO Q4H PRN PRN Reason: Pain Last Admin: 11/12/23 18:07 Dose: 1 each Amiodarone HCl (Amiodarone 100 Mg Tab) 100 mg PO DAILY [facility] Last Admin: 11/13/23 08:08 Dose: 100 mg Aspirin (Aspirin 81 Mg) 81 mg PO DAILY [facility] Last Admin: 11/13/23 08:07 Dose: 81 mg Atorvastatin Calcium (Atorvastatin 20 Mg Tab) 20 mg PO HS [facility] Last Admin: 11/12/23 21:28 Dose: 20 mg Cyclobenzaprine HCl (Cyclobenzaprine 10 Mg Tab) 10 mg PO TID PRN PRN Reason: Muscle Spasm Last Admin: 11/12/23 18:07 Dose: 10 mg Diltiazem HCl (Diltiazem Cd 240 Mg Cap.Er.24h) 240 mg PO DAILY [facility] Last Admin: 11/13/23 08:08 Dose: 240 mg Gabapentin (Gabapentin 300 Mg Cap) 300 mg PO TID [facility] Last Admin: 11/13/23 16:29 Dose: 300 mg Hydromorphone HCl (Hydromorphone 0.5 Mg/0.5 Ml Syringe) 0.5 mg IVP Q3HR PRN PRN Reason: Moderate Pain (Scale 4 to 6) Last Admin: 11/13/23 05:58 Dose: 0.5 mg Hydromorphone HCl (Hydromorphone 1 Mg/Ml 1 Ml Syringe) 1 mg IVP Q3HR PRN PRN Reason: Severe Pain (Scale 7 to 10) Last Admin: 11/10/23 20:31 Dose: 1 mg Sodium Chloride (Saline 0.9%) 1,000 mls @ 130 mls/hr IV .Q7H42M [facility] Last Admin: 11/13/23 16:29 Dose: Not Given Potassium Chloride/Sodium Chloride (Ns-Kcl 20 Meq/L Iv Solution) 1,000 mls @ 50 mls/hr IV .Q20H [facility] Last Admin: 11/13/23 05:55 Dose: Not Given Cefepime HCl 2 gm/ Sodium (Chloride) 100 mls @ 25 mls/hr IVPB Q8HR [facility]; Protocol Last Admin: 11/13/23 16:29 Dose: 25 mls/hr Lactated Ringer's (Lactated Ringers) 1,000 mls @ 20 mls/hr IV .Q24H [facility] Last Admin: 11/13/23 05:55 Dose: Not Given Caffeine/Sodium Benzoate 500 (mg/ Sodium Chloride) 1,002 mls @ 1,002 mls/hr IVPB DAILY [facility] Stop: 11/15/23 09:59 Last Admin: 11/13/23 08:28 Dose: 1,002 mls/hr Ferric Sodium Gluconate 125 mg (/ Sodium Chloride) 110 mls @ 100 mls/hr IVPB DAILY [facility] Stop: 11/14/23 10:05 Last Admin: 11/13/23 08:08 Dose: 100 mls/hr Lidocaine HCl (Lidocaine 1% (10mg/Ml) For Iv Start) 0.1 ml INTRADERMA PER PROTOCOL PRN PRN Reason: IV Start Magnesium Hydroxide (Magnesium Hydroxide 2,400 Mg/30 Ml Cup) 2,400 mg PO DAILY PRN PRN Reason: Constipation Naloxone HCl (Naloxone 0.4 Mg/Ml 1 Ml Vial) 0.2 mg IV Q2M PRN PRN Reason: Opioid Reversal Ondansetron HCl (Ondansetron 4 Mg/2 Ml Vial) 4 mg IVP Q6HR PRN PRN Reason: Nausea And Vomiting Last Admin: 11/10/23 11:25 Dose: 4 mg Polyethylene Glycol (Polyethylene Glycol 3350 17 Gm Powd.Pack) 17 gm PO DAILY [facility] Last Admin: 11/13/23 08:08 Dose: 17 gm Psyllium Hydrophilic Mucilloid (Psyllium Husk 100% 6 Gm Packet) 6 gm PO BID [facility] Last Admin: 11/13/23 08:08 Dose: 6 gm Senna (Sennosides 8.6 Mg Tab) 8.6 mg PO BID PRN PRN Reason: Constipation Senna/Docusate Sodium (Sennosides-Docusate Sodium 1 Each Tab) 2 each PO DAILY PRN PRN Reason: Constipation Sodium Chloride (Sodium Chloride 0.9% Flush 10 Ml Syringe) 10 ml IV Q6H [facility] Last Admin: 11/13/23 10:27 Dose: Not Given Tamsulosin HCl (Tamsulosin 0.4 Mg Cap.Er.24h) 0.4 mg PO DAILY [facility] Last Admin: 11/13/23 08:07 Dose: 0.4 mg On examination: VITAL SIGNS: 99.3, 82, 16, 147/64, 89% on 2 L GENERAL APPEARANCE: , laying in bed, comfortable HEENT: Normal external appearance of nose and ear. Oral cavity normal EYES: Pupils equal. Conjunctiva normal. NECK: JVD not raised. Mass not palpable. RESPIRATORY: Respiratory effort normal. Lungs clear to auscultation. CARDIOVASCULAR: First and second sounds normal. No edema. ABDOMEN: Soft. Liver and spleen not palpable. No tenderness. No mass palpable. PSYCHIATRY: Alert and oriented x3. Mood and affect normal. MUSCULOSKELETAL: Dressing over the operative site NEUROLOGICAL: Able to use his arms well. Bilateral lower extremity:.-Power 2- 3/5 INVESTIGATIONS, reviewed in the clinical context: November 10: White count 9.4 hemoglobin 8.3 platelets 351 potassium 4.6 creatinine 0.4 November 08: White count 7.9 hemoglobin 9 platelets 304 sodium 136 potassium 3.9 creatinine 0.38 CRP 13.8 albumin 2.2 Wound culture [November 06] Enterobacter cloacae, E. coli Assessment and plan -Acute infected surgical site area in the lumbar area with I&D today on November 09, by Dr. Chow Wound cultures have been positive for Enterobacter cloacae and E. coli IV cefepime. ID following -Paroxysmal atrial fibrillation Amiodarone 100 mg a day. Not on anticoagulation -Acute postprocedure blood loss anemia expected from surgery IV Ferrlecit -Medical debility. Prior to this admission patient was just able to stand. Was not really ambulating -Hard of hearing Hearing aids bilateral -Hyperlipidemia Lipitor 20 mg nightly -Hypertension Cardizem CD, 240 mg a day -Obstructive sleep apnea CPAP Obesity with a BMI of 39.5 Weight loss measures Full code Continue current medication treatment plan. Getting laxatives. Metamucil added
[2023-11-13] MEDS: MAGNESIUM HYDROXIDE 2,400 MG/30 ML CUP PO PRN (20:58)
--- NOTE | 2023-11-13 22:55 | P.PN ---
Subjective Progress Note Date: 11/13/23 Principal diagnosis: Reason for follow-up is lumbar surgical site infection Patient is status post surgical drainage of his lumbar abscess procedure completed on 11/10/2023 as well as deep culture. status post I&D and excisional debridement lumbar spine skin soft tissue muscle and wound with a drainage of an abscess procedure completed on 11/10/2023 On today's evaluation that is 11/13/2023, the patient continues to be afebrile, the patient is on 2 L nasal cannula oxygen and breathing comfortably, the Pt denies having any chest pain or cough, the patient denies having any abdominal pain no vomiting or any diarrhea has been reported by the nursing staff, pain to the lower back has decreased in intensity. Patient white count is 9.40 creatinine 0.4 culture has been predominantly with Enterobacter blood culture negative Objective - Vital Signs Vital signs: Vital Signs Temp 98.5 F 11/13/23 07:58 Pulse 72 11/13/23 07:58 Resp 16 11/13/23 07:58 BP 139/74 11/13/23 07:58 Pulse Ox 96 11/13/23 07:58 FiO2 21 11/11/23 04:48 Intake & Output 11/12/23 11/13/23 11/13/23 18:59 06:59 18:59 Intake Total 240 Output Total 1350 1200 1050 Balance -1110 -1200 -1050 Intake: Oral 240 Output: Urine 1350 1200 1050 Other: Voiding Method Incontinent Incontinent Incontinent External Catheter External Catheter External Catheter - Exam GENERAL DESCRIPTION: Middle-age male lying in bed in no distress RESPIRATORY SYSTEM: Unlabored breathing , decreased breath sounds at bases HEART: S1 S2 regular rate and rhythm , ABDOMEN: Soft , no tenderness EXTREMITIES: No edema feet - Labs CBC & Chem 7: 11/11/23 07:44 11/11/23 07:44 Labs: Microbiology - Last 24 Hours (Table) 11/09/23 21:57 Blood Culture - Preliminary Blood 11/10/23 13:00 Gram Stain - Final Other - Other Wound Culture - Final Enterobacter cloacae 11/10/23 12:47 Gram Stain - Final Other - Other Wound Culture - Final Enterobacter cloacae Assessment and Plan (1) Surgical site infection Current Visit: Yes Status: Acute Code(s): T81.49XA - INFECTION FOLLOWING A PROCEDURE, OTHER SURGICAL SITE, INIT SNOMED Code(s): 38525644 (2) Penicillin allergy Current Visit: Yes Status: Acute Code(s): Z88.0 - ALLERGY STATUS TO PENICILLIN SNOMED Code(s): 46837074 (3) Lumbar surgical wound fluid collection Current Visit: Yes Status: Acute Priority: Medium Onset Date: ~11/06/23 Code(s): T81.89XA - OTH COMPLICATIONS OF PROCEDURES, NEC, INIT SNOMED Code(s): 477304522 (4) Open wound of lumbar region Current Visit: Yes Status: Acute Code(s): S31.000A - UNSP OPN WND LOW BACK AND PELV W/O PENET RETROPERITON, INIT SNOMED Code(s): 609714292 Plan: 1patient presented to hospital with worsening lower back pain drainage concerning for lumbar surgical site infection in this patient who did have a extensive lumbosacral spine surgery completed on 10/11/2023. 2local culture currently growing Enterobacter and E. coli, OR cultures currently growing enterobacter as well , blood cultures has been negative so far 3patient to continue with cefepime 2 g every 8 hours, plan is for a 6-week course of IV cefepime. PICC line will be placed Dictation was produced using [employer] dictation software. please excuse any grammatical, word or spelling errors. Time with Patient: Less than 30
--- NOTE | 2023-11-14 11:18 | P.PN ---
Subjective Progress Note Date: 11/14/23 Principal diagnosis: Lumbar fluid collection; infection Lumbar spondylosis with stenosis BLE weakness Neurogenic claudication Patient seen and examined this morning. Patient is resting comfortably in bed. Surgical incision to the lumbar spine, edges are well-approximated with sutures intact. No active drainage noted. Surgical dressing is dry, new dressing has been applied. Encourage patient to be up in chair for all meals. Informed p atient that physical therapy will in to work with him today. Patient does report that his pain is managed, although he does report increased pain with activity. Patient continues to deny any blurred vision, headaches, or nausea/vomiting. Continue to encourage patient to be active today and to use i ncentive spirometer 10 times per hour while awake. No acute concerns at this time. Objective - Vital Signs Vital signs: Vital Signs Temp 98.6 F 11/14/23 07:00 Pulse 75 11/14/23 07:00 Resp 17 11/14/23 07:00 BP 139/66 11/14/23 07:00 Pulse Ox 94 L 11/14/23 07:00 FiO2 21 11/11/23 04:48 Intake & Output 11/13/23 11/14/23 11/14/23 18:59 06:59 18:59 Output Total 1800 1100 Balance -1800 -1100 Output: Urine 1800 1100 Other: Voiding Method Incontinent Incontinent External Catheter External Catheter - Exam Physical Examination General: The patient is awake and alert, in no acute distress Skin: Skin is warm and dry with no obvious rashes or lesions. Surgical incision to the lumbar spine, edges are well-approximated with sutures intact. No active drainage. New surgical dressing applied. Eye: Pupils are equal, round and reactive to light, extra-ocular movements are intact; there is normal conjunctiva bilaterally. Neck: The neck is supple, there is no tenderness and ROM intact. Cardiovascular: There is a regular rate and rhythm. No murmur, rub or gallop is appreciated. Respiratory: Lungs are clear to auscultation, respirations are non-labored, breath sounds are equal. Gastrointestinal: Soft, non-distended, non-tender abdomen. Back: There is no tenderness to palpation in the midline, paralumbar, parathoracic or buttocks region. There is no obvious deformity . Musculoskeletal: ROM limited secondary to pain and stiffness from surgical procedure. Muscle strength in all major muscle groups of bilateral upper extremities 5/5, bilateral lower extremities 4-/5. Neurological: CN 2-12 intact. There are no obvious motor or sensory deficits. Movement and coordination equal and intact. Sensory exam to light touch intact C5-T1 and intact from L2-S1. Reflexes 2/4 in bilateral upper and lower extremities. Negative Hoffmans, babinski, and clonus signs. Psychiatric: Cooperative, appropriate mood & affect, normal judgment. - Labs CBC & Chem 7: 11/11/23 07:44 11/11/23 07:44 Labs: Microbiology - Last 24 Hours (Table) 11/10/23 12:47 Anaerobic Culture - Preliminary Other - Other 11/10/23 13:00 Anaerobic Culture - Preliminary Other - Other 11/09/23 21:57 Blood Culture - Preliminary Blood Assessment and Plan Assessment: Postop day 4: Irrigation and debridement of the radical lumbar wound. Lumbar fluid collection; infection Lumbar spondylosis with stenosis BLE weakness Neurogenic claudication Plan: -Appreciate reservoir engineering consultant and team management. -Activity: Ambulate QID, OOB all meals, up and about, limit lifting bending twisting to less than 5 lbs. Use walker or cane if needed for stability. -Daily PT/OT, increase ambulation strength and balance. -Brace when up and about, not needed in bed or chair -Pain control: Adequate at this time -Meds: reviewed -GI ppx: senna, Miralax -DVT PPX: Mechanical, Heparin -Hygiene: Shower today. Maintain dressing clean and dry. Meticulous cleaning after BMs away from the incision site -Encourage IS 10x/hr -Dispo: Clinically pending *I reviewed and discussed this case with my attending Dr. Chow, whom has reviewed this chart and films and is in agreement with assessment and plan of care as outlined above. I have personally seen and examined the patient, performed the documentation and the assessment and plan as written. Number of minutes spent on the visit: 20m
[2023-11-14 13:22] LABS: Anisocytosis Slight; HCT 29.5 % (39.0-53.0); HGB 9.1 gm/dL (13.0-17.5); Hypochromasia Marked; MCH 26.8 pg (25.0-35.0); MCHC 30.9 g/dL (31.0-37.0); MCV 86.9 fL (80.0-100.0); Platelet Count 373 k/uL (150-450); RBC 3.39 m/uL (4.30-5.90); WBC 7.6 k/uL (3.8-10.6)
[2023-11-14 13:37] LABS: African American GFR (CKD) >90 (>60 ml/min/1.73 sqM); Anion Gap 3 mmol/L; Blood Urea Nitrogen 10 mg/dL (9-20); Calcium 8.7 mg/dL (8.4-10.2); Carbon Dioxide 26 mmol/L (22-30); Chloride 107 mmol/L (98-107); Glucose 130 mg/dL (74-99); Non-African American GFR(CKD) >90 (>60 ml/min/1.73 sqM); Sodium 136 mmol/L (137-145)
--- NOTE | 2023-11-14 17:15 | P.PN ---
Progress Note - Text Progress Note Date: 11/14/23 63-year-old male was transferred from another facility for infected back. Lactic acid is elevated to 7.2. White count is elevated patient had a recent back surgery surgical site area appears to be infected. Patient was started on cefazolin with infectious disease consultation and patient will go for incision and drainage by orthopedic surgery because of continued wound drainage and suspicion of infection. 11/09/2023 Patient is seen in follow-up today currently awaiting a PICC line with in fectious disease following along with orthopedics. Plan is for washout with deep cultures on 11/10/2023. Patient is afebrile with no reported chest pain or shortness of breath. Patient continues to report some incisional discomfort of the back and is maintained on current pain management regimen per orthopedics. Patient will need PT/OT therapy evaluation and discussion of possible ECF. Plan is for outpatient PICC line and IV antibiotics per infectious disease recommendations. Awaiting finalized cultures. Preliminary is showing gram- negative bacilli at this time. Blood cultures are negative. November 09: Patient went I&D by Dr. Chow today. Dressing in place. No drain. Some pain present. On IV Ancef and IV cefepime. November 10: Laying in bed. Some pain present. Eating about 50%. Continues on antibiotics. Prior to surgery was just able to stand and rehab. No fever. November 11: In bed. Pain fairly controlled. Eating fair. No bowel movement. On IV antibiotics. IV cefepime. Wound cultures noted. November 12: In bed. Pain well-controlled. Eating good. No BM. Getting laxatives. Remains on IV antibiotics. Getting IV Ferrlecit. November 13: Pain better. Sat at the edge of the bed today. No bowel movement. Dulcolax suppository ordered. Getting IV antibiotics. Eating fair. Active Medications Acetaminophen (Acetaminophen Tab 325 Mg Tab) 650 mg PO Q6HR PRN PRN Reason: Mild Pain or Fever > 100.5 Last Admin: 11/12/23 02:36 Dose: 650 mg Acetaminophen/Butalbital/Caffeine (Butalb/Apap/Caff 50-325-40mg Tab) 1 each PO Q4HR PRN PRN Reason: Headache/Pain Hydrocodone Bitart/Acetaminophen (Hydrocodone/Apap 10-325mg 1 Each Tab) 1 each PO Q4H PRN PRN Reason: Pain Last Admin: 11/14/23 10:12 Dose: 1 each Amiodarone HCl (Amiodarone 100 Mg Tab) 100 mg PO DAILY [facility] Last Admin: 11/14/23 08:21 Dose: 100 mg Aspirin (Aspirin 81 Mg) 81 mg PO DAILY [facility] Last Admin: 11/14/23 08:21 Dose: 81 mg Atorvastatin Calcium (Atorvastatin 20 Mg Tab) 20 mg PO HS [facility] Last Admin: 11/13/23 20:57 Dose: 20 mg Cyclobenzaprine HCl (Cyclobenzaprine 10 Mg Tab) 10 mg PO TID PRN PRN Reason: Muscle Spasm Last Admin: 11/14/23 04:58 Dose: 10 mg Diltiazem HCl (Diltiazem Cd 240 Mg Cap.Er.24h) 240 mg PO DAILY [facility] Last Admin: 11/14/23 08:21 Dose: 240 mg Gabapentin (Gabapentin 300 Mg Cap) 300 mg PO TID [facility] Last Admin: 11/14/23 16:12 Dose: 300 mg Hydromorphone HCl (Hydromorphone 0.5 Mg/0.5 Ml Syringe) 0.5 mg IVP Q3HR PRN PRN Reason: Moderate Pain (Scale 4 to 6) Last Admin: 11/13/23 05:58 Dose: 0.5 mg Hydromorphone HCl (Hydromorphone 1 Mg/Ml 1 Ml Syringe) 1 mg IVP Q3HR PRN PRN Reason: Severe Pain (Scale 7 to 10) Last Admin: 11/10/23 20:31 Dose: 1 mg Lactated Ringer's (Lactated Ringers) 1,000 mls @ 20 mls/hr IV .Q24H [facility] Last Admin: 11/14/23 05:01 Dose: 20 mls/hr Caffeine/Sodium Benzoate 500 (mg/ Sodium Chloride) 1,002 mls @ 1,002 mls/hr IVPB DAILY [facility] Stop: 11/15/23 09:59 Last Admin: 11/14/23 08:22 Dose: 1,002 mls/hr Cefepime HCl 2 gm/ Sodium (Chloride) 100 mls @ 25 mls/hr IVPB Q8H [facility]; Protocol Lidocaine HCl (Lidocaine 1% (10mg/Ml) For Iv Start) 0.1 ml INTRADERMA PER PROTOCOL PRN PRN Reason: IV Start Magnesium Hydroxide (Magnesium Hydroxide 2,400 Mg/30 Ml Cup) 2,400 mg PO DAILY PRN PRN Reason: Constipation Last Admin: 11/13/23 20:58 Dose: 2,400 mg Naloxone HCl (Naloxone 0.4 Mg/Ml 1 Ml Vial) 0.2 mg IV Q2M PRN PRN Reason: Opioid Reversal Ondansetron HCl (Ondansetron 4 Mg/2 Ml Vial) 4 mg IVP Q6HR PRN PRN Reason: Nausea And Vomiting Last Admin: 11/10/23 11:25 Dose: 4 mg Polyethylene Glycol (Polyethylene Glycol 3350 17 Gm Powd.Pack) 17 gm PO DAILY [facility] Last Admin: 11/14/23 08:21 Dose: 17 gm Psyllium Hydrophilic Mucilloid (Psyllium Husk 100% 6 Gm Packet) 6 gm PO BID [facility] Last Admin: 11/14/23 08:21 Dose: 6 gm Senna (Sennosides 8.6 Mg Tab) 8.6 mg PO BID PRN PRN Reason: Constipation Senna/Docusate Sodium (Sennosides-Docusate Sodium 1 Each Tab) 2 each PO DAILY PRN PRN Reason: Constipation Sodium Chloride (Sodium Chloride 0.9% Flush 10 Ml Syringe) 10 ml IV Q6H [facility] Last Admin: 11/14/23 16:11 Dose: Not Given Tamsulosin HCl (Tamsulosin 0.4 Mg Cap.Er.24h) 0.4 mg PO DAILY [facility] Last Admin: 11/14/23 08:21 Dose: 0.4 mg On examination: VITAL SIGNS: 99.1, 80, 15, 150/63, 94% room air GENERAL APPEARANCE: , laying in bed, comfortable HEENT: Normal external appearance of nose and ear. Oral cavity normal EYES: Pupils equal. Conjunctiva normal. NECK: JVD not raised. Mass not palpable. RESPIRATORY: Respiratory effort normal. Lungs clear to auscultation. CARDIOVASCULAR: First and second sounds normal. No edema. ABDOMEN: Soft. Liver and spleen not palpable. No tenderness. No mass palpable. PSYCHIATRY: Alert and oriented x3. Mood and affect normal. MUSCULOSKELETAL: Dressing over the operative site NEUROLOGICAL: Able to use his arms well. Bilateral lower extremity:.-Power 2- 3/5 INVESTIGATIONS, reviewed in the clinical context: November 13: White count 7.6 hemoglobin 9.1 potassium 4 creatinine 0.38 November 10: White count 9.4 hemoglobin 8.3 platelets 351 potassium 4.6 creatinine 0.4 November 08: White count 7.9 hemoglobin 9 platelets 304 sodium 136 potassium 3.9 creatinine 0.38 CRP 13.8 albumin 2.2 Wound culture [November 06] Enterobacter cloacae, E. coli Assessment and plan -Acute infected surgical site area in the lumbar area with I&D today on November 09, by Dr. Chow Wound cultures have been positive for Enterobacter cloacae and E. coli IV cefepime. ID following -Postop constipation. Abdomen soft. Likely from pain medications Dulcolax suppository 10 mg -Paroxysmal atrial fibrillation Amiodarone 100 mg a day. Not on anticoagulation -Acute postprocedure blood loss anemia expected from surgery IV Ferrlecit -Medical debility. Prior to this admission patient was just able to stand. Was not really ambulating -Hard of hearing Hearing aids bilateral -Hyperlipidemia Lipitor 20 mg nightly -Hypertension Cardizem CD, 240 mg a day -Obstructive sleep apnea CPAP Obesity with a BMI of 39.5 Weight loss measures Full code Dulcolax suppository. Other medications to continue
[2023-11-14] MEDS: bisacodyL 10 MG SUPP RECTAL STA (18:26)
[2023-11-14] MEDS: CEFEPIME 2 GM in SODIUM CHLORIDE 0.9% 100 ML IVPB SCH (18:26)
--- NOTE | 2023-11-15 07:38 | P.PN ---
Subjective Progress Note Date: 11/14/23 Principal diagnosis: Reason for follow-up is lumbar surgical site infection Patient is status post surgical drainage of his lumbar abscess procedure completed on 11/10/2023 as well as deep culture. status post I&D and excisional debridement lumbar spine skin soft tissue muscle and wound with a drainage of an abscess procedure completed on 11/10/2023 On today's evaluation that is 11/14/2023, Patient is afebrile patient is currently on room air and denies having any shortness of breath, the patient denies any chest pain or cough, the patient denies any nausea vomiting did not have any abdominal pain and no diarrhea, pain to lower back has decreased in intensity. Patient white count is 7.6 creatinine 0.38 blood culture negative local culture with Enterobacter anaerobe cultures negative Objective - Vital Signs Vital signs: Vital Signs Temp 98.6 F 11/14/23 07:00 Pulse 75 11/14/23 07:00 Resp 17 11/14/23 07:00 BP 139/66 11/14/23 07:00 Pulse Ox 94 L 11/14/23 07:00 FiO2 21 11/11/23 04:48 Intake & Output 11/13/23 11/14/23 11/14/23 18:59 06:59 18:59 Output Total 1800 1100 Balance -1800 -1100 Output: Urine 1800 1100 Other: Voiding Method Incontinent Incontinent Incontinent External Catheter External Catheter External Catheter - Exam GENERAL DESCRIPTION: Middle-age male lying in bed in no distress RESPIRATORY SYSTEM: Unlabored breathing , decreased breath sounds at bases HEART: S1 S2 regular rate and rhythm , ABDOMEN: Soft , no tenderness EXTREMITIES: No edema feet - Labs CBC & Chem 7: 11/14/23 13:07 11/14/23 13:07 Labs: Abnormal Lab Results - Last 24 Hours (Table) 11/14/23 Range/Units 13:07 RBC 3.39 L (4.30-5.90) m/uL Hgb 9.1 L (13.0-17.5) gm/dL Hct 29.5 L (39.0-53.0) % MCHC 30.9 L (31.0-37.0) g/dL RDW 16.0 H (11.5-15.5) % Microbiology - Last 24 Hours (Table) 11/10/23 12:47 Anaerobic Culture - Preliminary Other - Other 11/10/23 13:00 Anaerobic Culture - Preliminary Other - Other 11/09/23 21:57 Blood Culture - Preliminary Blood Assessment and Plan (1) Surgical site infection Current Visit: Yes Status: Acute Code(s): T81.49XA - INFECTION FOLLOWING A PROCEDURE, OTHER SURGICAL SITE, INIT SNOMED Code(s): 79166422 (2) Penicillin allergy Current Visit: Yes Status: Acute Code(s): Z88.0 - ALLERGY STATUS TO PEN ICILLIN SNOMED Code(s): 91094080 (3) Lumbar surgical wound fluid collection Current Visit: Yes Status: Acute Priority: Medium Onset Date: ~11/06/23 Code(s): T81.89XA - OTH COMPLICATIONS OF PROCEDURES, NEC, INIT SNOMED Code(s): 036518215 (4) Open wound of lumbar region Current Visit: Yes Status: Acute Code(s): S31.000A - UNSP OPN WND LOW BACK AND PELV W/O PENET RETROPERITON, INIT SNOMED Code(s): 699567548 Plan: 1patient presented to hospital with worsening lower back pain drainage concerning for lumbar surgical site infection in this patient who did have a extensive lumbosacral spine surgery completed on 10/11/2023. 2local culture currently growing Enterobacter and E. coli, OR cultures currently growing enterobacter as well , blood cultures has been negative so far 3patient did have a PICC line placement currently waiting for outpatient IV antibiotic arrangement continue with cefepime 2 g every 6 hours to finish a 6- week course of therapy multiple questions answered Dictation was produced using [employer] software. please excuse any grammatical, word or spelling errors. Time with Patient: Less than 30
--- NOTE | 2023-11-15 08:34 | P.PN ---
Subjective Progress Note Date: 11/15/23 Principal diagnosis: Lumbar fluid collection; infection Lumbar spondylosis with stenosis BLE weakness Neurogenic claudication Patient seen and examined this morning. Patient is resting comfortably in bed. He reports his pain is controlled on current regimen. Surgical incision to the lumbar spine, dressing is CDI, No shadowing noted. Patient states he did sit at bedside with therapy yesterday and stood up x2 with SBA. Patient states he did become very tired after this activity. Encourage patient to be up in chair for all meals. Patient continues to deny any blurred vision, headaches, or nausea/vomiting. Continue to encourage patient to be active today and to use incentive spirometer 10 times per hour while awake. Patient is cleared from an Orthopedic standpoint for discharge once patient is setup with Infusion therapy and bed is available at [facility]. Objective - Vital Signs Vital signs: Vital Signs Temp 97.9 F 11/15/23 07:00 Pulse 78 11/15/23 07:00 Resp 20 11/15/23 07:00 BP 122/73 11/15/23 07:00 Pulse Ox 92 L 11/15/23 07:00 FiO2 21 11/15/23 00:16 Intake & Output 11/14/23 11/15/23 11/15/23 18:59 06:59 18:59 Output Total 1500 Balance -1500 Output: Urine 1500 Other: Voiding Method Incontinent Incontinent External Catheter External Catheter # Bowel Movements 2 - Exam Physical Examination General: The patient is awake and alert, in no acute distress Skin: Skin is warm and dry with no obvious rashes or lesions. Surgical incision to the lumbar spine, dressing is CDI, no shadowing noted. Eye: Pupils are equal, round and reactive to light, extra-ocular movements are intact; there is normal conjunctiva bilaterally. Neck: The neck is supple, there is no tenderness and ROM intact. Cardiovascular: There is a regular rate and rhythm. No murmur, rub or gallop is appreciated. Respiratory: Lungs are clear to auscultation, respirations are non-labored, breath sounds are equal. Gastrointestinal: Soft, non-distended, non-tender abdomen. Back: There is no tenderness to palpation in the midline, paralumbar, parathoracic or buttocks region. There is no obvious deformity . Musculoskeletal: ROM limited secondary to pain and stiffness from surgical procedure. Muscle strength in all major muscle groups of bilateral upper extremities 5/5, bilateral lower extremities 4-/5. Neurological: CN 2-12 intact. There are no obvious motor or sensory deficits. Movement and coordination equal and intact. Sensory exam to light touch intact C5-T1 and intact from L2-S1. Reflexes 2/4 in bilateral upper and lower extre mities. Negative Hoffmans, babinski, and clonus signs. Psychiatric: Cooperative, appropriate mood & affect, normal judgment. - Labs CBC & Chem 7: 11/14/23 13:07 11/14/23 13:07 Labs: Abnormal Lab Results - Last 24 Hours (Table) 11/14/23 11/14/23 Range/Units 13:07 13:07 RBC 3.39 L (4.30-5.90) m/uL Hgb 9.1 L (13.0-17.5) gm/dL Hct 29.5 L (39.0-53.0) % MCHC 30.9 L (31.0-37.0) g/dL RDW 16.0 H (11.5-15.5) % Sodium 136 L (137-145) mmol/L Creatinine 0.38 L (0.66-1.25) mg/dL Glucose 130 H (74-99) mg/dL Microbiology - Last 24 Hours (Table) 11/09/23 21:57 Blood Culture - Final Blood 11/10/23 12:47 Anaerobic Culture - Final Other - Other 11/10/23 13:00 Anaerobic Culture - Final Other - Other Assessment and Plan Assessment: Postop day 5: Irrigation and debridement of the radical lumbar wound. Lumbar fluid collection; infection Lumbar spondylosis with stenosis BLE weakness Neurogenic claudication Plan: -Appreciate leasing consultant and team management. -Activity: Ambulate QID, OOB all meals, up and about, limit lifting bending twisting to less than 5 lbs. Use walker or cane if needed for stability. -Daily PT/OT, increase ambulation strength and balance. -Pain control: Adequate at this time -Meds: reviewed -GI ppx: senna, Miralax -DVT PPX: Mechanical, Heparin -Hygiene: Shower today. Maintain dressing clean and dry. Meticulous cleaning after BMs away from the incision site -Encourage IS 10x/hr -Dispo: Patient is cleared from an Orhtopedic standpoint for discharge when setu p for Infusion therapy and bed is available at [facility] *I reviewed and discussed this case with my attending Dr. Chow, whom has reviewed this chart and films and is in agreement with assessment and plan of care as outlined above. I have personally seen and examined the patient, performed the documentation and the assessment and plan as written. Number of minutes spent on the visit: 20m
[2023-11-15] MEDS: SENNOSIDES-DOCUSATE SODIUM 1 EACH TAB PO SCH (09:12)
--- NOTE | 2023-11-15 15:21 | P.PN ---
Progress Note - Text Progress Note Date: 11/15/23 63-year-old male was transferred from another facility for infected back. Lactic acid is elevated to 7.2. White count is elevated patient had a recent back surgery surgical site area appears to be infected. Patient was started on cefazolin with infectious disease consultation and patient will go for incision and drainage by orthopedic surgery because of continued wound drainage and suspicion of infection. 11/09/2023 Patient is seen in follow-up today currently awaiting a PICC line with in fectious disease following along with orthopedics. Plan is for washout with deep cultures on 11/10/2023. Patient is afebrile with no reported chest pain or shortness of breath. Patient continues to report some incisional discomfort of the back and is maintained on current pain management regimen per orthopedics. Patient will need PT/OT therapy evaluation and discussion of possible ECF. Plan is for outpatient PICC line and IV antibiotics per infectious disease recommendations. Awaiting finalized cultures. Preliminary is showing gram- negative bacilli at this time. Blood cultures are negative. November 09: Patient went I&D by Dr. Chow today. Dressing in place. No drain. Some pain present. On IV Ancef and IV cefepime. November 10: Laying in bed. Some pain present. Eating about 50%. Continues on antibiotics. Prior to surgery was just able to stand and rehab. No fever. November 11: In bed. Pain fairly controlled. Eating fair. No bowel movement. On IV antibiotics. IV cefepime. Wound cultures noted. November 12: In bed. Pain well-controlled. Eating good. No BM. Getting laxatives. Remains on IV antibiotics. Getting IV Ferrlecit. November 13: Pain better. Sat at the edge of the bed today. No bowel movement. Dulcolax suppository ordered. Getting IV antibiotics. Eating fair. November 14: Had a very small BM yesterday. With Dulcolax suppository. Soapsuds enema ordered. Feeling slight abdominal distention. Eating fair. No nausea vomiting. Scratch Active Medications Acetaminophen (Acetaminophen Tab 325 Mg Tab) 650 mg PO Q6HR PRN PRN Reason: Mild Pain or Fever > 100.5 Last Admin: 11/12/23 02:36 Dose: 650 mg Acetaminophen/Butalbital/Caffeine (Butalb/Apap/Caff 50-325-40mg Tab) 1 each PO Q4HR PRN PRN Reason: Headache/Pain Hydrocodone Bitart/Acetaminophen (Hydrocodone/Apap 10-325mg 1 Each Tab) 1 each PO Q4H PRN PRN Reason: Pain Last Admin: 11/15/23 09:09 Dose: 1 each Amiodarone HCl (Amiodarone 100 Mg Tab) 100 mg PO DAILY [facility] Last Admin: 11/15/23 09:12 Dose: 100 mg Aspirin (Aspirin 81 Mg) 81 mg PO DAILY [facility] Last Admin: 11/15/23 09:12 Dose: 81 mg Atorvastatin Calcium (Atorvastatin 20 Mg Tab) 20 mg PO HS [facility] Last Admin: 11/14/23 20:07 Dose: 20 mg Cyclobenzaprine HCl (Cyclobenzaprine 10 Mg Tab) 10 mg PO TID PRN PRN Reason: Muscle Spasm Last Admin: 11/14/23 18:25 Dose: 10 mg Diltiazem HCl (Diltiazem Cd 240 Mg Cap.Er.24h) 240 mg PO DAILY [facility] Last Admin: 11/15/23 09:12 Dose: 240 mg Gabapentin (Gabapentin 300 Mg Cap) 300 mg PO TID [facility] Last Admin: 11/15/23 09:12 Dose: 300 mg Hydromorphone HCl (Hydromorphone 0.5 Mg/0.5 Ml Syringe) 0.5 mg IVP Q3HR PRN PRN Reason: Moderate Pain (Scale 4 to 6) Last Admin: 11/13/23 05:58 Dose: 0.5 mg Hydromorphone HCl (Hydromorphone 1 Mg/Ml 1 Ml Syringe) 1 mg IVP Q3HR PRN PRN Reason: Severe Pain (Scale 7 to 10) Last Admin: 11/10/23 20:31 Dose: 1 mg Lactated Ringer's (Lactated Ringers) 1,000 mls @ 20 mls/hr IV .Q24H [facility] Last Admin: 11/15/23 05:24 Dose: Not Given Cefepime HCl 2 gm/ Sodium (Chloride) 100 mls @ 25 mls/hr IVPB Q8H [facility]; Protocol Last Admin: 11/15/23 12:36 Dose: 25 mls/hr Lidocaine HCl (Lidocaine 1% (10mg/Ml) For Iv Start) 0.1 ml INTRADERMA PER PROTOCOL PRN PRN Reason: IV Start Magnesium Hydroxide (Magnesium Hydroxide 2,400 Mg/30 Ml Cup) 2,400 mg PO DAILY PRN PRN Reason: Constipation Last Admin: 11/13/23 20:58 Dose: 2,400 mg Naloxone HCl (Naloxone 0.4 Mg/Ml 1 Ml Vial) 0.2 mg IV Q2M PRN PRN Reason: Opioid Reversal Ondansetron HCl (Ondansetron 4 Mg/2 Ml Vial) 4 mg IVP Q6HR PRN PRN Reason: Nausea And Vomiting Last Admin: 11/10/23 11:25 Dose: 4 mg Polyethylene Glycol (Polyethylene Glycol 3350 17 Gm Powd.Pack) 17 gm PO DAILY [facility] Last Admin: 11/15/23 09:12 Dose: 17 gm Psyllium Hydrophilic Mucilloid (Psyllium Husk 100% 6 Gm Packet) 6 gm PO BID [facility] Last Admin: 11/15/23 09:13 Dose: Not Given Senna (Sennosides 8.6 Mg Tab) 8.6 mg PO BID PRN PRN Reason: Constipation Senna/Docusate Sodium (Sennosides-Docusate Sodium 1 Each Tab) 2 each PO DAILY [facility] Last Admin: 11/15/23 09:12 Dose: 2 each Sodium Chloride (Sodium Chloride 0.9% Flush 10 Ml Syringe) 10 ml IV Q6H [facility] Last Admin: 11/15/23 12:43 Dose: Not Given Tamsulosin HCl (Tamsulosin 0.4 Mg Cap.Er.24h) 0.4 mg PO DAILY [facility] Last Admin: 11/15/23 09:12 Dose: 0.4 mg On examination: VITAL SIGNS: 98.5, 76, 19, 120/74, 93% room air GENERAL APPEARANCE: 98.5, 76, 19, 124 x 74, 93% room air, laying in bed HEENT: Normal external appearance of nose and ear. Oral cavity normal EYES: Pupils equal. Conjunctiva normal. NECK: JVD not raised. Mass not palpable. RESPIRATORY: Respiratory effort normal. Lungs clear to auscultation. CARDIOVASCULAR: First and second sounds normal. No edema. ABDOMEN: Soft. Liver and spleen not palpable. No tenderness. No mass palpable. PSYCHIATRY: Alert and oriented x3. Mood and affect normal. MUSCULOSKELETAL: Dressing over the operative site NEUROLOGICAL: Able to use his arms well. Bilateral lower extremity:.-Power 2- 3/5 INVESTIGATIONS, reviewed in the clinical context: November 13: White count 7.6 hemoglobin 9.1 potassium 4 creatinine 0.38 November 10: White count 9.4 hemoglobin 8.3 platelets 351 potassium 4.6 creatinine 0.4 November 08: White count 7.9 hemoglobin 9 platelets 304 sodium 136 potassium 3.9 creatinine 0.38 CRP 13.8 albumin 2.2 Wound culture [November 06] Enterobacter cloacae, E. coli Assessment and plan -Acute infected surgical site area in the lumbar area with I&D today on November 09, by Dr. Chow Wound cultures have been positive for Enterobacter cloacae and E. coli IV cefepime. ID following -Postop constipation. Abdomen soft. Likely from pain medications Soapsuds enema ordered -Paroxysmal atrial fibrillation Amiodarone 100 mg a day. Not on anticoagulation -Acute postprocedure blood loss anemia expected from surgery IV Ferrlecit -Medical debility. Prior to this admission patient was just able to stand. Was not really ambulating -Hard of hearing Hearing aids bilateral -Hyperlipidemia Lipitor 20 mg nightly -Hypertension Cardizem CD, 240 mg a day -Obstructive sleep apnea CPAP Obesity with a BMI of 39.5 Weight loss measures Full code Continue current medications. Soapsuds enema ordered
--- NOTE | 2023-11-15 16:48 | P.PN ---
Subjective Progress Note Date: 11/15/23 Principal diagnosis: Reason for follow-up is lumbar surgical site infection Patient is status post surgical drainage of his lumbar abscess procedure completed on 11/10/2023 as well as deep culture. status post I&D and excisional debridement lumbar spine skin soft tissue muscle and wound with a drainage of an abscess procedure completed on 11/10/2023 On today's evaluation that is 11/15/2023, patient has been afebrile, patient is breathing comfortably and is currently on room air, patient denies having any significant cough no chest pain shortness of breath, patient denies nausea vomiting or diarrhea and no abdominal pain, the patient pain to the lower back is currently controlled. No new lab has been obtained today anaerobe culture is negative Objective - Vital Signs Vital signs: Vital Signs Temp 98.5 F 11/15/23 13:46 Pulse 76 11/15/23 13:46 Resp 19 11/15/23 13:46 BP 124/74 11/15/23 13:46 Pulse Ox 93 L 11/15/23 13:46 FiO2 21 11/15/23 00:16 Intake & Output 11/14/23 11/15/23 11/15/23 18:59 06:59 18:59 Output Total 1500 1000 Balance -1500 -1000 Weight 124.738 kg Output: Urine 1500 1000 Other: Voiding Method Incontinent Incontinent Incontinent External Catheter External Catheter External Catheter # Bowel Movements 2 1 - Exam GENERAL DESCRIPTION: Middle-age male lying in bed in no distress RESPIRATORY SYSTEM: Unlabored breathing , decreased breath sounds at bases HEART: S1 S2 regular rate and rhythm , ABDOMEN: Soft , no tenderness EXTREMITIES: No edema feet - Labs CBC & Chem 7: 11/14/23 13:07 11/14/23 13:07 Labs: Microbiology - Last 24 Hours (Table) 11/09/23 21:57 Blood Culture - Final Blood 11/10/23 12:47 Anaerobic Culture - Final Other - Other 11/10/23 13:00 Anaerobic Culture - Final Other - Other Assessment and Plan (1) Surgical site infection Current Visit: Yes Status: Acute Code(s): T81.49XA - INFECTION FOLLOWING A PROCEDURE, OTHER SURGICAL SITE, INIT SNOMED Code(s): 52209657 (2) Penicillin allergy Current Visit: Yes Status: Acute Code(s): Z88.0 - ALLERGY STATUS TO PENICILLIN SNOMED Code(s): 76140720 (3) Lumbar surgical wound fluid collection Current Visit: Yes Status: Acute Priority: Medium Onset Date: ~11/06/23 Code(s): T81.89XA - OTH COMPLICATIONS OF PROCEDURES, NEC, INIT SNOMED Code(s): 024707660 (4) Open wound of lumbar region Current Visit: Yes Status: Acute Code(s): S31.000A - UNSP OPN WND LOW BACK AND PELV W/O PENET RETROPERITON, INIT SNOMED Code(s): 347335786 Plan: 1patient presented to hospital with worsening lower back pain drainage concerning for lumbar surgical site infection in this patient who did have a extensive lumbosacral spine surgery completed on 10/11/2023. 2local culture currently growing Enterobacter and E. coli, OR cultures currently growing enterobacter as well , blood cultures has been negative so far 3patient did have a PICC line placement currently waiting for outpatient IV antibiotic arrangement and placement 4patient continue with cefepime 2 g every 6 hours to finish a 6-week course of therapy and close outpatient follow-up Dictation was produced using [employer] dictation software. please excuse any grammatical, word or spelling errors. Time with Patient: Less than 30
[2023-11-16 01:44] VITALS: RESP 18
[2023-11-16 08:10] VITALS: BP 152/79; PULSE 80; TEMP 99.7
--- NOTE | 2023-11-16 08:59 | P.PN ---
Subjective Progress Note Date: 11/16/23 Principal diagnosis: Lumbar fluid collection; infection Lumbar spondylosis with stenosis BLE weakness Neurogenic claudication Patient seen and examined this morning. Patient is resting comfortably in bed. He reports his pain is controlled on current regimen. Surgical incision to the lumbar spine, dressing is CDI, No shadowing noted. Patient reports physical therapy was not in to see him yesterday. Patient continues to deny any blurred vision, headaches, or nausea/vomiting. Continue to encourage patient to be active today and to use incentive spirometer 10 times per hour while awake. Patient is cleared from an Orthopedic standpoint for discharge once patient is setup with Infusion therapy and bed is available at [facility]. Objective - Vital Signs Vital signs: Vital Signs Temp 99.7 F H 11/16/23 07:38 Pulse 80 11/16/23 07:38 Resp 18 11/16/23 07:38 BP 152/79 11/16/23 07:38 Pulse Ox 93 L 11/16/23 07:38 FiO2 21 11/15/23 21:23 Intake & Output 11/15/23 11/16/23 11/16/23 18:59 06:59 18:59 Intake Total 540 Output Total 1000 550 900 Balance -1000 -10 -900 Weight 124.738 kg Intake: Oral 540 Output: Urine 1000 550 900 Other: Voiding Method Incontinent Incontinent External Catheter External Catheter # Bowel Movements 1 3 - Exam Physical Examination General: The patient is awake and alert, in no acute distress Skin: Skin is warm and dry with no obvious rashes or lesions. Surgical incision to the lumbar spine, dressing is CDI, no shadowing noted. Eye: Pupils are equal, round and reactive to light, extra-ocular movements are intact; there is normal conjunctiva bilaterally. Neck: The neck is supple, there is no tenderness and ROM intact. Cardiovascular: There is a regular rate and rhythm. No murmur, rub or gallop is appreciated. Respiratory: Lungs are clear to auscultation, respirations are non-labored, breath sounds are equal. Gastrointestinal: Soft, non-distended, non-tender abdomen. Back: There is no tenderness to palpation in the midline, paralumbar, parathoracic or buttocks region. There is no obvious deformity . Musculoskeletal: ROM limited secondary to pain and stiffness from surgical procedure. Muscle strength in all major muscle groups of bilateral upper extremities 5/5, bilateral lower extremities 4-/5. Neurological: CN 2-12 intact. There are no obvious motor or sensory deficits. Movement and coordination equal and intact. Sensory exam to light touch intact C5-T1 and intact from L2-S1. Reflexes 2/4 in bilateral upper and lower extremities. Negative Hoffmans, babinski, and clonus signs. Psychiatric: Cooperative, appropriate mood & affect, normal judgment. - Labs CBC & Chem 7: 11/14/23 13:07 11/14/23 13:07 Labs: Microbiology - Last 24 Hours (Table) 11/09/23 21:57 Blood Culture - Final Blood Assessment and Plan Assessment: Postop day 6: Irrigation and debridement of the radical lumbar wound. Lumbar fluid collection; infection Lumbar spondylosis with stenosis BLE weakness Neurogenic claudication Plan: -Appreciate product safety consultant and team management. -Activity: Ambulate QID, OOB all meals, up and about, limit lifting bending twisting to less than 5 lbs. Use walker or cane if needed for stability. -Daily PT/OT, increase ambulation strength and balance. -Pain control: Adequate at this time -Meds: reviewed -GI ppx: senna, Miralax -DVT PPX: Mechanical, Heparin -Hygiene: Patient may shower. Allow soapy water to run over incision and pat dry. Maintain dressing clean and dry. Meticulous cleaning after BMs away from the incision site -Encourage IS 10x/hr -Dispo: Patient is cleared from an Orhtopedic standpoint for discharge when setup for Infusion therapy and bed is available at [facility] *I reviewed and discussed this case with my attending Dr. Chow, whom has reviewed this chart and films and is in agreement with assessment and plan of care as outlined above. I have personally seen and examined the patient, performed the documentation and the assessment and plan as written. Number of minutes spent on the visit: 20m
--- NOTE | 2023-11-16 10:50 | P.DS ---
Providers Date of admission: 11/07/23 23:51 Expected date of discharge: 11/16/23 Attending physician: El Chow DO Consults: 11/09/23 06:41 Consult Physician Urgent Consulting Provider: David Boyd Consult Reason/Comments: Antibiotic management post spinal surgery infection Do you want consulting provider notified?: Yes 11/09/23 08:43 Consult Physician Urgent Consulting Provider: Stu Nava Consult Reason/Comments: med mgmt, post op infection? Do you want consulting provider notified?: Yes Primary care physician: [facility] Course: Hospital Course: The patient was evaluated preoperatively and found to have the diagnosis of Lumbar fluid collection; infection They underwent appropriate preoperative care and were willing to undergo the intended procedure. They underwent a successful I&D of lumbar wound were recovered appropriately and sent to the floor. While on the floor they worked with physical therapy, occupational therapy and nursing to enhance their recovery experience. Their pain was well controlled through their stay and they were started on appropriate medications, DVT ppx modalities, activity and dietary needs. Daily labs were monitored closely, and transfusions were only used when necessary. Medicine as well as other consulting services have made their input and have helped with our team approach and multidisciplinary care. PT milestones have been met and passed and they have made the recommendation of subacute rehab for this patient and treating providers agree with this care path. The patient will be discharged home with appropriate medications, instructions and follow-up information and in stable condition. Patient Condition at Discharge: Good Plan - Discharge Summary Discharge Rx Participant: Yes New Discharge Prescriptions: New HYDROcodone/APAP 10-325MG [Belfry 10-325] 1 tab PO Q4-6H PRN #40 tab PRN Reason: Pain Cyclobenzaprine [Flexeril] 10 mg PO TID PRN #40 tab PRN Reason: Muscle Spasm Gabapentin 300 mg PO TID #90 cap Sennosides/Docusate Sodium [Senna Plus 8.6-50 mg Tablet] 1 each PO DAILY PRN #20 PRN Reason: Constipation No Action Amiodarone [Cordarone] 100 mg PO DAILY Atorvastatin [Lipitor] 20 mg PO HS Butalb/Acetaminophen/Caffeine [Fioricet 50-300-40 mg Capsule] 1 cap PO Q4HR PRN PRN Reason: Headache/Pain bisacodyL [Dulcolax] 10 mg PO DAILY PRN PRN Reason: Constipation Calcium Carbonate 1,000 mg PO Q4H PRN PRN Reason: INDIGESTION/HEARTBURN dilTIAZem HCL [dilTIAZem HCL 24Hr ER (CD)] 240 mg PO DAILY Muscle Rub External Cream 10-15% 1 applic TOPICAL Q4H PRN PRN Reason: GENERALIZED JOINT/MUSCLE PAIN Ferrous Sulfate [Feosol] 325 mg PO Q48H methocarbamoL 1,000 mg PO DAILY PRN PRN Reason: Muscle Spasm Tamsulosin [Flomax] 0.4 mg PO DAILY Cholecalciferol (Vitamin D3) [Vitamin D3 (50 Mcg = 2000 Iu)] 100 mcg PO DAILY Magnesium Hydroxide [Milk of Magnesia] 2,400 mg PO DAILY PRN PRN Reason: Constipation HYDROcodone/APAP 10-325MG [Belfry 10-325] 1 tab PO Q4H PRN PRN Reason: Pain Gabapentin 300 mg PO TID@0900,1300,2100 Sennosides/Docusate Sodium [Senna Plus 8.6-50 mg Tablet] 1 tab PO DAILY L.acidoph,Paracasei, B.lactis [Probiotic] 1 cap PO HS Aspirin EC [Ecotrin Low Dose] 81 mg PO DAILY Discharge Medication List Amiodarone [Cordarone] 100 mg PO DAILY 11/17/21 [History] Ferrous Sulfate [Feosol] 325 mg PO Q48H 04/20/23 [History] Tamsulosin [Flomax] 0.4 mg PO DAILY 04/20/23 [History] methocarbamoL 1,000 mg PO DAILY PRN 04/20/23 [History] Atorvastatin [Lipitor] 20 mg PO HS 10/05/23 [History] Cholecalciferol (Vitamin D3) [Vitamin D3 (50 Mcg = 2000 Iu)] 100 mcg PO DAILY 10/05/23 [History] Aspirin EC [Ecotrin Low Dose] 81 mg PO DAILY 11/08/23 [History] Butalb/Acetaminophen/Caffeine [Fioricet 50-300-40 mg Capsule] 1 cap PO Q4HR PRN 11/08/23 [History] Calcium Carbonate 1,000 mg PO Q4H PRN 11/08/23 [History] Gabapentin 300 mg PO TID@0900,1300,2100 11/08/23 [History] HYDROcodone/APAP 10-325MG [Belfry 10-325] 1 tab PO Q4H PRN 11/08/23 [History] L.acidoph,Paracasei, B.lactis [Probiotic] 1 cap PO HS 11/08/23 [History] Magnesium Hydroxide [Milk of Magnesia] 2,400 mg PO DAILY PRN 11/08/23 [History] Muscle Rub External Cream 10-15% 1 applic TOPICAL Q4H PRN 11/08/23 [History] Sennosides/Docusate Sodium [Senna Plus 8.6-50 mg Tablet] 1 tab PO DAILY 11/08/23 [History] bisacodyL [Dulcolax] 10 mg PO DAILY PRN 11/08/23 [History] dilTIAZem HCL [dilTIAZem HCL 24Hr ER (CD)] 240 mg PO DAILY 11/08/23 [History] Cyclobenzaprine [Flexeril] 10 mg PO TID PRN #40 tab 11/14/23 [Rx] Gabapentin 300 mg PO TID #90 cap 11/14/23 [Rx] HYDROcodone/APAP 10-325MG [Belfry 10-325] 1 tab PO Q4-6H PRN #40 tab 11/14/23 [Rx] Sennosides/Docusate Sodium [Senna Plus 8.6-50 mg Tablet] 1 each PO DAILY PRN #20 11/14/23 [Rx] Follow up Appointment(s)/Referral(s): Mendel Rosenthal MD [Primary Care Provider] - 1-2 days El Chow DO [Doctor of Osteopathic Medicine] - 10 Days Activity/Diet/Wound Care/Special Instructions: Spine Discharge and Recovery Instructions Date of Surgery: 11/10/2023 Diagnosis: lumbar fluid collection; infection Procedure: irrigation and debridement of lumbar wound Medications: See medication list All medication refills should be obtained through your primary care doctor or your clinic spine surgeon. Please discuss prescription refills at your follow up appointment. Do not call the hospital for medication refills. Activity: Encourage ambulation with assist of walker, Up and about 6-8x daily PT/OT daily work on balance, strength and mobility Up in chair with all meals Shower daily Brace: Use brace when up and about, do not wear in bed or shower Dressing: Leave your dressing in place for a total of 3 days post operatively. Then you may remove your dressing and leave open to air. Keep the area clean and if not able to keep area clean, then cover with sterile gauze and tape. Showering: You may shower 3 days after your procedure allowing soap and water to run over incision. Do not scrub. Do not soak. Blot dry. Follow up: Please confirm a follow up appointment with your surgeon 2 weeks post operatively. Please make an appointment to follow up with your PCP in 1-2 weeks after surgery for evaluation `3 phase, 3-week plan POST OP WEEKS 1-3 1. Lifting/carrying/pushing/pulling limited to less than 5 pounds. 2. Do not sit for longer than 15 minutes at one time. Get up and walk around. Prolonged sitting is NOT advised. If you lay down, see if you can tolerate laying down on you front (belly side) 3. Walk for periods of 15 minutes = 1 mile but no longer; do it multiple times times each day. 4. Ice your low back after activity. POST OP WEEKS 3-6 1. Lifting limited to less than 20 pounds. 2. Do not sit for longer than 30 minutes at a time. Frequently change positions. Use a sit-to stand workstation or take frequent breaks from sitting if you have returned to work. 3. Walk for 30 minutes each day. If possible, do these three or more times a day POST OP WEEKS 6+ At your 6-week appointment we will give you a physical therapy referral to focus on a core stabilization and strengthening program. You should also work on leg & buttock strengthening, hamstring & quadriceps stretching, and continue a low impact aerobic activity program such as swimming, walking, or riding a stationary bicycle. During the initial 6 weeks after your surgery, you are at the highest risk of re-injuring your spine. You should generally avoid BLTs (bending, lifting and twisting combination motions) and follow the above guidelines to reduce the chance of reinjury. You can anticipate post op appointments in our office at approximately 3 weeks and 6 weeks after your surgery. INCISION CARE: If your incision is not draining you do NOT need to cover it with a dressing. Keep your incision clean, dry and intact. In most cases, we apply skin glue, nimco or sutures to the incision at the time of surgery. This will be like a crust or have the appearance of a scab and will fall off in time on its own. The stitches or nimco need to be removed at 3 weeks post op appointment. You may begin to shower 3 days after surgery (this allows the glue to wolf well). However, please avoid scrubbing the incision site or peeling off any of the skin glue. This will ensure optimal healing of your incision. Also, during this time avoid soaking the incision area in water - this includes swimming pools, hot tubs or baths. No ointments, lotions or oils on the incision until your surgeon allows. Leave nimco, sutures or glue in place. Neurological dysfunction that comes on suddenly can also be a sign of a stroke. Below some common symptoms of a stroke are listed: B - balance difficulty such as sudden onset walking or leaning to one side - NEW E - eye problem such as sudden double vision or trouble seeing on one side - NEW F - Facial weakness or numbness on one side - NEW A - Arm or leg weakness or numbness on one side - NEW S - Slurred speech or difficulty with word finding - NEW T - Time is BRAIN! Call 911 as soon as you recognize these symptoms Diet: Consume a regular diet rich in vegetables and lean protein such as chicken or fish. You should consume in a ratio of approximately 20% fats|40% carbohydrates|40%protein. Vegetables, sweet potatoes, brown rice or quinoa are examples of good carbohydrates. Chips, white bread, cookies and sweets/sugar are examples of bad carbohydrates. Limit your bad carbs, go wild with good carbs. "Life's Simple 7" Guidelines as per [place] [employer] These will help you reclaim your life after surgery and sheet rock taper helper in your recovery, keeping in mind your restrictions. (1) Get Active. Physical activity can help people lose weight, control high blood pressure and cholesterol, feel emotionally better, and sleep better. (2) Control Cholesterol. Avoid a diet high in saturated fat, trans fat, & cholesterol. Limit whole milk & cream, ice cream, butter, egg yolks, processed meats (like sausage and hot dogs), and fatty meats. Choose healthy foods that are low in saturated fat, trans fat and cholesterol which include: Fruits and vegetables, fiber rich grain products (like whole grain pasta and brown rice), lean meat such as chicken, fish, nuts, seeds, and legumes. (3) Eat Better. Eat small portions. Shop at the grocery with a list and do not stray from it. Tips for a healthy diet include: Limit sodium intake to less than 1500mg daily, avoid prepackaged, processed, and fast foods, choose a diet rich in fruits, vegetables, and whole grain, high fiber foods, and limit saturated & cholesterol in your diet. (4) Manage Blood Pressure. If you have high blood pressure, you should have a cuff at home so that you can check your blood pressure regularly. Be sure you have a good cuff. An arm one is generally better than a wrist one. Bring the cuff to a doctor's appointment to validate that the measurements that your cuff are taking are accurate. Take your blood pressure twice daily when you are sitting down and relaxing. Record the numbers in a log and bring this log with you to your doctors' appointments. (5) Lose Weight if your BMI is above 25. A healthy BMI is between 19-25. To calculate Your BMI, you may use a Standard BMI Calculator on the NIH BMI website: <www.nhlbi.nih.gov/guidelines/obesity/BMI/bmicalc.htm>. Weigh oneself daily. If you are overweight, set a goal to lose weight. A pound a week loss if needed is a good target. (6) Reduce Blood Sugar. Limit foods and liquids with "added sugars." (Added sugars include sucrose, fructose, glucose, maltose, dextrose, high fructose corn syrup, corn syrup, concentrated fruit juice and honey). (7) Stop Smoking. If you smoke, quitting smoking is one of the best things that you can do for your health. Smoking increases your risk of heart attack, stroke, and peripheral vascular disease, which is a build-up of plaque in your arteries. Please discard all the cigarettes and lighters in your house. Have a plan for what you will do when you have the urge to smoke. Direct and second- hand smoke shortens your life as well as the lives of your family, friends and others around you. For your health and the health of those around you, please consider quitting! Proper Bending Body Mechanics: Maintain a wide stance with one foot slightly in front of the other. Keep your back straight. Bend utilizing the strength in your hips and knees. Do not bend at the waist. Maintain the lifted object at your waist-level close to your body. Avoid lifting weight that causes immediately pain or pain anywhere in the body afterwards. Smoking/Nicotine If there was ever one thing that you could do to increase your overall health, decrease your risk of cardiovascular problems by about 39% the second you make the choice, it is to STOP SMOKING. Your body's most instant gratification is the second you stop smoking. We have all heard the studies, read the articles but it is true, smoking is extremely bad for your overall health, and moreover it is detrimental to your bone health. Nicotine, IN ANY FORM, kills bone cells, prevents your body from healing fractures, and significantly prolongs healing after surgery. In spine surgery specifically, it increases your risk of not healing your bones to create a fusion and increases your risk of having a revision surgery due to this up to 60%. I know it is hard. I know it feels impossible. But there are ways. Take control of your life. We are here to help you through it. And when you are ready, ask us and we can direct you to help if you desire. Use the START Plan to Quit Smoking (please visit the Helpguide.org website listed below for more information): S = Set a quit date. Choose a date within the next 2 weeks, so you have enough time to prepare without losing your motivation to quit. If you mainly smoke at work, quit on the weekend, so you have a few days to adjust to the change. T = Tell family, friends, and co-workers that you plan to quit. Let your friends and family in on your plan to quit smoking and tell them you need their support and encouragement to stop. Look for a quit irma who wants to stop smoking as well. You can help each other get through the rough times. A = Anticipate and plan for the challenges you'll face while quitting. Most people who begin smoking again do so within the first 3 months. You can help yourself make it through by preparing ahead for common challenges, such as nicotine withdrawal and cigarette cravings. R = Remove cigarettes and other tobacco products from your home, car, and work. Throw away all your cigarettes (no emergency pack!), lighters, ashtrays, and matches. Wash your clothes and freshen up anything that smells like smoke. Shampoo your car, clean your drapes and carpet, and steam your furniture. T = Talk to your doctor about getting help to quit. Your doctor can prescribe medication to help with withdrawal and suggest other alternatives. If you can't see a doctor, you can get many products over the counter at your local pharmacy or grocery store, including the nicotine patch, nicotine lozenges, and nicotine gum. Resources for Quitting Smoking: <https://www.[place].gov/documents/[facility]/Quit_Tobacco_Resources_for_patient s_313480_7.pdf> Supplementation: Take recommended dosages of Vitamin D and Calcium to help fortify your bones and help them to heal. See your health maintenance packet for dosages and recommen ded levels. DVT/VTE prophylaxis: You will be given compression stockings from the hospital. Wear these daily for the first two weeks after surgery. You may take them off at night. You may be prescribed a medication to help thin your blood. Take this as directed. If you are not prescribed this medication, early and frequent ambulation has been shown to be the best prophylaxis to deep vein thrombosis and sequelae related to this event. Discharge Disposition: TRANSFER TO SNF/ECF
--- NOTE | 2023-11-16 21:51 | P.PN ---
Progress Note - Text Progress Note Date: 11/16/23 63-year-old male was transferred from another facility for infected back. Lactic acid is elevated to 7.2. White count is elevated patient had a recent back surgery surgical site area appears to be infected. Patient was started on cefazolin with infectious disease consultation and patient will go for incision and drainage by orthopedic surgery because of continued wound drainage and suspicion of infection. 11/09/2023 Patient is seen in follow-up today currently awaiting a PICC line with in fectious disease following along with orthopedics. Plan is for washout with deep cultures on 11/10/2023. Patient is afebrile with no reported chest pain or shortness of breath. Patient continues to report some incisional discomfort of the back and is maintained on current pain management regimen per orthopedics. Patient will need PT/OT therapy evaluation and discussion of possible ECF. Plan is for outpatient PICC line and IV antibiotics per infectious disease recommendations. Awaiting finalized cultures. Preliminary is showing gram- negative bacilli at this time. Blood cultures are negative. November 09: Patient went I&D by Dr. Chow today. Dressing in place. No drain. Some pain present. On IV Ancef and IV cefepime. November 10: Laying in bed. Some pain present. Eating about 50%. Continues on antibiotics. Prior to surgery was just able to stand and rehab. No fever. November 11: In bed. Pain fairly controlled. Eating fair. No bowel movement. On IV antibiotics. IV cefepime. Wound cultures noted. November 12: In bed. Pain well-controlled. Eating good. No BM. Getting laxatives. Remains on IV antibiotics. Getting IV Ferrlecit. November 13: Pain better. Sat at the edge of the bed today. No bowel movement. Dulcolax suppository ordered. Getting IV antibiotics. Eating fair. November 14: Had a very small BM yesterday. With Dulcolax suppository. Soap suds enema ordered. Feeling slight abdominal distention. Eating fair. No nausea vomiting. November 15: Patient had a good response to enema yesterday. Tolerating diet. Feeling better. Patient getting discharged to rehab at [facility]. Still requiring assist. On examination: VITAL SIGNS: 99.7, 80, 18, 152 x 79, 93% room air GENERAL APPEARANCE: Resting in bed, comfortable HEENT: Normal external appearance of nose and ear. Oral cavity normal EYES: Pupils equal. Conjunctiva normal. NECK: JVD not raised. Mass not palpable. RESPIRATORY: Respiratory effort normal. Lungs clear to auscultation. CARDIOVASCULAR: First and second sounds normal. No edema. ABDOMEN: Soft. Liver and spleen not palpable. No tenderness. No mass palpable. PSYCHIATRY: Alert and oriented x3. Mood and affect normal. MUSCULOSKELETAL: Dressing over the operative site NEUROLOGICAL: Able to use his arms well. Bilateral lower extremity:.-Power 2- 3/5 INVESTIGATIONS, reviewed in the clinical context: November 13: White count 7.6 hemoglobin 9.1 potassium 4 creatinine 0.38 November 10: White count 9.4 hemoglobin 8.3 platelets 351 potassium 4.6 creatinine 0.4 November 08: White count 7.9 hemoglobin 9 platelets 304 sodium 136 potassium 3.9 creatinine 0.38 CRP 13.8 albumin 2.2 Wound culture [November 06] Enterobacter cloacae, E. coli Assessment and plan -Acute infected surgical site area in the lumbar area with I&D today on November 09, by Dr. Chwo Wound cultures have been positive for Enterobacter cloacae and E. coli IV cefepime.-2 g every 8 total of 120 doses upon discharge per ID -Postop constipation. Abdomen soft. Likely from pain medications Soapsuds enema had a fair response to BM -Paroxysmal atrial fibrillation Amiodarone 100 mg a day. Not on anticoagulation -Acute postprocedure blood loss anemia expected from surgery IV Ferrlecit given -Medical debility. Prior to this admission patient was just able to stand. Was not really ambulating Going to [facility] for rehab -Hard of hearing Hearing aids bilateral -Hyperlipidemia Lipitor 20 mg nightly -Hypertension Cardizem CD, 240 mg a day -Obstructive sleep apnea CPAP Obesity with a BMI of 39.5 Weight loss measures Full code Thank you. Discussed with patient
--- NOTE | 2023-11-18 15:14 | P.PN ---
Subjective Progress Note Date: 11/16/23 Principal diagnosis: Reason for follow-up is lumbar surgical site infection Patient is status post surgical drainage of his lumbar abscess procedure completed on 11/10/2023 as well as deep culture. status post I&D and excisional debridement lumbar spine skin soft tissue muscle and wound with a drainage of an abscess procedure completed on 11/10/2023 On today's evaluation that is 11/16/2023, Patient is afebrile this morning and denies any chills, patient mention breathing comfortably and is currently on room air, patient denies any chest pain occasional cough patient denies any abdominal pain no diarrhea no nausea no vomiting, mention overall back pain has decreased intensity. No new labs has been repeated today culture from the back growing Enterobacter anaerobe culture negative Objective - Vital Signs Vital signs: Vital Signs Temp 99.7 F H 11/16/23 07:38 Pulse 80 11/16/23 07:38 Resp 18 11/16/23 07:38 BP 152/79 11/16/23 07:38 Pulse Ox 93 L 11/16/23 07:38 FiO2 21 11/15/23 21:23 Intake & Output 11/15/23 11/16/23 11/16/23 18:59 06:59 18:59 Intake Total 540 Output Total 1000 550 900 Balance -1000 -10 -900 Weight 124.738 kg Intake: Oral 540 Output: Urine 1000 550 900 Other: Voiding Method Incontinent Incontinent Incontinent External Catheter External Catheter External Catheter # Bowel Movements 1 3 - Exam GENERAL DESCRIPTION: Middle-age male lying in bed in no distress RESPIRATORY SYSTEM: Unlabored breathing , decreased breath sounds at bases HEART: S1 S2 regular rate and rhythm , ABDOMEN: Soft , no tenderness EXTREMITIES: No edema feet - Labs CBC & Chem 7: 11/14/23 13:07 11/14/23 13:07 Assessment and Plan (1) Surgical site infection Status: Acute Code(s): T81.49XA - INFECTION FOLLOWING A PROCEDURE, OTHER SURGICAL SITE, INIT SNOMED Code(s): 73633404 (2) Penicillin allergy Status: Acute Code(s): Z88.0 - ALLERGY STATUS TO PENICILLIN SNOMED Code(s): 89924046 (3) Lumbar surgical wound fluid collection Status: Acute Priority: Medium Onset Date: ~11/06/23 Code(s): T81.89XA - OTH COMPLICATIONS OF PROCEDURES, NEC, INIT SNOMED Code(s): 438072668 (4) Open wound of lumbar region Status: Acute Code(s): S31.000A - UNSP OPN WND LOW BACK AND PELV W/O PENET RETROPERITON, INIT SNOMED Code(s): 615879010 Plan: 1patient presented to hospital with worsening lower back pain drainage concerning for lumbar surgical site infection in this patient who did have a extensive lumbosacral spine surgery completed on 10/11/2023. 2local culture currently growing Enterobacter and E. coli, OR cultures currently growing enterobacter as well , blood cultures has been negative so far 3patient did have a PICC line placement plan is for cefepime 2 g every 8 hours to finish a 6-week course of therapy with weekly monitoring of CRP and sed rate and close outpatient follow-up Dictation was produced using [employer] dictation software. please excuse any grammatical, word or spelling errors.
--- NOTE | 2023-11-18 16:49 | CDI ---
Documentation Clarification Form Date: 11/18/2023 04:23:49 PM From: Mariel Christensen RN, CCDS Phone: [phone] Admit Date: 11/07/2023 11:51:00 PM Patient Name: Bryn Chicas Visit Number: [id number] Discharge Date: 11/16/2023 04:30:00 PM ATTENTION: The Clinical Documentation Specialists (CDI) and [facility] Coding Staff appreciate your assistance in clarifying documentation. Please respond to the clarification below the line at the bottom and electronically sign. The CDI & [facility] Coding staff will review the response and follow-up if needed. Please note: Queries are made part of the Legal Health Record. If you have any questions, please contact the author of this message via ITS. Dr. El Chow The patient had post spinal surgery infection. Based on this information and the findings below, is there an additional diagnosis that is clinically appropriate for this patient? Patient history/risk factors: from the H&P: 63-year-old male presents to the ED as a transfer from [facility]. Patient was seen there regarding problems with his back. Patient did have surgery 3 weeks ago. Patient had decompression and fusion of T12 to his pelvis. Patient has been having drainage, now somewhat purulent. Clinical Indicators: 11/07 CT Lumbar spine: There is subcutaneous gas along the surgical site with layering fluid and fluid collection. Gas tracks approximately 10.9 cm in caudocranial dimension with fluid collection. Impression: Surgical bed suspected infection with gas and fluid collection present concerning for abscess. Surgical consultation recommended. 11/09 Procedure: "knife used to excise sinus tract and skin as well as fascia and necrotic soft tissues. Rongeur used to remove and debride soft tissues and bone and remove necrotic tissues and bone." Treatment: s/p irrigation and debridement of lumbar wound on 11/09; IV Kefzol 2gm Q8H 11/07-11/08; IV Kefzol 3gm x1 on 11/08; IV Kefzol 3gm x3 bags on 11/09-11/10; IV Cefepime 2gm Q8H 11/08-11/15 Is there an additional diagnosis that is clinically appropriate for this patient? [ ] Gas gangrene [ ] CT findings not clinically significant [ ] Unable to determine [ ] Other, please specify None as above. Pt had surgical bed abscess with open wound. CT findings are due to open wound not gangrene. Necrotic tissues are due to the proximity to large surgery and the normal collateral damage from this as well as the abscess but are not out of the ordinary. MTDD
== END 2023-11-16 16:30 | DRG 711 ==
LOC: EC 20:12 → 4SSUR 23:50 → OBSVTOIN 23:51 → 4SSUR 11-08 17:32
PROVIDERS: ADMIT Orthopaedic Surgery; ATTEND Orthopaedic Surgery
PROC: 0QP004Z Removal of Internal Fixation Device from Lumbar Vertebra, Open Approach (ICD-10-PCS; 2023-11-10)
PROC: 3E0102A Introduction of Anti-Infective Envelope into Subcutaneous Tissue, Open Approach (ICD-10-PCS; 2023-11-10)
PROC: 0QB00ZZ Excision of Lumbar Vertebra, Open Approach (ICD-10-PCS; principal; 2023-11-10 08:30)
DX: T81.41XA Infection following a procedure, superficial incisional surgical site, initial encounter (principal); M48.061 Spinal stenosis, lumbar region without neurogenic claudication; B96.20 Unspecified Escherichia coli [E. coli] as the cause of diseases classified elsewhere; D62 Acute posthemorrhagic anemia; E03.9 Hypothyroidism, unspecified; E66.9 Obesity, unspecified; Z68.39 Body mass index [BMI] 39.0-39.9, adult; E78.5 Hyperlipidemia, unspecified; E87.6 Hypokalemia; F32.A Depression, unspecified; R74.02 Elevation of levels of lactic acid dehydrogenase [LDH]; G47.33 Obstructive sleep apnea (adult) (pediatric); H91.90 Unspecified hearing loss, unspecified ear; I10 Essential (primary) hypertension; I48.0 Paroxysmal atrial fibrillation; K59.09 Other constipation; M47.816 Spondylosis without myelopathy or radiculopathy, lumbar region; M19.90 Unspecified osteoarthritis, unspecified site; Z79.82 Long term (current) use of aspirin; Z79.899 Other long term (current) drug therapy; Z86.718 Personal history of other venous thrombosis and embolism; Z88.0 Allergy status to penicillin; Z96.643 Presence of artificial hip joint, bilateral; Z97.4 Presence of external hearing-aid; Z98.1 Arthrodesis status
CPT/HCPCS: 36573; 71045; 72131; 80048; 80053; 85025; 85027; 85652; 86140; 87040; 87070; 87075; 87077; 87186; 87205; 94660; 96365; 96366; 96367; 96368; 96375; 96376; 99285

== ENCOUNTER → 2023-12-27 | Outpatient (CLI) | payer OTHER | END | disposition home or self-care (01) | LOC: LABPRL 13:00 | PROVIDERS: ATTEND Family Medicine | DX: T81.49XA Infection following a procedure, other surgical site, initial encounter (principal); Y82.9 Unspecified medical devices associated with adverse incidents | CPT/HCPCS: 80053; 82550; 85025; 85652; 86140 ==